=== PATIENT | male | born 1940 | race Caucasian/White ===

== ENCOUNTER 2016-11-21 07:04 | Outpatient (CLI) | payer MEDICARE, OTHER | END 2016-11-21 07:05 | disposition home or self-care (01) | DX: I10 Essential (primary) hypertension (principal); E78.6 Lipoprotein deficiency; N40.0 Benign prostatic hyperplasia without lower urinary tract symptoms; Z79.899 Other long term (current) drug therapy ==

== ENCOUNTER 2017-05-04 07:40 | Outpatient (CLI) | payer MEDICARE, OTHER ==
[2017-05-04 08:09] LABS: HCT - HEMATOCRIT 41.3 % (42.0-52.0); HGB - HEMOGLOBIN 14.3 g/dL (14.0-18.0); MEAN CORPUSCULAR HEMOGLOBIN 31.8 pg (27.0-31.0); MEAN CORPUSCULAR HGB CONC 34.5 g/dL (32.0-36.0); MEAN CORPUSCULAR VOLUME 92.1 fL (80.0-94.0); MEAN PLATELET VOLUME 8.5 fL (7.4-11.4); RED BLOOD COUNT 4.49 10^6/uL (4.70-6.10); RED CELL DISTRIBUTION WIDTH 14.3 % (12.0-15.0)
[2017-05-04 08:45] LABS: ALBUMIN/GLOBULIN RATIO 1.4 (1.0-2.2); BILIRUBIN,TOTAL 2.1 mg/dL (0.2-1.0); BUN - BLOOD UREA NITROGEN 19 mg/dL (6-20); CALCIUM 8.8 mg/dL (8.5-10.3); CARBON DIOXIDE - CO2 25 mmol/L (21-32); CHLORIDE 96 mmol/L (101-111); CHOL/HDL RATIO 2.9 (<5.0); CHOLESTEROL 149 mg/dL; GFR - MDRD 72 (>89); GLUCOSE 99 mg/dL (70-100); HDL CHOLESTEROL 51 mg/dL; POTASSIUM 3.9 mmol/L (3.5-5.0); SODIUM 128 mmol/L (135-145); TOTAL PROTEIN 6.5 g/dL (6.7-8.2); TRIGLYCERIDES 37 mg/dL
[2017-05-04 10:19] LABS: LDL CHOLESTEROL,DIRECT 80 mg/dL
== END 2017-05-04 07:41 | disposition home or self-care (01) ==
LOC: LAB 07:40
PROVIDERS: ATTEND Internal Medicine
DX: Z79.899 Other long term (current) drug therapy (principal); I48.91 Unspecified atrial fibrillation; I10 Essential (primary) hypertension; E89.0 Postprocedural hypothyroidism; D69.6 Thrombocytopenia, unspecified
CPT/HCPCS: 36415; 80053; 80061; 84443

== ENCOUNTER 2017-05-14 07:20 | Outpatient (CLI) | payer MEDICARE, OTHER ==
[2017-05-14 07:47] LABS: HCT - HEMATOCRIT 43.3 % (42.0-52.0); HGB - HEMOGLOBIN 14.9 g/dL (14.0-18.0); MEAN CORPUSCULAR HEMOGLOBIN 31.5 pg (27.0-31.0); MEAN CORPUSCULAR HGB CONC 34.3 g/dL (32.0-36.0); MEAN CORPUSCULAR VOLUME 91.8 fL (80.0-94.0); MEAN PLATELET VOLUME 8.9 fL (7.4-11.4); RED BLOOD COUNT 4.72 10^6/uL (4.70-6.10); WHITE BLOOD COUNT 3.4 x10^3/uL (4.8-10.8)
[2017-05-14 07:56] LABS: CALCIUM 9.1 mg/dL (8.5-10.3); CREATININE 0.9 mg/dL (0.6-1.2); MAGNESIUM 1.9 mg/dL (1.7-2.8); POTASSIUM 3.9 mmol/L (3.5-5.0)
[2017-05-14 08:39] LABS: THYROID STIMULATING HORMONE 1.78 uIU/mL (0.34-5.60)
== END 2017-05-14 07:21 | disposition home or self-care (01) ==
LOC: LAB 07:20
PROVIDERS: ATTEND Internal Medicine
DX: E89.0 Postprocedural hypothyroidism (principal); I10 Essential (primary) hypertension; E87.1 Hypo-osmolality and hyponatremia
CPT/HCPCS: 36415; 80048; 83735; 84439; 84443

== ENCOUNTER 2017-09-04 07:02 | Outpatient (CLI) | payer MEDICARE, OTHER ==
--- NOTE | 2017-09-04 12:25 | XRAY Report ---
TWO VIEW CHEST: 09/04/2017 CLINICAL INDICATION: Atrial fibrillation. COMPARISON: 03/27/2015. FINDINGS: Frontal and lateral views of the chest demonstrate a cardiac silhouette at the upper limits of normal. The lungs remain hyperinflated. No focal consolidation, effusion, or pneumothorax is present. IMPRESSION: HYPERINFLATION, BUT NO EVIDENCE OF ACUTE CARDIOPULMONARY DISEASE. TD: 09/04/2017 12:25
--- NOTE | 2017-09-04 12:27 | XRAY Report ---
THREE VIEW LUMBAR SPINE: 09/04/2017 CLINICAL INDICATION: Low back pain. FINDINGS: AP, lateral and coned down views of the lumbar spine demonstrate remote anterior wedge compression deformity of L1, with approximately 30% anterior height loss. Moderate to severe degenerative disk and facet disease is present. There is no subluxation. The bowel gas pattern appears unremarkable. IMPRESSION: MODERATE TO SEVERE DEGENERATIVE DISK AND FACET DISEASE, WITH A REMOTE L1 COMPRESSION DEFORMITY. NO EVIDENCE OF ACUTE FRACTURE. TD: 09/04/2017 12:26
== END 2017-09-04 07:03 | disposition home or self-care (01) ==
LOC: DI 07:02
PROVIDERS: ATTEND Internal Medicine
DX: M51.36 Other intervertebral disc degeneration, lumbar region (principal); M47.896 Other spondylosis, lumbar region; I48.91 Unspecified atrial fibrillation; I10 Essential (primary) hypertension; N40.0 Benign prostatic hyperplasia without lower urinary tract symptoms; J44.9 Chronic obstructive pulmonary disease, unspecified; E89.0 Postprocedural hypothyroidism
CPT/HCPCS: 36415; 71046; 72100; 80053; 80061; 81003; 83721; 84443; 85027; G0103; 84153

== ENCOUNTER 2017-09-04 07:06 | Outpatient (CLI) | payer MEDICARE, OTHER ==
[2017-09-04 07:43] LABS: HGB - HEMOGLOBIN 15.2 g/dL (14.0-18.0); MEAN CORPUSCULAR HEMOGLOBIN 31.7 pg (27.0-31.0); MEAN CORPUSCULAR HGB CONC 34.9 g/dL (32.0-36.0); MEAN CORPUSCULAR VOLUME 90.9 fL (80.0-94.0); MEAN PLATELET VOLUME 8.7 fL (7.4-11.4); RED BLOOD COUNT 4.8 10^6/uL (4.70-6.10); RED CELL DISTRIBUTION WIDTH 13.5 % (12.0-15.0); WHITE BLOOD COUNT 3.1 x10^3/uL (4.8-10.8)
[2017-09-04 07:55] LABS: BILIRUBIN,URINE NEGATIVE (NEGATIVE); CLARITY,URINE CLEAR (CLEAR); GLUCOSE, URINE (UA) NEGATIVE (NEGATIVE); KETONES,URINE (UA) NEGATIVE (NEGATIVE); LEUKOCYTE ESTERASE, URINE NEGATIVE (NEGATIVE); NITRITE,URINE NEGATIVE (NEGATIVE); OCCULT BLOOD,URINE TRACE-LYSE (NEGATIVE); PROTEIN,URINE TRACE mg/dL (NEGATIVE); UROBILINOGEN,URINE 0.2 (NORMAL) E.U./dL (NORMAL)
[2017-09-04 08:04] LABS: ALBUMIN 4.1 g/dL (3.2-5.5); ALBUMIN/GLOBULIN RATIO 1.4 (1.0-2.2); ALKALINE PHOSPHATASE 63 IU/L (42-121); ALT ALANINE AMINOTRANSFERASE 17 IU/L (10-60); AST ASPARTATE AMINOTRANSFERASE 21 IU/L (10-42); BUN - BLOOD UREA NITROGEN 16 mg/dL (6-20); CALCIUM 9.1 mg/dL (8.5-10.3); CARBON DIOXIDE - CO2 26 mmol/L (21-32); CHLORIDE 99 mmol/L (101-111); CHOL/HDL RATIO 3.2 (<5.0); CHOLESTEROL 155 mg/dL; CREATININE 1.1 mg/dL (0.6-1.2); GFR - MDRD 65 (>89); GLUCOSE 92 mg/dL (70-100); HDL CHOLESTEROL 49 mg/dL; SODIUM 134 mmol/L (135-145)
[2017-09-04 08:22] LABS: LDL CHOLESTEROL,DIRECT 96 mg/dL
== END 2017-09-04 07:07 | disposition home or self-care (01) ==
LOC: LAB 07:06
PROVIDERS: ATTEND Internal Medicine
DX: I10 Essential (primary) hypertension (principal); N40.0 Benign prostatic hyperplasia without lower urinary tract symptoms; E89.0 Postprocedural hypothyroidism; Z79.899 Other long term (current) drug therapy; J44.9 Chronic obstructive pulmonary disease, unspecified
CPT/HCPCS: 36415; 80053; 80061; 81003; 83721; 84443; 85027; G0103; 84153

== ENCOUNTER 2017-12-10 07:15 | Outpatient (CLI) | payer MEDICARE, OTHER ==
[2017-12-10 07:50] LABS: ALBUMIN 4.1 g/dL (3.2-5.5); ALBUMIN/GLOBULIN RATIO 1.5 (1.0-2.2); BILIRUBIN,TOTAL 2.7 mg/dL (0.2-1.0); CALCIUM 8.8 mg/dL (8.5-10.3); CREATININE 1.1 mg/dL (0.6-1.2); TOTAL PROTEIN 6.9 g/dL (6.7-8.2)
[2017-12-10 08:03] LABS: BILIRUBIN,URINE NEGATIVE (NEGATIVE); GLUCOSE, URINE (UA) NEGATIVE (NEGATIVE); KETONES,URINE (UA) NEGATIVE (NEGATIVE); LEUKOCYTE ESTERASE, URINE NEGATIVE (NEGATIVE); NITRITE,URINE NEGATIVE (NEGATIVE); OCCULT BLOOD,URINE NEGATIVE (NEGATIVE); PROTEIN,URINE TRACE mg/dL (NEGATIVE); UROBILINOGEN,URINE 0.2 (NORMAL) E.U./dL (NORMAL)
[2017-12-10 08:15] LABS: CLARITY,URINE CLEAR (CLEAR)
[2017-12-10 08:16] LABS: HGB - HEMOGLOBIN 14.7 g/dL (14.0-18.0); MEAN CORPUSCULAR HEMOGLOBIN 31.7 pg (27.0-31.0); MEAN CORPUSCULAR HGB CONC 34.5 g/dL (32.0-36.0); MEAN CORPUSCULAR VOLUME 91.8 fL (80.0-94.0); MEAN PLATELET VOLUME 9.4 fL (7.4-11.4); RED BLOOD COUNT 4.65 10^6/uL (4.70-6.10); RED CELL DISTRIBUTION WIDTH 14.1 % (12.0-15.0)
[2017-12-10 08:39] LABS: T4 (THYROXINE) 10.04 ug/dL (6.09-12.23)
[2017-12-10 08:41] LABS: THYROID STIMULATING HORMONE 1.28 uIU/mL (0.34-5.60)
== END 2017-12-10 07:16 | disposition home or self-care (01) ==
LOC: LAB 07:15
PROVIDERS: ATTEND Internal Medicine
DX: I10 Essential (primary) hypertension (principal); E89.0 Postprocedural hypothyroidism; Z79.899 Other long term (current) drug therapy
CPT/HCPCS: 36415; 80053; 81003; 82607; 83735; 84436; 84443; 85027

== ENCOUNTER 2017-12-18 09:49 | Outpatient (CLI) | payer MEDICARE, OTHER | END 2017-12-18 09:50 | disposition home or self-care (01) | LOC: LAB 09:49 | PROVIDERS: ATTEND Internal Medicine | DX: E87.1 Hypo-osmolality and hyponatremia (principal); E89.0 Postprocedural hypothyroidism | CPT/HCPCS: 36415; 80048 ==

== ENCOUNTER 2018-01-05 07:21 | Outpatient (CLI) | payer MEDICARE, OTHER | END 2018-01-05 07:22 | disposition home or self-care (01) | LOC: LAB 07:21 | PROVIDERS: ATTEND Internal Medicine | DX: E87.1 Hypo-osmolality and hyponatremia (principal); E89.0 Postprocedural hypothyroidism | CPT/HCPCS: 36415; 80048 ==

== ENCOUNTER 2018-01-18 07:45 | Outpatient (CLI) | payer MEDICARE, OTHER ==
[2018-01-18 08:03] LABS: CALCIUM 8.8 mg/dL (8.5-10.3)
== END 2018-01-18 07:46 | disposition home or self-care (01) ==
LOC: LAB 07:45
PROVIDERS: ATTEND Internal Medicine
DX: E87.1 Hypo-osmolality and hyponatremia (principal); E89.0 Postprocedural hypothyroidism; I10 Essential (primary) hypertension
CPT/HCPCS: 36415; 80048

== ENCOUNTER 2018-02-15 09:36 | Outpatient (CLI) | payer MEDICARE, OTHER ==
[2018-02-15 10:04] LABS: CALCIUM 8.9 mg/dL (8.5-10.3); CREATININE 1.1 mg/dL (0.6-1.2)
== END 2018-02-15 09:37 | disposition home or self-care (01) ==
LOC: LAB 09:36
PROVIDERS: ATTEND Internal Medicine
DX: E87.1 Hypo-osmolality and hyponatremia (principal); I10 Essential (primary) hypertension; Z79.899 Other long term (current) drug therapy
CPT/HCPCS: 36415; 80048

== ENCOUNTER 2018-03-15 08:57 | Outpatient (CLI) | payer MEDICARE, OTHER ==
[2018-03-15 09:34] LABS: CALCIUM 9.2 mg/dL (8.5-10.3); CREATININE 1.1 mg/dL (0.6-1.2)
== END 2018-03-15 08:58 | disposition home or self-care (01) ==
LOC: LAB 08:57
PROVIDERS: ATTEND Internal Medicine
DX: E87.1 Hypo-osmolality and hyponatremia (principal); I10 Essential (primary) hypertension; Z79.899 Other long term (current) drug therapy
CPT/HCPCS: 36415; 80048

== ENCOUNTER 2018-04-13 08:59 | Outpatient (CLI) | payer MEDICARE, OTHER ==
[2018-04-13 09:26] LABS: CALCIUM 9.2 mg/dL (8.5-10.3); CREATININE 0.9 mg/dL (0.6-1.2)
== END 2018-04-13 09:00 | disposition home or self-care (01) ==
LOC: LAB 08:59
PROVIDERS: ATTEND Internal Medicine
DX: E87.1 Hypo-osmolality and hyponatremia (principal); I10 Essential (primary) hypertension; Z79.899 Other long term (current) drug therapy
CPT/HCPCS: 36415; 80048

== ENCOUNTER 2018-06-28 10:39 | Outpatient (CLI) | payer MEDICARE, OTHER ==
[2018-06-28 11:43] LABS: CALCIUM 8.7 mg/dL (8.5-10.3)
== END 2018-06-28 10:40 | disposition home or self-care (01) ==
LOC: LAB 10:39
PROVIDERS: ATTEND Internal Medicine
DX: E87.1 Hypo-osmolality and hyponatremia (principal); I10 Essential (primary) hypertension; Z79.899 Other long term (current) drug therapy
CPT/HCPCS: 36415; 80048

== ENCOUNTER 2018-07-02 09:54 | Outpatient (CLI) | payer MEDICARE, OTHER ==
[2018-07-02 10:18] LABS: CALCIUM 8.9 mg/dL (8.5-10.3)
== END 2018-07-02 09:55 | disposition home or self-care (01) ==
LOC: LAB 09:54
PROVIDERS: ATTEND Internal Medicine
DX: E87.1 Hypo-osmolality and hyponatremia (principal); I10 Essential (primary) hypertension; Z79.899 Other long term (current) drug therapy
CPT/HCPCS: 36415; 80048

== ENCOUNTER 2018-09-20 11:07 | Outpatient (CLI) | payer OTHER | END 2018-09-20 11:08 | disposition home or self-care (01) | LOC: SC 11:07 | PROVIDERS: ATTEND Internal Medicine Pulmonary Disease | DX: G47.33 Obstructive sleep apnea (adult) (pediatric) (principal) | CPT/HCPCS: 99203; 99212 ==

== ENCOUNTER 2018-09-28 20:19 | Outpatient (CLI) | payer MEDICARE | END 2018-09-28 20:20 | disposition home or self-care (01) | LOC: SC 20:19 | PROVIDERS: ATTEND Internal Medicine Pulmonary Disease | DX: G47.33 Obstructive sleep apnea (adult) (pediatric) (principal); I48.91 Unspecified atrial fibrillation | CPT/HCPCS: 95810 ==

== ENCOUNTER 2018-10-06 14:42 | Outpatient (CLI) | payer MEDICARE | END 2018-10-06 14:43 | disposition home or self-care (01) | LOC: SC 14:42 | PROVIDERS: ATTEND Nurse Practitioner Family | DX: G47.33 Obstructive sleep apnea (adult) (pediatric) (principal); I48.91 Unspecified atrial fibrillation | CPT/HCPCS: 99215; G0463; 99212 ==

== ENCOUNTER 2018-10-15 07:37 | Outpatient (CLI) | payer MEDICARE ==
[2018-10-15 08:10] LABS: BASOPHILS # (AUTO) 0.1 10^3/uL (0.0-0.1); BASOPHILS % (AUTO) 2.5 %; EOSINOPHILS # (AUTO) 0.1 10^3/uL (0.0-0.7); EOSINOPHILS % (AUTO) 2.6 %; HGB - HEMOGLOBIN 15.2 g/dL (14.0-18.0); LYMPHOCYTES # (AUTO) 0.8 10^3/uL (1.5-3.5); LYMPHOCYTES % (AUTO) 26.3 %; MEAN CORPUSCULAR HEMOGLOBIN 32.2 pg (27.0-31.0); MEAN CORPUSCULAR HGB CONC 34.2 g/dL (32.0-36.0); MEAN CORPUSCULAR VOLUME 94.2 fL (80.0-94.0); MEAN PLATELET VOLUME 9.1 fL (7.4-11.4); MONOCYTES # (AUTO) 0.4 10^3/uL (0.0-1.0); MONOCYTES % (AUTO) 11.9 %; NEUTROPHILS # (AUTO) 1.8 10^3/uL (1.5-6.6); NEUTROPHILS % (AUTO) 56.7 %; PLT - PLATELET COUNT 93 10^3/uL (130-450); RED BLOOD COUNT 4.73 10^6/uL (4.70-6.10); RED CELL DISTRIBUTION WIDTH 13.9 % (12.0-15.0); WHITE BLOOD COUNT 3.1 x10^3/uL (4.8-10.8)
[2018-10-15 08:27] LABS: ALBUMIN 4.1 g/dL (3.2-5.5); ALBUMIN/GLOBULIN RATIO 1.4 (1.0-2.2); ALKALINE PHOSPHATASE 56 IU/L (42-121); ALT ALANINE AMINOTRANSFERASE 17 IU/L (10-60); AST ASPARTATE AMINOTRANSFERASE 17 IU/L (10-42); BUN - BLOOD UREA NITROGEN 20 mg/dL (6-20); CALCIUM 9.1 mg/dL (8.5-10.3); CARBON DIOXIDE - CO2 27 mmol/L (21-32); CHLORIDE 98 mmol/L (101-111); CHOL/HDL RATIO 2.3 (<5.0); CHOLESTEROL 127 mg/dL; GFR - MDRD 72 (>89); GLUCOSE 94 mg/dL (70-100); HDL CHOLESTEROL 55 mg/dL; SODIUM 132 mmol/L (135-145)
[2018-10-15 08:42] LABS: THYROID STIMULATING HORMONE 1.45 uIU/mL (0.34-5.60)
[2018-10-15 08:44] LABS: FREE T4 (FREE THYROXINE) 1.38 ng/dL (0.58-1.64)
[2018-10-15 08:52] LABS: LDL CHOLESTEROL,DIRECT 64 mg/dL; LDLD/HDL RATIO 1.2 (<3.6)
[2018-10-15 08:53] LABS: PLATELET ESTIMATE, MANUAL DECREASED (<130,000) (NORMAL); PLATELET MORPHOLOGY 1+ LARGE PLATELETS (NORMAL)
[2018-10-15 08:55] LABS: RBC MORPHOLOGY (MULTIPLE) SCHISTOCYTES (NORMAL)
== END 2018-10-15 07:38 | disposition home or self-care (01) ==
LOC: LAB 07:37
PROVIDERS: ATTEND Internal Medicine
DX: I48.91 Unspecified atrial fibrillation (principal); E78.1 Pure hyperglyceridemia; E89.0 Postprocedural hypothyroidism; I10 Essential (primary) hypertension; Z79.899 Other long term (current) drug therapy
CPT/HCPCS: 36415; 80053; 80061; 83721; 84439; 84443; 85025

== ENCOUNTER 2018-11-10 08:42 | Outpatient (CLI) | payer MEDICARE | END 2018-11-10 08:43 | disposition home or self-care (01) | LOC: SC 08:42 | PROVIDERS: ATTEND Nurse Practitioner Family | DX: G47.33 Obstructive sleep apnea (adult) (pediatric) (principal) | CPT/HCPCS: 99214; G0463; 99212 ==

== ENCOUNTER 2018-11-25 11:54 | Outpatient (CLI) | payer MEDICARE ==
[2018-11-25 12:39] LABS: CREATININE 1.1 mg/dL (0.6-1.2)
== END 2018-11-25 11:55 | disposition home or self-care (01) ==
LOC: LAB 11:54
PROVIDERS: ATTEND Internal Medicine
DX: E87.1 Hypo-osmolality and hyponatremia (principal); I10 Essential (primary) hypertension; Z79.899 Other long term (current) drug therapy
CPT/HCPCS: 36415; 80048

== ENCOUNTER 2019-01-28 09:23 | Outpatient (CLI) | payer MEDICARE ==
[2019-01-28 10:50] LABS: CALCIUM 8.6 mg/dL (8.5-10.3); CREATININE 1.1 mg/dL (0.6-1.2)
== END 2019-01-28 09:24 | disposition home or self-care (01) ==
LOC: LAB 09:23
PROVIDERS: ATTEND Internal Medicine
DX: E87.1 Hypo-osmolality and hyponatremia (principal); I10 Essential (primary) hypertension; Z79.899 Other long term (current) drug therapy
CPT/HCPCS: 36415; 80048

== ENCOUNTER 2019-04-14 10:09 | Outpatient (CLI) | payer MEDICARE ==
[2019-04-14 10:49] LABS: BILIRUBIN,URINE NEGATIVE (NEGATIVE); GLUCOSE, URINE (UA) NEGATIVE (NEGATIVE); KETONES,URINE (UA) NEGATIVE (NEGATIVE); LEUKOCYTE ESTERASE, URINE NEGATIVE (NEGATIVE); NITRITE,URINE NEGATIVE (NEGATIVE); OCCULT BLOOD,URINE NEGATIVE (NEGATIVE); PH,URINE 5.5 PH (5.0-7.5); PROTEIN,URINE TRACE mg/dL (NEGATIVE); UROBILINOGEN,URINE 1 (NORMAL) E.U./dL (NORMAL)
[2019-04-14 10:51] LABS: CLARITY,URINE CLEAR (CLEAR)
[2019-04-14 11:07] LABS: ALBUMIN/GLOBULIN RATIO 1.5 (1.0-2.2); BILIRUBIN,DIRECT 0.4 mg/dL (0.1-0.5); BILIRUBIN,TOTAL 2.5 mg/dL (0.2-1.0); TOTAL PROTEIN 6.6 g/dL (6.7-8.2)
== END 2019-04-14 10:10 | disposition home or self-care (01) ==
LOC: LAB 10:09
PROVIDERS: ATTEND Internal Medicine
DX: I48.91 Unspecified atrial fibrillation (principal); I10 Essential (primary) hypertension; E89.0 Postprocedural hypothyroidism
CPT/HCPCS: 36415; 80053; 81003; 82248; 84443; 85651; G0103; 84153

== ENCOUNTER 2019-05-05 12:03 | Outpatient (CLI) | payer MEDICARE | END 2019-05-05 12:04 | disposition critical access hospital (66) | LOC: EMS 12:03 | PROVIDERS: ATTEND Surgery | DX: R41.0 Disorientation, unspecified (principal); R50.9 Fever, unspecified | CPT/HCPCS: A0425; A0429 ==

== ENCOUNTER 2019-05-05 12:22 | Inpatient (IN) | payer MEDICARE ==
[2019-05-05] MEDS ORDERED: SODIUM CHLORIDE 0.9% 1,000 ML IV ONE (12:29)
--- NOTE | 2019-05-05 12:30 | ED Physician Documentation ---
PD HPI ALTERED MENTAL STATUS - Stated complaint Stated Complaint: CONFUSION - Chief complaint Chief Complaint: Neuro - History obtained from History obtained from: EMS (78-year-old gentleman presents by ambulance for confusion. His physician called us prior to arrival, mentioned that he was confused and a urine dip done in the office was positive for UTI. The patient is unable to give a history due to his confusion. The is not here on initial evaluation.) Review of Systems Unable to obtain: Confused PD PAST MEDICAL HISTORY - Past Medical History Cardiovascular: Hypertension, Atrial fibrillation Respiratory: Sleep apnea, CPAP use - Past Surgical History Past Surgical History: Yes Ortho: Spine surgery - Present Medications Home Medications: Ambulatory Orders Medication Instructions Recorded Confirmed Apixaban [Eliquis] 5 mg PO BID 01/21/16 01/21/16 Calcium Acetate [Phoslo] 600 mg PO DAILY 01/21/16 01/21/16 Cholecalciferol [Vitamin D3] 1,000 unit PO DAILY 01/21/16 01/21/16 Cyanocobalamin (Vitamin B-12) 1,000 mcg PO DAILY 01/21/16 01/21/16 [Vitamin B12] Levothyroxine [Synthroid] 125 mcg PO QPM 01/21/16 01/21/16 Lisinopril 10 mg PO BID 01/21/16 01/21/16 Multivitamin [Multivitamins] 1 cap PO DAILY 01/21/16 01/21/16 [place]-3 Fatty Acids [Fish Oil] 1,000 mg PO DAILY 01/21/16 01/21/16 Tamsulosin [Flomax] 0.4 mg PO DAILY 01/21/16 01/21/16 amLODIPine [Norvasc] 5 mg PO DAILY PRN 01/21/16 01/21/16 hydrALAZINE [Apresoline] 25 mg PO BID 01/21/16 01/21/16 - Allergies Allergies/Adverse Reactions: Allergies Allergy/AdvReac Type Severity Reaction Status Date / Time No Known Drug Allergies Allergy Verified 09/26/15 19:22 - Social History Does the pt smoke?: No Smoking Status: Never smoker Does the pt drink ETOH?: No Does the pt have substance abuse?: No - Immunizations Immunizations are current?: Yes PD ED PE NORMAL - Vitals Vital signs reviewed: Yes - General General: Other (He is alert, he follows simple commands. He is oriented to person only. When prompted he cannot even say that he is in the hospital. He has no recollection for recent events.) - HEENT HEENT: PERRL, EOMI - Neck Neck: Supple, no meningeal sign, No bony TTP - Cardiac Cardiac: RRR, No murmur - Respiratory Respiratory: No respiratory distress, Clear bilaterally - Abdomen Abdomen: Soft, Non tender - Derm Derm: Normal color, Warm and dry - Extremities Extremities: No deformity, No tenderness to palpate, Normal ROM s pain - Neuro Neuro: Other (He has good strength in his arms, communication center coordinator strength and no pronator drift. He really is not following commands well enough to lift either leg off the bed. His exam seems symmetric. He is oriented to person only. He is pleasant.) Results - Vitals Vitals: Vital Signs - 24 hr 05/05/19 05/05/19 12:23 14:02 Temperature 98.9 C H Heart Rate 71 65 Respiratory 14 16 Rate Blood Pressure 154/103 H 163/97 H O2 Saturation 99 98 Oxygen O2 Source Room air - Labs Labs: Laboratory Tests 05/05/19 05/05/19 05/05/19 12:45 13:00 13:00 WBC 7.3 RBC 4.92 Hgb 15.7 Hct 47.4 MCV 96.3 H MCH 31.9 H MCHC 33.1 RDW 14.1 Plt Count 108 L MPV 10.9 Neut # (Auto) 6.6 Lymph # (Auto) 0.2 L [place] # (Auto) 0.5 Eos # (Auto) 0.0 Baso # (Auto) 0.0 Absolute Nucleated RBC 0.00 Nucleated RBC % 0.0 Sodium 133 L Potassium 4.5 Chloride 96 L Carbon Dioxide 25 Anion Gap 12.0 BUN 17 Creatinine 1.1 Estimated GFR (MDRD) 64 L Glucose 93 Lactic Acid 1.0 Calcium 9.1 Total Bilirubin 4.2 H AST 21 ALT 21 Alkaline Phosphatase 64 Total Protein 7.4 Albumin 4.5 Globulin 2.9 Albumin/Globulin Ratio 1.6 Lipase 20 L Urine Color Urine Clarity Urine pH Ur Specific [place] Urine Protein Urine Glucose (UA) Urine Ketones Urine Occult Blood Urine Nitrite Urine Bilirubin Urine Urobilinogen Ur Leukocyte Esterase Urine RBC Urine WBC Ur Squamous Epith Cells Urine Bacteria Ur Microscopic Review Urine Culture Comments Ethyl Alcohol < 5.0 05/05/19 13:50 WBC RBC Hgb Hct MCV MCH MCHC RDW Plt Count MPV Neut # (Auto) Lymph # (Auto) [place] # (Auto) Eos # (Auto) Baso # (Auto) Absolute Nucleated RBC Nucleated RBC % Sodium Potassium Chloride Carbon Dioxide Anion Gap BUN Creatinine Estimated GFR (MDRD) Glucose Lactic Acid Calcium Total Bilirubin AST ALT Alkaline Phosphatase Total Protein Albumin Globulin Albumin/Globulin Ratio Lipase Urine Color DARK YELLOW Urine Clarity CLEAR Urine pH 7.0 Ur Specific [place] 1.020 Urine Protein 30 H Urine Glucose (UA) NEGATIVE Urine Ketones 15 H Urine Occult Blood TRACE-INTA Urine Nitrite NEGATIVE Urine Bilirubin NEGATIVE Urine Urobilinogen 0.2 (NORMAL) Ur Leukocyte Esterase NEGATIVE Urine RBC 0-5 Urine WBC 0-3 Ur Squamous Epith Cells NONE SEEN Urine Bacteria Rare Ur Microscopic Review INDICATED Urine Culture Comments NOT INDICATED Ethyl Alcohol PD MEDICAL DECISION MAKING - ED course ED course: I spoke with the shortly after my initial evaluation. He does have dementia. On a normal day he is ambulatory, feeds himself, goes to the bathroom. He would not know the date usually, he does still drive occasionally. He really became confused last night and did not recognize his . He does have a history of prostatic hypertrophy but no history of UTIs. However for us his urine is normal. And the remainder of his work-up is basically negative, he has a nonlateralizing neurologic exam but stroke is still a possibility despite the negative head CT. Spoke with Dr. Marks for admission at 2:33 PM. Note that on the final vital signs just before being wheeled to the floor his temperature went up to 100.3 again increasing the risk of an infectious etiology as the cause of his encephalopathy. Departure - Departure Disposition: ED Place in Observation Clinical Impression: Altered mental status Qualifiers: Altered mental status type: delirium Qualified Code(s): R41.0 - Disorientation, unspecified Condition: Serious
[2019-05-05] MEDS ORDERED: cefTRIAXone 1 GM in SODIUM CHLORIDE 0.9% MINIBAG 100 ML IV STA (12:38)
[2019-05-05 13:14] LABS: BASOPHILS % (AUTO) 0.4 %; EOSINOPHILS % (AUTO) 0.1 %; HGB - HEMOGLOBIN 15.7 g/dL (14.0-18.0); LYMPHOCYTES # (AUTO) 0.2 10^3/uL (1.5-3.5); LYMPHOCYTES % (AUTO) 2.3 %; MEAN CORPUSCULAR HEMOGLOBIN 31.9 pg (27.0-31.0); MEAN CORPUSCULAR HGB CONC 33.1 g/dL (32.0-36.0); MEAN CORPUSCULAR VOLUME 96.3 fL (80.0-94.0); MEAN PLATELET VOLUME 10.9 fL (7.4-11.4); MONOCYTES # (AUTO) 0.5 10^3/uL (0.0-1.0); MONOCYTES % (AUTO) 6.5 %; NEUTROPHILS # (AUTO) 6.6 10^3/uL (1.5-6.6); NEUTROPHILS % (AUTO) 90.4 %; PLT - PLATELET COUNT 108 10^3/uL (130-450); RED BLOOD COUNT 4.92 10^6/uL (4.70-6.10); RED CELL DISTRIBUTION WIDTH 14.1 % (12.0-15.0); WHITE BLOOD COUNT 7.3 x10^3/uL (4.8-10.8)
[2019-05-05 13:27] LABS: ALBUMIN 4.5 g/dL (3.2-5.5); ALBUMIN/GLOBULIN RATIO 1.6 (1.0-2.2); ALKALINE PHOSPHATASE 64 IU/L (42-121); ALT ALANINE AMINOTRANSFERASE 21 IU/L (10-60); AST ASPARTATE AMINOTRANSFERASE 21 IU/L (10-42); BILIRUBIN,TOTAL 4.2 mg/dL (0.2-1.0); BUN - BLOOD UREA NITROGEN 17 mg/dL (6-20); CREATININE 1.1 mg/dL (0.6-1.2); GFR - MDRD 64 (>89); LIPASE 20 U/L (22-51); TOTAL PROTEIN 7.4 g/dL (6.7-8.2)
[2019-05-05 13:38] LABS: CALCIUM 9.1 mg/dL (8.5-10.3); CARBON DIOXIDE - CO2 25 mmol/L (21-32); CHLORIDE 96 mmol/L (101-111); GLUCOSE 93 mg/dL (70-100); SODIUM 133 mmol/L (135-145)
--- NOTE | 2019-05-05 13:51 | CT Report ---
Reason: altered Procedure Date: 05/05/2019 Accession Number: [id number] / [id number] Procedure: CT - HEAD WO CPT Code: FULL RESULT: EXAM: CT HEAD EXAM DATE: 05/05/2019 01:36 PM. CLINICAL HISTORY: Altered. Confusion. UTI. COMPARISON: None. TECHNIQUE: Multiaxial CT images were obtained from the foramen magnum to the vertex. Reformats: Sagittal and coronal. IV contrast: None. In accordance with CT protocol optimization, one or more of the following dose reduction techniques were utilized for this exam: automated exposure control, adjustment of mA and/or KV based on patient size, or use of iterative reconstructive technique. FINDINGS: Parenchyma: No intraparenchymal hemorrhage. No evidence of mass, midline shift, or CT findings of acute infarction. Bertrand-white differentiation is distinct. Diffuse chronic microangiopathic white matter changes are evident. Extraaxial Spaces: Normal for age. No subdural or epidural collections identified. Ventricles: The ventricles and cortical sulci are enlarged, consistent with age-related tissue loss. Sinuses and orbits: Imaged paranasal sinuses, orbits, and mastoids show no significant abnormality. Bones: No evidence of fracture or calvarial defect. Other: None. IMPRESSION: Generalized age-related cortical atrophic changes without evidence of acute intracranial abnormality. RADIA
[2019-05-05 14:06] LABS: BILIRUBIN,URINE NEGATIVE (NEGATIVE); GLUCOSE, URINE (UA) NEGATIVE (NEGATIVE); KETONES,URINE (UA) 15 mg/dL (NEGATIVE); LEUKOCYTE ESTERASE, URINE NEGATIVE (NEGATIVE); NITRITE,URINE NEGATIVE (NEGATIVE); OCCULT BLOOD,URINE TRACE-INTA (NEGATIVE); PROTEIN,URINE 30 mg/dL (NEGATIVE); UROBILINOGEN,URINE 0.2 (NORMAL) E.U./dL (NORMAL)
[2019-05-05 14:07] LABS: CLARITY,URINE CLEAR (CLEAR)
[2019-05-05 14:17] LABS: RBC,URINE 0-5 /HPF (0-5); SQUAMOUS EPITHELIAL CELL,UR NONE SEEN (<= Few)
[2019-05-05 14:18] LABS: BACTERIA,URINE Rare /HPF (None Seen)
[2019-05-05] MEDS: SODIUM CHLORIDE FLUSH 0.9% 10 ML SYRINGE IVP SCH (18:09)
--- NOTE | 2019-05-05 18:42 | XRAY Report ---
Reason: Fever, cough, eval for pneumonia Procedure Date: 05/05/2019 Accession Number: [id number] / [id number] Procedure: XR - Chest 1 View X-Ray CPT Code: 96836 FULL RESULT: EXAM: CHEST RADIOGRAPHY EXAM DATE: 05/05/2019 06:20 PM. CLINICAL HISTORY: Fever, cough, eval for pneumonia. COMPARISON: CHEST 2 VIEW 09/04/2017 7:05 AM. TECHNIQUE: 1 view. FINDINGS: Mild cardiomegaly. Mild left base retrocardiac airspace disease, could represent mild pneumonia versus atelectasis. No pleural effusion or pneumothorax. IMPRESSION: Mild cardiomegaly. Mild left base retrocardiac airspace disease, could represent mild pneumonia versus atelectasis. No pleural effusion or pneumothorax. RADIA
[2019-05-05] MEDS: DEXTROSE 5%-0.9% NACL 1,000 ML IV SCH (18:47)
--- NOTE | 2019-05-05 19:14 | HISTORY & PHYSICAL EXAMINATION ---
DATE OF SERVICE: 05/05/2019 Physician: Meka Marks MD HISTORY OF PRESENT ILLNESS: This is an 78-year-old white male with a history of dementia on Rivastigmine topically, BPH, hypothyroidism and hypertension, as well as chronic atrial fibrillation on Eliquis. Patient is usually functional, lives with his , and she noticed that he became more confused, did not recognize her starting yesterday. The symptoms continued today and they went to the PCP, where he was found to have an abnormal urine dipstick for bacteriuria and was sent to the emergency room for probable urinary tract infection. In the emergency room, his neurologic exam was consistent with disorientation, but he was cooperative and underwent a CT scan that showed no acute stroke and no bleed. The WBC was normal and urinalysis had small WBCs and small bacteria, there was no fever in the ER. The plan was to place him in Observation for further workup of the altered mental status with a brain MRI. However, he spiked a fever moments ago and complains of a wet cough, a chest x-ray is pending, and he will be placed in inpatient status for the fever, abnormal urinalysis at the PCP office and UTI, and probable bronchitis or pneumonia. PAST MEDICAL HISTORY 1. Dementia. 2. Benign prostatic hypertrophy. 3. Hypothyroidism. 4. Hypertension. 5. Chronic atrial fibrillation, on Eliquis. ALLERGIES: NONE. MEDICATIONS 1. Rivastigmine patch topically daily. 2. Amlodipine 5 mg daily. 3. Calcium acetate 667 mg daily. 4. Hydralazine 25 b.i.d. 5. Lisinopril 10 b.i.d. 6. Multivitamin daily. 7. [place]-3 daily. 8. Eliquis 5 mg b.i.d. 9. Vitamin D3 daily. 10. Vitamin B12 daily. 11. Synthroid 125 mcg daily. 12. Flomax 0.4 mg daily. FAMILY HISTORY: Noncontributory. SOCIAL HISTORY: No smoking. No alcohol use. No drug use. REVIEW OF SYSTEMS: A comprehensive review of systems was performed by chart review. The pertinent positives are listed above, the others are unknown are negative. PHYSICAL EXAMINATION GENERAL: Elderly white male. He is supine in bed. He is in no distress, oriented x0. VITAL SIGNS: Temperature 38.2, blood pressure 155/88, heart rate 65-80 in atrial fibrillation, respiratory rate 18, room air saturation 94%. HEENT: Shows dry oral mucosa. NECK: Without JVD or carotid bruits. CHEST: Diminished breath sounds. No wheezes or rales. HEART: Irregular. ABDOMEN: Soft, decreased bowel sounds. EXTREMITIES: No clubbing, cyanosis or edema. NEUROLOGIC: Nonfocal, but disoriented and confused. LABORATORY DATA: Sodium 133, potassium 4.5, BUN 17, creatinine 1.1. Lactic acid 1.0. AST and ALT are normal, as well as bilirubin, alkaline phosphatase and lipase. White blood count 7.3 with a normal differential, hemoglobin 15.7 with MCV high at 96, platelet count low at 108. Urinalysis here showed rare white cells and rare bacteria. Toxicology showed no serum alcohol present. Head CT showed no gross abnormality such as stroke or hemorrhage, but there is generalized age-related cortical atrophy. Chest x-ray still pending. No EKG was done. IMPRESSION/DIAGNOSES 1. Altered mental status, which is likely from an infection, either urinary tract infection or pulmonary, but also rule out central nervous system etiology such as a stroke. 2. Fever, related to UTI or pneumonia. 3. Cough 4. Abnormal urinalysis. 5. Chronic atrial fibrillation, on Eliquis. 5. History of dementia. 6. Benign prostatic hypertrophy. 7. Hypothyroidism. 8. History of hypertension. PLAN: Admit patient to full Inpatient status on telemetry. Begin gentle IV fluids, blood, urine, and sputum cultures, and IV antibiotics. He received Rocephin in the ER for the presumed UTI, and depending on sputum culture and chest x-ray results this may need to be broadened for pulmonary coverage. Because of his altered mental status, recommend a clinical swallowing evaluation, hold the p.o. medication until he is able to indicate adequate swallowing and then all the p.o. medications can be restarted. MRI of the head will be ordered. If that is abnormal, then proceed to looking for source of embolus with an Echo and carotid Doppler. DEEP VENOUS THROMBOSIS PROPHYLAXIS: Pharmacotherapy with his Eliquis. CODE STATUS: FULL CODE. ATTESTATION: Patient is expected to be discharged or transferred to another facility within 96 hours: Yes. cc: Pawan Mckeon MD TD: 05/05/2019 18:43 LAURA
[2019-05-05] MEDS: ACETAMINOPHEN 1,000 MG/100 ML 100 ML IV PRN (19:48)
[2019-05-05] MEDS: AZITHROMYCIN INJ 500 MG in SODIUM CHLORIDE 0.9% 250 ML IV SCH (19:52)
[2019-05-05] MEDS: APIXABAN 5 MG TABLET PO SCH (20:35)
[2019-05-05] MEDS ORDERED: LEVOTHYROXINE 125 MCG TABLET PO SCH (21:00)
[2019-05-06] MEDS: SODIUM CHLORIDE FLUSH 0.9% 10 ML SYRINGE IVP SCH ×3 (01:18→19:57)
[2019-05-06] MEDS: DEXTROSE 5%-0.9% NACL 1,000 ML IV SCH ×3 (04:17→22:00)
[2019-05-06 05:56] LABS: BASOPHILS % (AUTO) 0.3 %; EOSINOPHILS % (AUTO) 1.8 %; HGB - HEMOGLOBIN 13.6 g/dL (14.0-18.0); MEAN CORPUSCULAR HEMOGLOBIN 32.2 pg (27.0-31.0); MEAN CORPUSCULAR HGB CONC 33.6 g/dL (32.0-36.0); MEAN PLATELET VOLUME 11.3 fL (7.4-11.4); MONOCYTES % (AUTO) 7.9 %; NEUTROPHILS % (AUTO) 85.6 %; PLT - PLATELET COUNT 94 10^3/uL (130-450); RED BLOOD COUNT 4.22 10^6/uL (4.70-6.10); RED CELL DISTRIBUTION WIDTH 14.4 % (12.0-15.0); WHITE BLOOD COUNT 7.7 x10^3/uL (4.8-10.8)
[2019-05-06 06:06] LABS: CALCIUM 8.1 mg/dL (8.5-10.3); CREATININE 0.9 mg/dL (0.6-1.2)
[2019-05-06 06:11] LABS: ABNORMAL LYMPHS % (MANUAL) 0 %
[2019-05-06 06:20] LABS: BAND NEUTROPHILS % (MANUAL) 47 %; DIFFERENTIAL COMMENT MANUAL DIFFERENTIAL; LYMPHOCYTES # (MANUAL) 0.6 10^3/uL (1.5-3.5); LYMPHOCYTES % (MANUAL) 8 %; MONOCYTES # (MANUAL) 0.2 10^3/uL (0.0-1.0); PLATELET ESTIMATE, MANUAL DECREASED (<130,000) (NORMAL); RBC MORPHOLOGY (MULTIPLE) NORMAL APPEARANCE (NORMAL)
[2019-05-06] MEDS: APIXABAN 5 MG TABLET PO SCH (08:57)
[2019-05-06] MEDS: TAMSULOSIN 0.4 MG CAPSULE PO SCH (08:57)
[2019-05-06] MEDS: CYANOCOBALAMIN 500 MCG TABLET PO SCH (08:58)
[2019-05-06] MEDS ORDERED: cefTRIAXone 1 GM VIAL IVP SCH (09:00)
[2019-05-06] MEDS ORDERED: CHOLECALCIFEROL 5,000 UNIT CAPSULE PO SCH (09:00)
[2019-05-06] MEDS ORDERED: BENZOCAINE/MENTHOL LOZENGE MM PRN (10:42)
[2019-05-06] MEDS ORDERED: NON FORMULARY MED (Dabigatran Etexilate Mesylate [Pradaxa] 150 MG) PO SCH (11:15)
[2019-05-06] MEDS: RIVASTIGMINE TD SCH (12:49)
--- NOTE | 2019-05-06 12:51 | PROVIDER PROGRESS NOTE ---
Assessment/Plan - Problem List (1) Altered mental status Qualifiers: Altered mental status type: disorientation Qualified Code(s): R41.0 - Disorientation, unspecified Assessment/Plan: His mentation is greatly improved today. He is currently feeding himself a soft lunch and has an appetite. He is smiling and participated with short answers in the conversation with myself, the and him, appropriately. Since there are no localizing neuro deficits, I will cancel the brain MRI. The fever and infection with some dehydration were the likely cause. Will start PT and order OT as well. I updated the on all the above. (2) UTI (urinary tract infection) Assessment/Plan: He is on empiric iv Rocephin, after urine and blood cultures were obtained. Continue Rocephin, adjust per results of cultures. (3) CAP (community acquired pneumonia) Assessment/Plan: He had a wet cough when he spiked a temp last evening and a CXR did show a L sided infiltrate. No wheezing or dyspnea. Sputum cx was ordered but not obtained yet. He is on empiric Zithromax for 5 days for a community acquired pneumonia. (4) Dementia Assessment/Plan: He is much more oriented and cooperative today, after iv hydration and antibiotics and fever control and once the arrived, he was less suspicious. His dementia medication is a patch, which we don't carry here; using his own med from home was ordered and I asked the to bring it in. (5) Afib Assessment/Plan: His home anticoagulant was Plradaxa, not Eliquis, this was corrected and restarted, along with his meds for rate control. HR is stable, no EKG was done at admission and no telemetry ordered due to his marked confusion at admission. (6) Hypertension Qualifiers: Hypertension type: essential hypertension Qualified Code(s): I10 - Essential (primary) hypertension Assessment/Plan: His home BP meds were restarted (7) BPH (benign prostatic hyperplasia) Assessment/Plan: His home Flomax dose was restarted (8) Hypothyroidism Assessment/Plan: His home Synthroid dose was restarted (9) SRI on CPAP Assessment/Plan: The asked if his home CPAP could be used while he is here; I told her we didn't even have sleep apnea as a Dx. Home CPAP device ordered. - Current Meds Current Meds: Current Medications Generic Name Dose Route Start Last Admin Trade Name Freq PRN Reason Stop Dose Admin Cyanocobalamin 1,000 mcg 05/06/19 09:00 05/06/19 08:58 Vitamin B-12 PO 1,000 mcg DAILY BARRETT Administration Dextrose/Sodium Chloride 1,000 mls @ 125 mls/hr 05/05/19 19:00 05/06/19 12:18 D5ns IV 125 mls/hr .Q8H BARRETT Administration Acetaminophen 100 mls @ 400 mls/hr 05/05/19 18:05 05/05/19 20:24 Ofirmev IV Infused Q6HR PRN Infusion Pain or Fever > 38C (100.4F) Azithromycin 500 mg/ Sodium 250 mls @ 250 mls/hr 05/05/19 19:00 05/05/19 21:34 Chloride IV Infused Q24H BARRETT Infusion Non-Formulary Medication 1 each 05/06/19 11:15 05/06/19 12:49 Rivastigmine [Rivastigmine 4.6mg] TD Not Given DAILY BARRETT Sodium Chloride 10 ml 05/05/19 17:00 05/06/19 08:58 Normal Saline Flush 0.9% IVP Not Given 0100,0900,1700 BARRETT Tamsulosin HCl 0.4 mg 05/06/19 09:00 05/06/19 08:57 Flomax PO 0.4 mg DAILY BARRETT Administration - Lab Result Fish Bone Diagrams: 05/06/19 05:40 05/06/19 05:40 - Additional Planning My Orders: My Active Orders 05/05/19 15:24 Telemetry (24 Hour) [RC] Q4HR Sodium Chloride Flush 0.9% [Normal Saline Flush 0.9%] 10 ml IVP PRN PRN 05/05/19 15:25 Activity Orders [RC] Q2HR IO [RC] IOSHIFT IV Insert [RC] .ONCE Initiate Bowel Care Protocol [RC] .protocol Initiate Line Care Protocol [RC] QSHIFT Initiate Personal Care Protoco [RC] .protocol Oxygen Therapy [RC] Routine Vital Signs [RC] Q4HR Code Status [OTHERS] Routine Condition of Patient [OTHERS] Routine DVT Prophylaxis [OTHERS] Routine 05/05/19 15:26 SCDs [RC] QSHIFT 05/05/19 17:00 Sodium Chloride Flush 0.9% [Normal Saline Flush 0.9%] 10 ml IVP 0100,0900,1700 05/05/19 18:01 Home CPAP/BiPAP [RC] .ONCE 05/05/19 18:05 Acetaminophen 1,000 mg/100 ml [Ofirmev] 100 ml IV Q6HR 05/05/19 18:25 CULTURE, BLOOD #1 [RM] Stat 05/05/19 19:00 Azithromycin Inj [Zithromax Inj] 500 mg Sodium Chloride 0.9% [Normal Saline 0.9%] 250 ml IV Q24H Dextrose 5%-0.9% NaCl [D5ns] 1,000 ml IV 125 mls/hr 05/06/19 Evaluate and Treat OT [OT] Routine Evaluate and Treat PT [PT] Routine 05/06/19 09:00 Cyanocobalamin [Vitamin B-12] 1,000 mcg PO DAILY Tamsulosin [Flomax] 0.4 mg PO DAILY 05/06/19 10:42 Benzocaine/Menthol [Cepacol] 1 lozenge MM Q2HR PRN 05/06/19 11:15 Rivastigmine [Rivastigmine 4.6MG] 1 each TD DAILY 05/06/19 11:58 Home CPAP/BiPAP [RC] .ONCE 05/06/19 21:00 Atorvastatin [Lipitor] 10 mg PO QPM Dabigatran [Pradaxa] 150 mg PO BID Lisinopril [Zestril] 10 mg PO BID hydrALAZINE [Apresoline] 25 mg PO BID 05/06/19 Lunch DIET [Soft Mechanical Diet] [DIET] 05/07/19 05:00 BMP - BASIC METABOLIC PANEL [CHEM] DAILYLAB CBC - COMP BLD CT W/AUTO DIFF [HEME] DAILYLAB 05/07/19 07:00 Levothyroxine [Synthroid] 100 mcg PO QDAC 05/07/19 08:00 Multivitamin [Theragran] 1 tab PO DAILYWM 05/07/19 09:00 Cholecalciferol [Vitamin D3] 1,000 unit PO DAILY [place]-3 Acid Ethyl Esters [Lovaza] 1 gm PO DAILY 05/08/19 05:00 CBC - COMP BLD CT W/AUTO DIFF [HEME] DAILYLAB Objective Vital Signs: Vital Signs - 24 hr 05/05/19 05/05/19 05/05/19 14:02 16:34 16:55 Temperature 37.9 C H 38.2 C H Heart Rate 65 67 Heart Rate [ 79 Brachial] Respiratory 16 14 18 Rate Blood Pressure 163/97 H 164/95 H Blood Pressure [Left Brachial artery] Blood Pressure 155/88 H [Right Brachial artery] O2 Saturation 98 94 94 05/05/19 05/05/19 05/05/19 17:23 19:11 19:30 Temperature 38.2 C H 36.8 C 37.1 C Heart Rate 78 Heart Rate [ Brachial] Respiratory 18 Rate Blood Pressure Blood Pressure [Left Brachial artery] Blood Pressure [Right Brachial artery] O2 Saturation 93 05/05/19 05/05/19 05/06/19 19:41 21:49 00:29 Temperature 38.9 C H 37.3 C 37.2 C Heart Rate Heart Rate [ 87 71 Brachial] Respiratory 18 18 Rate Blood Pressure Blood Pressure [Left Brachial artery] Blood Pressure 161/87 H 115/77 [Right Brachial artery] O2 Saturation 92 95 05/06/19 05/06/19 05:00 09:00 Temperature 37.8 C H 35.8 C L Heart Rate Heart Rate [ 72 76 Brachial] Respiratory 18 16 Rate Blood Pressure Blood Pressure 142/76 H [Left Brachial artery] Blood Pressure 124/81 H [Right Brachial artery] O2 Saturation 94 91 L Oxygen O2 Source Room air I&O (Last 24 Hrs): Intake and Output Totals x24h 05/04/19 05/05/19 05/06/19 23:59 23:59 23:59 Intake Total 1450 2000 Output Total 250 300 Balance 1200 1700 General: Alert HEENT: Mucous membr. moist/pink Neck: Supple, No JVD Neuro: Alert Cardiovascular: Regular rate, No murmurs Respiratory: No respiratory distress, Breath sounds nml Abdomen: Soft Extremities: No edema - Results Results: Laboratory Results WBC 7.7 x10^3/uL (4.8-10.8) 05/06/19 05:40 RBC 4.22 10^6/uL (4.70-6.10) L 05/06/19 05:40 Hgb 13.6 g/dL (14.0-18.0) L 05/06/19 05:40 Hct 40.5 % (42.0-52.0) L 05/06/19 05:40 MCV 96.0 fL (80.0-94.0) H 05/06/19 05:40 MCH 32.2 pg (27.0-31.0) H 05/06/19 05:40 MCHC 33.6 g/dL (32.0-36.0) 05/06/19 05:40 RDW 14.4 % (12.0-15.0) 05/06/19 05:40 Plt Count 94 10^3/uL (130-450) L 05/06/19 05:40 MPV 11.3 fL (7.4-11.4) 05/06/19 05:40 Neut # (Auto) Not Reportable 05/06/19 05:40 Lymph # (Auto) Not Reportable 05/06/19 05:40 [place] # (Auto) Not Reportable 05/06/19 05:40 Eos # (Auto) Not Reportable 05/06/19 05:40 Baso # (Auto) Not Reportable 05/06/19 05:40 Absolute Nucleated RBC Not Reportable 05/06/19 05:40 Total Counted 100 05/06/19 05:40 Band Neuts % (Manual) 47 % (0-10) H 05/06/19 05:40 Abnorm Lymph % (Manual) 0 % 05/06/19 05:40 Nucleated RBC % Not Reportable 05/06/19 05:40 Neutrophils # (Manual) 6.9 10^3/uL (1.5-6.6) H 05/06/19 05:40 Lymphocytes # (Manual) 0.6 10^3/uL (1.5-3.5) L 05/06/19 05:40 Monocytes # (Manual) 0.2 10^3/uL (0.0-1.0) 05/06/19 05:40 Eosinophils # (Manual) 0.0 10^3/uL (0-0.7) 05/06/19 05:40 Basophils # (Manual) 0.0 10^3/uL (0-0.1) 05/06/19 05:40 Differential Comment MANUAL DIFFERENTIAL 05/06/19 05:40 Platelet Estimate DECREASED (<130,000) (NORMAL) 05/06/19 05:40 RBC Morph Micro Appear NORMAL APPEARANCE (NORMAL) 05/06/19 05:40 Sodium 134 mmol/L (135-145) L 05/06/19 05:40 Potassium 4.0 mmol/L (3.5-5.0) 05/06/19 05:40 Chloride 103 mmol/L (101-111) 05/06/19 05:40 Carbon Dioxide 24 mmol/L (21-32) 05/06/19 05:40 Anion Gap 7.0 (6-13) 05/06/19 05:40 BUN 21 mg/dL (6-20) H 05/06/19 05:40 Creatinine 0.9 mg/dL (0.6-1.2) 05/06/19 05:40 Estimated GFR (MDRD) 81 (>89) L 05/06/19 05:40 Glucose 141 mg/dL (70-100) H 05/06/19 05:40 Lactic Acid 1.0 mmol/L (0.5-2.2) 05/05/19 13:00 Calcium 8.1 mg/dL (8.5-10.3) L 05/06/19 05:40 Total Bilirubin 4.2 mg/dL (0.2-1.0) H 05/05/19 12:45 AST 21 IU/L (10-42) 05/05/19 12:45 ALT 21 IU/L (10-60) 05/05/19 12:45 Alkaline Phosphatase 64 IU/L (42-121) 05/05/19 12:45 Total Protein 7.4 g/dL (6.7-8.2) 05/05/19 12:45 Albumin 4.5 g/dL (3.2-5.5) 05/05/19 12:45 Globulin 2.9 g/dL (2.1-4.2) 05/05/19 12:45 Albumin/Globulin Ratio 1.6 (1.0-2.2) 05/05/19 12:45 Lipase 20 U/L (22-51) L 05/05/19 12:45 Urine Color DARK YELLOW 05/05/19 13:50 Urine Clarity CLEAR (CLEAR) 05/05/19 13:50 Urine pH 7.0 PH (5.0-7.5) 05/05/19 13:50 Ur Specific [place] 1.020 (1.002-1.030) 05/05/19 13:50 Urine Protein 30 mg/dL (NEGATIVE) H 05/05/19 13:50 Urine Glucose (UA) NEGATIVE mg/dL (NEGATIVE) 05/05/19 13:50 Urine Ketones 15 mg/dL (NEGATIVE) H 05/05/19 13:50 Urine Occult Blood TRACE-INTA (NEGATIVE) 05/05/19 13:50 Urine Nitrite NEGATIVE (NEGATIVE) 05/05/19 13:50 Urine Bilirubin NEGATIVE (NEGATIVE) 05/05/19 13:50 Urine Urobilinogen 0.2 (NORMAL) E.U./dL (NORMAL) 05/05/19 13:50 Ur Leukocyte Esterase NEGATIVE (NEGATIVE) 05/05/19 13:50 Urine RBC 0-5 /HPF (0-5) 05/05/19 13:50 Urine WBC 0-3 /HPF (0-3) 05/05/19 13:50 Ur Squamous Epith Cells NONE SEEN (<= Few) 05/05/19 13:50 Urine Bacteria Rare /HPF (None Seen) 05/05/19 13:50 Ur Microscopic Review INDICATED 05/05/19 13:50 Urine Culture Comments NOT INDICATED 05/05/19 13:50 Ethyl Alcohol < 5.0 mg/dL 05/05/19 12:45
[2019-05-06] MEDS: cefTRIAXone 1 GM in SODIUM CHLORIDE 0.9% MINIBAG 100 ML IV SCH (13:20)
[2019-05-06] MEDS: AZITHROMYCIN INJ 500 MG in SODIUM CHLORIDE 0.9% 250 ML IV SCH (20:28)
[2019-05-06] MEDS: hydrALAZINE 25 MG TABLET PO SCH (21:57)
[2019-05-06] MEDS: ATORVASTATIN 10 MG TABLET PO SCH (21:57)
[2019-05-06] MEDS: DABIGATRAN 75 MG CAPSULE PO SCH (21:57)
[2019-05-06] MEDS: LISINOPRIL 20 MG TABLET PO SCH (21:58)
[2019-05-07] MEDS: SODIUM CHLORIDE FLUSH 0.9% 10 ML SYRINGE IVP SCH ×3 (02:18→18:39)
[2019-05-07 05:52] LABS: BASOPHILS % (AUTO) 0.3 %; EOSINOPHILS % (AUTO) 2.6 %; HGB - HEMOGLOBIN 12.6 g/dL (14.0-18.0); LYMPHOCYTES % (AUTO) 5.4 %; MEAN CORPUSCULAR HEMOGLOBIN 32.2 pg (27.0-31.0); MEAN CORPUSCULAR HGB CONC 33.2 g/dL (32.0-36.0); MEAN CORPUSCULAR VOLUME 96.9 fL (80.0-94.0); MEAN PLATELET VOLUME 11.6 fL (7.4-11.4); MONOCYTES % (AUTO) 7.6 %; NEUTROPHILS % (AUTO) 83.5 %; PLT - PLATELET COUNT 79 10^3/uL (130-450); RED BLOOD COUNT 3.91 10^6/uL (4.70-6.10); RED CELL DISTRIBUTION WIDTH 14.6 % (12.0-15.0); WHITE BLOOD COUNT 6.8 x10^3/uL (4.8-10.8)
[2019-05-07 05:56] LABS: CALCIUM 8.3 mg/dL (8.5-10.3); CREATININE 0.9 mg/dL (0.6-1.2)
[2019-05-07] MEDS: LISINOPRIL 20 MG TABLET PO SCH ×2 (05:58→18:39)
[2019-05-07] MEDS: LEVOTHYROXINE 100 MCG TABLET PO SCH (05:59)
[2019-05-07 06:00] LABS: ABNORMAL LYMPHS % (MANUAL) 0 %
[2019-05-07] MEDS: hydrALAZINE 25 MG TABLET PO SCH ×2 (06:10→18:39)
[2019-05-07 06:15] LABS: BAND NEUTROPHILS % (MANUAL) 7 %; BASOPHILS # (MANUAL) 0.1 10^3/uL (0-0.1); BASOPHILS % (MANUAL) 1 %; LYMPHOCYTES # (MANUAL) 0.7 10^3/uL (1.5-3.5); LYMPHOCYTES % (MANUAL) 11 %; MONOCYTES # (MANUAL) 0.3 10^3/uL (0.0-1.0); RBC MORPHOLOGY (MULTIPLE) 2+ BURR CELLS (NORMAL)
[2019-05-07 06:16] LABS: DIFFERENTIAL COMMENT MANUAL DIFFERENTIAL; PLATELET ESTIMATE, MANUAL DECREASED (<130,000) (NORMAL); PLATELET MORPHOLOGY NORMAL APPEARANCE (NORMAL)
[2019-05-07] MEDS: CHOLECALCIFEROL 1,000 UNIT TABLET PO SCH (09:11)
[2019-05-07] MEDS: CYANOCOBALAMIN 500 MCG TABLET PO SCH (09:11)
[2019-05-07] MEDS: MULTIVITAMIN TABLET PO SCH (09:11)
[2019-05-07] MEDS: DABIGATRAN 75 MG CAPSULE PO SCH ×2 (09:11→18:40)
[2019-05-07] MEDS: TAMSULOSIN 0.4 MG CAPSULE PO SCH (09:11)
[2019-05-07] MEDS: OMEGA-3 ACID ETHYL ESTERS 1 GM CAPSULE PO SCH ×2 (09:12→09:41)
[2019-05-07] MEDS: RIVASTIGMINE TD SCH ×2 (09:12→09:57)
[2019-05-07] MEDS: DEXTROSE 5%-0.9% NACL 1,000 ML IV SCH (09:57)
[2019-05-07] MEDS ORDERED: DEXTROSE 5%-0.9% NACL 1,000 ML IV SCH (11:22)
[2019-05-07] MEDS: cefTRIAXone 1 GM in SODIUM CHLORIDE 0.9% MINIBAG 100 ML IV SCH (13:23)
[2019-05-07] MEDS: AZITHROMYCIN 250 MG TABLET PO SCH (13:23)
--- NOTE | 2019-05-07 17:21 | PROVIDER PROGRESS NOTE ---
Assessment/Plan - Problem List (1) Altered mental status Qualifiers: Altered mental status type: disorientation Qualified Code(s): R41.0 - Disorientation, unspecified Assessment/Plan: Improved mental status since infections are treated. There is no focal neurologic finding to suggest TIA or stroke therefore the brain MRI was canceled yesterday (2) UTI (urinary tract infection) Assessment/Plan: He is on IV ceftriaxone empirically. The urine culture done from our ER showed no growth. He will need empiric treatment with p.o. antibiotics for 14 to 21 days in a male (3) CAP (community acquired pneumonia) Assessment/Plan: He had significant tachypnea and desaturated to 74% on room air when he walked with PT. He is completely comfortable at rest breathing room air. The tells me that he only has to walk approximately 50 to 75 feet at a time in the house and does not go up stairs. Will do evaluation for needing oxygen with exertion with RT before discharge IV Zithromax was changed to p.o. Zithromax starting today. (4) Dementia Assessment/Plan: He is on his topical patch treatment for dementia He depends heavily on his for reorientation, wa are witnissing that here. Social work consult requested to assess for more caregiving help for the (5) Afib Assessment/Plan: Heart rate under control. He is on Pradaxa, his home anticoagulant (6) Hypertension Qualifiers: Hypertension type: essential hypertension Qualified Code(s): I10 - Essential (primary) hypertension Assessment/Plan: BP controlled on his home regimen (7) BPH (benign prostatic hyperplasia) Assessment/Plan: He is on Flomax and has no complaints of urinary retention (8) Hypothyroidism Assessment/Plan: He is on his home thyroid replacement dose (9) SRI on CPAP Assessment/Plan: His home CPAP device was ordered to be used while here - Current Meds Current Meds: Current Medications Generic Name Dose Route Start Last Admin Trade Name Freq PRN Reason Stop Dose Admin Atorvastatin Calcium 10 mg 05/06/19 21:00 05/06/19 21:57 Lipitor PO Not Given QPM BARRETT Azithromycin 500 mg 05/07/19 13:00 05/07/19 13:23 Zithromax PO 500 mg DAILY BARRETT Administration Cholecalciferol 1,000 unit 05/07/19 09:00 05/07/19 09:11 Vitamin D3 PO 1,000 unit DAILY BARRETT Administration Cyanocobalamin 1,000 mcg 05/06/19 09:00 05/07/19 09:11 Vitamin B-12 PO 1,000 mcg DAILY BARRETT Administration Dabigatran 150 mg 05/06/19 21:00 05/07/19 09:11 Pradaxa PO 150 mg BID BARRETT Administration Hydralazine HCl 25 mg 05/06/19 21:00 05/07/19 06:10 Apresoline PO 25 mg BID BARRETT Administration Acetaminophen 100 mls @ 400 mls/hr 05/05/19 18:05 05/05/19 20:24 Ofirmev IV Infused Q6HR PRN Infusion Pain or Fever > 38C (100.4F) Ceftriaxone Sodium 1 gm/ 100 mls @ 200 mls/hr 05/06/19 13:00 05/07/19 13:54 Sodium Chloride IV Infused Q24H BARRETT Infusion Dextrose/Sodium Chloride 1,000 mls @ 30 mls/hr 05/07/19 11:22 05/07/19 11:39 D5ns IV 30 mls/hr .[id number] BARRETT Administration Levothyroxine Sodium 100 mcg 05/07/19 07:00 05/07/19 05:59 Synthroid PO 100 mcg QDAC BARRETT Administration Lisinopril 10 mg 05/06/19 21:00 05/07/19 05:58 Zestril PO 10 mg BID BARRETT Administration Multivitamins 1 tab 05/07/19 08:00 05/07/19 09:11 Theragran PO 1 tab DAILYWM BARRETT Administration Non-Formulary Medication 1 each 05/06/19 11:15 05/07/19 09:57 Rivastigmine [Rivastigmine 4.6mg] TD 1 each DAILY BARRETT Administration [id number] Ethyl Esters 1 gm 05/07/19 09:00 05/07/19 09:41 Lovaza PO Not Given DAILY BARRETT Sodium Chloride 10 ml 05/05/19 17:00 05/07/19 09:12 Normal Saline Flush 0.9% IVP Not Given 0100,0900,1700 BARRETT Tamsulosin HCl 0.4 mg 05/06/19 09:00 05/07/19 09:11 Flomax PO 0.4 mg DAILY BARRETT Administration - Lab Result Fish Bone Diagrams: 05/08/19 05:03 05/07/19 05:31 - Additional Planning My Orders: My Active Orders 05/06/19 21:00 Atorvastatin [Lipitor] 10 mg PO QPM Dabigatran [Pradaxa] 150 mg PO BID Lisinopril [Zestril] 10 mg PO BID hydrALAZINE [Apresoline] 25 mg PO BID 05/07/19 07:00 Levothyroxine [Synthroid] 100 mcg PO QDAC 05/07/19 08:00 Multivitamin [Theragran] 1 tab PO DAILYWM 05/07/19 09:00 Cholecalciferol [Vitamin D3] 1,000 unit PO DAILY [place]-3 Acid Ethyl Esters [Lovaza] 1 gm PO DAILY 05/07/19 11:22 Dextrose 5%-0.9% NaCl [D5ns] 1,000 ml IV 30 mls/hr 05/07/19 13:00 Azithromycin [Zithromax] 500 mg PO DAILY 05/08/19 05:00 CBC - COMP BLD CT W/AUTO DIFF [HEME] DAILYLAB Subjective - Subjective Patient Reports: Feeling Better, Resting Comfortably Nursing Reports: Other (Refuses to take meds until his is here. Seems confused until the is here. Oxygen saturation dropped to 74% on room air when he walked with PT) Objective Vital Signs: Vital Signs - 24 hr 05/06/19 05/06/19 05/06/19 20:58 21:23 23:47 Temperature 37.6 C H 37.3 C 37.1 C Heart Rate [ 85 78 78 Brachial] Respiratory 18 20 18 Rate Blood Pressure 153/94 H 150/91 H [Left Brachial artery] Blood Pressure 162/76 H [Right Brachial artery] O2 Saturation 93 93 05/07/19 05/07/19 05/07/19 05:39 05:44 05:56 Temperature 36.6 C Heart Rate [ 68 72 Brachial] Respiratory 16 Rate Blood Pressure 179/90 H 179/95 H 165/79 H [Left Brachial artery] Blood Pressure [Right Brachial artery] O2 Saturation 92 05/07/19 05/07/19 05/07/19 06:45 08:14 09:56 Temperature 36.9 C Heart Rate [ 77 Brachial] Respiratory 20 Rate Blood Pressure 189/110 H 156/103 H [Left Brachial artery] Blood Pressure 147/86 H [Right Brachial artery] O2 Saturation 92 05/07/19 05/07/19 13:00 15:41 Temperature 36.7 C 36.9 C Heart Rate [ 72 79 Brachial] Respiratory 18 25 H Rate Blood Pressure 165/96 H [Left Brachial artery] Blood Pressure 169/76 H [Right Brachial artery] O2 Saturation 94 94 Oxygen O2 Source Room air I&O (Last 24 Hrs): Intake and Output Totals x24h 05/05/19 05/06/19 05/07/19 23:59 23:59 23:59 Intake Total 1450 4980 1794 Output Total 250 350 0 Balance 1200 4630 1794 General: Alert HEENT: Atraumatic, Mucous membr. moist/pink Neck: Supple Neuro: Disoriented Cardiovascular: No murmurs Respiratory: No respiratory distress, Other (R sided rhonchi) Abdomen: Soft Extremities: No edema - Results Results: Laboratory Results WBC 6.8 x10^3/uL (4.8-10.8) 05/07/19 05:31 RBC 3.91 10^6/uL (4.70-6.10) L 05/07/19 05:31 Hgb 12.6 g/dL (14.0-18.0) L 05/07/19 05:31 Hct 37.9 % (42.0-52.0) L 05/07/19 05:31 MCV 96.9 fL (80.0-94.0) H 05/07/19 05:31 MCH 32.2 pg (27.0-31.0) H 05/07/19 05:31 MCHC 33.2 g/dL (32.0-36.0) 05/07/19 05:31 RDW 14.6 % (12.0-15.0) 05/07/19 05:31 Plt Count 79 10^3/uL (130-450) L 05/07/19 05:31 MPV 11.6 fL (7.4-11.4) H 05/07/19 05:31 Neut # (Auto) Not Reportable 05/07/19 05:31 Lymph # (Auto) Not Reportable 05/07/19 05:31 [place] # (Auto) Not Reportable 05/07/19 05:31 Eos # (Auto) Not Reportable 05/07/19 05:31 Baso # (Auto) Not Reportable 05/07/19 05:31 Absolute Nucleated RBC Not Reportable 05/07/19 05:31 Total Counted 100 05/07/19 05:31 Band Neuts % (Manual) 7 % (0-10) 05/07/19 05:31 Abnorm Lymph % (Manual) 0 % 05/07/19 05:31 Nucleated RBC % Not Reportable 05/07/19 05:31 Neutrophils # (Manual) 5.6 10^3/uL (1.5-6.6) 05/07/19 05:31 Lymphocytes # (Manual) 0.7 10^3/uL (1.5-3.5) L 05/07/19 05:31 Monocytes # (Manual) 0.3 10^3/uL (0.0-1.0) 05/07/19 05:31 Eosinophils # (Manual) 0.0 10^3/uL (0-0.7) 05/07/19 05:31 Basophils # (Manual) 0.1 10^3/uL (0-0.1) 05/07/19 05:31 Differential Comment MANUAL DIFFERENTIAL 05/07/19 05:31 WBC Morphology NORMAL APPEARANCE (NORMAL) 05/07/19 05:31 Platelet Estimate DECREASED (<130,000) (NORMAL) 05/07/19 05:31 Platelet Morphology NORMAL APPEARANCE (NORMAL) 05/07/19 05:31 RBC Morph Micro Appear 2+ HOMERO CELLS (NORMAL) 05/07/19 05:31 Sodium 136 mmol/L (135-145) 05/07/19 05:31 Potassium 4.0 mmol/L (3.5-5.0) 05/07/19 05:31 Chloride 108 mmol/L (101-111) 05/07/19 05:31 Carbon Dioxide 23 mmol/L (21-32) 05/07/19 05:31 Anion Gap 5.0 (6-13) L 05/07/19 05:31 BUN 21 mg/dL (6-20) H 05/07/19 05:31 Creatinine 0.9 mg/dL (0.6-1.2) 05/07/19 05:31 Estimated GFR (MDRD) 81 (>89) L 05/07/19 05:31 Glucose 138 mg/dL (70-100) H 05/07/19 05:31 Lactic Acid 1.0 mmol/L (0.5-2.2) 05/05/19 13:00 Calcium 8.3 mg/dL (8.5-10.3) L 05/07/19 05:31 Total Bilirubin 4.2 mg/dL (0.2-1.0) H 05/05/19 12:45 AST 21 IU/L (10-42) 05/05/19 12:45 ALT 21 IU/L (10-60) 05/05/19 12:45 Alkaline Phosphatase 64 IU/L (42-121) 05/05/19 12:45 Total Protein 7.4 g/dL (6.7-8.2) 05/05/19 12:45 Albumin 4.5 g/dL (3.2-5.5) 05/05/19 12:45 Globulin 2.9 g/dL (2.1-4.2) 05/05/19 12:45 Albumin/Globulin Ratio 1.6 (1.0-2.2) 05/05/19 12:45 Lipase 20 U/L (22-51) L 05/05/19 12:45 Urine Color DARK YELLOW 05/05/19 13:50 Urine Clarity CLEAR (CLEAR) 05/05/19 13:50 Urine pH 7.0 PH (5.0-7.5) 05/05/19 13:50 Ur Specific [place] 1.020 (1.002-1.030) 05/05/19 13:50 Urine Protein 30 mg/dL (NEGATIVE) H 05/05/19 13:50 Urine Glucose (UA) NEGATIVE mg/dL (NEGATIVE) 05/05/19 13:50 Urine Ketones 15 mg/dL (NEGATIVE) H 05/05/19 13:50 Urine Occult Blood TRACE-INTA (NEGATIVE) 05/05/19 13:50 Urine Nitrite NEGATIVE (NEGATIVE) 05/05/19 13:50 Urine Bilirubin NEGATIVE (NEGATIVE) 05/05/19 13:50 Urine Urobilinogen 0.2 (NORMAL) E.U./dL (NORMAL) 05/05/19 13:50 Ur Leukocyte Esterase NEGATIVE (NEGATIVE) 05/05/19 13:50 Urine RBC 0-5 /HPF (0-5) 05/05/19 13:50 Urine WBC 0-3 /HPF (0-3) 05/05/19 13:50 Ur Squamous Epith Cells NONE SEEN (<= Few) 05/05/19 13:50 Urine Bacteria Rare /HPF (None Seen) 05/05/19 13:50 Ur Microscopic Review INDICATED 05/05/19 13:50 Urine Culture Comments NOT INDICATED 05/05/19 13:50 Ethyl Alcohol < 5.0 mg/dL 05/05/19 12:45
[2019-05-07] MEDS: ATORVASTATIN 10 MG TABLET PO SCH (18:39)
[2019-05-07] MEDS ORDERED: METOPROLOL 5 MG/5 ML VIAL IVP STA (22:57)
[2019-05-07] MEDS ORDERED: FUROSEMIDE 40 MG/4 ML VIAL IVP STA (23:02)
[2019-05-07] MEDS: SODIUM CHLORIDE FLUSH 0.9% 10 ML SYRINGE IVP PRN (23:12)
[2019-05-07] MEDS ORDERED: METOPROLOL 5 MG/5 ML VIAL IVP ONE (23:16)
[2019-05-07] MEDS ORDERED: FUROSEMIDE 40 MG/4 ML VIAL ONE (23:16)
[2019-05-07] MEDS ORDERED: HALOPERIDOL 5 MG/ML VIAL IM STA (23:24)
--- NOTE | 2019-05-07 23:32 | XRAY Report ---
Reason: rhonchi, hypoxia Procedure Date: 05/07/2019 Accession Number: [id number] / [id number] Procedure: XR - Chest 1 View X-Ray CPT Code: 47404 FULL RESULT: EXAM: CHEST RADIOGRAPHY EXAM DATE: 05/07/2019 11:13 PM. CLINICAL HISTORY: Rhonchi, hypoxia. Shortness of breath and confusion. COMPARISON: CHEST 1 VIEW 05/05/2019 6:04 PM. TECHNIQUE: 1 view. FINDINGS: Lungs/Pleura: Bilateral interstitial and airspace opacities, greatest in the right upper lobe and left base. No definite pleural effusion seen. No pneumothorax. Mediastinum: Within exam limitations, there is mild to moderate cardiomegaly. Aortic atherosclerosis. Other: None. IMPRESSION: 1. Cardiomegaly with bilateral interstitial and airspace opacities, greatest in the right upper lobe and left base. RADIA
[2019-05-08] MEDS ORDERED: HALOPERIDOL 5 MG/ML VIAL IVP ONE (00:13)
--- NOTE | 2019-05-08 00:13 | PROVIDER PROGRESS NOTE ---
Entry Level Electrical Engineer Note - Entry Level Electrical Engineer Note Entry Level Electrical Engineer Note: Around 22:45pm, the patient began experiencing SOB and his oxygen saturation dropped from 99% to 91%. He was also in atrial fibrillation with rvr which was confirmed with an EKG. He sounded significantly rhonchous. His SBP was 180 and a heart rate of 124. Initial troponin was 29.4 and a BNP of 474. He was given lasix 40mg IV once and metoprolol 5mg IV once CXR showed cardiomegaly with bilateral interstitial and airspace opacities greatest in the right upper lobe and left base. Will trend troponin. Patient was also agitated and was given haldol 2.5mg IM. Haldol 2.5mg IV X1 was repeated about 1hr later when he was still agitated.
[2019-05-08] MEDS: SODIUM CHLORIDE FLUSH 0.9% 10 ML SYRINGE IVP SCH ×4 (00:40→23:41)
[2019-05-08 05:49] LABS: BASOPHILS % (AUTO) 0.2 %; HGB - HEMOGLOBIN 12.6 g/dL (14.0-18.0); LYMPHOCYTES # (AUTO) 0.3 10^3/uL (1.5-3.5); LYMPHOCYTES % (AUTO) 3.6 %; MEAN CORPUSCULAR HEMOGLOBIN 31.7 pg (27.0-31.0); MEAN CORPUSCULAR HGB CONC 33.3 g/dL (32.0-36.0); MEAN CORPUSCULAR VOLUME 95.2 fL (80.0-94.0); MEAN PLATELET VOLUME 11.3 fL (7.4-11.4); MONOCYTES # (AUTO) 0.7 10^3/uL (0.0-1.0); MONOCYTES % (AUTO) 7.4 %; NEUTROPHILS # (AUTO) 7.9 10^3/uL (1.5-6.6); PLT - PLATELET COUNT 98 10^3/uL (130-450); RED BLOOD COUNT 3.97 10^6/uL (4.70-6.10); RED CELL DISTRIBUTION WIDTH 14.3 % (12.0-15.0)
[2019-05-08] MEDS: LEVOTHYROXINE 100 MCG TABLET PO SCH (06:50)
[2019-05-08] MEDS: TAMSULOSIN 0.4 MG CAPSULE PO SCH (08:19)
[2019-05-08] MEDS: CYANOCOBALAMIN 500 MCG TABLET PO SCH (08:20)
[2019-05-08] MEDS: LISINOPRIL 20 MG TABLET PO SCH ×2 (08:20→20:40)
[2019-05-08] MEDS: CHOLECALCIFEROL 1,000 UNIT TABLET PO SCH (08:20)
[2019-05-08] MEDS: hydrALAZINE 25 MG TABLET PO SCH ×2 (08:20→20:40)
[2019-05-08] MEDS: DABIGATRAN 75 MG CAPSULE PO SCH ×2 (08:20→20:40)
[2019-05-08] MEDS: AZITHROMYCIN 250 MG TABLET PO SCH (08:20)
[2019-05-08] MEDS: MULTIVITAMIN TABLET PO SCH (08:20)
[2019-05-08] MEDS: OMEGA-3 ACID ETHYL ESTERS 1 GM CAPSULE PO SCH (08:21)
[2019-05-08] MEDS: RIVASTIGMINE TD SCH (08:22)
[2019-05-08] MEDS ORDERED: AZITHROMYCIN 250 MG TABLET PO SCH (09:00)
--- NOTE | 2019-05-08 09:46 | XRAY Report ---
Reason: dyspnea Procedure Date: 05/08/2019 Accession Number: [id number] / [id number] Procedure: XR - Chest 1 View X-Ray CPT Code: 31626 FULL RESULT: EXAM: CHEST RADIOGRAPHY EXAM DATE: 05/08/2019 07:41 AM. CLINICAL HISTORY: Dyspnea. COMPARISON: CHEST 1 VIEW 05/07/2019 10:55 PM. TECHNIQUE: 1 view. FINDINGS: Lungs/Pleura: There is consolidation of the right upper lobe, unchanged since the prior study, suggestive of right upper lobe pneumonia. Crowding of the lung markings in both lungs, suggestive of an inspiration. Mediastinum: Within exam limitations, the cardiomediastinal contour is normal. Other: None. IMPRESSION: Findings consistent with right upper lobe pneumonia not significantly changed since the prior study. RADIA
[2019-05-08] MEDS: cefTRIAXone 1 GM in SODIUM CHLORIDE 0.9% MINIBAG 100 ML IV SCH (13:00)
--- NOTE | 2019-05-08 15:03 | PROVIDER PROGRESS NOTE ---
Assessment/Plan - Problem List (1) CAP (community acquired pneumonia) Qualifiers: Laterality: right Lung location: upper lobe of lung Qualified Code(s): J18.1 - Lobar pneumonia, unspecified organism Assessment/Plan: During physical therapy today, he desaturated during walking, on room air to 79- 88%, and it took him several minutes to recover from feeling dyspneic, per PT. He now has a wet cough with a weak effort. He produced no sputum to send for culture. Blood cultures are neg. to date Continue with empiric antibiotics for his infiltrate, and Mucinex and I will add Acapella device to improve pulmonary toilet. PRN Duoneb will be tried. (2) Elevated troponin Assessment/Plan: When he was more dyspneic he told the Aff[employer]ative [employer] Specialist "maybe he had chest pain" The troponin did increase then plateaued. CXR did not show any CHF. Awaiting Echo to establish LV and RV contractlity (3) Altered mental status Qualifiers: Altered mental status type: disorientation Qualified Code(s): R41.0 - Disorientation, unspecified Assessment/Plan: He was very agitated and confused overnight, needed Haldol im then again iv. He is better with present, and later in the day could participate with rehab. (4) UTI (urinary tract infection) Assessment/Plan: The urine culture sent from our ER has had no growth. Blood cultures are -2. Our urinalysis was unremarkable but we had a "report" that the urine dipstick from the PCP was abnormal for bacteria. Since his symptoms are predominantly pulmonary (dyspnea, infiltrate, cough, desaturations), I will assume the possibly abnormal UA was of negligible significant (5) Dementia Assessment/Plan: He Sundowns when not at his side. His Patch continues. SW ordered for more home help for the caregiver; she needs respite. (6) Afib Assessment/Plan: Rate is controlled and his home Pradaxa dose continues. (7) Hypertension Qualifiers: Hypertension type: essential hypertension Qualified Code(s): I10 - Essential (primary) hypertension Assessment/Plan: BP controlled on present meds. (8) BPH (benign prostatic hyperplasia) Assessment/Plan: His home meds are continued (9) Hypothyroidism Assessment/Plan: His home med is continued (10) SRI on CPAP Assessment/Plan: His home CPAP was brought in to use here. - Current Meds Current Meds: Current Medications Generic Name Dose Route Start Last Admin Trade Name Freq PRN Reason Stop Dose Admin Atorvastatin Calcium 10 mg 05/06/19 21:00 05/07/19 18:39 Lipitor PO 10 mg QPM BARRETT Administration Azithromycin 500 mg 05/07/19 13:00 05/08/19 08:20 Zithromax PO 500 mg DAILY BARRETT Administration Cholecalciferol 1,000 unit 05/07/19 09:00 05/08/19 08:20 Vitamin D3 PO 1,000 unit DAILY BARRETT Administration Cyanocobalamin 1,000 mcg 05/06/19 09:00 05/08/19 08:20 Vitamin B-12 PO 1,000 mcg DAILY BARRETT Administration Dabigatran 150 mg 05/06/19 21:00 05/08/19 08:20 Pradaxa PO 150 mg BID BARRETT Administration Hydralazine HCl 25 mg 05/06/19 21:00 05/08/19 08:20 Apresoline PO 25 mg BID BARRETT Administration Acetaminophen 100 mls @ 400 mls/hr 05/05/19 18:05 05/05/19 20:24 Ofirmev IV Infused Q6HR PRN Infusion Pain or Fever > 38C (100.4F) Ceftriaxone Sodium 1 gm/ 100 mls @ 200 mls/hr 05/06/19 13:00 05/08/19 13:48 Sodium Chloride IV Infused Q24H BARRETT Infusion Dextrose/Sodium Chloride 1,000 mls @ 30 mls/hr 05/07/19 11:22 05/07/19 23:00 D5ns IV 0 mls/hr .[id number] BARRETT Infusion Levothyroxine Sodium 100 mcg 05/07/19 07:00 05/08/19 06:50 Synthroid PO 100 mcg QDAC BARRETT Administration Lisinopril 10 mg 05/06/19 21:00 05/08/19 08:20 Zestril PO 10 mg BID BARRETT Administration Multivitamins 1 tab 05/07/19 08:00 05/08/19 08:20 Theragran PO 1 tab DAILYWM BARRETT Administration Non-Formulary Medication 1 each 05/06/19 11:15 05/08/19 08:22 Rivastigmine [Rivastigmine 4.6mg] TD 1 each DAILY BARRETT Administration Vqljz-3-Zygp Ethyl Esters 1 gm 05/07/19 09:00 05/08/19 08:21 Lovaza PO Not Given DAILY BARRETT Sodium Chloride 10 ml 05/05/19 15:24 05/07/19 23:12 Normal Saline Flush 0.9% IVP 10 ml PRN PRN Administration NEEDED PER PROVIDER ORDERS Sodium Chloride 10 ml 05/05/19 17:00 05/08/19 08:21 Normal Saline Flush 0.9% IVP 10 ml 0100,0900,1700 BARRETT Administration Tamsulosin HCl 0.4 mg 05/06/19 09:00 05/08/19 08:19 Flomax PO 0.4 mg DAILY BARRETT Administration - Lab Result Fish Bone Diagrams: 05/08/19 05:03 05/07/19 05:31 - Additional Planning My Orders: My Active Orders 05/08/19 10:42 Acapella (Flutter Valve Device [RC] TID Objective Vital Signs: Vital Signs - 24 hr 05/07/19 05/07/19 05/07/19 15:41 18:31 21:00 Temperature 36.9 C 37.0 C Heart Rate [ 79 80 Brachial] Respiratory 25 H 22 Rate Blood Pressure Blood Pressure 165/96 H 175/94 H 158/82 H [Left Brachial artery] Blood Pressure [Right Brachial artery] O2 Saturation 94 95 05/07/19 05/07/19 05/08/19 22:59 23:10 00:00 Temperature 37.9 C H Heart Rate [ 113 H Brachial] Respiratory 22 Rate Blood Pressure 182/106 H Blood Pressure [Left Brachial artery] Blood Pressure 182/99 H 146/108 H [Right Brachial artery] O2 Saturation 93 05/08/19 05/08/19 05/08/19 01:00 03:06 09:00 Temperature 37 C 37.1 C 36.9 C Heart Rate [ 79 87 87 Brachial] Respiratory 20 18 20 Rate Blood Pressure Blood Pressure [Left Brachial artery] Blood Pressure 147/99 H 146/105 H 152/93 H [Right Brachial artery] O2 Saturation 98 97 94 05/08/19 13:00 Temperature 37.1 C Heart Rate [ 75 Brachial] Respiratory 22 Rate Blood Pressure Blood Pressure [Left Brachial artery] Blood Pressure 145/71 H [Right Brachial artery] O2 Saturation 95 Oxygen O2 Source Room air I&O (Last 24 Hrs): Intake and Output Totals x24h 05/06/19 05/07/19 05/08/19 23:59 23:59 23:59 Intake Total 4980 2374.5 280 Output Total 350 0 1045 Balance 4630 2374.5 -765 General: Alert HEENT: Mucous membr. moist/pink, Other (cheeks flushed) Neck: Supple, No JVD Neuro: Disoriented Cardiovascular: No murmurs Respiratory: Rhonchi, Other (Scattered rhonchi both lungs) Abdomen: Soft Extremities: No edema - Results Results: Laboratory Results WBC 9.0 x10^3/uL (4.8-10.8) 05/08/19 05:03 RBC 3.97 10^6/uL (4.70-6.10) L 05/08/19 05:03 Hgb 12.6 g/dL (14.0-18.0) L 05/08/19 05:03 Hct 37.8 % (42.0-52.0) L 05/08/19 05:03 MCV 95.2 fL (80.0-94.0) H 05/08/19 05:03 MCH 31.7 pg (27.0-31.0) H 05/08/19 05:03 MCHC 33.3 g/dL (32.0-36.0) 05/08/19 05:03 RDW 14.3 % (12.0-15.0) 05/08/19 05:03 Plt Count 98 10^3/uL (130-450) L 05/08/19 05:03 MPV 11.3 fL (7.4-11.4) 05/08/19 05:03 Neut # (Auto) 7.9 10^3/uL (1.5-6.6) H 05/08/19 05:03 Lymph # (Auto) 0.3 10^3/uL (1.5-3.5) L 05/08/19 05:03 [place] # (Auto) 0.7 10^3/uL (0.0-1.0) 05/08/19 05:03 Eos # (Auto) 0.0 10^3/uL (0.0-0.7) 05/08/19 05:03 Baso # (Auto) 0.0 10^3/uL (0.0-0.1) 05/08/19 05:03 Absolute Nucleated RBC 0.00 x10^3/uL 05/08/19 05:03 Total Counted 100 05/07/19 05:31 Band Neuts % (Manual) 7 % (0-10) 05/07/19 05:31 Abnorm Lymph % (Manual) 0 % 05/07/19 05:31 Nucleated RBC % 0.0 /100WBC 05/08/19 05:03 Neutrophils # (Manual) 5.6 10^3/uL (1.5-6.6) 05/07/19 05:31 Lymphocytes # (Manual) 0.7 10^3/uL (1.5-3.5) L 05/07/19 05:31 Monocytes # (Manual) 0.3 10^3/uL (0.0-1.0) 05/07/19 05:31 Eosinophils # (Manual) 0.0 10^3/uL (0-0.7) 05/07/19 05:31 Basophils # (Manual) 0.1 10^3/uL (0-0.1) 05/07/19 05:31 Differential Comment MANUAL DIFFERENTIAL 05/07/19 05:31 WBC Morphology NORMAL APPEARANCE (NORMAL) 05/07/19 05:31 Platelet Estimate DECREASED (<130,000) (NORMAL) 05/07/19 05:31 Platelet Morphology NORMAL APPEARANCE (NORMAL) 05/07/19 05:31 RBC Morph Micro Appear 2+ HOMERO CELLS (NORMAL) 05/07/19 05:31 Sodium 136 mmol/L (135-145) 05/07/19 05:31 Potassium 4.0 mmol/L (3.5-5.0) 05/07/19 05:31 Chloride 108 mmol/L (101-111) 05/07/19 05:31 Carbon Dioxide 23 mmol/L (21-32) 05/07/19 05:31 Anion Gap 5.0 (6-13) L 05/07/19 05:31 BUN 21 mg/dL (6-20) H 05/07/19 05:31 Creatinine 0.9 mg/dL (0.6-1.2) 05/07/19 05:31 Estimated GFR (MDRD) 81 (>89) L 05/07/19 05:31 Glucose 138 mg/dL (70-100) H 05/07/19 05:31 Lactic Acid 1.0 mmol/L (0.5-2.2) 05/05/19 13:00 Calcium 8.3 mg/dL (8.5-10.3) L 05/07/19 05:31 Total Bilirubin 4.2 mg/dL (0.2-1.0) H 05/05/19 12:45 AST 21 IU/L (10-42) 05/05/19 12:45 ALT 21 IU/L (10-60) 05/05/19 12:45 Alkaline Phosphatase 64 IU/L (42-121) 05/05/19 12:45 Troponin I High Sens 79.9 pg/mL (2.3-19.7) H* 05/08/19 11:05 B-Natriuretic Peptide 474 pg/mL (5-100) H 05/07/19 23:18 Total Protein 7.4 g/dL (6.7-8.2) 05/05/19 12:45 Albumin 4.5 g/dL (3.2-5.5) 05/05/19 12:45 Globulin 2.9 g/dL (2.1-4.2) 05/05/19 12:45 Albumin/Globulin Ratio 1.6 (1.0-2.2) 05/05/19 12:45 Lipase 20 U/L (22-51) L 05/05/19 12:45 Urine Color DARK YELLOW 05/05/19 13:50 Urine Clarity CLEAR (CLEAR) 05/05/19 13:50 Urine pH 7.0 PH (5.0-7.5) 05/05/19 13:50 Ur Specific [place] 1.020 (1.002-1.030) 05/05/19 13:50 Urine Protein 30 mg/dL (NEGATIVE) H 05/05/19 13:50 Urine Glucose (UA) NEGATIVE mg/dL (NEGATIVE) 05/05/19 13:50 Urine Ketones 15 mg/dL (NEGATIVE) H 05/05/19 13:50 Urine Occult Blood TRACE-INTA (NEGATIVE) 05/05/19 13:50 Urine Nitrite NEGATIVE (NEGATIVE) 05/05/19 13:50 Urine Bilirubin NEGATIVE (NEGATIVE) 05/05/19 13:50 Urine Urobilinogen 0.2 (NORMAL) E.U./dL (NORMAL) 05/05/19 13:50 Ur Leukocyte Esterase NEGATIVE (NEGATIVE) 05/05/19 13:50 Urine RBC 0-5 /HPF (0-5) 05/05/19 13:50 Urine WBC 0-3 /HPF (0-3) 05/05/19 13:50 Ur Squamous Epith Cells NONE SEEN (<= Few) 05/05/19 13:50 Urine Bacteria Rare /HPF (None Seen) 05/05/19 13:50 Ur Microscopic Review INDICATED 05/05/19 13:50 Urine Culture Comments NOT INDICATED 05/05/19 13:50 Ethyl Alcohol < 5.0 mg/dL 05/05/19 12:45
[2019-05-08] MEDS: metroNIDAZOLE 500 MG/100 ML 500 MG/100 ML BAG IV SCH (20:07)
[2019-05-08] MEDS: SODIUM CHLORIDE 0.9% 250 ML IV PRN (20:08)
[2019-05-08] MEDS: SODIUM CHLORIDE FLUSH 0.9% 10 ML SYRINGE IVP PRN (20:08)
[2019-05-08] MEDS: ATORVASTATIN 10 MG TABLET PO SCH (20:40)
[2019-05-09] MEDS: SODIUM CHLORIDE FLUSH 0.9% 10 ML SYRINGE IVP PRN ×2 (03:39→06:45)
[2019-05-09] MEDS: metroNIDAZOLE 500 MG/100 ML 500 MG/100 ML BAG IV SCH ×3 (03:39→19:13)
[2019-05-09] MEDS: LEVOTHYROXINE 100 MCG TABLET PO SCH (06:42)
[2019-05-09] MEDS: IPRATROPIUM/ALBUTEROL 3 ML NEB INH PRN ×3 (07:52→15:19)
[2019-05-09] MEDS: OMEGA-3 ACID ETHYL ESTERS 1 GM CAPSULE PO SCH (08:14)
[2019-05-09] MEDS: hydrALAZINE 25 MG TABLET PO SCH ×2 (09:22→19:17)
[2019-05-09] MEDS: MULTIVITAMIN TABLET PO SCH (09:22)
[2019-05-09] MEDS: CYANOCOBALAMIN 500 MCG TABLET PO SCH (09:22)
[2019-05-09] MEDS: TAMSULOSIN 0.4 MG CAPSULE PO SCH (09:22)
[2019-05-09] MEDS: CHOLECALCIFEROL 1,000 UNIT TABLET PO SCH (09:22)
[2019-05-09] MEDS: LISINOPRIL 20 MG TABLET PO SCH ×2 (09:22→19:17)
[2019-05-09] MEDS: AZITHROMYCIN 250 MG TABLET PO SCH (09:23)
[2019-05-09] MEDS: SODIUM CHLORIDE FLUSH 0.9% 10 ML SYRINGE IVP SCH ×3 (09:23→23:58)
[2019-05-09] MEDS: DABIGATRAN 75 MG CAPSULE PO SCH ×2 (09:23→19:18)
[2019-05-09] MEDS: RIVASTIGMINE TD SCH (09:24)
[2019-05-09] MEDS: cefTRIAXone 1 GM in SODIUM CHLORIDE 0.9% MINIBAG 100 ML IV SCH (14:03)
[2019-05-09 16:19] LABS: BASOPHILS % (AUTO) 0.3 %; EOSINOPHILS % (AUTO) 0.1 %; HGB - HEMOGLOBIN 12.5 g/dL (14.0-18.0); LYMPHOCYTES # (AUTO) 0.5 10^3/uL (1.5-3.5); LYMPHOCYTES % (AUTO) 7.2 %; MEAN CORPUSCULAR HEMOGLOBIN 32.8 pg (27.0-31.0); MEAN CORPUSCULAR HGB CONC 33.8 g/dL (32.0-36.0); MEAN CORPUSCULAR VOLUME 97.1 fL (80.0-94.0); MEAN PLATELET VOLUME 10.5 fL (7.4-11.4); MONOCYTES # (AUTO) 0.9 10^3/uL (0.0-1.0); MONOCYTES % (AUTO) 11.8 %; NEUTROPHILS % (AUTO) 79.8 %; PLT - PLATELET COUNT 126 10^3/uL (130-450); RED BLOOD COUNT 3.81 10^6/uL (4.70-6.10); RED CELL DISTRIBUTION WIDTH 14.4 % (12.0-15.0); WHITE BLOOD COUNT 7.5 x10^3/uL (4.8-10.8)
[2019-05-09 16:27] LABS: CALCIUM 8.6 mg/dL (8.5-10.3); CREATININE 1.1 mg/dL (0.6-1.2); MAGNESIUM 2.1 mg/dL (1.7-2.8)
[2019-05-09] MEDS: POTASSIUM CHLOR 10 MEQ/100 ML 10 MEQ/100 ML BAG IV SCH ×3 (17:24→21:33)
[2019-05-09] MEDS: ATORVASTATIN 10 MG TABLET PO SCH (19:17)
[2019-05-09] MEDS: ACETAMINOPHEN 1,000 MG/100 ML 100 ML IV PRN (19:49)
--- NOTE | 2019-05-09 21:24 | PROVIDER PROGRESS NOTE ---
Assessment/Plan - Problem List (1) V-tach Assessment/Plan: He had a long run of momomprphic VTach this afternoon, BP was stable, saturation was 97% and he was asymptomatic. The Echo was just done this morning, to evaluate the worsened shortness of breath that he have over the weekend, and this showed normal LV size and systolic function, normal RV size and systolic function. Will check a stat potassium, magnesium and troponins. Continue telemetry. No DCh today. (2) CAP (community acquired pneumonia) Qualifiers: Qualified Code(s): J18.1 - Lobar pneumonia, unspecified organism Assessment/Plan: He is now expectorating and feels better (on Mucinex and with new nebs, started yesterdsy) He underwent an oximetry walk test with a reliable saturation being measured by RT, and indeed failed: he desaturates down to below 88% only with exertion. Utilization Management called his insurance ([employer]) who said they would approve home oxygen for an acute diagnosis, as long as he has home health care ordered. RT was given the special 800 number to call, since usually Medicare approves home O2 only for a chronic Dx. Will order Home Health care, will order oxygen for home with exertion at 2 L. The is eager to take him home (since he is familiar with his surroundings and does better, given his level of dementia) and she is agreeable. Addendum: This plan for discharge with new oxygen was cancelled because of the V. tach that occurred later today (3) Altered mental status Qualifiers: Qualified Code(s): R41.0 - Disorientation, unspecified Assessment/Plan: At admission, he was more confused then his usual dementia, and newly weak, according to the . He recovered back to his usual mental status after the first 1-2 days, after getting iv fluids and iv antibiotics. (4) UTI (urinary tract infection) Assessment/Plan: Blood cx neg to date. Urine grew no bacteria (5) Dementia Assessment/Plan: He is very disoriented when not near his , who answers all his questions She wishes to take him home as soon as medically stable, but postponed the DCh today, due to VTach (6) Afib Assessment/Plan: HR controlled asnd on home dose of Pradaxa (7) Hypertension Qualifiers: Qualified Code(s): I10 - Essential (primary) hypertension Assessment/Plan: BP controlled on current meds (8) BPH (benign prostatic hyperplasia) Assessment/Plan: On home meds here (9) Hypothyroidism Assessment/Plan: On home thyroid med here (10) SRI on CPAP Assessment/Plan: He is using his home CPAP device here - Current Meds Current Meds: Current Medications Generic Name Dose Route Start Last Admin Trade Name Freq PRN Reason Stop Dose Admin Albuterol/Ipratropium 3 ml 05/08/19 17:29 05/09/19 15:19 Duoneb INH 3 ml Q4HR PRN Administration Wheezing Atorvastatin Calcium 10 mg 05/06/19 21:00 05/09/19 19:17 Lipitor PO 10 mg QPM BARRETT Administration Azithromycin 500 mg 05/07/19 13:00 05/09/19 09:23 Zithromax PO 500 mg DAILY BARRETT Administration Cholecalciferol 1,000 unit 05/07/19 09:00 05/09/19 09:22 Vitamin D3 PO 1,000 unit DAILY BARRETT Administration Cyanocobalamin 1,000 mcg 05/06/19 09:00 05/09/19 09:22 Vitamin B-12 PO 1,000 mcg DAILY BARRETT Administration Dabigatran 150 mg 05/06/19 21:00 05/09/19 19:18 Pradaxa PO 150 mg BID BARRETT Administration Hydralazine HCl 25 mg 05/06/19 21:00 05/09/19 19:17 Apresoline PO 25 mg BID BARRETT Administration Acetaminophen 100 mls @ 400 mls/hr 05/05/19 18:05 05/09/19 20:29 Ofirmev IV Infused Q6HR PRN Infusion Pain or Fever > 38C (100.4F) Ceftriaxone Sodium 1 gm/ 100 mls @ 200 mls/hr 05/06/19 13:00 05/09/19 14:39 Sodium Chloride IV Infused Q24H BARRETT Infusion Metronidazole 500 mg in 100 mls @ 100 mls/hr 05/08/19 20:00 05/09/19 19:13 Flagyl 500 Mg/100 Ml IV 100 mls/hr Q8H BARRETT Administration Sodium Chloride 250 mls @ 0 mls/hr 05/08/19 20:06 05/09/19 15:23 Normal Saline 0.9% IV Infused Q24H PRN Infusion TKO RATE TKO Levothyroxine Sodium 100 mcg 05/07/19 07:00 05/09/19 06:42 Synthroid PO 100 mcg QDAC BARRETT Administration Lisinopril 10 mg 05/06/19 21:00 05/09/19 19:17 Zestril PO 10 mg BID BARRETT Administration Multivitamins 1 tab 05/07/19 08:00 05/09/19 09:22 Theragran PO 1 tab DAILYWM BARRETT Administration Non-Formulary Medication 1 each 05/06/19 11:15 05/09/19 09:24 Rivastigmine [Rivastigmine 4.6mg] TD 1 each DAILY BARRETT Administration [id number] Ethyl Esters 1 gm 05/07/19 09:00 05/09/19 08:14 Lovaza PO Not Given DAILY BARRETT Sodium Chloride 10 ml 05/05/19 15:24 05/09/19 06:45 Normal Saline Flush 0.9% IVP 10 ml PRN PRN Administration NEEDED PER PROVIDER ORDERS Sodium Chloride 10 ml 05/05/19 17:00 05/09/19 16:49 Normal Saline Flush 0.9% IVP 10 ml 0100,0900,1700 BARRETT Administration Tamsulosin HCl 0.4 mg 05/06/19 09:00 05/09/19 09:22 Flomax PO 0.4 mg DAILY BARRETT Administration - Lab Result Fish Bone Diagrams: 05/10/19 07:45 05/10/19 07:45 - EKG Results EKG Comparison: Unchanged from prior EKG EKG Findings: Afib, rate 65, LBBB. - Additional Planning My Orders: My Active Orders 05/09/19 07:57 Nebulizer [Nebulizer/MDI Tx.] [RC] .Q4 PRN 05/09/19 11:22 Oxygen Desat. Study w/Exercise [RC] .ONCE Subjective - Subjective Patient Reports: Feeling Better Nursing Reports: Confused Objective Vital Signs: Vital Signs - 24 hr 05/08/19 05/08/19 05/09/19 22:46 23:50 06:55 Temperature 36.9 C 36.7 C 36.9 C Heart Rate Heart Rate [ 73 79 Brachial] Respiratory 22 16 Rate Blood Pressure 157/93 H [Left Brachial artery] Blood Pressure 156/92 H 154/98 H [Right Brachial artery] O2 Saturation 92 95 05/09/19 05/09/19 05/09/19 07:57 09:19 11:00 Temperature 36.9 C Heart Rate 72 Heart Rate [ 75 Brachial] Respiratory 18 18 Rate Blood Pressure [Left Brachial artery] Blood Pressure 159/87 H [Right Brachial artery] O2 Saturation 96 99 05/09/19 05/09/19 05/09/19 11:52 13:00 15:22 Temperature 37.4 C Heart Rate 88 90 Heart Rate [ 78 Brachial] Respiratory 18 21 18 Rate Blood Pressure [Left Brachial artery] Blood Pressure 140/82 H [Right Brachial artery] O2 Saturation 97 05/09/19 05/09/19 05/09/19 16:11 19:01 19:43 Temperature 36.6 C 38.4 C H Heart Rate Heart Rate [ 95 82 80 Brachial] Respiratory 20 20 Rate Blood Pressure [Left Brachial artery] Blood Pressure 148/80 H 147/88 H 168/98 H [Right Brachial artery] O2 Saturation 95 94 Oxygen O2 Source Room air I&O (Last 24 Hrs): Intake and Output Totals x24h 05/07/19 05/08/19 05/09/19 23:59 23:59 23:59 Intake Total 2374.5 500.5 1244.5 Output Total 0 1245 100 Balance 2374.5 -744.5 1144.5 General: Alert HEENT: Mucous membr. moist/pink, Other (Cheeks flushed) Neck: Supple Neuro: Disoriented Cardiovascular: No murmurs, Other (Irreg) Respiratory: No respiratory distress, Rhonchi, Other (fine R sided rhonchi, less than yesterday) Abdomen: Normal bowel sounds, Soft - Results Results: Laboratory Results WBC 7.5 x10^3/uL (4.8-10.8) 05/09/19 16:13 RBC 3.81 10^6/uL (4.70-6.10) L 05/09/19 16:13 Hgb 12.5 g/dL (14.0-18.0) L 05/09/19 16:13 Hct 37.0 % (42.0-52.0) L 05/09/19 16:13 MCV 97.1 fL (80.0-94.0) H 05/09/19 16:13 MCH 32.8 pg (27.0-31.0) H 05/09/19 16:13 MCHC 33.8 g/dL (32.0-36.0) 05/09/19 16:13 RDW 14.4 % (12.0-15.0) 05/09/19 16:13 Plt Count 126 10^3/uL (130-450) L 05/09/19 16:13 MPV 10.5 fL (7.4-11.4) 05/09/19 16:13 Neut # (Auto) 6.0 10^3/uL (1.5-6.6) 05/09/19 16:13 Lymph # (Auto) 0.5 10^3/uL (1.5-3.5) L 05/09/19 16:13 Page # (Auto) 0.9 10^3/uL (0.0-1.0) 05/09/19 16:13 Eos # (Auto) 0.0 10^3/uL (0.0-0.7) 05/09/19 16:13 Baso # (Auto) 0.0 10^3/uL (0.0-0.1) 05/09/19 16:13 Absolute Nucleated RBC 0.00 x10^3/uL 05/09/19 16:13 Total Counted 100 05/07/19 05:31 Band Neuts % (Manual) 7 % (0-10) 05/07/19 05:31 Abnorm Lymph % (Manual) 0 % 05/07/19 05:31 Nucleated RBC % 0.0 /100WBC 05/09/19 16:13 Neutrophils # (Manual) 5.6 10^3/uL (1.5-6.6) 05/07/19 05:31 Lymphocytes # (Manual) 0.7 10^3/uL (1.5-3.5) L 05/07/19 05:31 Monocytes # (Manual) 0.3 10^3/uL (0.0-1.0) 05/07/19 05:31 Eosinophils # (Manual) 0.0 10^3/uL (0-0.7) 05/07/19 05:31 Basophils # (Manual) 0.1 10^3/uL (0-0.1) 05/07/19 05:31 Differential Comment MANUAL DIFFERENTIAL 05/07/19 05:31 WBC Morphology NORMAL APPEARANCE (NORMAL) 05/07/19 05:31 Platelet Estimate DECREASED (<130,000) (NORMAL) 05/07/19 05:31 Platelet Morphology NORMAL APPEARANCE (NORMAL) 05/07/19 05:31 RBC Morph Micro Appear 2+ HOMERO CELLS (NORMAL) 05/07/19 05:31 Sodium 139 mmol/L (135-145) 05/09/19 16:13 Potassium 3.2 mmol/L (3.5-5.0) L 05/09/19 16:13 Chloride 102 mmol/L (101-111) 05/09/19 16:13 Carbon Dioxide 25 mmol/L (21-32) 05/09/19 16:13 Anion Gap 12.0 (6-13) 05/09/19 16:13 BUN 26 mg/dL (6-20) H 05/09/19 16:13 Creatinine 1.1 mg/dL (0.6-1.2) 05/09/19 16:13 Estimated GFR (MDRD) 64 (>89) L 05/09/19 16:13 Glucose 145 mg/dL (70-100) H 05/09/19 16:13 Lactic Acid 1.0 mmol/L (0.5-2.2) 05/05/19 13:00 Calcium 8.6 mg/dL (8.5-10.3) 05/09/19 16:13 Magnesium 2.1 mg/dL (1.7-2.8) 05/09/19 16:13 Total Bilirubin 4.2 mg/dL (0.2-1.0) H 05/05/19 12:45 AST 21 IU/L (10-42) 05/05/19 12:45 ALT 21 IU/L (10-60) 05/05/19 12:45 Alkaline Phosphatase 64 IU/L (42-121) 05/05/19 12:45 Troponin I High Sens 32.9 pg/mL (2.3-19.7) H* 05/09/19 16:13 B-Natriuretic Peptide 474 pg/mL (5-100) H 05/07/19 23:18 Total Protein 7.4 g/dL (6.7-8.2) 05/05/19 12:45 Albumin 4.5 g/dL (3.2-5.5) 05/05/19 12:45 Globulin 2.9 g/dL (2.1-4.2) 05/05/19 12:45 Albumin/Globulin Ratio 1.6 (1.0-2.2) 05/05/19 12:45 Lipase 20 U/L (22-51) L 05/05/19 12:45 Urine Color DARK YELLOW 05/05/19 13:50 Urine Clarity CLEAR (CLEAR) 05/05/19 13:50 Urine pH 7.0 PH (5.0-7.5) 05/05/19 13:50 Ur Specific [place] 1.020 (1.002-1.030) 05/05/19 13:50 Urine Protein 30 mg/dL (NEGATIVE) H 05/05/19 13:50 Urine Glucose (UA) NEGATIVE mg/dL (NEGATIVE) 05/05/19 13:50 Urine Ketones 15 mg/dL (NEGATIVE) H 05/05/19 13:50 Urine Occult Blood TRACE-INTA (NEGATIVE) 05/05/19 13:50 Urine Nitrite NEGATIVE (NEGATIVE) 05/05/19 13:50 Urine Bilirubin NEGATIVE (NEGATIVE) 05/05/19 13:50 Urine Urobilinogen 0.2 (NORMAL) E.U./dL (NORMAL) 05/05/19 13:50 Ur Leukocyte Esterase NEGATIVE (NEGATIVE) 05/05/19 13:50 Urine RBC 0-5 /HPF (0-5) 05/05/19 13:50 Urine WBC 0-3 /HPF (0-3) 05/05/19 13:50 Ur Squamous Epith Cells NONE SEEN (<= Few) 05/05/19 13:50 Urine Bacteria Rare /HPF (None Seen) 05/05/19 13:50 Ur Microscopic Review INDICATED 05/05/19 13:50 Urine Culture Comments NOT INDICATED 05/05/19 13:50 Ethyl Alcohol < 5.0 mg/dL 05/05/19 12:45
[2019-05-10] MEDS: metroNIDAZOLE 500 MG/100 ML 500 MG/100 ML BAG IV SCH ×3 (04:03→19:55)
[2019-05-10] MEDS: SODIUM CHLORIDE FLUSH 0.9% 10 ML SYRINGE IVP PRN ×3 (04:03→12:36)
[2019-05-10] MEDS: IPRATROPIUM/ALBUTEROL 3 ML NEB INH PRN ×2 (04:23→10:15)
[2019-05-10] MEDS: LEVOTHYROXINE 100 MCG TABLET PO SCH (06:00)
[2019-05-10 08:02] LABS: CALCIUM 8.1 mg/dL (8.5-10.3); CREATININE 0.8 mg/dL (0.6-1.2)
[2019-05-10] MEDS: OMEGA-3 ACID ETHYL ESTERS 1 GM CAPSULE PO SCH (08:48)
[2019-05-10] MEDS ORDERED: POTASSIUM CHLORIDE 20 MEQ TABLET PO ONE (09:07)
[2019-05-10 09:39] LABS: BASOPHILS % (AUTO) 0.4 %; EOSINOPHILS % (AUTO) 0.4 %; HGB - HEMOGLOBIN 11.7 g/dL (14.0-18.0); LYMPHOCYTES # (AUTO) 0.3 10^3/uL (1.5-3.5); LYMPHOCYTES % (AUTO) 4.9 %; MEAN CORPUSCULAR HEMOGLOBIN 31.7 pg (27.0-31.0); MEAN CORPUSCULAR HGB CONC 32.2 g/dL (32.0-36.0); MEAN CORPUSCULAR VOLUME 98.4 fL (80.0-94.0); MEAN PLATELET VOLUME 11.9 fL (7.4-11.4); MONOCYTES # (AUTO) 0.8 10^3/uL (0.0-1.0); MONOCYTES % (AUTO) 11.9 %; NEUTROPHILS # (AUTO) 5.6 10^3/uL (1.5-6.6); NEUTROPHILS % (AUTO) 81.8 %; PLT - PLATELET COUNT 122 10^3/uL (130-450); RED BLOOD COUNT 3.69 10^6/uL (4.70-6.10); RED CELL DISTRIBUTION WIDTH 14.6 % (12.0-15.0); WHITE BLOOD COUNT 6.9 x10^3/uL (4.8-10.8)
[2019-05-10] MEDS: DABIGATRAN 75 MG CAPSULE PO SCH ×2 (09:46→20:06)
[2019-05-10] MEDS: LISINOPRIL 20 MG TABLET PO SCH ×2 (09:46→20:09)
[2019-05-10] MEDS: CYANOCOBALAMIN 500 MCG TABLET PO SCH (09:46)
[2019-05-10] MEDS: TAMSULOSIN 0.4 MG CAPSULE PO SCH (09:46)
[2019-05-10] MEDS: MULTIVITAMIN TABLET PO SCH (09:47)
[2019-05-10] MEDS: hydrALAZINE 25 MG TABLET PO SCH ×2 (09:47→20:08)
[2019-05-10] MEDS: AZITHROMYCIN 250 MG TABLET PO SCH (09:47)
[2019-05-10] MEDS: CHOLECALCIFEROL 1,000 UNIT TABLET PO SCH (09:47)
[2019-05-10] MEDS: RIVASTIGMINE TD SCH (09:48)
[2019-05-10] MEDS: SODIUM CHLORIDE FLUSH 0.9% 10 ML SYRINGE IVP SCH ×3 (09:53→23:43)
--- NOTE | 2019-05-10 12:21 | XRAY Report ---
Reason: Cough. Eval for infiltrate. Procedure Date: 05/10/2019 Accession Number: [id number] / [id number] Procedure: XR - Chest 1 View X-Ray CPT Code: 23786 FULL RESULT: EXAM: CHEST RADIOGRAPHY EXAM DATE: 05/10/2019 09:57 AM. CLINICAL HISTORY: Cough. COMPARISON: CHEST 1 VIEW 05/08/2019 7:24 AM. TECHNIQUE: 1 view. FINDINGS: Lungs/Pleura: Interval improvement in patchy and interstitial opacification of the right upper lung. Interval increase in perihilar and left upper lung opacification. Small effusions may be present. No pneumothorax. Mediastinum: Within exam limitations, the cardiomediastinal contour is normal. Other: None. IMPRESSION: Variable change in bilateral patchy and interstitial opacities. Overall, lung aeration appears slightly worse compared with prior study although some improvement in previous right upper lung airspace disease is seen. RADIA
[2019-05-10] MEDS: SODIUM CHLORIDE 0.9% 250 ML IV PRN (12:35)
[2019-05-10] MEDS: cefTRIAXone 1 GM in SODIUM CHLORIDE 0.9% MINIBAG 100 ML IV SCH (14:10)
--- NOTE | 2019-05-10 17:33 | PROVIDER PROGRESS NOTE ---
Subjective - Prog Note Date Prog Note Date: 05/10/19 Prog Note Time: 17:31 - Subjective Pt reports feeling: No change Subjective: He reports feeling short of breath and coughing some blood tinged sputum. He knows he is at the hospital but does not know which one or why he is here. is at bedside and reports he has been ambulating but does appear short of breath. She also feels that he is not quite ready to go home. Current Medications - Current Medications Current Medications: Active Medications Albuterol/Ipratropium (Duoneb) 3 ml INH Q4HR PRN PRN Reason: Wheezing Last Admin: 05/10/19 10:15 Dose: 3 ml Atorvastatin Calcium (Lipitor) 10 mg PO QPM [facility] Last Admin: 05/09/19 19:17 Dose: 10 mg Azithromycin (Zithromax) 500 mg PO DAILY [facility] Last Admin: 05/10/19 09:47 Dose: 500 mg Cholecalciferol (Vitamin D3) 1,000 unit PO DAILY BARRETT Last Admin: 05/10/19 09:47 Dose: 1,000 unit Cyanocobalamin (Vitamin B-12) 1,000 mcg PO DAILY BARRETT Last Admin: 05/10/19 09:46 Dose: 1,000 mcg Dabigatran (Pradaxa) 150 mg PO BID BARRETT Last Admin: 05/10/19 09:46 Dose: 150 mg Hydralazine HCl (Apresoline) 25 mg PO BID BARRETT Last Admin: 05/10/19 09:47 Dose: 25 mg Acetaminophen (Ofirmev) 100 mls @ 400 mls/hr IV Q6HR PRN PRN Reason: Pain or Fever > 38C (100.4F) Last Infusion: 05/09/19 20:29 Dose: Infused Ceftriaxone Sodium 1 gm/ (Sodium Chloride) 100 mls @ 200 mls/hr IV Q24H [facility] Last Infusion: 05/10/19 15:08 Dose: Infused Metronidazole (Flagyl 500 Mg/100 Ml) 500 mg in 100 mls @ 100 mls/hr IV Q8H [facility] Last Infusion: 05/10/19 14:11 Dose: Infused Sodium Chloride (Normal Saline 0.9%) 250 mls @ 0 mls/hr IV Q24H PRN PRN Reason: TKO RATE Last Admin: 05/10/19 12:35 Dose: 20 mls/hr Levothyroxine Sodium (Synthroid) 100 mcg PO QDAC [facility] Last Admin: 05/10/19 06:00 Dose: 100 mcg Lisinopril (Zestril) 10 mg PO BID [facility] Last Admin: 05/10/19 09:46 Dose: 10 mg Multivitamins (Theragran) 1 tab PO DAILYWM [facility] Last Admin: 05/10/19 09:47 Dose: 1 tab Non-Formulary Medication (Rivastigmine [Rivastigmine 4.6mg]) 1 each TD DAILY [facility] Last Admin: 05/10/19 09:48 Dose: 1 each Lyyim-7-Qirw Ethyl Esters (Lovaza) 1 gm PO DAILY [facility] Last Admin: 05/10/19 08:48 Dose: Not Given Sodium Chloride (Normal Saline Flush 0.9%) 10 ml IVP PRN PRN PRN Reason: NEEDED PER PROVIDER ORDERS Last Admin: 05/10/19 12:36 Dose: 10 ml Sodium Chloride (Normal Saline Flush 0.9%) 10 ml IVP 0100,0900,1700 [facility] Last Admin: 05/10/19 09:53 Dose: 10 ml Tamsulosin HCl (Flomax) 0.4 mg PO DAILY [facility] Last Admin: 05/10/19 09:46 Dose: 0.4 mg Throat Lozenges (Cepacol) 1 lozenge MM Q2HR PRN PRN Reason: Throat pain Cholecalciferol [Vitamin D3] 1,000 unit PO DAILY 01/21/16 Cyanocobalamin (Vitamin B-12) [Vitamin B12] 1,000 mcg PO DAILY 01/21/16 Lisinopril 10 mg PO BID 01/21/16 Multivitamin [Multivitamins] 1 cap PO DAILY 01/21/16 [place]-3 Fatty Acids [Fish Oil] 1,000 mg PO DAILY 01/21/16 Tamsulosin [Flomax] 0.4 mg PO QPM 01/21/16 hydrALAZINE [Apresoline] 25 mg PO BID 01/21/16 Dabigatran Etexilate Mesylate [Pradaxa] 150 mg PO BID 05/06/19 Levothyroxine [Synthroid] 100 mcg PO QDAC 05/06/19 Rivastigmine [Rivastigmine 4.6MG] 1 each TD DAILY 05/06/19 Rosuvastatin Calcium [Crestor] 5 mg PO QPM 05/06/19 Objective - Vital Signs/Intake & Output Reviewed Vital Signs: Yes Vital Signs: Vital Signs x48h Temp Pulse Pulse Resp BP Pulse Ox 05/10/19 16:30 84 20 05/10/19 12:40 36.5 C 79 20 142/92 H 94 05/10/19 10:15 81 24 Intake & Output: Intake & Output 05/07/19 05/08/19 05/09/19 05/10/19 23:59 23:59 23:59 23:59 Intake Total 2374.5 500.5 1744.5 780 Output Total 0 1245 100 200 Balance 2374.5 -744.5 1644.5 580 - Objective General Appearance: positive: Alert, Mild distress Eyes Bilateral: positive: Normal inspection ENT: positive: Pharynx nml Neck: positive: Nml inspection Respiratory: positive: Rhonchi, Other (Dimished breath sounds. Tachypnic. Mild respiratory distress.). negative: No respiratory distress Cardiovascular: positive: No murmur, Irregularly irregular. negative: Systolic murmur, Diastolic murmur Skin: positive: No rash, Warm, Dry Extremities: positive: No pedal edema Neurologic/Psychiatric: positive: Motor nml, Disoriented to time. negative: Disoriented to person, Disoriented to place, Weakness, Slurred/abnml speech - Lab Results Fish Bones: 05/10/19 07:45 05/10/19 07:45 Other Labs: Lab Results x24hrs 05/10/19 05/10/19 Range/Units 07:45 07:45 WBC 6.9 (4.8-10.8) x10^3/uL RBC 3.69 L (4.70-6.10) 10^6/uL Hgb 11.7 L (14.0-18.0) g/dL Hct 36.3 L (42.0-52.0) % MCV 98.4 H (80.0-94.0) fL MCH 31.7 H (27.0-31.0) pg MCHC 32.2 (32.0-36.0) g/dL RDW 14.6 (12.0-15.0) % Plt Count 122 L (130-450) 10^3/uL MPV 11.9 H (7.4-11.4) fL Neut # (Auto) 5.6 (1.5-6.6) 10^3/uL Lymph # (Auto) 0.3 L (1.5-3.5) 10^3/uL Jones # (Auto) 0.8 (0.0-1.0) 10^3/uL Eos # (Auto) 0.0 (0.0-0.7) 10^3/uL Baso # (Auto) 0.0 (0.0-0.1) 10^3/uL Absolute Nucleated RBC 0.00 x10^3/uL Nucleated RBC % 0.0 /100WBC Sodium 139 (135-145) mmol/L Potassium 3.5 (3.5-5.0) mmol/L Chloride 106 (101-111) mmol/L Carbon Dioxide 24 (21-32) mmol/L Anion Gap 9.0 (6-13) BUN 22 H (6-20) mg/dL Creatinine 0.8 (0.6-1.2) mg/dL Estimated GFR (MDRD) 93 (>89) Glucose 99 (70-100) mg/dL Calcium 8.1 L (8.5-10.3) mg/dL Magnesium 2.0 (1.7-2.8) mg/dL ABX Reporting Has patient been on IV antibiotics over the past 48 hours?: Yes Assessment/Plan - Problem List (1) CAP (community acquired pneumonia) Impression: Continues to have hypoxia, dyspnea, and tachypnea. Prior x-ray revealed right upper lobe infiltrate. Flagyl was added given concern for aspiration. Will continue Ceftriaxone, Flagyl. Stop Azithromycin as he has already received 2gm. Repeat x-ray today to evaluate for possible new infiltrate. If he remains hypoxic with worsening infiltrates, will broaden antibiotics to cover for HAP an d consider CT for further evaluation. Qualifiers: Laterality: right Lung location: upper lobe of lung Qualified Code(s): J18.1 - Lobar pneumonia, unspecified organism (2) Acute respiratory failure with hypoxia Impression: Likely secondary to his pneumonia. BNP was in the 400's a few days ago. Requiring 3L of oxygen via nasal cannula. Will continue antibiotics and repeat x -ray. Continue breathing treatments PRN. Will check BNP in the AM. (3) V-tach Impression: Occurred yesterday which cancelled discharge. Likely related to hypokalemia and his respiratory problems. Potassium has been replaced. Will continue to monitor on telemetry. (4) Afib Impression: Remains rate controlled. Continue Pradaxa. (5) BPH (benign prostatic hyperplasia) Impression: Stable. Continue Flomax. (6) Dementia Impression: His mental status has been waxing and waning throughout his stay. Likely from unfamiliar surroundings and active infection. Avoid medications which may cause delirium. (7) Elevated troponin Impression: Troponins peaked in the 70's. Likely demand ischemia in the setting of pneumonia. (8) Hypothyroidism Impression: Stable. Will continue Synthroid. (9) SRI on CPAP Impression: Stable. Continue CPAP. (10) Hypertension Impression: He blood pressure has been stable on Lisinopril and Hydralazine. Qualifiers: Hypertension type: essential hypertension Qualified Code(s): I10 - Essential (primary) hypertension
[2019-05-10] MEDS: ATORVASTATIN 10 MG TABLET PO SCH (20:05)
[2019-05-10] MEDS ORDERED: FUROSEMIDE 20 MG/2 ML VIAL IVP STA (23:09)
[2019-05-11] MEDS: metroNIDAZOLE 500 MG/100 ML 500 MG/100 ML BAG IV SCH ×3 (03:46→20:48)
[2019-05-11] MEDS: LEVOTHYROXINE 100 MCG TABLET PO SCH (06:10)
[2019-05-11 06:50] LABS: BASOPHILS % (AUTO) 0.5 %; EOSINOPHILS # (AUTO) 0.1 10^3/uL (0.0-0.7); EOSINOPHILS % (AUTO) 2.3 %; HGB - HEMOGLOBIN 12.1 g/dL (14.0-18.0); LYMPHOCYTES # (AUTO) 0.6 10^3/uL (1.5-3.5); LYMPHOCYTES % (AUTO) 9.9 %; MEAN CORPUSCULAR HEMOGLOBIN 31.8 pg (27.0-31.0); MEAN CORPUSCULAR HGB CONC 33.2 g/dL (32.0-36.0); MEAN CORPUSCULAR VOLUME 96.1 fL (80.0-94.0); MEAN PLATELET VOLUME 10.4 fL (7.4-11.4); MONOCYTES # (AUTO) 0.9 10^3/uL (0.0-1.0); MONOCYTES % (AUTO) 14.2 %; NEUTROPHILS # (AUTO) 4.4 10^3/uL (1.5-6.6); NEUTROPHILS % (AUTO) 72.1 %; PLT - PLATELET COUNT 154 10^3/uL (130-450); RED CELL DISTRIBUTION WIDTH 14.5 % (12.0-15.0)
[2019-05-11 06:58] LABS: CALCIUM 8.1 mg/dL (8.5-10.3)
[2019-05-11] MEDS: OMEGA-3 ACID ETHYL ESTERS 1 GM CAPSULE PO SCH (07:29)
[2019-05-11] MEDS ORDERED: AZITHROMYCIN 250 MG TABLET PO SCH (09:00)
[2019-05-11] MEDS: RIVASTIGMINE TD SCH (09:59)
[2019-05-11] MEDS: LISINOPRIL 20 MG TABLET PO SCH ×2 (09:59→18:11)
[2019-05-11] MEDS: hydrALAZINE 25 MG TABLET PO SCH ×2 (10:01→18:11)
[2019-05-11] MEDS: CYANOCOBALAMIN 500 MCG TABLET PO SCH (10:01)
[2019-05-11] MEDS: CHOLECALCIFEROL 1,000 UNIT TABLET PO SCH (10:01)
[2019-05-11] MEDS: DABIGATRAN 75 MG CAPSULE PO SCH (10:01)
[2019-05-11] MEDS: TAMSULOSIN 0.4 MG CAPSULE PO SCH (10:02)
[2019-05-11] MEDS: SODIUM CHLORIDE FLUSH 0.9% 10 ML SYRINGE IVP SCH ×2 (10:02→15:56)
[2019-05-11] MEDS: MULTIVITAMIN TABLET PO SCH (10:02)
[2019-05-11] MEDS: IPRATROPIUM/ALBUTEROL 3 ML NEB INH PRN ×3 (10:48→19:38)
[2019-05-11] MEDS: CARBOXYMETHYLCELLULOSE OPHTH DROPS EACHEYE PRN ×2 (11:23→13:35)
--- NOTE | 2019-05-11 12:47 | XRAY Report ---
Reason: Worsening hypoxia. Cough. Procedure Date: 05/11/2019 Accession Number: [id number] / [id number] Procedure: XR - Chest 1 View X-Ray CPT Code: 82068 FULL RESULT: EXAM: CHEST RADIOGRAPHY EXAM DATE: 05/11/2019 11:37 AM. CLINICAL HISTORY: Cough and shortness of breath. COMPARISON: CHEST 1 VIEW 05/10/2019 9:40 AM CHEST 1 VIEW 05/08/2019 7:24 AM. TECHNIQUE: 1 view. FINDINGS: Lungs/Pleura: There is variable interval change in bilateral patchy and interstitial opacities with upper lobe predominance. There is some increase in opacification of the right upper lung region. Small effusions are suggested. No pneumothorax. Mediastinum: Heart and mediastinal contours are notable for aortic calcification. Other: None. IMPRESSION: Variable change in bilateral interstitial and patchy opacities which may be related to migrating edema. Overall, worsening pulmonary opacities compared with 06/08/2019 exam. RADIA
[2019-05-11] MEDS: guaiFENesin 600 MG TABLET PO SCH ×2 (13:34→18:11)
[2019-05-11] MEDS: SODIUM CHLORIDE 0.9% 250 ML IV PRN (13:35)
--- NOTE | 2019-05-11 14:01 | XRAY Report ---
Reason: Dysphagia. Concern for aspiration. Procedure Date: 05/11/2019 Accession Number: [id number] / [id number] Procedure: FL - Modified Barium Swallow W/SP CPT Code: FULL RESULT: EXAM: MODIFIED BARIUM SWALLOW EXAM DATE: 05/11/2019 12:58 PM. CLINICAL HISTORY: Dysphagia. Concern for aspiration. COMPARISON: None. TECHNIQUE: Under the direction of speech pathology, patient swallowed various consistencies of barium under lateral fluoroscopic observation of the neck. Fluoroscopy Time: 3 minutes 20 seconds. Number of Images: [id number]. FINDINGS: Swallowing Mechanism: Prolonged oral phase and delayed swallowing reflex. Airway Protection: Diminished epiglottic motion. No episodes of tracheal penetration or aspiration with all consistencies of barium. Pharynx: Abundant piriform sinus contrast pooling is noted. Other: None. IMPRESSION: No carmina aspiration or penetration. Piriform sinus pooling and delayed swallowing. RADIA
--- NOTE | 2019-05-11 14:17 | PROVIDER PROGRESS NOTE ---
Subjective - Prog Note Date Prog Note Date: 05/11/19 - Subjective Subjective: He became increasingly hypoxic overnight and required 4L of oxygen at one point. He was given 20mg of IV Lasix with improvement in his oxygenation. This morning he is on 2L of oxygen. He still endorses a cough and dyspnea. Nursing and his family have noted that he has been having coughing episodes while he is eating and there is concern for aspiration. Current Medications - Current Medications Current Medications: Active Medications Albuterol/Ipratropium (Duoneb) 3 ml INH Q4HR PRN PRN Reason: Wheezing Last Admin: 05/11/19 10:48 Dose: 3 ml Atorvastatin Calcium (Lipitor) 10 mg PO QPM [facility] Last Admin: 05/10/19 20:05 Dose: 10 mg Carboxymethylcellulose (Refresh 1% Ophth Drops) 1 drops EACHEYE PRN PRN PRN Reason: Dry Eye Last Admin: 05/11/19 13:35 Dose: 1 drops Cholecalciferol (Vitamin D3) 1,000 unit PO DAILY [facility] Last Admin: 05/11/19 10:01 Dose: 1,000 unit Cyanocobalamin (Vitamin B-12) 1,000 mcg PO DAILY [facility] Last Admin: 05/11/19 10:01 Dose: 1,000 mcg Dabigatran (Pradaxa) 150 mg PO BID [facility] Last Admin: 05/11/19 10:01 Dose: 150 mg Guaifenesin (Mucinex) 600 mg PO BID [facility] Last Admin: 05/11/19 13:34 Dose: 600 mg Hydralazine HCl (Apresoline) 25 mg PO BID [facility] Last Admin: 05/11/19 10:01 Dose: 25 mg Ceftriaxone Sodium 1 gm/ (Sodium Chloride) 100 mls @ 200 mls/hr IV Q24H [facility] Last Infusion: 05/10/19 15:08 Dose: Infused Metronidazole (Flagyl 500 Mg/100 Ml) 500 mg in 100 mls @ 100 mls/hr IV Q8H [facility] Last Admin: 05/11/19 13:35 Dose: 100 mls/hr Sodium Chloride (Normal Saline 0.9%) 250 mls @ 0 mls/hr IV Q24H PRN PRN Reason: TKO RATE Last Admin: 05/11/19 13:35 Dose: 20 mls/hr Levothyroxine Sodium (Synthroid) 100 mcg PO QDAC [facility] Last Admin: 05/11/19 06:10 Dose: 100 mcg Lisinopril (Zestril) 10 mg PO BID [facility] Last Admin: 05/11/19 09:59 Dose: 10 mg Multivitamins (Theragran) 1 tab PO DAILYWM [facility] Last Admin: 05/11/19 10:02 Dose: 1 tab Non-Formulary Medication (Rivastigmine [Rivastigmine 4.6mg]) 1 each TD DAILY [facility] Last Admin: 05/11/19 09:59 Dose: 1 each [id number] Ethyl Esters (Lovaza) 1 gm PO DAILY [facility] Last Admin: 05/11/19 07:29 Dose: Not Given Sodium Chloride (Normal Saline Flush 0.9%) 10 ml IVP PRN PRN PRN Reason: NEEDED PER PROVIDER ORDERS Last Admin: 05/10/19 12:36 Dose: 10 ml Sodium Chloride (Normal Saline Flush 0.9%) 10 ml IVP 0100,0900,1700 [facility] Last Admin: 05/11/19 10:02 Dose: 10 ml Tamsulosin HCl (Flomax) 0.4 mg PO DAILY [facility] Last Admin: 05/11/19 10:02 Dose: 0.4 mg Throat Lozenges (Cepacol) 1 lozenge MM Q2HR PRN PRN Reason: Throat pain Cholecalciferol [Vitamin D3] 1,000 unit PO DAILY 01/21/16 Cyanocobalamin (Vitamin B-12) [Vitamin B12] 1,000 mcg PO DAILY 01/21/16 Lisinopril 10 mg PO BID 01/21/16 Multivitamin [Multivitamins] 1 cap PO DAILY 01/21/16 [place]-3 Fatty Acids [Fish Oil] 1,000 mg PO DAILY 01/21/16 Tamsulosin [Flomax] 0.4 mg PO QPM 01/21/16 hydrALAZINE [Apresoline] 25 mg PO BID 01/21/16 Dabigatran Etexilate Mesylate [Pradaxa] 150 mg PO BID 05/06/19 Levothyroxine [Synthroid] 100 mcg PO QDAC 05/06/19 Rivastigmine [Rivastigmine 4.6MG] 1 each TD DAILY 05/06/19 Rosuvastatin Calcium [Crestor] 5 mg PO QPM 05/06/19 Objective - Vital Signs/Intake & Output Reviewed Vital Signs: Yes Vital Signs: Vital Signs x48h Temp Pulse Pulse Resp BP Pulse Ox 05/11/19 13:11 37 C 74 20 132/66 H 96 05/11/19 10:49 69 18 05/11/19 09:59 36.5 C 79 20 141/74 H 91 L Intake & Output: Intake & Output 05/08/19 05/09/19 05/10/19 05/11/19 23:59 23:59 23:59 23:59 Intake Total 500.5 1744.5 1328 440 Output Total 1245 100 325 Balance -744.5 1644.5 1003 440 - Objective General Appearance: positive: No acute distress, Alert Eyes Bilateral: positive: Conjunctivae nml ENT: positive: Other (Nasal cannula in place) Respiratory: positive: Rhonchi, Other (Tachypnic with diminished breath sounds.) Cardiovascular: positive: Irregularly irregular. negative: Tachycardia, Bradycardia, Systolic murmur Extremities: positive: No pedal edema Neurologic/Psychiatric: positive: Disoriented to time, Other (No focal motor deficits.). negative: Disoriented to person - Lab Results Fish Bones: 05/11/19 06:25 05/11/19 06:25 Other Labs: Lab Results x24hrs 05/11/19 05/11/19 05/11/19 Range/Units 06:25 06:25 06:25 WBC 6.0 (4.8-10.8) x10^3/uL RBC 3.80 L (4.70-6.10) 10^6/uL Hgb 12.1 L (14.0-18.0) g/dL Hct 36.5 L (42.0-52.0) % MCV 96.1 H (80.0-94.0) fL MCH 31.8 H (27.0-31.0) pg MCHC 33.2 (32.0-36.0) g/dL RDW 14.5 (12.0-15.0) % Plt Count 154 (130-450) 10^3/uL MPV 10.4 (7.4-11.4) fL Neut # (Auto) 4.4 (1.5-6.6) 10^3/uL Lymph # (Auto) 0.6 L (1.5-3.5) 10^3/uL [place] # (Auto) 0.9 (0.0-1.0) 10^3/uL Eos # (Auto) 0.1 (0.0-0.7) 10^3/uL Baso # (Auto) 0.0 (0.0-0.1) 10^3/uL Absolute Nucleated RBC 0.00 x10^3/uL Nucleated RBC % 0.0 /100WBC Sodium 140 (135-145) mmol/L Potassium 3.8 (3.5-5.0) mmol/L Chloride 106 (101-111) mmol/L Carbon Dioxide 28 (21-32) mmol/L Anion Gap 6.0 (6-13) BUN 22 H (6-20) mg/dL Creatinine 1.0 (0.6-1.2) mg/dL Estimated GFR (MDRD) 72 L (>89) Glucose 90 (70-100) mg/dL Calcium 8.1 L (8.5-10.3) mg/dL Magnesium 2.0 (1.7-2.8) mg/dL B-Natriuretic Peptide 362 H (5-100) pg/mL ABX Reporting Has patient been on IV antibiotics over the past 48 hours?: Yes Assessment/Plan - Problem List (1) Pneumonia Impression: His x-ray has worsening bilateral infiltrates despite antibiotic use. His BNP is only 300's which makes me believe the infiltrates are not edema and more likely pneumonia. He fortunately no longer has leukocytosis and his fever has resolved. There is definitely concern for aspiration and I will ask speech to evaluate him again. Will obtain a CT of the chest for evaluation of these infiltrates. Based off these findings, will likely broaden antibiotics to Vancomycin and Levaquin to cover for HAP. Will continue Flagyl for now given concern for aspiration. (2) Acute respiratory failure with hypoxia Impression: Likely secondary to his pneumonia and not heart failure. BNP now in the 300's. Requiring 2L of oxygen via nasal cannula which improved from 4L overnight. Will continue antibiotics and obtain CT of the chest for further evaluation. (3) V-tach Impression: Likely related to hypokalemia and his respiratory problems. No further episodes since potassium has been replaced. Will continue to monitor on telemetry. (4) Afib Impression: Remains rate controlled. Will hold Pradax at this time as he may require a thoracentesis if he has pleural effusion. (5) BPH (benign prostatic hyperplasia) Impression: Stable. Continue Flomax. (6) Dementia Impression: His mental status has been waxing and waning throughout his stay. Likely from unfamiliar surroundings and ongoing infection. Stable. Avoid medications which may cause delirium. Continue frequent reorientation. Delirium precautions. (7) Elevated troponin Impression: Troponins peaked in the 70's. Likely demand ischemia in the setting of pne [place]. (8) Hypothyroidism Impression: Stable. Will continue Synthroid. (9) SRI on CPAP Impression: Stable. Continue CPAP. (10) Hypertension Impression: He blood pressure remains stable on Lisinopril and Hydralazine. Qualifiers: Hypertension type: essential hypertension Qualified Code(s): I10 - Essential (primary) hypertension
[2019-05-11] MEDS: cefTRIAXone 1 GM in SODIUM CHLORIDE 0.9% MINIBAG 100 ML IV SCH (15:01)
--- NOTE | 2019-05-11 15:32 | CT Report ---
Reason: Worsening bilateral infiltrates. Hypoxia. Procedure Date: 05/11/2019 Accession Number: [id number] / [id number] Procedure: CT - CHEST WO CPT Code: FULL RESULT: EXAM: CT CHEST EXAM DATE: 05/11/2019 01:21 PM. CLINICAL HISTORY: Lung infiltrates, hypoxia COMPARISONS: CHEST 1 VIEW 05/11/2019 11:22 AM. TECHNIQUE: Routine helical CT imaging was performed through the chest. IV contrast: None. Reconstructions: Coronal and sagittal. In accordance with CT protocol optimization, one or more of the following dose reduction techniques were utilized for this exam: automated exposure control, adjustment of mA and/or KV based on patient size, or use of iterative reconstructive technique. FINDINGS: Lungs/Pleura: There is upper lung predominant groundglass opacity with interlobular septal thickening. There is mild peripheral sparing. There are moderate sized bilateral pleural effusions. There is bibasilar atelectasis. No acute central airway abnormalities. There is no evidence of pneumothorax. Mediastinum: There is cardiomegaly. There are coronary artery and aortic calcifications. There are no enlarged axillary, supraclavicular, mediastinal, or hilar lymph nodes. Bones: Unremarkable. Visualized Abdomen: The visualized portions of the upper abdominal organs demonstrate no clearly acute abnormalities. There is dense oral contrast within the esophagus and stomach. Other: None. IMPRESSION: 1. There is upper lung predominant groundglass opacity with interlobular septal thickening. This is the "crazy paving" lung pattern; primary differential considerations include diffuse alveolar damage, lung edema, or atypical infection. 2. There are moderate sized bilateral pleural effusions. 3. There is bibasilar atelectasis. 4. No evidence of pneumothorax. 5. There is cardiomegaly. There are coronary artery and aortic calcifications. [facility]
[2019-05-11] MEDS ORDERED: VANCOMYCIN INJ 1 GM in SODIUM CHLORIDE 0.9% 250 ML IV SCH (17:00)
[2019-05-11] MEDS: levoFLOXacin 750 MG/150 ML 750 MG/150 ML BAG IV SCH (17:34)
[2019-05-11] MEDS ORDERED: VANCOMYCIN PER PHARMACY 100 GM in SODIUM CHLORIDE 0.9% 250 ML IV SCH (18:00)
[2019-05-11] MEDS ORDERED: VANCOMYCIN INJ 1.5 GM in SODIUM CHLORIDE 0.9% 500 ML IV ONE (18:00)
[2019-05-11] MEDS: ATORVASTATIN 10 MG TABLET PO SCH (18:12)
[2019-05-11] MEDS ORDERED: CARBOXYMETHYLCELLULOSE OPHTH DROPS EACHEYE PRN (19:43)
[2019-05-12] MEDS: SODIUM CHLORIDE FLUSH 0.9% 10 ML SYRINGE IVP SCH ×3 (03:50→16:22)
[2019-05-12] MEDS: metroNIDAZOLE 500 MG/100 ML 500 MG/100 ML BAG IV SCH ×3 (04:39→20:14)
[2019-05-12 05:10] LABS: BASOPHILS % (AUTO) 0.4 %; EOSINOPHILS # (AUTO) 0.2 10^3/uL (0.0-0.7); EOSINOPHILS % (AUTO) 3.7 %; HGB - HEMOGLOBIN 11.3 g/dL (14.0-18.0); LYMPHOCYTES # (AUTO) 0.5 10^3/uL (1.5-3.5); LYMPHOCYTES % (AUTO) 8.6 %; MEAN CORPUSCULAR HEMOGLOBIN 31.4 pg (27.0-31.0); MEAN CORPUSCULAR HGB CONC 32.8 g/dL (32.0-36.0); MEAN CORPUSCULAR VOLUME 95.6 fL (80.0-94.0); MEAN PLATELET VOLUME 10.2 fL (7.4-11.4); MONOCYTES # (AUTO) 0.6 10^3/uL (0.0-1.0); MONOCYTES % (AUTO) 10.6 %; NEUTROPHILS # (AUTO) 4.1 10^3/uL (1.5-6.6); NEUTROPHILS % (AUTO) 75.8 %; PLT - PLATELET COUNT 161 10^3/uL (130-450); RED CELL DISTRIBUTION WIDTH 14.6 % (12.0-15.0); WHITE BLOOD COUNT 5.4 x10^3/uL (4.8-10.8)
[2019-05-12 05:14] LABS: CALCIUM 8.1 mg/dL (8.5-10.3); CREATININE 0.9 mg/dL (0.6-1.2)
[2019-05-12] MEDS: LEVOTHYROXINE 100 MCG TABLET PO SCH (05:41)
[2019-05-12] MEDS: VANCOMYCIN INJ 1 GM in SODIUM CHLORIDE 0.9% 250 ML IV SCH ×2 (06:09→17:50)
[2019-05-12] MEDS: CYANOCOBALAMIN 500 MCG TABLET PO SCH (09:25)
[2019-05-12] MEDS: OMEGA-3 ACID ETHYL ESTERS 1 GM CAPSULE PO SCH (09:25)
[2019-05-12] MEDS: hydrALAZINE 25 MG TABLET PO SCH ×2 (09:26→18:20)
[2019-05-12] MEDS: CHOLECALCIFEROL 1,000 UNIT TABLET PO SCH (09:26)
[2019-05-12] MEDS: LISINOPRIL 20 MG TABLET PO SCH ×2 (09:26→18:19)
[2019-05-12] MEDS: MULTIVITAMIN TABLET PO SCH (09:26)
[2019-05-12] MEDS: guaiFENesin 600 MG TABLET PO SCH ×2 (09:26→18:20)
[2019-05-12] MEDS: TAMSULOSIN 0.4 MG CAPSULE PO SCH (09:26)
[2019-05-12] MEDS: RIVASTIGMINE TD SCH ×2 (09:48→09:50)
[2019-05-12] MEDS: IPRATROPIUM/ALBUTEROL 3 ML NEB INH PRN ×2 (10:57→15:30)
[2019-05-12] MEDS: SODIUM CHLORIDE FLUSH 0.9% 10 ML SYRINGE IVP PRN (12:27)
[2019-05-12] MEDS: FUROSEMIDE 40 MG/4 ML VIAL IVP SCH (12:27)
--- NOTE | 2019-05-12 14:41 | PROVIDER PROGRESS NOTE ---
Subjective - Prog Note Date Prog Note Date: 05/12/19 - Subjective Subjective: This morning, he reports feeling ok. He still has a productive cough. He does not feel short of breath but he did desaturate when walking with PT yesterday and required an increase in his oxygen requirements to 4L briefly. His is at bedside and she feels that he looks a little better today. Current Medications - Current Medications Current Medications: Active Medications Albuterol/Ipratropium (Duoneb) 3 ml INH Q4HR PRN PRN Reason: Wheezing Last Admin: 05/12/19 10:57 Dose: 3 ml Atorvastatin Calcium (Lipitor) 10 mg PO QPM [facility] Last Admin: 05/11/19 18:12 Dose: 10 mg Carboxymethylcellulose (Refresh 1% Ophth Drops) 1 drops EACHEYE QID PRN PRN Reason: Dry Eye Last Admin: 05/12/19 09:27 Dose: 1 drops Cholecalciferol (Vitamin D3) 1,000 unit PO DAILY [facility] Last Admin: 05/12/19 09:26 Dose: 1,000 unit Cyanocobalamin (Vitamin B-12) 1,000 mcg PO DAILY [facility] Last Admin: 05/12/19 09:25 Dose: 1,000 mcg Furosemide (Lasix Inj 40 Mg Vial) 40 mg IVP DAILY [facility] Last Admin: 05/12/19 12:27 Dose: 40 mg Guaifenesin (Mucinex) 600 mg PO BID [facility] Last Admin: 05/12/19 09:26 Dose: 600 mg Hydralazine HCl (Apresoline) 25 mg PO BID [facility] Last Admin: 05/12/19 09:26 Dose: 25 mg Metronidazole (Flagyl 500 Mg/100 Ml) 500 mg in 100 mls @ 100 mls/hr IV Q8H [facility] Last Admin: 05/12/19 12:27 Dose: 100 mls/hr Sodium Chloride (Normal Saline 0.9%) 250 mls @ 0 mls/hr IV Q24H PRN PRN Reason: TKO RATE Last Infusion: 05/11/19 22:14 Dose: 0 mls/hr Levofloxacin (Levaquin 750 Mg/150 Ml) 750 mg in 150 mls @ 100 mls/hr IV Q24H [facility] Last Infusion: 05/11/19 19:00 Dose: Infused Vancomycin HCl 1 gm/ Sodium (Chloride) 250 mls @ 167 mls/hr IV Q12H [facility] Last Infusion: 05/12/19 09:19 Dose: Infused Levothyroxine Sodium (Synthroid) 100 mcg PO QDAC [facility] Last Admin: 05/12/19 05:41 Dose: 100 mcg Lisinopril (Zestril) 10 mg PO BID [facility] Last Admin: 05/12/19 09:26 Dose: 10 mg Multivitamins (Theragran) 1 tab PO DAILYWM [facility] Last Admin: 05/12/19 09:26 Dose: 1 tab Non-Formulary Medication (Rivastigmine [Rivastigmine 4.6mg]) 1 each TD DAILY [facility] Last Admin: 05/12/19 09:50 Dose: Not Given [id number] Ethyl Esters (Lovaza) 1 gm PO DAILY [facility] Last Admin: 05/12/19 09:25 Dose: 1 gm Sodium Chloride (Normal Saline Flush 0.9%) 10 ml IVP PRN PRN PRN Reason: NEEDED PER PROVIDER ORDERS Last Admin: 05/12/19 12:27 Dose: 10 ml Sodium Chloride (Normal Saline Flush 0.9%) 10 ml IVP 0100,0900,1700 [facility] Last Admin: 05/12/19 09:27 Dose: 10 ml Tamsulosin HCl (Flomax) 0.4 mg PO DAILY [facility] Last Admin: 05/12/19 09:26 Dose: 0.4 mg Throat Lozenges (Cepacol) 1 lozenge MM Q2HR PRN PRN Reason: Throat pain Cholecalciferol [Vitamin D3] 1,000 unit PO DAILY 01/21/16 Cyanocobalamin (Vitamin B-12) [Vitamin B12] 1,000 mcg PO DAILY 01/21/16 Lisinopril 10 mg PO BID 01/21/16 Multivitamin [Multivitamins] 1 cap PO DAILY 01/21/16 [place]-3 Fatty Acids [Fish Oil] 1,000 mg PO DAILY 01/21/16 Tamsulosin [Flomax] 0.4 mg PO QPM 01/21/16 hydrALAZINE [Apresoline] 25 mg PO BID 01/21/16 Dabigatran Etexilate Mesylate [Pradaxa] 150 mg PO BID 05/06/19 Levothyroxine [Synthroid] 100 mcg PO QDAC 05/06/19 Rivastigmine [Rivastigmine 4.6MG] 1 each TD DAILY 05/06/19 Rosuvastatin Calcium [Crestor] 5 mg PO QPM 05/06/19 Objective - Vital Signs/Intake & Output Reviewed Vital Signs: Yes Vital Signs: Vital Signs x48h Temp Pulse Pulse Resp BP Pulse Ox 05/12/19 13:00 36.9 C 80 18 138/70 H 93 05/12/19 11:00 76 16 05/12/19 09:00 37.5 C 86 20 91 L Intake & Output: Intake & Output 05/09/19 05/10/19 05/11/19 05/12/19 23:59 23:59 23:59 23:59 Intake Total 1744.5 1328 1863 710 Output Total 100 325 550 Balance 1644.5 1003 1863 160 - Objective General Appearance: positive: No acute distress, Alert Eyes Bilateral: positive: Conjunctivae nml ENT: positive: Other (Nasal cannula in place.) Respiratory: positive: No respiratory distress, Rhonchi (Coarse rhonchi throughout the upper lung becerril), Other (Diminished breath sounds in the bases) Cardiovascular: positive: No murmur, Irregularly irregular. negative: [place] hycardia, Bradycardia, Systolic murmur Abdomen: positive: Non-tender, No distention. negative: Tenderness Skin: positive: No rash, Warm, Dry Extremities: positive: No pedal edema Neurologic/Psychiatric: positive: Motor nml. negative: Weakness, Slurred/abnml speech - Lab Results Fish Bones: 05/12/19 04:50 05/12/19 04:50 Other Labs: Lab Results x24hrs 05/12/19 05/12/19 Range/Units 04:50 04:50 WBC 5.4 (4.8-10.8) x10^3/uL RBC 3.60 L (4.70-6.10) 10^6/uL Hgb 11.3 L (14.0-18.0) g/dL Hct 34.4 L (42.0-52.0) % MCV 95.6 H (80.0-94.0) fL MCH 31.4 H (27.0-31.0) pg MCHC 32.8 (32.0-36.0) g/dL RDW 14.6 (12.0-15.0) % Plt Count 161 (130-450) 10^3/uL MPV 10.2 (7.4-11.4) fL Neut # (Auto) 4.1 (1.5-6.6) 10^3/uL Lymph # (Auto) 0.5 L (1.5-3.5) 10^3/uL [place] # (Auto) 0.6 (0.0-1.0) 10^3/uL Eos # (Auto) 0.2 (0.0-0.7) 10^3/uL Baso # (Auto) 0.0 (0.0-0.1) 10^3/uL Absolute Nucleated RBC 0.00 x10^3/uL Nucleated RBC % 0.0 /100WBC Sodium 141 (135-145) mmol/L Potassium 3.7 (3.5-5.0) mmol/L Chloride 107 (101-111) mmol/L Carbon Dioxide 26 (21-32) mmol/L Anion Gap 8.0 (6-13) BUN 24 H (6-20) mg/dL Creatinine 0.9 (0.6-1.2) mg/dL Estimated GFR (MDRD) 81 L (>89) Glucose 96 (70-100) mg/dL Calcium 8.1 L (8.5-10.3) mg/dL - Diagnostic Imaging Diagnostic Imaging Results: positive: Final report reviewed, Discussed with radiologist, Read independently ABX Reporting Has patient been on IV antibiotics over the past 48 hours?: Yes Assessment/Plan - Problem List (1) Acute respiratory failure with hypoxia Impression: This may be secondary to pneumonia or pulmonary edema. I did discuss the CT scan findings with radiology and they believe that it appears to be more suggestive of edema. His BNP is in the low 300's and his echo revealed a preserved EF. Unable to assess diastolic dysfunction given his atrial fibrillation. Will continue antibiotics at this time. Will start Lasix 40mg IV. If he does not respond to diuresis, will pursue a thoracentesis tomorrow and discuss with Pulmonology at . (2) Pneumonia Impression: His CT of the chest is concerning for possible pneumonia or pulmonary edema. He continues to have a productive cough with dark sputum noted. Lower respiratory cultures previously grew yeast. I changed the antibiotics to Vancomycin and Levaquin IV given he did not improve on the prior regimen and his x-rays were worsening. Will continue Flagyl given risk for aspiration. Will repeat lower respiratory cultures. (3) Pulmonary vascular congestion Impression: CT concerning for edema or pneumonia. Radiology believes it to be more likely edema. BNP is in the low 300's. Will diurese with Lasix IV. (4) Afib Impression: Remains rate controlled. Will continue to hold Pradaxa at this time as he may require a thoracentesis if no improvement with diuresis. Will start low dose Met oprolol given his prior NSVT. (5) V-tach Impression: Likely related to hypokalemia. No further episodes since potassium has been replaced. Start low dose Metoprolol. Will continue to monitor on telemetry. (6) BPH (benign prostatic hyperplasia) Impression: Stable. Continue Flomax. (7) Dementia Impression: His feels that he has been less confused today. Avoid medications which may cause delirium. Continue frequent reorientation. Delirium precautions. (8) Hypothyroidism Impression: Stable. Will continue Synthroid. (9) SRI on CPAP Impression: Stable. Continue CPAP. (10) Hypertension Impression: He blood pressure remains stable on Lisinopril and Hydralazine. Qualifiers: Hypertension type: essential hypertension Qualified Code(s): I10 - Essential (primary) hypertension
[2019-05-12] MEDS: levoFLOXacin 750 MG/150 ML 750 MG/150 ML BAG IV SCH (16:21)
[2019-05-12] MEDS ORDERED: METOPROLOL TARTRATE 25 MG TABLET PO SCH ×2 (17:00→21:00)
[2019-05-12] MEDS: ATORVASTATIN 10 MG TABLET PO SCH (18:19)
[2019-05-12] MEDS: IPRATROPIUM/ALBUTEROL 3 ML NEB INH SCH (19:42)
[2019-05-12] MEDS: METOPROLOL TARTRATE 25 MG TABLET PO SCH ×2 (20:12→21:41)
[2019-05-13] MEDS: SODIUM CHLORIDE FLUSH 0.9% 10 ML SYRINGE IVP SCH ×3 (04:50→16:57)
[2019-05-13] MEDS: metroNIDAZOLE 500 MG/100 ML 500 MG/100 ML BAG IV SCH (04:50)
[2019-05-13 05:36] LABS: HGB - HEMOGLOBIN 11.9 g/dL (14.0-18.0); MEAN CORPUSCULAR HEMOGLOBIN 31.6 pg (27.0-31.0); MEAN CORPUSCULAR HGB CONC 32.8 g/dL (32.0-36.0); MEAN CORPUSCULAR VOLUME 96.5 fL (80.0-94.0); MEAN PLATELET VOLUME 10.1 fL (7.4-11.4); RED BLOOD COUNT 3.76 10^6/uL (4.70-6.10); RED CELL DISTRIBUTION WIDTH 14.3 % (12.0-15.0); WHITE BLOOD COUNT 6.6 x10^3/uL (4.8-10.8)
[2019-05-13 05:49] LABS: BUN - BLOOD UREA NITROGEN 26 mg/dL (6-20); CALCIUM 8.2 mg/dL (8.5-10.3); CARBON DIOXIDE - CO2 28 mmol/L (21-32); CHLORIDE 106 mmol/L (101-111); GFR - MDRD 72 (>89); GLUCOSE 107 mg/dL (70-100); MAGNESIUM 1.9 mg/dL (1.7-2.8); PHOSPHORUS 3.2 mg/dL (2.5-4.6); SODIUM 143 mmol/L (135-145); VANCOMYCIN,TROUGH 14.3 ug/mL (10.0-20.0)
[2019-05-13] MEDS: VANCOMYCIN INJ 1 GM in SODIUM CHLORIDE 0.9% 250 ML IV SCH (06:41)
[2019-05-13] MEDS: SODIUM CHLORIDE FLUSH 0.9% 10 ML SYRINGE IVP PRN ×2 (06:41→14:42)
[2019-05-13] MEDS: LEVOTHYROXINE 100 MCG TABLET PO SCH (06:42)
[2019-05-13] MEDS: IPRATROPIUM/ALBUTEROL 3 ML NEB INH SCH ×4 (07:50→20:16)
--- NOTE | 2019-05-13 10:17 | XRAY Report ---
Reason: Hypoxia. Infiltrates on imaging. Procedure Date: 05/13/2019 Accession Number: [id number] / [id number] Procedure: XR - Chest 1 View X-Ray CPT Code: 27791 FULL RESULT: EXAM: CHEST RADIOGRAPHY EXAM DATE: 05/13/2019 08:08 AM. CLINICAL HISTORY: Hypoxia. Infiltrates on imaging. COMPARISON: CHEST 1 VIEW 05/11/2019 11:22 AM CHEST W/O 05/11/2019 1:17 PM. TECHNIQUE: 1 view. FINDINGS: Lungs/Pleura: Redemonstrated patchy interstitial/alveolar pulmonary opacities which are grossly stable compared to prior exam. These are most evident in the upper lobes. Small effusions are likely present, unchanged. No visible pneumothorax. Mediastinum: Within exam limitations, the cardiomediastinal contour is enlarged, unchanged. Other: None. IMPRESSION: 1. Grossly stable pulmonary opacities, predominantly in the upper lung becerril. 2. Likely small bilateral pleural effusions, also unchanged. [facility]
[2019-05-13] MEDS: CHOLECALCIFEROL 1,000 UNIT TABLET PO SCH (10:32)
[2019-05-13] MEDS: guaiFENesin 600 MG TABLET PO SCH ×2 (10:33→20:07)
[2019-05-13] MEDS: CYANOCOBALAMIN 500 MCG TABLET PO SCH (10:33)
[2019-05-13] MEDS: LACTOBACILLUS RHAMNOSUS GG CAPSULE PO SCH (10:33)
[2019-05-13] MEDS: OMEGA-3 ACID ETHYL ESTERS 1 GM CAPSULE PO SCH (10:33)
[2019-05-13] MEDS: MULTIVITAMIN TABLET PO SCH (10:34)
[2019-05-13] MEDS: hydrALAZINE 25 MG TABLET PO SCH ×2 (10:34→20:07)
[2019-05-13] MEDS: TAMSULOSIN 0.4 MG CAPSULE PO SCH (10:34)
[2019-05-13] MEDS: FUROSEMIDE 40 MG/4 ML VIAL IVP SCH (10:35)
[2019-05-13] MEDS: METOPROLOL TARTRATE 25 MG TABLET PO SCH ×2 (10:37→20:02)
[2019-05-13] MEDS: LISINOPRIL 20 MG TABLET PO SCH (10:50)
[2019-05-13] MEDS: RIVASTIGMINE TD SCH (10:50)
[2019-05-13] MEDS: metroNIDAZOLE 250 MG TABLET PO SCH ×2 (12:54→20:03)
--- NOTE | 2019-05-13 13:55 | PROVIDER PROGRESS NOTE ---
Subjective - Prog Note Date Prog Note Date: 05/13/19 - Subjective Subjective: He still reports dyspnea but feels it is a better. Continues to have a productive cough. is at bedside and feels that he continues to improve. Reports no chest pain. Current Medications - Current Medications Current Medications: Active Medications Albuterol/Ipratropium (Duoneb) 3 ml INH RTQID [facility] Last Admin: 05/13/19 11:40 Dose: 3 ml Atorvastatin Calcium (Lipitor) 10 mg PO QPM [facility] Last Admin: 05/12/19 18:19 Dose: 10 mg Carboxymethylcellulose (Refresh 1% Ophth Drops) 1 drops EACHEYE QID PRN PRN Reason: Dry Eye Last Admin: 05/12/19 09:27 Dose: 1 drops Cholecalciferol (Vitamin D3) 1,000 unit PO DAILY [facility] Last Admin: 05/13/19 10:32 Dose: 1,000 unit Cyanocobalamin (Vitamin B-12) 1,000 mcg PO DAILY [facility] Last Admin: 05/13/19 10:33 Dose: 1,000 mcg Furosemide (Lasix Inj 40 Mg Vial) 40 mg IVP DAILY [facility] Last Admin: 05/13/19 10:35 Dose: 40 mg Furosemide (Lasix Inj 40 Mg Vial) 40 mg IVP ONCE [facility] Guaifenesin (Mucinex) 600 mg PO BID [facility] Last Admin: 05/13/19 10:33 Dose: 600 mg Hydralazine HCl (Apresoline) 25 mg PO BID [facility] Last Admin: 05/13/19 10:34 Dose: 25 mg Sodium Chloride (Normal Saline 0.9%) 250 mls @ 0 mls/hr IV Q24H PRN PRN Reason: TKO RATE Last Infusion: 05/12/19 21:05 Dose: 0 mls/hr Levofloxacin (Levaquin 750 Mg/150 Ml) 750 mg in 150 mls @ 100 mls/hr IV Q24H S Last Infusion: 05/12/19 17:51 Dose: Infused Vancomycin HCl 1 gm/ Sodium (Chloride) 250 mls @ 167 mls/hr IV Q12H [facility] Last Infusion: 05/13/19 08:27 Dose: Infused Lactobacillus Rhamnosus (Culturelle) 1 cap PO DAILY [facility] Last Admin: 05/13/19 10:33 Dose: 1 cap Levothyroxine Sodium (Synthroid) 100 mcg PO QDAC [facility] Last Admin: 05/13/19 06:42 Dose: 100 mcg Lisinopril (Zestril) 10 mg PO BID [facility] Metoprolol Tartrate (Lopressor) 25 mg PO BID [facility] Last Admin: 05/13/19 10:37 Dose: 25 mg Metronidazole (Flagyl) 500 mg PO Q8H [facility] Last Admin: 05/13/19 12:54 Dose: 500 mg Multivitamins (Theragran) 1 tab PO DAILYWM [facility] Last Admin: 05/13/19 10:34 Dose: 1 tab Non-Formulary Medication (Rivastigmine [Rivastigmine 4.6mg]) 1 each TD DAILY [facility] Last Admin: 05/13/19 10:50 Dose: 1 each Whqjm-[id number] Ethyl Esters (Lovaza) 1 gm PO DAILY [facility] Last Admin: 05/13/19 10:33 Dose: 1 gm Sodium Chloride (Normal Saline Flush 0.9%) 10 ml IVP PRN PRN PRN Reason: NEEDED PER PROVIDER ORDERS Last Admin: 05/13/19 06:41 Dose: 10 ml Sodium Chloride (Normal Saline Flush 0.9%) 10 ml IVP 0100,0900,1700 [facility] Last Admin: 05/13/19 08:28 Dose: 10 ml Tamsulosin HCl (Flomax) 0.4 mg PO DAILY [facility] Last Admin: 05/13/19 10:34 Dose: 0.4 mg Throat Lozenges (Cepacol) 1 lozenge MM Q2HR PRN PRN Reason: Throat pain Cholecalciferol [Vitamin D3] 1,000 unit PO DAILY 01/21/16 Cyanocobalamin (Vitamin B-12) [Vitamin B12] 1,000 mcg PO DAILY 01/21/16 Lisinopril 10 mg PO BID 01/21/16 Multivitamin [Multivitamins] 1 cap PO DAILY 01/21/16 [place]-3 Fatty Acids [Fish Oil] 1,000 mg PO DAILY 01/21/16 Tamsulosin [Flomax] 0.4 mg PO QPM 01/21/16 hydrALAZINE [Apresoline] 25 mg PO BID 01/21/16 Dabigatran Etexilate Mesylate [Pradaxa] 150 mg PO BID 05/06/19 Levothyroxine [Synthroid] 100 mcg PO QDAC 10/11/19 Rivastigmine [Rivastigmine 4.6MG] 1 each TD DAILY 05/06/19 Rosuvastatin Calcium [Crestor] 5 mg PO QPM 05/06/19 Objective - Vital Signs/Intake & Output Reviewed Vital Signs: Yes Vital Signs: Vital Signs x48h Temp Pulse Pulse Resp BP BP Pulse Ox 05/13/19 13:39 21 93 05/13/19 12:58 20 95 05/13/19 12:45 20 96 05/13/19 11:40 62 18 05/13/19 11:38 36.4 C L 83 22 144/85 H 96 05/13/19 10:37 138/73 H 05/13/19 07:50 80 20 05/13/19 07:43 37.5 C 71 24 150/93 H 93 Intake & Output: Intake & Output 05/10/19 05/11/19 05/12/19 05/13/19 23:59 23:59 23:59 23:59 Intake Total 1328 1863 0831.910 9370 Output Total 325 1200 1130 Balance 1003 1863 471.667 174 - Objective General Appearance: positive: No acute distress, Alert Eyes Bilateral: positive: Normal inspection ENT: positive: Other (Nasal cannula in place) Neck: positive: Nml inspection Respiratory: positive: No respiratory distress, Rales, Rhonchi, Other (Diminshed breath sounds in bases.) Cardiovascular: positive: No murmur, Irregularly irregular. negative: Tachy cardia, Bradycardia Abdomen: positive: Non-tender, No distention Skin: positive: No rash, Warm Extremities: positive: No pedal edema Neurologic/Psychiatric: positive: Motor nml. negative: Disoriented to person, Disoriented to place, Slurred/abnml speech - Lab Results Fish Bones: 05/13/19 05:15 05/13/19 05:15 Other Labs: Lab Results x24hrs 05/13/19 05/13/19 Range/Units 05:15 05:15 WBC 6.6 (4.8-10.8) x10^3/uL RBC 3.76 L (4.70-6.10) 10^6/uL Hgb 11.9 L (14.0-18.0) g/dL Hct 36.3 L (42.0-52.0) % MCV 96.5 H (80.0-94.0) fL MCH 31.6 H (27.0-31.0) pg MCHC 32.8 (32.0-36.0) g/dL RDW 14.3 (12.0-15.0) % Plt Count 189 (130-450) 10^3/uL MPV 10.1 (7.4-11.4) fL Sodium 143 (135-145) mmol/L Potassium 3.7 (3.5-5.0) mmol/L Chloride 106 (101-111) mmol/L Carbon Dioxide 28 (21-32) mmol/L Anion Gap 9.0 (6-13) BUN 26 H (6-20) mg/dL Creatinine 1.0 (0.6-1.2) mg/dL Estimated GFR (MDRD) 72 L (>89) Glucose 107 H (70-100) mg/dL Calcium 8.2 L (8.5-10.3) mg/dL Phosphorus 3.2 (2.5-4.6) mg/dL Magnesium 1.9 (1.7-2.8) mg/dL Last Dose Date 05/12/19 Last Dose Time 1939 Vancomycin Trough 14.3 (10.0-20.0) ug/mL - Diagnostic Imaging Diagnostic Imaging Results: positive: Final report reviewed, Read independently (Infiltrates are still present bilaterally but appear decreased compared to prior imaging.) ABX Reporting Has patient been on IV antibiotics over the past 48 hours?: Yes Assessment/Plan - Problem List (1) Acute respiratory failure with hypoxia Impression: He is approving with diuresis which makes me believe that it was likely pulmonary edema causing his hypoxia. He is now on 0.5L of oxygen which is decreased from 2L. Chest x-ray today appears improved to me although Radiology read it as stable. Will give an extra dose of Lasix IV today and hope to transition to oral diuretics tomorrow. Will hold off on obtaining a thoracentesis given his improvement with diuresis. (2) Pneumonia Impression: His hypoxia is improving with diuresis so his CT of the chest may have been just edema although difficult to rule out pneumonia. His lower respiratory cultures grew yeast as well as enterococcus faecalis. Will discontinue Vancomycin and continue Levaquin to complete 5 days of treatment. (3) Pulmonary vascular congestion Impression: His hypoxia is improving with diuresis. Will give an extra dose of Lasix IV today in hopes of transitioning to oral diuretics tomorrow. (4) Afib Impression: Remains rate controlled on Metoprolol. Will restart Pradaxa tomorrow morning to ensure that he continues to improve from hypoxia standpoint before starting him on anticoagulation and delaying a potential thoracentesis. (5) V-tach Impression: No further episodes since potassium replaced. Continue Metoprolol. (6) BPH (benign prostatic hyperplasia) Impression: Stable. Continue Flomax. (7) Dementia Impression: He is still intermittently confused at times. Overnight he felt there was a nice gentleman who was trying to harm him. He does much better during the day with his at bedside. Continue delirium precautions. (8) Hypothyroidism Impression: Wiill continue Synthroid but decreasse dose to 75mcg given that last TSH was low normal. Goal should be upper limit of normal given age and atrial fibrillation. (9) SRI on CPAP Impression: Stable. Continue CPAP. (10) Hypertension Impression: Blood pressure remains stable on Lisinopril, Metoprolol and Hydralazine. Qualifiers: Hypertension type: essential hypertension Qualified Code(s): I10 - Essential (primary) hypertension (11) Dysphagia Impression: Will now require puree diet and nectar thick liquids. Will benefit from outpatient speech therapy.
[2019-05-13] MEDS ORDERED: FUROSEMIDE 40 MG/4 ML VIAL IVP ONE (14:30)
[2019-05-13] MEDS: levoFLOXacin 750 MG/150 ML 750 MG/150 ML BAG IV SCH (16:56)
[2019-05-13] MEDS: LISINOPRIL 5 MG TABLET PO SCH (20:05)
[2019-05-13] MEDS: ATORVASTATIN 10 MG TABLET PO SCH (20:07)
[2019-05-14] MEDS ORDERED: HALOPERIDOL 5 MG/ML VIAL IVP ONE (00:49)
[2019-05-14] MEDS: SODIUM CHLORIDE FLUSH 0.9% 10 ML SYRINGE IVP SCH ×3 (00:58→20:59)
[2019-05-14 05:53] LABS: BASOPHILS % (AUTO) 0.4 %; EOSINOPHILS # (AUTO) 0.1 10^3/uL (0.0-0.7); EOSINOPHILS % (AUTO) 1.9 %; HGB - HEMOGLOBIN 12.5 g/dL (14.0-18.0); LYMPHOCYTES # (AUTO) 0.8 10^3/uL (1.5-3.5); LYMPHOCYTES % (AUTO) 10.7 %; MEAN CORPUSCULAR HEMOGLOBIN 30.3 pg (27.0-31.0); MEAN CORPUSCULAR HGB CONC 32.1 g/dL (32.0-36.0); MEAN CORPUSCULAR VOLUME 94.4 fL (80.0-94.0); MEAN PLATELET VOLUME 10.4 fL (7.4-11.4); MONOCYTES # (AUTO) 0.6 10^3/uL (0.0-1.0); MONOCYTES % (AUTO) 7.7 %; NEUTROPHILS # (AUTO) 5.9 10^3/uL (1.5-6.6); NEUTROPHILS % (AUTO) 78.4 %; PLT - PLATELET COUNT 203 10^3/uL (130-450); RED BLOOD COUNT 4.12 10^6/uL (4.70-6.10); RED CELL DISTRIBUTION WIDTH 14.2 % (12.0-15.0); WHITE BLOOD COUNT 7.6 x10^3/uL (4.8-10.8)
[2019-05-14 05:59] LABS: CALCIUM 8.5 mg/dL (8.5-10.3); MAGNESIUM 1.9 mg/dL (1.7-2.8)
[2019-05-14] MEDS: metroNIDAZOLE 250 MG TABLET PO SCH (06:05)
[2019-05-14] MEDS: LEVOTHYROXINE 75 MCG TABLET PO SCH (06:38)
[2019-05-14] MEDS: IPRATROPIUM/ALBUTEROL 3 ML NEB INH SCH ×4 (07:31→19:42)
[2019-05-14] MEDS ORDERED: POTASSIUM CHLORIDE 20 MEQ TABLET PO ONE (07:57)
[2019-05-14] MEDS: LACTOBACILLUS RHAMNOSUS GG CAPSULE PO SCH (09:11)
[2019-05-14] MEDS: OMEGA-3 ACID ETHYL ESTERS 1 GM CAPSULE PO SCH (09:11)
[2019-05-14] MEDS: hydrALAZINE 25 MG TABLET PO SCH ×2 (09:11→20:54)
[2019-05-14] MEDS: guaiFENesin 600 MG TABLET PO SCH ×2 (09:11→20:59)
[2019-05-14] MEDS: MULTIVITAMIN TABLET PO SCH (09:11)
[2019-05-14] MEDS: TAMSULOSIN 0.4 MG CAPSULE PO SCH (09:12)
[2019-05-14] MEDS: METOPROLOL TARTRATE 25 MG TABLET PO SCH ×2 (09:12→20:54)
[2019-05-14] MEDS: LISINOPRIL 5 MG TABLET PO SCH ×2 (09:12→20:55)
[2019-05-14] MEDS: FUROSEMIDE 40 MG TABLET PO SCH (09:12)
[2019-05-14] MEDS: CHOLECALCIFEROL 1,000 UNIT TABLET PO SCH (09:12)
[2019-05-14] MEDS: RIVASTIGMINE TD SCH (09:27)
--- NOTE | 2019-05-14 11:54 | PROVIDER PROGRESS NOTE ---
Subjective - Prog Note Date Prog Note Date: 05/14/19 - Subjective Subjective: He has now been in room air since yesterday afternoon. He was confused and agitated overnight and required a dose of Haldol. This morning he is sitting upright in his chair and feels comfortable. is at bedside as well. He continues to have a cough. He does not endorse or deny dyspnea. Current Medications - Current Medications Current Medications: Active Medications Albuterol/Ipratropium (Duoneb) 3 ml INH RTQID [facility] Last Admin: 05/14/19 11:25 Dose: 3 ml Atorvastatin Calcium (Lipitor) [address] [facility] Last Admin: 05/13/19 20:07 Dose: 10 mg Carboxymethylcellulose (Refresh 1% Ophth Drops) 1 drops EACHEYE QID PRN PRN Reason: Dry Eye Last Admin: 05/12/19 09:27 Dose: 1 drops Cholecalciferol (Vitamin D3) 1,[address] [facility] Last Admin: 05/14/19 09:12 Dose: 1,000 unit Furosemide (Lasix) 40 mg PO DAILY [facility] Last Admin: 05/14/19 09:12 Dose: 40 mg Furosemide (Lasix Inj 40 Mg Vial) 40 mg IVP ONCE [facility] Stop: 05/14/19 14:00 Guaifenesin (Mucinex) [address] [facility] Last Admin: 05/14/19 09:11 Dose: 600 mg Hydralazine HCl (Apresoline) [address] [facility] Last Admin: 05/14/19 09:11 Dose: 25 mg Sodium Chloride (Normal Saline 0.9%) 250 mls @ 0 mls/hr IV Q24H PRN PRN Reason: TKO RATE Last Infusion: 05/12/19 21:05 Dose: Infused Levofloxacin (Levaquin 750 Mg/150 Ml) 750 mg in 150 mls @ 100 mls/hr IV Q24H [facility] Last Infusion: 05/13/19 18:45 Dose: Infused Lactobacillus Rhamnosus (Culturelle) 1 cap PO DAILY [facility] Last Admin: 05/14/19 09:11 Dose: 1 cap Levothyroxine Sodium (Synthroid) [address] [facility] Last Admin: 05/14/19 06:38 Dose: 75 mcg Lisinopril (Zestril) 10 mg PO BID [facility] Last Admin: 05/14/19 09:12 Dose: 10 mg Metoprolol Tartrate (Lopressor) [address] [facility] Last Admin: 05/14/19 09:12 Dose: 25 mg Multivitamins (Theragran) [address] [facility] Last Admin: 05/14/19 09:11 Dose: 1 tab Non-Formulary Medication (Rivastigmine [Rivastigmine 4.6mg]) [address] [facility] Last Admin: 05/14/19 09:27 Dose: 1 each Upymv-2-Edee Ethyl Esters (Lovaza) [address] [facility] Last Admin: 05/14/19 09:11 Dose: 1 gm Sodium Chloride (Normal Saline Flush 0.9%) 10 ml IVP PRN PRN PRN Reason: NEEDED PER PROVIDER ORDERS Last Admin: 05/13/19 14:42 Dose: 10 ml Sodium Chloride (Normal Saline Flush 0.9%) 10 ml IVP 0100,0900,1700 [facility] Last Admin: 05/14/19 09:13 Dose: 10 ml Tamsulosin HCl (Flomax) 0.[address] [facility] Last Admin: 05/14/19 09:12 Dose: 0.4 mg Throat Lozenges (Cepacol) 1 lozenge MM Q2HR PRN PRN Reason: Throat pain Cholecalciferol [Vitamin D3] 1,000 unit PO DAILY 01/21/16 Cyanocobalamin (Vitamin B-12) [Vitamin B12] 1,000 mcg PO DAILY 01/21/16 Lisinopril 10 mg PO BID 01/21/16 Multivitamin [Multivitamins] 1 cap PO DAILY 01/21/16 [place]-3 Fatty Acids [Fish Oil] 1,000 mg PO DAILY 01/21/16 Tamsulosin [Flomax] 0.4 mg PO QPM 01/21/16 hydrALAZINE [Apresoline] 25 mg PO BID 01/21/16 Dabigatran Etexilate Mesylate [Pradaxa] 150 mg PO BID 05/06/19 Levothyroxine [Synthroid] 100 mcg PO QDAC 05/06/19 Rivastigmine [Rivastigmine 4.6MG] 1 each TD DAILY 05/06/19 Rosuvastatin Calcium [Crestor] 5 mg PO QPM 05/06/19 Objective - Vital Signs/Intake & Output Reviewed Vital Signs: Yes Vital Signs: Vital Signs x48h Temp Pulse Pulse Resp BP BP BP 05/14/19 11:26 70 16 05/14/19 09:12 114/76 05/14/19 07:47 37.0 C 78 17 163/83 H 05/14/19 07:33 88 18 05/14/19 05:00 37.1 C 86 20 169/101 H 168/106 H Pulse Ox 05/14/19 11:26 05/14/19 09:12 05/14/19 07:47 94 05/14/19 07:33 05/14/19 05:00 91 L Intake & Output: Intake & Output 05/11/19 05/12/19 05/13/19 05/14/19 23:59 23:59 23:59 23:59 Intake Total 1863 2733.834 8859 237 Output Total 1200 2280 350 Balance 1863 471.667 -826 -113 - Objective General Appearance: positive: No acute distress, Alert Eyes Bilateral: positive: Normal inspection ENT: positive: ENT inspection nml Neck: positive: Nml inspection Respiratory: positive: No respiratory distress, Other (Lung sounds much more clear today. Still diminished in the base. No rhonci.) Cardiovascular: positive: No murmur, Irregularly irregular. negative: Tachycard ia, Bradycardia Abdomen: positive: Non-tender, No distention Skin: positive: No rash, Warm, Dry Extremities: positive: No pedal edema Neurologic/Psychiatric: positive: Other (No focal motor deficits). negative: Disoriented to person - Lab Results Fish Bones: 05/14/19 05:25 05/14/19 05:25 Other Labs: Lab Results x24hrs 05/14/19 05/14/19 05/14/19 Range/Units 05:25 05:25 05:25 WBC 7.6 (4.8-10.8) x10^3/uL RBC 4.12 L (4.70-6.10) 10^6/uL Hgb 12.5 L (14.0-18.0) g/dL Hct 38.9 L (42.0-52.0) % MCV 94.4 H (80.0-94.0) fL MCH 30.3 (27.0-31.0) pg MCHC 32.1 (32.0-36.0) g/dL RDW 14.2 (12.0-15.0) % Plt Count 203 (130-450) 10^3/uL MPV 10.4 (7.4-11.4) fL Neut # (Auto) 5.9 (1.5-6.6) 10^3/uL Lymph # (Auto) 0.8 L (1.5-3.5) 10^3/uL [place] # (Auto) 0.6 (0.0-1.0) 10^3/uL Eos # (Auto) 0.1 (0.0-0.7) 10^3/uL Baso # (Auto) 0.0 (0.0-0.1) 10^3/uL Absolute Nucleated RBC 0.00 x10^3/uL Nucleated RBC % 0.0 /100WBC Sodium 144 (135-145) mmol/L Potassium 3.5 (3.5-5.0) mmol/L Chloride 105 (101-111) mmol/L Carbon Dioxide 30 (21-32) mmol/L Anion Gap 9.0 (6-13) BUN 27 H (6-20) mg/dL Creatinine 1.0 (0.6-1.2) mg/dL Estimated GFR (MDRD) 72 L (>89) Glucose 105 H (70-100) mg/dL Calcium 8.5 (8.5-10.3) mg/dL Magnesium 1.9 (1.7-2.8) mg/dL B-Natriuretic Peptide 311 H (5-100) pg/mL Vitamin B12 (180-914) pg/mL 05/14/19 Range/Units 05:25 WBC (4.8-10.8) x10^3/uL RBC (4.70-6.10) 10^6/uL Hgb (14.0-18.0) g/dL Hct (42.0-52.0) % MCV (80.0-94.0) fL MCH (27.0-31.0) pg MCHC (32.0-36.0) g/dL RDW (12.0-15.0) % Plt Count (130-450) 10^3/uL MPV (7.4-11.4) fL Neut # (Auto) (1.5-6.6) 10^3/uL Lymph # (Auto) (1.5-3.5) 10^3/uL [place] # (Auto) (0.0-1.0) 10^3/uL Eos # (Auto) (0.0-0.7) 10^3/uL Baso # (Auto) (0.0-0.1) 10^3/uL Absolute Nucleated RBC x10^3/uL Nucleated RBC % /100WBC Sodium (135-145) mmol/L Potassium (3.5-5.0) mmol/L Chloride (101-111) mmol/L Carbon Dioxide (21-32) mmol/L Anion Gap (6-13) BUN (6-20) mg/dL Creatinine (0.6-1.2) mg/dL Estimated GFR (MDRD) (>89) Glucose (70-100) mg/dL Calcium (8.5-10.3) mg/dL Magnesium (1.7-2.8) mg/dL B-Natriuretic Peptide (5-100) pg/mL Vitamin B12 1027 H (180-914) pg/mL ABX Reporting Has patient been on IV antibiotics over the past 48 hours?: Yes Assessment/Plan - Problem List (1) Acute respiratory failure with hypoxia Impression: He is no longer hypoxic at rest but did desat to 86-87% with exertion. He is improving but is still not at baseline and will likely benefit from further diuresis. Will give another dose of IV Lasix today. I hope that he will be able to go home tomorrow without oxygen as I am concerned portable oxygen will make ambulation difficult for him. (2) Pneumonia Impression: Lower respiratory cultures grew Enteroccocus faecalis. Will transition to oral Levaquin to complete 5 days of treatment. Vancomycin has been discontinued and will discontinue Flagyl today as he has received 5 days of treatment. (3) Pulmonary vascular congestion Impression: He likely has diastolic heart failure which is the cause of his pulmonary edema. His echo showed preserved EF but unable to assess his diastolic dysfunction given his atrial fibrillation. Will continue with IV diuresis for one more day. He will require oral diuretics on discharge. (4) Dementia Impression: He continues to wax and wane. He does much better during the day with his at bedside. Required Haldol overnight for agitation. Continue delirium precautions. If he does require Haldol, will administer low dose 0.5mg - 1mg pushes as needed. (5) Afib Impression: Remains rate controlled on Metoprolol. Will restart Pradaxa today as we will not be pursuing a thoracentesis. (6) BPH (benign prostatic hyperplasia) Impression: Stable. Continue Flomax. (7) Hypothyroidism Impression: Will continue Synthroid at a lower dose of 75mcg given his TSH was low normal. (8) SRI on CPAP Impression: Stable. Continue CPAP. (9) Hypertension Impression: Stable. Continue Lisinopril, Metoprolol, and Hydralazine. Qualifiers: Hypertension type: essential hypertension Qualified Code(s): I10 - Essential (primary) hypertension (10) Dysphagia Impression: Continue puree diet and nectar thick liquids. Outpatient speech therapy on d ischarge. (11) V-tach Impression: This has resolved. He had NSVT during the hospitalization.. Continue Metoprolol
[2019-05-14] MEDS: DABIGATRAN 75 MG CAPSULE PO SCH ×2 (12:25→20:54)
[2019-05-14] MEDS: levoFLOXacin 250 MG TABLET PO SCH (12:25)
[2019-05-14] MEDS: SODIUM CHLORIDE FLUSH 0.9% 10 ML SYRINGE IVP PRN (12:26)
[2019-05-14] MEDS ORDERED: FUROSEMIDE 40 MG/4 ML VIAL IVP SCH (13:00)
[2019-05-14] MEDS: ATORVASTATIN 10 MG TABLET PO SCH (20:59)
[2019-05-15] MEDS: SODIUM CHLORIDE FLUSH 0.9% 10 ML SYRINGE IVP SCH ×2 (00:03→09:27)
[2019-05-15 05:46] LABS: BASOPHILS % (AUTO) 0.3 %; EOSINOPHILS # (AUTO) 0.1 10^3/uL (0.0-0.7); EOSINOPHILS % (AUTO) 1.6 %; HGB - HEMOGLOBIN 12.3 g/dL (14.0-18.0); LYMPHOCYTES # (AUTO) 0.7 10^3/uL (1.5-3.5); LYMPHOCYTES % (AUTO) 9.7 %; MEAN CORPUSCULAR HEMOGLOBIN 31.1 pg (27.0-31.0); MEAN CORPUSCULAR HGB CONC 32.5 g/dL (32.0-36.0); MEAN CORPUSCULAR VOLUME 95.7 fL (80.0-94.0); MEAN PLATELET VOLUME 10.2 fL (7.4-11.4); MONOCYTES # (AUTO) 0.7 10^3/uL (0.0-1.0); MONOCYTES % (AUTO) 8.8 %; NEUTROPHILS # (AUTO) 5.8 10^3/uL (1.5-6.6); NEUTROPHILS % (AUTO) 78.7 %; PLT - PLATELET COUNT 195 10^3/uL (130-450); RED BLOOD COUNT 3.95 10^6/uL (4.70-6.10); RED CELL DISTRIBUTION WIDTH 14.4 % (12.0-15.0); WHITE BLOOD COUNT 7.4 x10^3/uL (4.8-10.8)
[2019-05-15 05:54] LABS: CREATININE 1.1 mg/dL (0.6-1.2)
[2019-05-15] MEDS: LEVOTHYROXINE 75 MCG TABLET PO SCH (06:03)
[2019-05-15] MEDS ORDERED: POTASSIUM CHLORIDE 20 MEQ TABLET PO ONE (07:10)
[2019-05-15] MEDS: IPRATROPIUM/ALBUTEROL 3 ML NEB INH SCH (07:33)
[2019-05-15] MEDS: DABIGATRAN 75 MG CAPSULE PO SCH (08:24)
[2019-05-15] MEDS: levoFLOXacin 250 MG TABLET PO SCH (08:25)
[2019-05-15] MEDS: METOPROLOL TARTRATE 25 MG TABLET PO SCH (08:26)
[2019-05-15] MEDS: hydrALAZINE 25 MG TABLET PO SCH (08:27)
[2019-05-15] MEDS: TAMSULOSIN 0.4 MG CAPSULE PO SCH (08:33)
[2019-05-15] MEDS: LISINOPRIL 5 MG TABLET PO SCH (08:33)
[2019-05-15] MEDS: guaiFENesin 600 MG TABLET PO SCH (08:34)
[2019-05-15] MEDS: CHOLECALCIFEROL 1,000 UNIT TABLET PO SCH (08:35)
[2019-05-15] MEDS: RIVASTIGMINE TD SCH (08:47)
[2019-05-15] MEDS: MULTIVITAMIN TABLET PO SCH (09:25)
[2019-05-15] MEDS: FUROSEMIDE 40 MG TABLET PO SCH (09:25)
[2019-05-15] MEDS: OMEGA-3 ACID ETHYL ESTERS 1 GM CAPSULE PO SCH (09:27)
[2019-05-15] MEDS: LACTOBACILLUS RHAMNOSUS GG CAPSULE PO SCH (09:30)
--- NOTE | 2019-05-15 10:51 | Discharge Plan ---
Discharge Plan Problem Reviewed?: Yes Disposition: Home Health Service Condition: Stable Prescriptions: Furosemide [Lasix] 20 mg PO DAILY #30 tablet Levothyroxine [Synthroid] 75 mcg PO QDAC #30 tablet Metoprolol Tartrate [Lopressor] 25 mg PO BID #60 tablet Potassium Chloride [K-Dur] 20 meq PO DAILY #30 tablet Diet: Cardiac (Puree diet and nectar thick liquids.) Activity Restrictions: Activity as Tolerated Weight Bearing: Full Weight Instruction Topics: Furosemide tablets, Pneumonia Dc, Dysphagia Diet Pureed Health Concerns: You were seen in the hospital because of pneumonia. You were treated with antibiotics and you initially improved. Unfortunately, you continued to require oxygen and we started on your a water pill called Furosemide which helped remove fluid from your body. This helped your breathing and you no longer need oxygen. We did get a CT scan of your chest which showed there was fluid around your lungs. After speaking with the radiologist, we felt it was best to not remove this fluid and that it will improve with the water pill. You finished your course of antibiotics while in the hospital and do not need to take any at home. The physical therapists saw you in the hospital and recommend that physical therapy continues to see you at home. The speech therapist saw you and also recommended that you eat a puree diet and nectar thick liquids. They will also see you on an outpatient basis to work with you on improving your swallowing. Please take your time and do not push yourself by walking a lot these next few days. Take your time and rest when you need to. Plan of Treatment: Please take the following new medications: Metoprolol 25mg twice a day - this is to help control your heart rate Furosemide 20mg daily - this is to help remove fluid from your body Potassium 20meq daily - this is a potassium tablet as the water pill (furosemide) can cause your potassium levels to be low Synthroid 75mcg daily - this is a new dose for your thyroid medication. Please stop taking the old dose of 100mcg Please stop taking the following medications: Vitamin B12 - We checked your vitamin B12 levels and they were normal. You do not need to continue taking this vitamin. There were no other changes to your medication. Care Goals: Please take the new medications as prescribed above. Please follow up with your primary care physician this week. The physical therapists and speech therapists will work with you at home to improve your strength and swallowing. Assessment: I discussed the treatment and goals of care with the patient's who is in agreement. Follow-Up Care: Home Health - PT, Home Health - ST No Smoking: If you smoke, Please STOP! Call for help. Follow-up with: Pawan Mckeon MD [Primary Care Provider] -
--- NOTE | 2019-05-15 11:08 | DISCHARGE SUMMARY ---
"Discharge Summary Admit Date: 05/05/19 Discharge Date: 05/15/19 Discharging Provider: Dr. Luis Cherry Primary Care Provider: Dr. Pawan Mckeon Code Status: Attempt Resuscitation Condition at Discharge: Stable Discharge Disposition: Home Health Service - DIAGNOSES Admission Diagnoses: Altered mental status Fever, related to UTI or Pneumonia Cough Abnormal urinalysis Chronic atrial fibrillation, on Eliquis History of dementia BPH Hypothyroidism Hypertension Discharge Diagnoses with Status of Each Condition: Acute respiratory failure with hypoxia - Resolved. Likely secondary to pneumonia and suspected CHFpEF although echo could not assess his diastolic dysfunction. Improved with diuresi. Completed antibiotics while hospitalized. Discharged on Lasix 20mg daily for judicious diuresis given his age. Also started on potassium supplementation. Pneumonia - Resolved. Lower respiratory cultures grew Enteroccocus faecalis. Com pleted antibiotics. Pulmonary vascular congestion - Improved. Suspect he has CHFpEF. Discharged on Lasix 20mg daily after receiving intravenous diuresis. Dementia - Stable. Back to baseline mental status. Continue home medications. Was delirious at times while hospitalized and required Haldol. Atrial fibrillation - Stable. Started Metoprolol this admission given NSVT. Continued on Pradaxa. BPH - Stable. Continue Flomax. Hypothyroidism - Stable. Decreased Synthroid to 75mcg as TSH was low normal. Will require repeat TSH in 4-6 weeks. Hypertension - Stable. Continue Lisinopril, Metoprolol, and Hydralazine. Dysphagia - Stable. Continue puree diet and nectar thick liquids. Outpatient spe ech therapy. NSVT - Resolved. Secondary to hypokalemia. Continue Metoprolol and potassium supplementation. - HPI History of Present Illness: H&P per Dr. Marks on 05/05/19: This is an 78 year old white male with a history of dementia on Rivastigmine topically, BPH, hypothyroidism and hypertension, as well as chronic atrial fibrillation on Eliquis. Patient is usually functional, lives with his , and she noticed that he became more confused, did not recognize her starting yesterday. The symptoms continued today and they went to the PCP, where he was found to have an abnormal urine dipstick for bacteriuria and was sent to the emergency room for probably urinary tract infection. in the emergency room, his neurologic exam was consistent with disorientation, but he was cooperative and underwent a CT scan that showed no acute stroke and no bleed. The WBC was normal and urinalysis had small WBCs and small bacteria, there was no fever in the ER. The place was to place in Observation for further workup of the altered mental status with a brain MRI. However, he spiked a fever moments ago and complains of a wet cough, a chest x-ray is pending, and he will be place in inpatient status for the fever, abnormal urinalysis at the PCP office and UTI, the probable bronchitis or pneumonia. - CONSULTS | PROCEDURES Consultations: PT, ST Procedures: Echo, Barium swallow, CT of the chest. - HOSPITAL COURSE Hospital Course: He was admitted for pneumonia and treated with Ceftriaxone and Azithromycin IV. There was concern for aspiration and speech therapy evaluated the patient and recommended mechanical soft diet. He was started on Flagyl given the concern. His troponins peaked in the 70's which was believed to be demand ischemia given the pneumonia. He was to be discharged on home oxygen hospital day 5 but he developed an episode of NSVT which is attributed to hypokalemia. He remained hospitalized and further imaging was concerning for worsening infiltrate. He was started on Vancomycin and Levaquin IV in addition to Flagyl. An echo revealed preserved EF but diastolic dysfunction was unable to assessed given his atrial fibrillation. A CT of the chest was performed which was concerning for edema or pneumonia. There were also moderate pleural effusions. After discussion with radiology, this was felt to be more likely edema despite his BNP being in the 300's. He was continued on antibiotics and started on IV diuresis. His oxygenat ion improved from 3L nasal cannula to room air over a couple of days. PT evaluated the patient and recommended home PT. Speech saw the patient again and recommended a puree diet and nectar thick liquids. He did have a barium swallow which did not show carmina aspiration but delayed swallowing and pooling in the pharynx. He was able to ambulate and his oxygen saturations remained above 92% while ambulating. - ALLERGIES Allergies/Adverse Reactions: Allergies Allergy/AdvReac Type Severity Reaction Status Date / Time No Known Drug Allergies Allergy Verified 09/26/15 19:22 - MEDICATIONS Home Medications: Ambulatory Orders Medication Instructions Recorded Confirmed Cholecalciferol [Vitamin D3] 1,000 unit PO DAILY 01/21/16 05/06/19 Lisinopril 10 mg PO BID 01/21/16 05/06/19 Multivitamin [Multivitamins] 1 cap PO DAILY 01/21/16 05/06/19 [place]-3 Fatty Acids [Fish Oil] 1,000 mg PO DAILY 01/21/16 05/06/19 Tamsulosin [Flomax] 0.4 mg PO QPM 01/21/16 05/06/19 hydrALAZINE [Apresoline] 25 mg PO BID 01/21/16 05/06/19 Dabigatran Etexilate Mesylate 150 mg PO BID 05/06/19 05/06/19 [Pradaxa] Rivastigmine [Rivastigmine 4.6MG] 1 each TD DAILY 05/06/19 05/06/19 Rosuvastatin Calcium [Crestor] 5 mg PO QPM 05/06/19 05/06/19 Furosemide [Lasix] 20 mg PO DAILY #30 tablet 05/15/19 Levothyroxine [Synthroid] 75 mcg PO QDAC #30 tablet 05/15/19 Metoprolol Tartrate [Lopressor] 25 mg PO BID #60 tablet 05/15/19 Potassium Chloride [K-Dur] 20 meq PO DAILY #30 tablet 05/15/19 - PHYSICAL EXAM AT DISCHARGE General Appearance: positive: No acute distress, Alert Eyes Bilateral: positive: Normal inspection ENT: positive: ENT inspection nml Neck: positive: Nml inspection Respiratory: positive: No respiratory distress. negative: Wheezes, Rales, Rhonchi Cardiovascular: positive: No murmur, Irregularly irregular. negative: Tachycardia, Bradycardia Abdomen: positive: Non-tender, No distention. negative: Tenderness Skin: positive: Color nml, No rash, Warm, Dry Extremities: positive: Full ROM, No pedal edema Neurologic/Psychiatric: positive: Disoriented to time, Other (No focal motor deficits.). negative: Disoriented to person, Disoriented to place - LABS Result Diagrams: 05/15/19 05:10 05/15/19 05:10 - DIAGNOSTIC IMAGING Diagnostic Imaging Results: Final report reviewed - FOLLOW UP Follow Up: He was asked to follow up with his primary care physician within one week. - TIME SPENT Time Spent in Discharge (Minutes): 40"
[2019-05-15 11:27] VITALS: BP 120/79
== END 2019-05-15 12:55 | disposition home health service (06) | DRG 177 ==
LOC: EDUNIT# → ED 12:22 → MS2 15:20 → OBSVTOIN 18:13
PROVIDERS: ADMIT Internal Medicine; ATTEND Internal Medicine
DX: R41.82 Altered mental status, unspecified (principal); R50.9 Fever, unspecified; R05 Cough; R82.71 Bacteriuria; J15.8 Pneumonia due to other specified bacteria; J96.01 Acute respiratory failure with hypoxia; I48.20 Chronic atrial fibrillation, unspecified; F05 Delirium due to known physiological condition; J81.1 Chronic pulmonary edema; N40.0 Benign prostatic hyperplasia without lower urinary tract symptoms; G47.30 Sleep apnea, unspecified; I47.2 Ventricular tachycardia; J16.8 Pneumonia due to other specified infectious organisms; E03.9 Hypothyroidism, unspecified; F03.90 Unspecified dementia, unspecified severity, without behavioral disturbance, psychotic disturbance, mood disturbance, and anxiety; I10 Essential (primary) hypertension; R13.10 Dysphagia, unspecified; E87.6 Hypokalemia; G47.33 Obstructive sleep apnea (adult) (pediatric); R79.89 Other specified abnormal findings of blood chemistry; Z79.01 Long term (current) use of anticoagulants
CPT/HCPCS: 36415; 51701; 51798; 70450; 71045; 71250; 74230; 80048; 80053; 80202; 81001; 82607; 83605; 83690; 83735; 83880; 84100; 84484; 85025; 85027; 87040; 87070; 87077; 87086; 87181; 87205; 92610; 92611; 93005; 93306; 94640; 94761; 96361; 96365; 97116; 97161; 97165; 97530; 99285; A9270; G0378; J0131; J3370; 80320; 81003

== ENCOUNTER 2019-05-26 10:25 | Outpatient (CLI) | payer MEDICARE ==
[2019-05-26 19:35] LABS: CREATININE 1.1 mg/dL (0.6-1.2)
== END 2019-05-26 23:59 | disposition home or self-care (01) ==
LOC: LAB.WCP 10:25
PROVIDERS: ATTEND Internal Medicine
DX: Z79.899 Other long term (current) drug therapy (principal)
CPT/HCPCS: 36415; 80048

== ENCOUNTER 2019-06-07 13:59 | Outpatient (CLI) | payer MEDICARE ==
[2019-06-07 15:02] LABS: BASOPHILS % (AUTO) 0.8 %; EOSINOPHILS # (AUTO) 0.1 10^3/uL (0.0-0.7); EOSINOPHILS % (AUTO) 3.8 %; HGB - HEMOGLOBIN 12.4 g/dL (14.0-18.0); LYMPHOCYTES # (AUTO) 0.8 10^3/uL (1.5-3.5); MEAN CORPUSCULAR HEMOGLOBIN 31.6 pg (27.0-31.0); MEAN PLATELET VOLUME 11.4 fL (7.4-11.4); MONOCYTES # (AUTO) 0.5 10^3/uL (0.0-1.0); MONOCYTES % (AUTO) 13.1 %; NEUTROPHILS # (AUTO) 2.2 10^3/uL (1.5-6.6); PLT - PLATELET COUNT 115 10^3/uL (130-450); RED BLOOD COUNT 3.92 10^6/uL (4.70-6.10); RED CELL DISTRIBUTION WIDTH 15.3 % (12.0-15.0); WHITE BLOOD COUNT 3.7 x10^3/uL (4.8-10.8)
[2019-06-07 15:16] LABS: CALCIUM 8.7 mg/dL (8.5-10.3); CREATININE 1.1 mg/dL (0.6-1.2)
== END 2019-06-07 14:00 | disposition home or self-care (01) ==
LOC: LAB 13:59
PROVIDERS: ATTEND Internal Medicine Cardiovascular Disease
DX: I48.19 Other persistent atrial fibrillation (principal)
CPT/HCPCS: 36415; 80048; 85025

== ENCOUNTER 2019-07-11 10:03 | Outpatient (CLI) | payer MEDICARE ==
[2019-07-11 10:30] LABS: BASOPHILS % (AUTO) 0.9 %; EOSINOPHILS # (AUTO) 0.1 10^3/uL (0.0-0.7); EOSINOPHILS % (AUTO) 2.6 %; HGB - HEMOGLOBIN 13.6 g/dL (14.0-18.0); LYMPHOCYTES # (AUTO) 0.8 10^3/uL (1.5-3.5); LYMPHOCYTES % (AUTO) 23.8 %; MEAN CORPUSCULAR HEMOGLOBIN 32.1 pg (27.0-31.0); MEAN CORPUSCULAR HGB CONC 32.5 g/dL (32.0-36.0); MEAN CORPUSCULAR VOLUME 98.8 fL (80.0-94.0); MEAN PLATELET VOLUME 10.8 fL (7.4-11.4); MONOCYTES # (AUTO) 0.5 10^3/uL (0.0-1.0); MONOCYTES % (AUTO) 13.1 %; NEUTROPHILS % (AUTO) 59.3 %; PLT - PLATELET COUNT 122 10^3/uL (130-450); RED BLOOD COUNT 4.24 10^6/uL (4.70-6.10); RED CELL DISTRIBUTION WIDTH 14.3 % (12.0-15.0); WHITE BLOOD COUNT 3.4 x10^3/uL (4.8-10.8)
[2019-07-11 10:40] LABS: ALBUMIN 3.9 g/dL (3.2-5.5); ALBUMIN/GLOBULIN RATIO 1.3 (1.0-2.2); BILIRUBIN,TOTAL 1.8 mg/dL (0.2-1.0); CALCIUM 9.2 mg/dL (8.5-10.3); CREATININE 1.2 mg/dL (0.6-1.2); TOTAL PROTEIN 6.9 g/dL (6.7-8.2)
[2019-07-11 11:44] LABS: T4 (THYROXINE) 8.42 ug/dL (6.09-12.23)
[2019-07-11 11:57] LABS: THYROID STIMULATING HORMONE 3.42 uIU/mL (0.34-5.60)
== END 2019-07-11 10:04 | disposition home or self-care (01) ==
LOC: LAB 10:03
PROVIDERS: ATTEND Internal Medicine
DX: E87.1 Hypo-osmolality and hyponatremia (principal); E89.0 Postprocedural hypothyroidism; I10 Essential (primary) hypertension; Z12.5 Encounter for screening for malignant neoplasm of prostate; Z79.899 Other long term (current) drug therapy; D69.6 Thrombocytopenia, unspecified
CPT/HCPCS: 36415; 80053; 84436; 84443; 85025; G0103; 84153

== ENCOUNTER 2019-07-13 10:21 | Outpatient (CLI) | payer MEDICARE ==
--- NOTE | 2019-07-13 13:54 | XRAY Report ---
Reason: DYSPHASIA Procedure Date: 07/13/2019 Accession Number: [id number] / [id number] Procedure: FL - Modified Barium Swallow W/SP CPT Code: Final Report FULL RESULT: EXAM: MODIFIED BARIUM SWALLOW EXAM DATE: 07/13/2019 10:59 AM. CLINICAL HISTORY: Difficulty swallowing. COMPARISON: MODIFIED BARIUM SWALLOW 05/11/2019 12:27 PM. TECHNIQUE: Under the direction of speech pathology, patient swallowed various consistencies of barium under lateral fluoroscopic observation of the neck. Fluoroscopy Time: 1.47 minutes. Number of Images: 147. FINDINGS: Swallowing Mechanism: Mildly prolonged oral phase and minimally delayed swallowing reflex. Airway Protection: No episodes of tracheal penetration or aspiration with all consistencies of barium. Pharynx: No significant vallecular or piriform sinus contrast pooling. Other: Mild degenerative change in the spine. IMPRESSION: No penetration or aspiration identified. Improved swallowing compared to the prior study of 05/11/2019. RADIA
== END 2019-07-13 10:22 | disposition home or self-care (01) ==
LOC: DI 10:21
PROVIDERS: ATTEND Internal Medicine
DX: R13.12 Dysphagia, oropharyngeal phase (principal)
CPT/HCPCS: 74230

== ENCOUNTER 2019-08-25 10:39 | Outpatient (CLI) | payer MEDICARE ==
[2019-08-25 11:39] LABS: CALCIUM 8.7 mg/dL (8.5-10.3); CREATININE 1.1 mg/dL (0.6-1.2)
== END 2019-08-25 10:40 | disposition home or self-care (01) ==
LOC: LAB 10:39
PROVIDERS: ATTEND Internal Medicine
DX: E87.1 Hypo-osmolality and hyponatremia (principal); I10 Essential (primary) hypertension; Z79.899 Other long term (current) drug therapy
CPT/HCPCS: 36415; 80048

== ENCOUNTER 2019-09-23 13:34 | Outpatient (CLI) | payer MEDICARE ==
[2019-09-23 14:04] LABS: CREATININE 1.1 mg/dL (0.6-1.2)
== END 2019-09-23 13:35 | disposition home or self-care (01) ==
LOC: LAB 13:34
PROVIDERS: ATTEND Internal Medicine
DX: E87.1 Hypo-osmolality and hyponatremia (principal); I10 Essential (primary) hypertension; Z79.899 Other long term (current) drug therapy
CPT/HCPCS: 36415; 80048

== ENCOUNTER 2019-12-30 12:22 | Outpatient (CLI) | payer MEDICARE ==
[2019-12-30 12:49] LABS: CALCIUM 8.8 mg/dL (8.5-10.3); CREATININE 1.1 mg/dL (0.6-1.2)
== END 2019-12-30 12:23 | disposition home or self-care (01) ==
LOC: LAB 12:22
PROVIDERS: ATTEND Internal Medicine
DX: E87.1 Hypo-osmolality and hyponatremia (principal); I10 Essential (primary) hypertension; Z79.899 Other long term (current) drug therapy
CPT/HCPCS: 36415; 80048

== ENCOUNTER 2020-03-16 12:51 | Outpatient (CLI) | payer MEDICARE ==
[2020-03-16 13:23] LABS: CALCIUM 9.3 mg/dL (8.5-10.3); CREATININE 1.1 mg/dL (0.6-1.2)
== END 2020-03-16 12:52 | disposition home or self-care (01) ==
LOC: LAB 12:51
PROVIDERS: ATTEND Internal Medicine
DX: E87.1 Hypo-osmolality and hyponatremia (principal); I10 Essential (primary) hypertension; Z79.899 Other long term (current) drug therapy
CPT/HCPCS: 36415; 80048

== ENCOUNTER 2020-06-04 16:21 | Outpatient (CLI) | payer MEDICARE | END 2020-06-04 16:22 | disposition critical access hospital (66) | LOC: EMS 16:21 | PROVIDERS: ATTEND Surgery | DX: R06.09 Other forms of dyspnea (principal) | CPT/HCPCS: A0425; A0427 ==

== ENCOUNTER 2020-06-04 16:40 | Emergency (ER) | payer MEDICARE ==
--- NOTE | 2020-06-04 17:30 | ED Physician Documentation ---
PD HPI DYSPNEA - Stated complaint Stated Complaint: SOA - Chief complaint Chief Complaint: Resp - History obtained from History obtained from: Patient - History of Present Illness Timing - onset: How many days ago (3) Timing - onset during: Rest Timing - duration: Days (3) Timing - details: Gradual onset Pain level max: 0 Pain level now: 0 Improved by: Rest Worsened by: Exertion Associated symptoms: Cough. No: Fever, Hemoptysis, Wheezing, Chest pain / discomfort, Palpitations, Diaphoresis, Bilateral edema Recently seen: Not recently seen Review of Systems Constitutional: denies: Fever, Chills Nose: denies: Rhinorrhea / runny nose, Congestion Cardiac: denies: Palpitations GI: denies: Vomiting, Diarrhea Skin: denies: Rash Musculoskeletal: denies: Neck pain, Back pain Neurologic: denies: Headache PD PAST MEDICAL HISTORY - Past Medical History Cardiovascular: Hypertension, Atrial fibrillation Respiratory: Sleep apnea, CPAP use Neuro: Dementia Endocrine/Autoimmune: HyPOthyroidism - Past Surgical History Past Surgical History: Yes Ortho: Spine surgery - Present Medications Home Medications: Ambulatory Orders Medication Instructions Recorded Confirmed Cholecalciferol [Vitamin D3] 1,000 unit PO DAILY 01/21/16 06/04/20 Tamsulosin [Flomax] 0.4 mg PO QPM 01/21/16 06/04/20 hydrALAZINE [Apresoline] 25 mg PO BID 01/21/16 06/04/20 lisinopriL [Lisinopril] 10 mg PO BID 01/21/16 06/04/20 Dabigatran Etexilate Mesylate 150 mg PO BID 05/06/19 06/04/20 [Pradaxa] Rivastigmine [Rivastigmine 4.6MG] 1 each TD DAILY 05/06/19 06/04/20 Rosuvastatin Calcium [Crestor] 5 mg PO QPM 05/06/19 06/04/20 Levothyroxine [Synthroid] 75 mcg PO QDAC #30 tablet 05/15/19 06/04/20 Cefdinir 300 mg PO BID #20 capsule 06/04/20 Doxycycline Hyclate 100 mg PO BID #20 tablet. 06/04/20 traZODone [Desyrel] 100 mg PO DAILY 06/04/20 06/04/20 - Allergies Allergies/Adverse Reactions: Allergies Allergy/AdvReac Type Severity Reaction Status Date / Time No Known Drug Allergies Allergy Verified 06/04/20 16:52 - Social History Does the pt smoke?: No Smoking Status: Former smoker Does the pt drink ETOH?: No Does the pt have substance abuse?: No - Immunizations Immunizations are current?: Yes - POLST Patient has POLST: No PD ED PE NORMAL - Vitals Vital signs reviewed: Yes - General General: Alert and oriented X 3, No acute distress, Well developed/nourished - HEENT HEENT: Moist mucous membranes - Neck Neck: Supple, no meningeal sign - Cardiac Cardiac: RRR, Strong equal pulses - Respiratory Respiratory: No respiratory distress, Other (Mild rhonchi bilaterally) - Abdomen Abdomen: Soft, Non tender, Non distended - Derm Derm: Warm and dry - Extremities Extremities: No edema, No calf tenderness / cord - Neuro Neuro: Alert and oriented X 3 - Psych Psych: Normal mood, Normal affect Results - Vitals Vitals: Vital Signs - 24 hr 06/04/20 06/04/20 06/04/20 16:40 17:00 17:30 Temperature 37.6 C H Heart Rate 86 70 73 Respiratory 27 H 19 20 Rate Blood Pressure 135/86 H 137/80 H 145/94 H O2 Saturation 98 97 97 06/04/20 06/04/20 06/04/20 18:00 18:30 19:45 Temperature Heart Rate 72 68 77 Respiratory 19 22 18 Rate Blood Pressure 139/108 H 136/122 H 136/90 H O2 Saturation 96 98 97 Oxygen O2 Source Room air - EKG (time done) 1715 Rate: Rate (enter#) (73) Rhythm: Atrial fibrillation Intervals: Wide QRS QRS: LVH Ischemia: ST elevation c/w repol - Labs Labs: Laboratory Tests 06/04/20 06/04/20 06/04/20 17:40 17:40 17:40 WBC 8.4 RBC 3.67 L Hgb 11.7 L Hct 35.1 L MCV 95.6 H MCH 31.9 H MCHC 33.3 RDW 13.9 Plt Count 120 L MPV 11.4 Neut # (Auto) 7.2 H Lymph # (Auto) 0.3 L [place] # (Auto) 0.8 Eos # (Auto) 0.0 Baso # (Auto) 0.0 Absolute Nucleated RBC 0.00 Nucleated RBC % 0.0 Sodium 134 L Potassium 4.8 Chloride 102 Carbon Dioxide 20 L Anion Gap 12.0 BUN 36 H Creatinine 1.4 H Estimated GFR (MDRD) 49 L Glucose 138 H Calcium 8.7 Total Bilirubin 2.1 H AST 16 ALT 15 Alkaline Phosphatase 69 Troponin I High Sens 21.8 H* B-Natriuretic Peptide Total Protein 6.8 Albumin 3.5 Globulin 3.3 Albumin/Globulin Ratio 1.1 Lipase 28 Nasal Adenovirus (PCR) Nasal B. parapertussis DNA (PCR) Nasal Coronavir 229E PCR Nasal Coronavir HKU1 PCR Nasal Coronavir NL63 PCR Nasal Coronavir OC43 PCR Nasal Enterovir/Rhinovir PCR Nasal Influenza B PCR Nasal Influenza A PCR Nasal Parainfluen 1 PCR Nasal Parainfluen 2 PCR Nasal Parainfluen 3 PCR Nasal Parainfluen 4 PCR Nasal RSV (PCR) Nasal B.pertussis DNA PCR Nasal C.pneumoniae (PCR) Rich Human Metapneumo PCR Nasal M.pneumoniae (PCR) Nasal SARS-CoV-2 (PCR) 06/04/20 06/04/20 17:40 17:46 WBC RBC Hgb Hct MCV MCH MCHC RDW Plt Count MPV Neut # (Auto) Lymph # (Auto) [place] # (Auto) Eos # (Auto) Baso # (Auto) Absolute Nucleated RBC Nucleated RBC % Sodium Potassium Chloride Carbon Dioxide Anion Gap BUN Creatinine Estimated GFR (MDRD) Glucose Calcium Total Bilirubin AST ALT Alkaline Phosphatase Troponin I High Sens B-Natriuretic Peptide 302 H Total Protein Albumin Globulin Albumin/Globulin Ratio Lipase Nasal Adenovirus (PCR) NOT DETECTED Nasal B. parapertussis DNA (PCR) NOT DETECTED Nasal Coronavir 229E PCR NOT DETECTED Nasal Coronavir HKU1 PCR NOT DETECTED Nasal Coronavir NL63 PCR NOT DETECTED Nasal Coronavir OC43 PCR NOT DETECTED Nasal Enterovir/Rhinovir PCR NOT DETECTED Nasal Influenza B PCR NOT DETECTED Nasal Influenza A PCR NOT DETECTED Nasal Parainfluen 1 PCR NOT DETECTED Nasal Parainfluen 2 PCR NOT DETECTED Nasal Parainfluen 3 PCR NOT DETECTED Nasal Parainfluen 4 PCR NOT DETECTED Nasal RSV (PCR) NOT DETECTED Nasal B.pertussis DNA PCR NOT DETECTED Nasal C.pneumoniae (PCR) NOT DETECTED Rich Human Metapneumo PCR NOT DETECTED Nasal M.pneumoniae (PCR) NOT DETECTED Nasal SARS-CoV-2 (PCR) NOT DETECTED - Rads (name of study) cxr Radiology: Prelim report reviewed, EMP read contemporaneously, See rad report (Heart size is at the upper limits of normal but the pattern of patchy bilateral alveolar infiltration greater on the left than the right raises concern for presence of a atypical/viral pneumonia. ) PD MEDICAL DECISION MAKING - ED course Complexity details: reviewed results, re-evaluated patient, considered differential, d/w patient ED course: 79 year old male with what appears to be atypical pneumonia. Negative respiratory panel. no hypoxia or resp distress. Will place on abx and have him follow up with his doctor for further care. Patient and family counseled regarding signs and symptoms for which I believe and urgent re-evaluation would be necessary. Patient with good understanding of and agreement to plan and is comfortable going home at this time This document was made in part using voice recognition software. While efforts are made to proofread this document, sound alike and grammatical errors may occur. Departure - Departure Disposition: 01 Home, Self Care Clinical Impression: Pneumonia Qualifiers: Pneumonia type: due to unspecified organism Laterality: bilateral Lung location: unspecified part of lung Qualified Code(s): J18.9 - Pneumonia, unspecified organism Condition: Good Instructions: ED Pneumonia Adult Follow-Up: Pawan Mckeon MD [Primary Care Provider] - Within 1 week Prescriptions: Cefdinir 300 mg PO BID #20 capsule Doxycycline Hyclate 100 mg PO BID #20 tablet. Comments: Take all antibiotics until gone. Return if he worsens. He should start to improve in the next 24 to 48 hours. Discharge Date/Time: 06/04/20 19:47
--- NOTE | 2020-06-04 17:39 | XRAY Report ---
PROCEDURE: Chest 1 View X-Ray INDICATIONS: dyspnea TECHNIQUE: One view of the chest was acquired. COMPARISON: Prior chest single view 05/13/2019 FINDINGS: Surgical changes and devices: None. Lungs and pleura: No pleural effusions or pneumothorax. Lungs are abnormal with patchy bilateral pn eumonia to the degree that atypical pneumonia/viral pneumonia would be suspected.. Mediastinum: Mediastinal contours appear normal. Heart size is at the upper limits of normal. Bones and chest wall: No suspicious bony lesions. Overlying soft tissues appear unremarkable. IMPRESSION: Heart size is at the upper limits of normal but the pattern of patchy bilateral alveolar infiltration greater on the left than the right raises concern for presence of a atypical/viral pneumonia. Reviewed by: Ronald Fitzgerald MD on 06/04/2020 5:37 PM PST Approved by: Ronald Fitzgerald MD on 06/04/2020 5:37 PM PST Station ID: [id number]
[2020-06-04 17:47] LABS: BASOPHILS % (AUTO) 0.2 %; EOSINOPHILS % (AUTO) 0.2 %; HGB - HEMOGLOBIN 11.7 g/dL (14.0-18.0); LYMPHOCYTES # (AUTO) 0.3 10^3/uL (1.5-3.5); LYMPHOCYTES % (AUTO) 3.6 %; MEAN CORPUSCULAR HEMOGLOBIN 31.9 pg (27.0-31.0); MEAN CORPUSCULAR HGB CONC 33.3 g/dL (32.0-36.0); MEAN CORPUSCULAR VOLUME 95.6 fL (80.0-94.0); MEAN PLATELET VOLUME 11.4 fL (7.4-11.4); MONOCYTES # (AUTO) 0.8 10^3/uL (0.0-1.0); MONOCYTES % (AUTO) 9.5 %; NEUTROPHILS # (AUTO) 7.2 10^3/uL (1.5-6.6); NEUTROPHILS % (AUTO) 85.8 %; PLT - PLATELET COUNT 120 10^3/uL (130-450); RED BLOOD COUNT 3.67 10^6/uL (4.70-6.10); RED CELL DISTRIBUTION WIDTH 13.9 % (12.0-15.0); WHITE BLOOD COUNT 8.4 x10^3/uL (4.8-10.8)
[2020-06-04 17:57] LABS: ALBUMIN 3.5 g/dL (3.2-5.5); ALBUMIN/GLOBULIN RATIO 1.1 (1.0-2.2); BILIRUBIN,TOTAL 2.1 mg/dL (0.2-1.0); CALCIUM 8.7 mg/dL (8.5-10.3); CREATININE 1.4 mg/dL (0.6-1.2); TOTAL PROTEIN 6.8 g/dL (6.7-8.2)
[2020-06-04 18:47] LABS: C. PNEUMONIAE- RESP PCR PANEL NOT DETECTED
[2020-06-04] MEDS ORDERED: cefTRIAXone 1 GM VIAL IVP STA (18:58)
[2020-06-04 19:47] VITALS: BP 136/90
== END 2020-06-04 19:47 | disposition home or self-care (01) ==
LOC: EDUNIT# → ED 16:40
DX: J18.9 Pneumonia, unspecified organism (principal); Z20.828 Contact with and (suspected) exposure to other viral communicable diseases; I48.91 Unspecified atrial fibrillation; Z79.01 Long term (current) use of anticoagulants; I10 Essential (primary) hypertension; Z87.891 Personal history of nicotine dependence; F03.90 Unspecified dementia, unspecified severity, without behavioral disturbance, psychotic disturbance, mood disturbance, and anxiety
CPT/HCPCS: 0202U; 36415; 71045; 80053; 83690; 83880; 84484; 85025; 93005; 96374; 99284

== ENCOUNTER 2020-06-07 23:03 | Outpatient (CLI) | payer MEDICARE | END 2020-06-07 23:04 | disposition critical access hospital (66) | LOC: EMS 23:03 | PROVIDERS: ATTEND Surgery | DX: R41.82 Altered mental status, unspecified (principal) | CPT/HCPCS: A0425; A0429 ==

== ENCOUNTER 2020-06-07 23:21 | Inpatient (IN) | payer MEDICARE ==
--- NOTE | 2020-06-08 00:21 | ED Physician Documentation ---
History of Present Illness - Stated complaint Stated Complaint: GEN WEAKNESS - Chief complaint Chief Complaint: General - History obtained from History obtained from: Patient, Family, EMS - History of Present Illness Timing: How many weeks ago (1) - Additonal information Additional information: 79-year-old male recently seen here in the emergency department and treated for atypical pneumonia with a course of cefdinir and doxycycline has had progression of his illness and is now more weak than usual. He has not had much in the way of a cough. His respiratory PCR was negative when treatment was started. Review of Systems Constitutional: reports: Fatigue. denies: Fever Eyes: denies: Decreased vision Ears: denies: Ear pain Nose: denies: Congestion Throat: denies: Sore throat Cardiac: denies: Chest pain / pressure Respiratory: reports: Dyspnea, Cough (mild) GI: denies: Abdominal Pain, Nausea, Vomiting, Diarrhea : denies: Dysuria Skin: denies: Rash Musculoskeletal: denies: Neck pain, Back pain, Extremity pain Neurologic: reports: Generalized weakness. denies: Focal weakness, Numbness, Altered mental status (baseline dementia is not worse than usual.), Headache, Head injury, LOC PD PAST MEDICAL HISTORY - Past Medical History Past Medical History: Yes Cardiovascular: Hypertension, Atrial fibrillation Respiratory: Sleep apnea, CPAP use Neuro: Dementia Endocrine/Autoimmune: HyPOthyroidism - Past Surgical History Past Surgical History: Yes Ortho: Spine surgery - Present Medications Home Medications: Ambulatory Orders Medication Instructions Recorded Confirmed Cholecalciferol [Vitamin D3] 1,000 unit PO DAILY 01/21/16 06/04/20 Tamsulosin [Flomax] 0.4 mg PO QPM 01/21/16 06/04/20 hydrALAZINE [Apresoline] 25 mg PO BID 01/21/16 06/04/20 lisinopriL [Lisinopril] 10 mg PO BID 01/21/16 06/04/20 Dabigatran Etexilate Mesylate 150 mg PO BID 05/06/19 06/04/20 [Pradaxa] Rivastigmine [Rivastigmine 4.6MG] 1 each TD DAILY 05/06/19 06/04/20 Rosuvastatin Calcium [Crestor] 5 mg PO QPM 05/06/19 06/04/20 Levothyroxine [Synthroid] 75 mcg PO QDAC #30 tablet 05/15/19 06/04/20 Cefdinir 300 mg PO BID #20 capsule 06/04/20 Doxycycline Hyclate 100 mg PO BID #20 tablet. 06/04/20 traZODone [Desyrel] 100 mg PO DAILY 06/04/20 06/04/20 - Allergies Allergies/Adverse Reactions: Allergies Allergy/AdvReac Type Severity Reaction Status Date / Time No Known Drug Allergies Allergy Verified 06/07/20 23:34 - Social History Does the pt smoke?: No Smoking Status: Never smoker Does the pt drink ETOH?: No Does the pt have substance abuse?: No - Immunizations Immunizations are current?: Yes - POLST Patient has POLST: No PD ED PE NORMAL - Vitals Vital signs reviewed: Yes (low grade fever, tachypnea and hypertension ) - General General: No acute distress, Well developed/nourished, Other (smiling broadly but confused) - HEENT HEENT: Atraumatic, PERRL - Neck Neck: Supple, no meningeal sign, No bony TTP - Cardiac Cardiac: RRR, No murmur - Respiratory Respiratory: Other (tachypneic at rest with crackles throughout ) - Abdomen Abdomen: Soft, Non tender - Back Back: No CVA TTP, No spinal TTP - Derm Derm: Normal color, Warm and dry, No rash - Extremities Extremities: No deformity, No edema - Neuro Neuro: executive chef assistant 2-12 intact, No motor deficit, No sensory deficit, Normal speech Eye Opening: Spontaneous Motor: Obeys Commands Verbal: Confused GCS Score: 14 - Psych Psych: Normal mood, Normal affect Results - Vitals Vitals: Vital Signs - 24 hr 06/07/20 06/07/20 06/08/20 23:29 23:45 00:19 Temperature 37.6 C H 37.6 C H Heart Rate 77 73 Respiratory 25 H 25 H Rate Blood Pressure 130/84 H 128/72 O2 Saturation 98 97 88 L 06/08/20 06/08/20 01:34 01:35 Temperature 37.6 C H Heart Rate 68 70 Respiratory 29 H 16 Rate Blood Pressure 132/94 H 132/94 H O2 Saturation 96 95 Oxygen O2 Source Nasal cannula Oxygen Flow Rate 6 - Labs Labs: Laboratory Tests 06/08/20 06/08/20 06/08/20 01:00 01:00 01:00 WBC 8.5 RBC 3.30 L Hgb 10.3 L Hct 32.1 L MCV 97.3 H MCH 31.2 H MCHC 32.1 RDW 14.5 Plt Count 172 MPV 10.8 Neut # (Auto) 7.4 H Lymph # (Auto) 0.3 L [place] # (Auto) 0.6 Eos # (Auto) 0.0 Baso # (Auto) 0.0 Absolute Nucleated RBC 0.00 Nucleated RBC % 0.0 Sodium 138 Potassium 4.1 Chloride 111 Carbon Dioxide 18 L Anion Gap 9.0 BUN 40 H Creatinine 1.3 H Estimated GFR (MDRD) 53 L Glucose 139 H Lactic Acid Calcium 8.3 L Total Bilirubin 2.1 H AST 20 ALT 16 Alkaline Phosphatase 73 B-Natriuretic Peptide 326 H Total Protein 5.8 L Albumin 2.9 L Globulin 2.9 Albumin/Globulin Ratio 1.0 Lipase 28 Nasal Adenovirus (PCR) Nasal B. parapertussis DNA (PCR) Nasal Coronavir 229E PCR Nasal Coronavir HKU1 PCR Nasal Coronavir NL63 PCR Nasal Coronavir OC43 PCR Nasal Enterovir/Rhinovir PCR Nasal Influenza B PCR Nasal Influenza A PCR Nasal Parainfluen 1 PCR Nasal Parainfluen 2 PCR Nasal Parainfluen 3 PCR Nasal Parainfluen 4 PCR Nasal RSV (PCR) Nasal B.pertussis DNA PCR Nasal C.pneumoniae (PCR) Rich Human Metapneumo PCR Nasal M.pneumoniae (PCR) Nasal SARS-CoV-2 (PCR) 06/08/20 06/08/20 01:00 02:00 WBC RBC Hgb Hct MCV MCH MCHC RDW Plt Count MPV Neut # (Auto) Lymph # (Auto) [place] # (Auto) Eos # (Auto) Baso # (Auto) Absolute Nucleated RBC Nucleated RBC % Sodium Potassium Chloride Carbon Dioxide Anion Gap BUN Creatinine Estimated GFR (MDRD) Glucose Lactic Acid 1.8 Calcium Total Bilirubin AST ALT Alkaline Phosphatase B-Natriuretic Peptide Total Protein Albumin Globulin Albumin/Globulin Ratio Lipase Nasal Adenovirus (PCR) NOT DETECTED Nasal B. parapertussis DNA (PCR) NOT DETECTED Nasal Coronavir 229E PCR NOT DETECTED Nasal Coronavir HKU1 PCR NOT DETECTED Nasal Coronavir NL63 PCR NOT DETECTED Nasal Coronavir OC43 PCR NOT DETECTED Nasal Enterovir/Rhinovir PCR NOT DETECTED Nasal Influenza B PCR NOT DETECTED Nasal Influenza A PCR NOT DETECTED Nasal Parainfluen 1 PCR NOT DETECTED Nasal Parainfluen 2 PCR NOT DETECTED Nasal Parainfluen 3 PCR NOT DETECTED Nasal Parainfluen 4 PCR NOT DETECTED Nasal RSV (PCR) NOT DETECTED Nasal B.pertussis DNA PCR NOT DETECTED Nasal C.pneumoniae (PCR) NOT DETECTED Rich Human Metapneumo PCR NOT DETECTED Nasal M.pneumoniae (PCR) NOT DETECTED Nasal SARS-CoV-2 (PCR) NOT DETECTED - Rads (name of study) chest Radiology: Prelim report reviewed (Impression: progressive bilateral consolidations ), EMP read indepedently, See rad report Procedures - IVC sono (time) 0011 Bedside IVC sono: IVC measures (cm) (1.94), Euvolemia (generous size vessle) PD MEDICAL DECISION MAKING - ED course Complexity details: reviewed old records, reviewed results, re-evaluated fariha bourgeois, considered differential, d/w patient, d/w family ED course: 79 y/o male with recently diagnosed pneumonia has been on Cefdinir and doxy and has increased weakness. He is found to have and increase in his infiltrates and hospitalization is required. His chest x-ray is impressive for the extent of the infiltrates. He has not been hospitalized recently but has had a h ospitalization for pneumonia last year. He was considered for sepsis and did not receive IV fluid bolus as his IVC was at 1.94cm. Departure - Departure Disposition: 66 [facility] DC/Xfer Clinical Impression: Pneumonia Qualifiers: Pneumonia type: due to unspecified organism Laterality: bilateral Lung location: unspecified part of lung Qualified Code(s): J18.9 - Pneumonia, unspecified organism Discharge Date/Time: 06/08/20 03:50
[2020-06-08 01:05] LABS: BASOPHILS % (AUTO) 0.4 %; EOSINOPHILS % (AUTO) 0.5 %; HGB - HEMOGLOBIN 10.3 g/dL (14.0-18.0); LYMPHOCYTES # (AUTO) 0.3 10^3/uL (1.5-3.5); MEAN CORPUSCULAR HEMOGLOBIN 31.2 pg (27.0-31.0); MEAN CORPUSCULAR HGB CONC 32.1 g/dL (32.0-36.0); MEAN CORPUSCULAR VOLUME 97.3 fL (80.0-94.0); MEAN PLATELET VOLUME 10.8 fL (7.4-11.4); MONOCYTES # (AUTO) 0.6 10^3/uL (0.0-1.0); MONOCYTES % (AUTO) 7.1 %; NEUTROPHILS # (AUTO) 7.4 10^3/uL (1.5-6.6); NEUTROPHILS % (AUTO) 87.1 %; PLT - PLATELET COUNT 172 10^3/uL (130-450); RED CELL DISTRIBUTION WIDTH 14.5 % (12.0-15.0); WHITE BLOOD COUNT 8.5 x10^3/uL (4.8-10.8)
[2020-06-08 01:19] LABS: ALBUMIN 2.9 g/dL (3.2-5.5); BILIRUBIN,TOTAL 2.1 mg/dL (0.2-1.0); CALCIUM 8.3 mg/dL (8.5-10.3); CREATININE 1.3 mg/dL (0.6-1.2); TOTAL PROTEIN 5.8 g/dL (6.7-8.2)
[2020-06-08] MEDS ORDERED: ACETAMINOPHEN 325 MG TABLET PO PRN (02:30)
[2020-06-08] MEDS ORDERED: ONDANSETRON 4 MG/2 ML VIAL IVP PRN (02:30)
[2020-06-08] MEDS ORDERED: LACTATED RINGERS 1,000 ML IV ONE (02:32)
--- NOTE | 2020-06-08 02:37 | HISTORY & PHYSICAL EXAMINATION ---
Chief Complaint - Chief Complaint Chief Complaint: Shortness of breath History of Present Illness - Admitted From Admitted From:: Home - History Obtained From Records Reviewed: Yes History obtained from: Patient's spouse, ER Physician, EMR Exam Limitations: Patient is altered and unable to provide a meaningful history. - History of Present Illness HPI Comment/Other: This is a 79-year-old male with a past medical history significant for dementia, chronic diastolic heart failure, atrial fibrillation on Pradaxa, hypothyroidism who presents today due to worsening shortness of breath. Most of the history is obtained from the patient's spouse as he is altered and unable to provide a meaningful history. She states he was seen in the emergency department a few days ago and diagnosed with pneumonia. He was seen on June 04 and discharged on cefdinir and doxycycline. His reports that since he has been home, he h as had progressive dyspnea with exertion. She states he has not been complaining of any chest pain or dyspnea. She noticed that he appears comfortable at rest but with any exertion he becomes quite dyspneic with labored breathing. He has also had progressive weakness and so she brought him back to the emergency department today. She also believes he is more confused than usual and his speech is not as coherent as it normally is. In the emergency department, he was found to have a temperature of 37.6 C. His heart rate was in the 60s. His blood pressure is 132/94. He was saturating 80% on room air and this improved to 95% on 4 L of oxygen via nasal cannula. A chest x-ray was obtained which showed worsening bilateral atypical infiltrates. Labs are significant for white count of 8.5. His creatinine is elevated at 1.3. He has a normal lactic acid. BNP was 326. Given the above findings, medicine was consulted for admission. I did discuss goals of care with the patient's and she feels that he would want to be a DNR and she does not want mechanical ventilation if he were to decline from a respiratory standpoint. History - Past Medical History Cardiovascular: reports: Hypertension, Atrial fibrillation Respiratory: reports: Sleep apnea, CPAP use Neuro: reports: Dementia Endocrine/Autoimmune: reports: HyPOthyroidism MRSA Hx?: No - Past Surgical History Ortho: reports: Spine surgery - Family & Social History Family History Comment/Other: Reports that his father at a young age due to an accident. Two of his brothers have . He has one living brother. His mother lived until she was 87. Living arrangement: At home Living Situation: With spouse/s.o. Social History Notes: The patient lives at home with his . 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 His tells me the patient did smoke for about 15 years but quit many years ago. He does not drink alcohol. - POLST Patient has POLST: No Meds/Allgy - Home Medications Home Medications: Ambulatory Orders Medication Instructions Recorded Confirmed Cholecalciferol [Vitamin D3] 1,000 unit PO DAILY 01/21/16 06/04/20 Tamsulosin [Flomax] 0.4 mg PO QPM 01/21/16 06/04/20 hydrALAZINE [Apresoline] 25 mg PO BID 01/21/16 06/04/20 lisinopriL [Lisinopril] 10 mg PO BID 01/21/16 06/04/20 Dabigatran Etexilate Mesylate 150 mg PO BID 05/06/19 06/04/20 [Pradaxa] Rivastigmine [Rivastigmine 4.6MG] 1 each TD DAILY 05/06/19 06/04/20 Rosuvastatin Calcium [Crestor] 5 mg PO QPM 05/06/19 06/04/20 Levothyroxine [Synthroid] 75 mcg PO QDAC #30 tablet 05/15/19 06/04/20 Cefdinir 300 mg PO BID #20 capsule 06/04/20 Doxycycline Hyclate 100 mg PO BID #20 tablet. 06/04/20 traZODone [Desyrel] 100 mg PO DAILY 06/04/20 06/04/20 - Allergies Allergies/Adverse Reactions: Allergies Allergy/AdvReac Type Severity Reaction Status Date / Time No Known Drug Allergies Allergy Verified 06/07/20 23:34 Review of Systems - All Other Systems All Other Systems: reports: Other (Unable to obtain as the patient is altered an d unable to provide an accurate history.) Prior Level of Functionality: He has dementia at baseline but is normally oriented to self, location. He will also recognize his . He ambulates on his own without any devices. Exam - Vital Signs Reviewed Vital Signs: Yes Vital Signs: Vital Signs x48h Temp Pulse Resp BP Pulse Ox 11/13/20 01:35 70 16 132/94 H 95 06/08/20 01:34 37.6 C H 68 29 H 132/94 H 96 06/08/20 00:19 88 L 06/07/20 23:45 37.6 C H 73 25 H 128/72 97 06/07/20 23:29 37.6 C H 77 25 H 130/84 H 98 - Physical Exam General Appearance: positive: No acute distress, Alert Eyes Bilateral: positive: Normal inspection, Conjunctivae nml ENT: positive: ENT inspection nml Neck: positive: Nml inspection Respiratory: positive: No respiratory distress, Rhonchi, Other (He is not in respiratory stress but he does appear tachypneic at rest.). negative: Wheezes Cardiovascular: positive: No murmur, Irregularly irregular. negative: Regular rate & rhythm, Tachycardia, Bradycardia, Systolic murmur Abdomen: positive: Non-tender, No distention. negative: Tenderness Skin: positive: Warm, Dry Extremities: positive: No pedal edema Neurologic/Psychiatric: positive: Disoriented to person, Other (He is oriented to self but not to location. He is unable to tell me his 's name. He is moving all 4 extremities). negative: Disoriented to place, Disoriented to time Conclusion/Plan - Problem List (1) Acute respiratory failure with hypoxia Conclusion/Plan: Secondary to community-acquired pneumonia. He is requiring 4 L of oxygen to maintain an oxygen saturation of 94%. His x-ray shows worsening bilateral infiltrates. His BNP is elevated but this is at his baseline and he has no lower extremity edema to suggest exacerbation of heart failure. At this time we will start him on IV azithromycin and ceftriaxone for community-acquired pneumonia. We will repeat chest x-ray tomorrow. Continue supplemental oxygen and wean as tolerated. (2) CAP (community acquired pneumonia) Conclusion/Plan: He has bilateral infiltrates on chest x-ray which are worse compared to prior imaging. He is hypoxic requiring 4 L of oxygen. He does not have a leukocytosis but his white count is elevated compared to his baseline. He failed outpatient treatment with oral doxycycline and cefdinir. We will place him on IV azithromycin and IV ceftriaxone. There may be possible aspiration and so we will start him on Flagyl as well empirically. He will need a speech evaluation. Obtain lower respiratory cultures. Continue supplemental oxygen. Repeat respiratory PCR panel. Qualifiers: (3) Encephalopathy Conclusion/Plan: He has baseline dementia but he is more confused and unable to participate in a conversation which is changed compared to his baseline. CT of the head showed no acute abnormalities. Suspect this is likely due to his hypoxia and pneumonia. We will start him on IV antibiotics due to underlying pneumonia. Delirium precautions. Avoid sedatives. (4) Acute kidney injury Conclusion/Plan: Creatinine is elevated at 1.4 compared to his baseline of 1.0. This is likely prerenal injury due to poor oral intake and pneumonia. His BNP is elevated in 300s but does not appear to be in heart failure. We will give him a liter of lactated Ringer's and continue him on gentle IV hydration. Monitor his renal function and urine output. (5) Atrial flutter Conclusion/Plan: He has a history of atrial fibrillation but he appears to be in atrial flutter on telemetry. He is rate controlled. We will continue his home Pradaxa. He does not appear to be on any rate control medications at home but we will initiate this if necessary. Monitor on telemetry. Obtain EKG. (6) Dementia Conclusion/Plan: He has baseline dementia but per his , he is more confused and altered compared to baseline. This is likely due to the pneumonia as mentioned above. Continue with delirium precautions and management as above. (7) Hypertension Conclusion/Plan: He is currently hypertensive with systolic in the 140s. We will resume his home antihypertensives. Qualifiers: (8) Hypothyroidism Conclusion/Plan: Stable. Continue Synthroid. (9) BPH (benign prostatic hyperplasia) Conclusion/Plan: Stable. Continue home medications. - Lab Results Lab results reviewed: Yes Fish Bones: 06/08/20 05:24 06/08/20 05:24 - Diagnostic Imaging Results Diagnostic Imaging Results: positive: Prelim report reviewed Core Measures - Anticipated LOS I expect patient to be DC'd or transferred within 96 hours.: Yes - Issues Hospital Issues and Management Plan: 79-year-old male with a history of dementia presents with worsening shortness of breath found to have worsening community-acquired pneumonia. He is also altered. We will admit for IV antibiotics supplemental oxygen.
[2020-06-08] MEDS ORDERED: LACTATED RINGERS 1,000 ML IV SCH (03:00)
[2020-06-08 03:15] LABS: C. PNEUMONIAE- RESP PCR PANEL NOT DETECTED
[2020-06-08] MEDS: cefTRIAXone 2 GM in SODIUM CHLORIDE 0.9% MINIBAG 100 ML IV SCH (05:03)
[2020-06-08] MEDS: AZITHROMYCIN INJ 500 MG in SODIUM CHLORIDE 0.9% 250 ML IV SCH (05:33)
[2020-06-08 05:46] LABS: BASOPHILS % (AUTO) 0.2 %; EOSINOPHILS # (AUTO) 0.1 10^3/uL (0.0-0.7); EOSINOPHILS % (AUTO) 1.2 %; HGB - HEMOGLOBIN 10.3 g/dL (14.0-18.0); LYMPHOCYTES # (AUTO) 0.5 10^3/uL (1.5-3.5); LYMPHOCYTES % (AUTO) 5.9 %; MEAN CORPUSCULAR HEMOGLOBIN 31.3 pg (27.0-31.0); MEAN CORPUSCULAR HGB CONC 32.2 g/dL (32.0-36.0); MEAN CORPUSCULAR VOLUME 97.3 fL (80.0-94.0); MEAN PLATELET VOLUME 10.6 fL (7.4-11.4); MONOCYTES # (AUTO) 0.5 10^3/uL (0.0-1.0); MONOCYTES % (AUTO) 6.5 %; NEUTROPHILS # (AUTO) 6.9 10^3/uL (1.5-6.6); NEUTROPHILS % (AUTO) 85.2 %; PLT - PLATELET COUNT 175 10^3/uL (130-450); RED BLOOD COUNT 3.29 10^6/uL (4.70-6.10); RED CELL DISTRIBUTION WIDTH 14.4 % (12.0-15.0); WHITE BLOOD COUNT 8.2 x10^3/uL (4.8-10.8)
[2020-06-08 06:02] LABS: CALCIUM 8.1 mg/dL (8.5-10.3); CREATININE 1.1 mg/dL (0.6-1.2); MAGNESIUM 2.1 mg/dL (1.7-2.8); PHOSPHORUS 3.9 mg/dL (2.5-4.6)
[2020-06-08] MEDS: metroNIDAZOLE 500 MG/100 ML 500 MG/100 ML BAG IV SCH ×3 (06:52→19:28)
[2020-06-08] MEDS: LEVOTHYROXINE 75 MCG TABLET PO SCH (07:03)
--- NOTE | 2020-06-08 07:29 | ADVANCE CARE PLANNING NOTE ---
Advance Care Planning - Planning Encounter Date: 06/08/20 Time: 02:05 Purpose: To clarify goals of care. Parties in Attendance: The patient and his . Decisional Capacity of the Patient: He has dementia at baseline and is currently altered and he does not have the ability to make his own medical decisions. - Diagnosis for Encounter (1) Acute respiratory failure with hypoxia Summary: This is secondary to worsening community-acquired pneumonia that failed outpatient treatment. He is requiring 4 L of oxygen to maintain oxygen saturations. Chest x-ray shows significant bilateral infiltrates. (2) CAP (community acquired pneumonia) Qualifiers: Summary: His chest x-ray shows worsening bilateral infiltrates. He is now hypoxic as well and tachypneic. He failed outpatient treatment with doxycycline and cefdinir. He is now admitted for treatment with IV azithromycin, ceftriaxone. There may be possible aspiration and so we will start him on Flagyl as well empirically. He will need a speech evaluation. (3) Dementia Summary: He does have dementia at baseline and has been declining from a cognitive standpoint. He is currently altered likely due to the pneumonia. His reports that at baseline, he is oriented to self and location. He will also recognize her. He usually not know the year or month. - Encounter Subjective/Patient's Story: Patient lives at home with his , Adele. 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 His states that he had been doing quite well since he was last hospitalized 1 year ago except for his dementia. He is still quite independent from physical standpoint and ambulates that any assistance. He does get confused and has memory loss but is still able to participate in a conversation. Objective/Medical Story: The patient was hospitalized 1 year ago for encephalopathy which was attributed to pneumonia and urinary tract infection. He had done well since discharge except for dementia as mentioned above. He presented 4 days ago with dyspnea and found to have atypical pneumonia on chest x-ray. He was not hypoxic at that time and so he was discharged home on oral antibiotics. Since then, he has continued to decline from a respiratory standpoint although he does not complain of any dyspnea, his has noticed it. He is also becoming more confused. Chest x-ray now shows bilateral worsening infiltrates and he is hypoxic requiring 4 L of oxygen. Goals of Care: We discussed his chest x-ray findings which reveals progressive bilateral consolidations which are quite impressive on imaging. Although his chest x-ray findings are quite impressive, he does appear comfortable at rest although he is requiring 4L of oxygen. We discussed the concern for progression of the pneumonia which can cause worsening respiratory failure that may necessitate mechanical ventilation. We discussed what entails of mechanical ventilation as well as CPR including broken ribs and concern for anoxic brain injury and but would likely be a poor outcome given the patient's comorbidities and age. She has stated in the past that he did not want to live on life support and she believes he would not want to go through CPR or mechanical ventilation. After discussion and some thought, the patient's feels that he would want to be a DNR and that she also believes he would not want mechanical ventilation if he were to decline from a respiratory standpoint. She will discuss this further with her daughter today but at this point, he is a DNR. Plan: We will make him a DNR with no mechanical ventilation even if he were to decline from a respiratory standpoint. Will discuss further with his once she speaks with her daughter to see if she has any different thoughts. At this time, we will continue current medical treatment. If the patient were to decline from a respiratory standpoint, we will discuss further with the patient's regarding goals of care. We will consider a palliative care consult. Code Status: Do Not Attempt Resuscitation Time spent on advance care plannin
[2020-06-08] MEDS: SODIUM CHLORIDE FLUSH 0.9% 10 ML SYRINGE IVP SCH ×3 (09:03→23:13)
[2020-06-08] MEDS ORDERED: IOVERSOL 320 100 ML VIAL IVP ONE ×2 (09:16→16:53)
--- NOTE | 2020-06-08 09:17 | XRAY Report ---
PROCEDURE: Chest 1 View X-Ray INDICATIONS: chest pain TECHNIQUE: One view of the chest was acquired. COMPARISON: 06/04/2020 FINDINGS: Surgical changes and devices: None. Lungs and pleura: Increase, diffuse opacification of the lungs bilaterally concerning for pulmonary e chepe/ARDS, multilobar pneumonia. Mediastinum: Mediastinal contours appear normal. Heart size is normal. Bones and chest wall: No suspicious bony lesions. Overlying soft tissues appear unremarkable. IMPRESSION: Increasing bilateral lung opacification which could represent ARDS/pulmonary edema multilobar pneumon ia. Reviewed by: Lavinia Neves MD, PhD on 06/08/2020 9:15 AM PST Approved by: Lavinia Neves MD, PhD on 06/08/2020 9:15 AM PST Station ID: [id number]
--- NOTE | 2020-06-08 10:52 | CT Report ---
PROCEDURE: CHEST W INDICATIONS: SOB CONTRAST: IV contrast. TECHNIQUE: After the administration of intravenous contrast, 5 mm thick sections acquired from the pulmonary api lisa to the posterior costophrenic angles. 7 mm thick coronal MIP reformats were acquired. For radia tion dose reduction, the following was used: automated exposure control, adjustment of mA and/or kV according to patient size. COMPARISON: Chest radiograph dated 06/08/2020, 06/04/[address] of chest dated 05/11/2019. FINDINGS: Image quality: Excellent. Lungs and pleura: Extensive groundglass opacities are seen throughout bilateral lung becerril significa ntly worsened compared to 2019 study. There is also moderate size right pleural effusion and small le ft pleural effusion with adjacent posterior compression atelectasis in bilateral lower lobes. There i s no pneumothorax. Central and peripheral airways are patent and normal in caliber. Mediastinum: Heart size is enlarged. No pericardial effusion. Extensive mediastinal lymphadenopathy is seen measures up to 1.3 x 2.9 cm in size in precarinal space. Thoracic aorta and central pulmonar y arteries are normal in size. Moderate amount of atherosclerotic disease is seen. Esophagus is norm al in caliber. No hiatal hernia. Bones and chest wall: No suspicious bony lesions. No acute vertebral body compression fractures. De generative disc disease throughout thoracic spine is seen. No axillary or supraclavicular adenopathy by size criteria. Thyroid gland is within normal limits. Abdomen: Visualized upper abdominal solid organs shows no gross abnormalities in visualized portion of liver and spleen. IMPRESSION: 1. Extensive groundglass opacities throughout bilateral upper lobes, right middle lobe and significan t portion of bilateral lower lobes progressed since 2019 study suggestive of diffuse alveolar damage, extensive pulmonary edema versus atypical infection. No pneumothorax. Airway is patent. 2. Right greater than left bilateral pleural effusion with adjacent lower lobe atelectasis. 3. Prominent mediastinal lymph nodes suggestive of reactive inflammatory lymphadenopathy. Reviewed by: Nabeel Darden MD on 06/08/2020 9:51 AM [facility] Approved by: Nabeel Darden MD on 06/08/2020 9:51 AM [facility] Station ID: [id number]
[2020-06-08] MEDS: DABIGATRAN 75 MG CAPSULE PO SCH ×2 (11:20→20:49)
--- NOTE | 2020-06-08 12:23 | PHARMACY PROGRESS NOTE ---
- Best Possible Medication History Admit Date and Time: 06/08/20 0230 Processed by: Pharmacy Medication History completed: Yes Secondary Source(s): Physician records, Pharmacy records, Insurance records As the person ultimately responsible for medication therapy, providers are able to order a medication from an existing home medication list in [facility] via the "Reconcile Routine" prior to Confirmation of that medication by computer customer support specialist. Such practice is discouraged except when the physician, in their clinical judgment, deems that a medical need exists for a medication without regard to previous use.
[2020-06-08] MEDS: FUROSEMIDE 20 MG/2 ML VIAL IVP SCH (13:35)
[2020-06-08] MEDS: SODIUM CHLORIDE FLUSH 0.9% 10 ML SYRINGE IVP PRN (13:35)
[2020-06-08 13:36] LABS: ABG BASE EXCESS -3.5 mmol/L (-2.0-3.0); ABG HCO3 20.4 mmol/L (22.0-26.0); ABG OXYGEN SATURATION 94 % (94-98); ABG PCO2 33 mmHg (34-45); ABG PH 7.41 (7.35-7.45); ABG PO2 69 mmHg (80-100); ABG TCO2 21.5 MMOL/L (21.0-29.0); ALLEN TEST POSITIVE
--- NOTE | 2020-06-08 13:44 | PROVIDER PROGRESS NOTE ---
Hospitalist Cross-cover Note - Cross-Cover Note Cross-Cover Note: Patient's came to the hospital to visit the patient, patient'ss stated she discussed with her daughter and want to change patient's CODE STATUS to FULL CODE. I explained to patient's about the meaning of full code and do not resuscitation DNR. She understood.
--- NOTE | 2020-06-08 14:44 | CT Report ---
PROCEDURE: HEAD WO INDICATIONS: fall weakness anticoagulation TECHNIQUE: Noncontrast 4.5 mm thick angled axial sections acquired from the foramen magnum to the vertex. For r adiation dose reduction, the following was used: automated exposure control, adjustment of mA and/or kV according to patient size. COMPARISON: 05/05/2019. FINDINGS: Image quality: Excellent. CSF spaces: Basal cisterns are patent. No extra-axial fluid collections. The ventricles are symmet sharon in size and shape. Brain: No intracranial bleeds or masses. There is cerebral volume loss for age, with resultant vent ricular and sulcal prominence. There are periventricular and deep white matter chronic small vessel ischemic changes. There is intracranial internal carotid artery atherosclerosis. Skull and face: Calvarium and visualized facial bones appear intact, without suspicious lesions. Sinuses: Visualized sinuses and mastoids are clear. IMPRESSION: No acute intracranial disease process. Reviewed by: Lavinia Neves MD, PhD on 06/08/2020 2:42 PM PST Approved by: Lavinia Neves MD, PhD on 06/08/2020 2:42 PM PST Station ID: [id number]
[2020-06-08] MEDS ORDERED: traZODone 50 MG TABLET PO SCH (21:00)
[2020-06-08] MEDS ORDERED: TAMSULOSIN 0.4 MG CAPSULE PO SCH (21:00)
[2020-06-08] MEDS ORDERED: ATORVASTATIN 10 MG TABLET PO SCH (21:00)
[2020-06-09] MEDS: cefTRIAXone 2 GM in SODIUM CHLORIDE 0.9% MINIBAG 100 ML IV SCH (01:31)
[2020-06-09] MEDS ORDERED: cefTRIAXone 1 GM VIAL ONE (01:31)
[2020-06-09] MEDS ORDERED: SODIUM CHLORIDE 0.9% MINIBAG 100 ML IV ONE (01:34)
[2020-06-09] MEDS: metroNIDAZOLE 500 MG/100 ML 500 MG/100 ML BAG IV SCH ×3 (02:19→18:41)
[2020-06-09] MEDS: AZITHROMYCIN INJ 500 MG in SODIUM CHLORIDE 0.9% 250 ML IV SCH (03:29)
[2020-06-09] MEDS: FUROSEMIDE 20 MG/2 ML VIAL IVP SCH ×2 (05:42→14:29)
[2020-06-09] MEDS: LEVOTHYROXINE 75 MCG TABLET PO SCH (05:43)
[2020-06-09 06:29] LABS: BASOPHILS % (AUTO) 0.3 %; EOSINOPHILS # (AUTO) 0.3 10^3/uL (0.0-0.7); EOSINOPHILS % (AUTO) 2.9 %; HGB - HEMOGLOBIN 10.1 g/dL (14.0-18.0); LYMPHOCYTES # (AUTO) 0.5 10^3/uL (1.5-3.5); LYMPHOCYTES % (AUTO) 5.3 %; MEAN CORPUSCULAR HEMOGLOBIN 31.5 pg (27.0-31.0); MEAN CORPUSCULAR HGB CONC 32.8 g/dL (32.0-36.0); MEAN PLATELET VOLUME 10.4 fL (7.4-11.4); MONOCYTES # (AUTO) 0.5 10^3/uL (0.0-1.0); MONOCYTES % (AUTO) 5.4 %; NEUTROPHILS % (AUTO) 85.6 %; PLT - PLATELET COUNT 198 10^3/uL (130-450); RED BLOOD COUNT 3.21 10^6/uL (4.70-6.10); RED CELL DISTRIBUTION WIDTH 14.3 % (12.0-15.0); WHITE BLOOD COUNT 9.4 x10^3/uL (4.8-10.8)
[2020-06-09 06:42] LABS: CALCIUM 7.8 mg/dL (8.5-10.3); CREATININE 1.1 mg/dL (0.6-1.2); PHOSPHORUS 3.9 mg/dL (2.5-4.6)
[2020-06-09] MEDS: DABIGATRAN 75 MG CAPSULE PO SCH (08:18)
[2020-06-09] MEDS: LACTOBACILLUS RHAMNOSUS GG CAPSULE PO SCH (08:19)
[2020-06-09] MEDS: SODIUM CHLORIDE FLUSH 0.9% 10 ML SYRINGE IVP SCH ×3 (08:20→23:28)
[2020-06-09] MEDS ORDERED: SERTRALINE 50 MG TABLET PO SCH (09:00)
[2020-06-09 10:11] LABS: ABG BASE EXCESS 1.4 mmol/L (-2.0-3.0); ABG HCO3 24.6 mmol/L (22.0-26.0); ABG PCO2 34 mmHg (34-45); ABG PH 7.48 (7.35-7.45); ABG PO2 97 mmHg (80-100); ABG TCO2 25.7 MMOL/L (21.0-29.0)
[2020-06-09 10:12] LABS: ABG OXYGEN SATURATION 98 % (94-98); ALLEN TEST POSITIVE
--- NOTE | 2020-06-09 11:23 | PROVIDER PROGRESS NOTE ---
Subjective - Prog Note Date Prog Note Date: 06/09/20 Prog Note Time: 11:21 - Subjective Subjective: He is worsened overnight. He is getting increasingly tachypneic. He is now using his abdominal muscles to recruit effort of breathing. He is now up to 8 L nasal cannula to maintain O2 sats where he was 4 L. This morning taking him off oxygen to feed him breakfast cause hypoxia, and he is exhausted with the effort of eating. Blood pressures remained stable. Heart rate is stable. Temperature is 37 4. Current Medications - Current Medications Current Medications: Active Medications Acetaminophen (Tylenol) 650 mg PO Q4HR PRN PRN Reason: Pain 1 to 4 Atorvastatin Calcium (Lipitor) 10 mg PO QPM [facility] Last Admin: 06/08/20 20:49 Dose: 10 mg Documented by: Dabigatran (Pradaxa) 150 mg PO BID [facility] Last Admin: 06/09/20 08:18 Dose: 150 mg Documented by: Furosemide (Lasix Inj 20mg Vial) 20 mg IVP BIDDIURETIC [facility] Last Admin: 06/09/20 05:42 Dose: 20 mg Documented by: Azithromycin 500 mg/ Sodium (Chloride) 250 mls @ 250 mls/hr IV Q24H [facility] Stop: 06/10/20 04:59 Last Infusion: 06/09/20 04:42 Dose: Infused Documented by: Ceftriaxone Sodium 2 gm/ (Sodium Chloride) 100 mls @ 200 mls/hr IV Q24H [facility] Stop: 06/12/20 03:29 Last Infusion: 06/09/20 02:13 Dose: Infused Documented by: Metronidazole (Flagyl 500 Mg/100 Ml) 500 mg in 100 mls @ 100 mls/hr IV Q8H [facility] Stop: 06/12/20 19:59 Last Admin: 06/09/20 11:10 Dose: 100 mls/hr Documented by: Lactobacillus Rhamnosus (Culturelle) 1 cap PO DAILY [facility] Last Admin: 06/09/20 08:19 Dose: 1 cap Documented by: Levothyroxine Sodium (Synthroid) 75 mcg PO QDAC [facility] Last Admin: 06/09/20 05:43 Dose: 75 mcg Documented by: Ondansetron HCl (Zofran Inj) 4 mg IVP Q6HR PRN PRN Reason: Nausea / Vomiting Sertraline HCl (Zoloft) 50 mg PO DAILY [facility] Last Admin: 06/09/20 08:20 Dose: 50 mg Documented by: Sodium Chloride (Normal Saline Flush 0.9%) 10 ml IVP PRN PRN PRN Reason: NEEDED PER PROVIDER ORDERS Last Admin: 06/08/20 13:35 Dose: 10 ml Documented by: Sodium Chloride (Normal Saline Flush 0.9%) 10 ml IVP 0100,0900,1700 [facility] Last Admin: 06/09/20 08:20 Dose: 10 ml Documented by: Tamsulosin HCl (Flomax) 0.4 mg PO QPM [facility] Last Admin: 06/08/20 20:50 Dose: 0.4 mg Documented by: Trazodone HCl (Desyrel) 50 mg PO QPM [facility] Last Admin: 06/08/20 20:49 Dose: 50 mg Documented by: Cholecalciferol [Vitamin D3] 1,000 unit PO DAILY 01/21/16 Tamsulosin [Flomax] 0.4 mg PO QPM 01/21/16 hydrALAZINE [Apresoline] 25 mg PO BID 01/21/16 lisinopriL [Lisinopril] 10 mg PO BID 01/21/16 Dabigatran Etexilate Mesylate [Pradaxa] 150 mg PO BID 05/06/19 Rivastigmine [Rivastigmine 4.6MG] 1 each TD DAILY 05/06/19 Rosuvastatin Calcium [Crestor] 5 mg PO QPM 05/06/19 traZODone [Desyrel] 50 mg PO QPM 06/04/20 Cholestyramine [Questran] 4 gm PO BID 06/08/20 Oxybutynin Chloride [Ditropan Xl] 5 mg PO DAILY 06/08/20 Sertraline [Zoloft] 50 mg PO DAILY 06/08/20 Objective - Vital Signs/Intake & Output Reviewed Vital Signs: Yes Vital Signs: Vital Signs x48h Temp Pulse Resp BP Pulse Ox 06/09/20 11:00 78 27 H 146/85 H 98 06/09/20 10:00 37.4 C 75 24 136/77 H 97 06/09/20 09:10 75 28 H 152/96 H 98 06/09/20 07:49 36.6 C 74 38 H 150/84 H 94 06/09/20 05:49 36.5 C 79 32 H 147/71 H 92 Intake & Output: Intake & Output 06/06/20 06/07/20 06/08/20 06/09/20 23:59 23:59 23:59 23:59 Intake Total 2365.275 450 Balance 2365.275 450 - Objective General Appearance: positive: Moderate distress, Other (While he is not lethargic, and does respond to voice, he prefers to keep his eyes closed and he gives me grunting yes no answers.) Eyes Bilateral: positive: PERRL, EOMI ENT: positive: Dry mucous membranes Neck: positive: No JVD. negative: Stiff neck Respiratory: positive: Wheezes, Rhonchi, Other (Increased respiratory effort with use of abdominal muscles being recruited, tachypneic to the low 30s, high 20s.) Cardiovascular: positive: Regular rate & rhythm, Systolic murmur. negative: Gallop/S4, Friction rub Abdomen: positive: Non-tender, No organomegaly, Nml bowel sounds, No distention Skin: positive: Warm, Dry Extremities: positive: Full ROM, No pedal edema - Lab Results Fish Bones: 06/09/20 06:12 06/09/20 06:12 Other Labs: Lab Results x24hrs 06/09/20 06/09/20 06/09/20 Range/Units 09:50 06:12 06:12 WBC 9.4 (4.8-10.8) x10^3/uL RBC 3.21 L (4.70-6.10) 10^6/uL Hgb 10.1 L (14.0-18.0) g/dL Hct 30.8 L (42.0-52.0) % MCV 96.0 H (80.0-94.0) fL MCH 31.5 H (27.0-31.0) pg MCHC 32.8 (32.0-36.0) g/dL RDW 14.3 (12.0-15.0) % Plt Count 198 (130-450) 10^3/uL MPV 10.4 (7.4-11.4) fL Neut # (Auto) 8.0 H (1.5-6.6) 10^3/uL Lymph # (Auto) 0.5 L (1.5-3.5) 10^3/uL [place] # (Auto) 0.5 (0.0-1.0) 10^3/uL Eos # (Auto) 0.3 (0.0-0.7) 10^3/uL Baso # (Auto) 0.0 (0.0-0.1) 10^3/uL Absolute Nucleated RBC 0.00 x10^3/uL Nucleated RBC % 0.0 /100WBC Bld Gas Analysis Time 0959 Sample Site RIGHT RADIAL ABG pH 7.48 H (7.35-7.45) ABG pCO2 34 (34-45) mmHg ABG pO2 97 (80-100) mmHg ABG HCO3 24.6 (22.0-26.0) mmol/L ABG Total CO2 25.7 (21.0-29.0) MMOL/L ABG O2 Saturation 98 (94-98) % ABG Oximetry Spot Check % ABG Base Excess 1.4 (-2.0-3.0) mmol/L [place] Test POSITIVE Respiration Rate b/min O2 Delivery Device NON REBREATHER MASK O2 Liters/Min 11.00 LPM FiO2 1.00 Sodium 142 (135-145) mmol/L Potassium 3.7 (3.5-5.0) mmol/L Chloride 113 H (101-111) mmol/L Carbon Dioxide 21 (21-32) mmol/L Anion Gap 8.0 (6-13) BUN 33 H (6-20) mg/dL Creatinine 1.1 (0.6-1.2) mg/dL Estimated GFR (MDRD) 64 L (>89) Glucose 101 H (70-100) mg/dL Calcium 7.8 L (8.5-10.3) mg/dL Phosphorus 3.9 (2.5-4.6) mg/dL Magnesium 2.0 (1.7-2.8) mg/dL 06/08/20 Range/Units 13:30 WBC (4.8-10.8) x10^3/uL RBC (4.70-6.10) 10^6/uL Hgb (14.0-18.0) g/dL Hct (42.0-52.0) % MCV (80.0-94.0) fL MCH (27.0-31.0) pg MCHC (32.0-36.0) g/dL RDW (12.0-15.0) % Plt Count (130-450) 10^3/uL MPV (7.4-11.4) fL Neut # (Auto) (1.5-6.6) 10^3/uL Lymph # (Auto) (1.5-3.5) 10^3/uL [place] # (Auto) (0.0-1.0) 10^3/uL Eos # (Auto) (0.0-0.7) 10^3/uL Baso # (Auto) (0.0-0.1) 10^3/uL Absolute Nucleated RBC x10^3/uL Nucleated RBC % /100WBC Bld Gas Analysis Time 1330 Sample Site RIGHT RADIAL ABG pH 7.41 (7.35-7.45) ABG pCO2 33 L (34-45) mmHg ABG pO2 69 L (80-100) mmHg ABG HCO3 20.4 L (22.0-26.0) mmol/L ABG Total CO2 21.5 (21.0-29.0) MMOL/L ABG O2 Saturation 94 (94-98) % ABG Oximetry Spot Check 90 % ABG Base Excess -3.5 L (-2.0-3.0) mmol/L [place] Test POSITIVE Respiration Rate 36 b/min O2 Delivery Device [place] O2 Liters/Min 6.00 LPM FiO2 Sodium (135-145) mmol/L Potassium (3.5-5.0) mmol/L Chloride (101-111) mmol/L Carbon Dioxide (21-32) mmol/L Anion Gap (6-13) BUN (6-20) mg/dL Creatinine (0.6-1.2) mg/dL Estimated GFR (MDRD) (>89) Glucose (70-100) mg/dL Calcium (8.5-10.3) mg/dL Phosphorus (2.5-4.6) mg/dL Magnesium (1.7-2.8) mg/dL Assessment/Plan - Problem List (1) Acute respiratory failure with hypoxia Impression: He was requiring 4 L of oxygen yesterday. X-ray showed worsening bilateral infiltrates. BNP was elevated but was felt to be at his baseline. He did not have lower extremity edema to suggest congestive heart failure. Now on 8 L. Nonrebreather. I did a blood gas and his pH is 7.47, PCO2 33.8, PO2 96.8. Bicarb 24.6. Base excess +1.4. Transfer him to the ICU. Monitor him closely. If he starts to require more beyond the nonrebreather, may need to go on BiPAP. I will also rediscuss to verify why change CODE STATUS from DO NOT RESUSCITATE to full code this morning. Plan: Day #2 of azithromycin and ceftriaxone Adjust antibiotics on the basis of cultures Review chest x-ray from today (2) CAP (community acquired pneumonia) Conclusion/Plan: He has bilateral infiltrates on chest x-ray which are worse compared to prior imaging. Hypoxic. He does not have a leukocytosis but his white count is elevated compared to his baseline. He failed outpatient treatment with oral d oxycycline and cefdinir. We will place him on IV azithromycin and IV ceftriaxone. There may be possible aspiration and so we will start him on Flagyl as well empirically. He will need a speech evaluation But that is not available on the weekends. Today is Thursday. Hopefully he will be seen on . Blood cultures are without growth after 1 day. So far sputum culture is and collected. Continue supplemental oxygen. Repeat respiratory PCR panel.Although the first 1 was negative, there can be false negatives. Ordering hospitalist wants to make sure this patient does not have Covid. Qualifiers: (3) Encephalopathy Conclusion/Plan: He has baseline dementia but he is more confused and unable to participate in a conversation which is changed compared to his baseline. CT of the head showed no acute abnormalities. Suspect this is likely due to his hypoxia and pneumonia. No improvement with antibiotics as we treat his pneumonia. We will continue delirium precautions. And avoid sedatives. (4) Acute kidney injury Conclusion/Plan: Creatinine is elevated at 1.4 compared to his baseline of 1.0. This is likely prerenal injury due to poor oral intake and pneumonia. His BNP is elevated in 300s but does not appear to be in heart failure. We will give him a liter of lactated Ringer's and continue him on gentle IV hydration. His creatinine today is 1.1. Plan: Monitor his renal function and urine output. (5) Atrial flutter Conclusion/Plan: He has a history of atrial fibrillation but he appears to be in atrial flutter on telemetry. He is rate controlled. We will continue his home Pradaxa. He does not appear to be on any rate control medications at home but we will initiate this if necessary. Preliminary echo shows him to have systolic function lower limits of normal. Ejection fraction 50 to 55%. Unable to assess for diastole. Mild right ventricular enlargement. Right ventricular systolic function moderately impaired. Moderate to severe increase in left atrial volume index. Severe right atrial enlargement. Mild aortic stenosis with a peak/mean pressure gradient of 19 mmHg / 10 mmHg. Aortic valve area 1.31 cm. Moderate tricuspid regurgitation. Moderately abnormal right heart pressures. RVSP at rest 64 mmHg. Compared to prior echo his pulmonary arterial systolic pressure has increased. No mass or thrombus identified. Plan: Monitor on telemetry.I will discuss with his family. (6) Dementia Conclusion/Plan: He has baseline dementia but per his , he is more confused and altered compared to baseline. This is likely due to the pneumonia as mentioned above. Continue with delirium precautions and management as above. (7) Hypertension Conclusion/Plan: Home hypertensives are a Apresoline, lisinopril. He is also on Lasix with us. Blood pressure is in the 150s. Home medicines have not been resumed yet and I will do that right now. Qualifiers: (8) Hypothyroidism Conclusion/Plan: Stable. Continue Synthroid. (9) BPH (benign prostatic hyperplasia) Conclusion/Plan: Stable. Continue home medications.
[2020-06-09] MEDS ORDERED: OXYBUTYNIN 5MG TABLET PO SCH (12:00)
[2020-06-09] MEDS ORDERED: hydrALAZINE 25 MG TABLET PO SCH (12:00)
[2020-06-09] MEDS: SODIUM CHLORIDE FLUSH 0.9% 10 ML SYRINGE IVP PRN (14:30)
[2020-06-09] MEDS: ENALAPRILAT 1.25 MG/ML VIAL IVP SCH ×2 (14:30→18:41)
[2020-06-09 15:02] LABS: BILIRUBIN,URINE NEGATIVE (NEGATIVE); GLUCOSE, URINE (UA) NEGATIVE (NEGATIVE); KETONES,URINE (UA) NEGATIVE (NEGATIVE); LEUKOCYTE ESTERASE, URINE NEGATIVE (NEGATIVE); NITRITE,URINE NEGATIVE (NEGATIVE); OCCULT BLOOD,URINE NEGATIVE (NEGATIVE); PH,URINE 5.5 PH (5.0-7.5); PROTEIN,URINE NEGATIVE (NEGATIVE); UROBILINOGEN,URINE 0.2 (NORMAL) E.U./dL (NORMAL)
[2020-06-09 15:05] LABS: CLARITY,URINE CLEAR (CLEAR)
[2020-06-09] MEDS: hydrALAZINE INJ 20 MG/ML VIAL IVP SCH ×2 (17:14→20:48)
[2020-06-09] MEDS ORDERED: lisinopriL 5 MG TABLET PO SCH (21:00)
[2020-06-10] MEDS: ENALAPRILAT 1.25 MG/ML VIAL IVP SCH ×3 (00:27→12:04)
[2020-06-10] MEDS: cefTRIAXone 2 GM in SODIUM CHLORIDE 0.9% MINIBAG 100 ML IV SCH (01:26)
[2020-06-10] MEDS: metroNIDAZOLE 500 MG/100 ML 500 MG/100 ML BAG IV SCH ×3 (02:18→20:03)
[2020-06-10] MEDS: AZITHROMYCIN INJ 500 MG in SODIUM CHLORIDE 0.9% 250 ML IV SCH (03:52)
[2020-06-10] MEDS: FUROSEMIDE 20 MG/2 ML VIAL IVP SCH ×2 (05:16→13:17)
[2020-06-10 05:27] LABS: BASOPHILS % (AUTO) 0.4 %; EOSINOPHILS # (AUTO) 0.4 10^3/uL (0.0-0.7); EOSINOPHILS % (AUTO) 3.1 %; HGB - HEMOGLOBIN 10.7 g/dL (14.0-18.0); LYMPHOCYTES # (AUTO) 0.5 10^3/uL (1.5-3.5); LYMPHOCYTES % (AUTO) 4.5 %; MEAN CORPUSCULAR HEMOGLOBIN 31.1 pg (27.0-31.0); MEAN CORPUSCULAR HGB CONC 31.7 g/dL (32.0-36.0); MEAN CORPUSCULAR VOLUME 98.3 fL (80.0-94.0); MEAN PLATELET VOLUME 10.8 fL (7.4-11.4); MONOCYTES # (AUTO) 0.5 10^3/uL (0.0-1.0); MONOCYTES % (AUTO) 4.1 %; NEUTROPHILS # (AUTO) 9.9 10^3/uL (1.5-6.6); NEUTROPHILS % (AUTO) 87.2 %; PLT - PLATELET COUNT 218 10^3/uL (130-450); RED BLOOD COUNT 3.44 10^6/uL (4.70-6.10); RED CELL DISTRIBUTION WIDTH 14.4 % (12.0-15.0); WHITE BLOOD COUNT 11.3 x10^3/uL (4.8-10.8)
[2020-06-10 05:39] LABS: CREATININE 1.1 mg/dL (0.6-1.2); MAGNESIUM 2.1 mg/dL (1.7-2.8); PHOSPHORUS 3.7 mg/dL (2.5-4.6)
--- NOTE | 2020-06-10 07:46 | PROVIDER PROGRESS NOTE ---
Subjective - Prog Note Date Prog Note Date: 06/10/20 - Subjective Subjective: still in ICU. 100% sat on 11 liters. gets tired trying to eat. not very responsive last night. Daughter was at bedside for a while and sent mom home. They plan on being here today. This morning he is sitting up in bed, completely disoriented. Smiling, and feeding himself his scrambled eggs and his cream of wheat. He finished at all. Speech is garbled, not making any sense. He is not able to tell me where he is, who he is, why he is here. But tremendously improved from yesterday's nonresp onsive, closed eyes, struggling to breathe. Current Medications - Current Medications Current Medications: Active Medications Acetaminophen (Tylenol) 650 mg PO Q4HR PRN PRN Reason: Pain 1 to 4 Enalaprilat (Vasotec Inj) 1.25 mg IVP Q6HR [facility] Last Admin: 06/10/20 05:16 Dose: 1.25 mg Documented by: Enoxaparin Sodium (Lovenox) 40 mg SUBQ DAILY [facility] Furosemide (Lasix Inj 20mg Vial) 20 mg IVP BIDDIURETIC [facility] Last Admin: 06/10/20 05:16 Dose: 20 mg Documented by: Hydralazine HCl (Apresoline Inj) 10 mg IVP BID [facility] Last Admin: 06/09/20 20:48 Dose: Not Given Documented by: Ceftriaxone Sodium 2 gm/ (Sodium Chloride) 100 mls @ 200 mls/hr IV Q24H [facility] Stop: 06/12/20 03:29 Last Infusion: 06/10/20 02:17 Dose: Infused Documented by: Metronidazole (Flagyl 500 Mg/100 Ml) 500 mg in 100 mls @ 100 mls/hr IV Q8H [facility] Stop: 06/12/20 19:59 Last Infusion: 06/10/20 03:39 Dose: Infused Documented by: Lactobacillus Rhamnosus (Culturelle) 1 cap PO DAILY [facility] Last Admin: 06/09/20 08:19 Dose: 1 cap Documented by: Ondansetron HCl (Zofran Inj) 4 mg IVP Q6HR PRN PRN Reason: Nausea / Vomiting Sodium Chloride (Normal Saline Flush 0.9%) 10 ml IVP PRN PRN PRN Reason: NEEDED PER PROVIDER ORDERS Last Admin: 06/09/20 14:30 Dose: 10 ml Documented by: Sodium Chloride (Normal Saline Flush 0.9%) 10 ml IVP 0100,0900,1700 [facility] Last Admin: 06/09/20 23:28 Dose: 10 ml Documented by: Cholecalciferol [Vitamin D3] 1,000 unit PO DAILY 01/21/16 Tamsulosin [Flomax] 0.4 mg PO QPM 01/21/16 hydrALAZINE [Apresoline] 25 mg PO BID 01/21/16 lisinopriL [Lisinopril] 10 mg PO BID 01/21/16 Dabigatran Etexilate Mesylate [Pradaxa] 150 mg PO BID 05/06/19 Rivastigmine [Rivastigmine 4.6MG] 1 each TD DAILY 05/06/19 Rosuvastatin Calcium [Crestor] 5 mg PO QPM 05/06/19 traZODone [Desyrel] 50 mg PO QPM 06/04/20 Cholestyramine [Questran] 4 gm PO BID 06/08/20 Oxybutynin Chloride [Ditropan Xl] 5 mg PO DAILY 06/08/20 Sertraline [Zoloft] 50 mg PO DAILY 06/08/20 Objective - Vital Signs/Intake & Output Reviewed Vital Signs: Yes Vital Signs: Vital Signs x48h Temp Pulse Resp BP Pulse Ox 06/10/20 07:00 76 23 130/90 H 97 06/10/20 06:00 72 23 135/86 H 96 06/10/20 05:00 84 22 139/100 H 98 06/10/20 04:00 36.8 C 82 19 132/111 H 100 06/10/20 03:55 13 96 06/10/20 03:00 78 24 144/92 H 100 06/10/20 02:00 74 24 130/72 99 06/10/20 01:30 74 111/95 H 06/10/20 01:15 73 123/79 06/10/20 01:00 79 130/91 H 06/10/20 00:45 79 126/90 H 06/10/20 00:40 72 133/93 H 06/10/20 00:35 80 129/95 H 06/10/20 00:30 78 17 116/67 97 06/10/20 00:25 82 16 137/84 H 98 06/10/20 00:00 75 23 138/85 H 97 Intake & Output: Intake & Output 06/07/20 06/08/20 06/09/20 06/10/20 23:59 23:59 23:59 23:59 Intake Total 2365.275 685 450 Output Total 790 780 Balance 2365.282 -105 -330 - Objective General Appearance: positive: Alert Eyes Bilateral: positive: PERRL ENT: positive: No signs of dehydration Neck: positive: No JVD Respiratory: positive: No respiratory distress, Wheezes, Rhonchi, Other (Very rhonchorous lung sounds, diffuse. But quiet. He disease of accessory muscles by using his abdominal muscles to recruit has resolved. He was breathing at 33 yesterday and today he is down to 16-20.Movement such as sitting up, and speaking for too long makes him short of breath.) Cardiovascular: positive: Regular rate & rhythm, Systolic murmur. negative: Gallop/S4, Friction rub Abdomen: positive: Non-tender, No organomegaly, Nml bowel sounds, No distention Skin: positive: Warm, Dry, Pallor Extremities: positive: Non-tender, No pedal edema Neurologic/Psychiatric: positive: CN's nml (2-12) (Except that he is quite deaf), Motor nml (Diffuse generalized weakness. Needs help to just even sit up and that makes him short of breath. But fine motor movement such as bringing food in a spoon from a ball to his mouth is completely intact.), Disoriented to person, Disoriented to place, Disoriented to time, Slurred/abnml speech (Garbled, not making much sense but he is happy and smiling as he talks to me) - Lab Results Fish Bones: 06/10/20 04:55 06/10/20 04:55 Other Labs: Lab Results x24hrs 06/10/20 06/10/20 06/09/20 Range/Units 04:55 04:55 14:59 WBC 11.3 H (4.8-10.8) x10^3/uL RBC 3.44 L (4.70-6.10) 10^6/uL Hgb 10.7 L (14.0-18.0) g/dL Hct 33.8 L (42.0-52.0) % MCV 98.3 H (80.0-94.0) fL MCH 31.1 H (27.0-31.0) pg MCHC 31.7 L (32.0-36.0) g/dL RDW 14.4 (12.0-15.0) % Plt Count 218 (130-450) 10^3/uL MPV 10.8 (7.4-11.4) fL Neut # (Auto) 9.9 H (1.5-6.6) 10^3/uL Lymph # (Auto) 0.5 L (1.5-3.5) 10^3/uL [place] # (Auto) 0.5 (0.0-1.0) 10^3/uL Eos # (Auto) 0.4 (0.0-0.7) 10^3/uL Baso # (Auto) 0.0 (0.0-0.1) 10^3/uL Absolute Nucleated RBC 0.00 x10^3/uL Nucleated RBC % 0.0 /100WBC Bld Gas Analysis Time Sample Site ABG pH (7.35-7.45) ABG pCO2 (34-45) mmHg ABG pO2 (80-100) mmHg ABG HCO3 (22.0-26.0) mmol/L ABG Total CO2 (21.0-29.0) MMOL/L ABG O2 Saturation (94-98) % ABG Base Excess (-2.0-3.0) mmol/L [place] Test O2 Delivery Device O2 Liters/Min LPM FiO2 Sodium 145 (135-145) mmol/L Potassium 3.5 (3.5-5.0) mmol/L Chloride 111 (101-111) mmol/L Carbon Dioxide 24 (21-32) mmol/L Anion Gap 10.0 (6-13) BUN 33 H (6-20) mg/dL Creatinine 1.1 (0.6-1.2) mg/dL Estimated GFR (MDRD) 64 L (>89) Glucose 94 (70-100) mg/dL Calcium 8.0 L (8.5-10.3) mg/dL Phosphorus 3.7 (2.5-4.6) mg/dL Magnesium 2.1 (1.7-2.8) mg/dL Urine Color YELLOW Urine Clarity CLEAR (CLEAR) Urine pH 5.5 (5.0-7.5) PH Ur Specific [place] 1.020 (1.002-1.030) Urine Protein NEGATIVE (NEGATIVE) mg/dL Urine Glucose (UA) NEGATIVE (NEGATIVE) mg/dL Urine Ketones NEGATIVE (NEGATIVE) mg/dL Urine Occult Blood NEGATIVE (NEGATIVE) Urine Nitrite NEGATIVE (NEGATIVE) Urine Bilirubin NEGATIVE (NEGATIVE) Urine Urobilinogen 0.2 (NORMAL) (NORMAL) E.U./dL Ur Leukocyte Esterase NEGATIVE (NEGATIVE) Ur Microscopic Review NOT INDICATED Urine Culture Comments NOT INDICATED Nasal Screen MRSA (PCR) (NEGATIVE) 06/09/20 06/09/20 Range/Units 09:50 09:21 WBC (4.8-10.8) x10^3/uL RBC (4.70-6.10) 10^6/uL Hgb (14.0-18.0) g/dL Hct (42.0-52.0) % MCV (80.0-94.0) fL MCH (27.0-31.0) pg MCHC (32.0-36.0) g/dL RDW (12.0-15.0) % Plt Count (130-450) 10^3/uL MPV (7.4-11.4) fL Neut # (Auto) (1.5-6.6) 10^3/uL Lymph # (Auto) (1.5-3.5) 10^3/uL [place] # (Auto) (0.0-1.0) 10^3/uL Eos # (Auto) (0.0-0.7) 10^3/uL Baso # (Auto) (0.0-0.1) 10^3/uL Absolute Nucleated RBC x10^3/uL Nucleated RBC % /100WBC Bld Gas Analysis Time 0959 Sample Site RIGHT RADIAL ABG pH 7.48 H (7.35-7.45) ABG pCO2 34 (34-45) mmHg ABG pO2 97 (80-100) mmHg ABG HCO3 24.6 (22.0-26.0) mmol/L ABG Total CO2 25.7 (21.0-29.0) MMOL/L ABG O2 Saturation 98 (94-98) % ABG Base Excess 1.4 (-2.0-3.0) mmol/L [place] Test POSITIVE O2 Delivery Device NON REBREATHER MASK O2 Liters/Min 11.00 LPM FiO2 1.00 Sodium (135-145) mmol/L Potassium (3.5-5.0) mmol/L Chloride (101-111) mmol/L Carbon Dioxide (21-32) mmol/L Anion Gap (6-13) BUN (6-20) mg/dL Creatinine (0.6-1.2) mg/dL Estimated GFR (MDRD) (>89) Glucose (70-100) mg/dL Calcium (8.5-10.3) mg/dL Phosphorus (2.5-4.6) mg/dL Magnesium (1.7-2.8) mg/dL Urine Color Urine Clarity (CLEAR) Urine pH (5.0-7.5) PH Ur Specific [place] (1.002-1.030) Urine Protein (NEGATIVE) mg/dL Urine Glucose (UA) (NEGATIVE) mg/dL Urine Ketones (NEGATIVE) mg/dL Urine Occult Blood (NEGATIVE) Urine Nitrite (NEGATIVE) Urine Bilirubin (NEGATIVE) Urine Urobilinogen (NORMAL) E.U./dL Ur Leukocyte Esterase (NEGATIVE) Ur Microscopic Review Urine Culture Comments Nasal Screen MRSA (PCR) NEGATIVE (NEGATIVE) ABX Reporting Has patient been on IV antibiotics over the past 48 hours?: Yes Assessment/Plan - Problem List (1) Acute respiratory failure with hypoxia Impression: On admission he was requiring 4 L of oxygen, and he had increasing bilateral infiltrates superimposed on chronic changes, and we felt it was pneumonia not congestive heart failure since his BNP was low. The next day he was on 8 L, getting more lethargic, more unresponsive, and he was transferred to the ICU. I did a blood gas and his pH is 7.47, PCO2 33.8, PO2 96.8. Bicarb 24.6. Base excess +1.4. Other than increased monitoring, Oxymizer, or 100% nonrebreather, not much else was changed. He was kept on oxygen, his antibiotics. Respiratory therapy worked hard at adjusting oxygen levels, working at pulmonary hygiene and use nebulizers to help him bring up phlegm. He is awake, still needing high oxygen requirements this morning but much improved. 100% saturated on 11 L.Chest x-ray shows no change in bilateral alveolar opacities suggestive of ARDS or extensive pneumonia. Stable cardiomegaly. Plan: Day #3/7 of azithromycin and ceftriaxone Adjust antibiotics on the basis of cultures (2) CAP (community acquired pneumonia) Conclusion/Plan: He has bilateral infiltrates on chest x-ray which are worse compared to prior imaging. Hypoxic. He does not have a leukocytosis but his white count is elevated compared to his baseline. He failed outpatient treatment with oral doxycycline and cefdinir. We will place him on IV azithromycin and IV ceftriaxone. There may be possible aspiration and so we will start him on Flagyl as well empirically. He will need a speech evaluation But that is not available on the weekends. Today is Thursday. Hopefully he will be seen on Thursday. Blood cultures are without growth after 2 days. So far sputum culture has not been collected. Continue supplemental oxygen. Repeat respiratory PCR panel.Although the first 1 was negative, there can be false negatives. Ordering hospitalist wants to make sure this patient does not have Covid.I believe due to allocation of resource policy, that may been canceled. I will verify. (3) Encephalopathy Due to acute respiratory failure and infection. Improved Conclusion/Plan: He has baseline dementia but he is more confused and unable to participate in a conversation which is changed compared to his baseline. CT of the head showed no acute abnormalities. Suspect this is likely due to his hypoxia and pneumonia. We will continue delirium precautions. And avoid sedatives. (4) Acute kidney injury Conclusion/Plan: Creatinine is elevated at 1.4 compared to his baseline of 1.0. This is likely prerenal injury due to poor oral intake and pneumonia. His BNP is elevated in 300s but does not appear to be in heart failure. He was treated with lactated Ringer's. His creatinine today is 1.1 And has been the same number for 3 days now. Plan: Monitor his renal function and urine output. (5) Atrial flutter Conclusion/Plan: He has a history of atrial fibrillation but he appears to be in atrial flutter on telemetry. He is rate controlled. We will continue his home Pradaxa. He does not appear to be on any rate control medications at home but we will initiate this if necessary. Preliminary echo shows him to have systolic function lower limits of normal. Ejection fraction 50 to 55%. Unable to assess for diastole. Mild right ventricular enlargement. Right ventricular systolic function moderately impaired. Moderate to severe increase in left atrial volume index. Severe right atrial enlargement. Mild aortic stenosis with a peak/mean pressure gradient of 19 mmHg / 10 mmHg. Aortic valve area 1.31 cm. Moderate tricuspid regurgitation. Moderately abnormal right heart pressures. RVSP at rest 64 mmHg. Compared to prior echo his pulmonary arterial systolic pressure has incre ased. No mass or thrombus identified. Plan: Monitor on telemetry. (6) Dementia Conclusion/Plan: He has baseline dementia but per his , he is more confused and altered compared to baseline. This is likely due to the pneumonia as mentioned above. Continue with delirium precautions and management as above. (7) Hypertension Conclusion/Plan: Home hypertensives are a Apresoline, lisinopril. He is also on Lasix with us.Blood pressure medicines were resumed from home yesterday. This resulted in a blood pressure that came down to 103, 97 systolic. Currently 124/81. Yesterday he was unable to take p.o. so we switched everything to IV. We will switch everything to p.o. again. (8) Hypothyroidism Conclusion/Plan: Stable. Continue Synthroid. (9) BPH (benign prostatic hyperplasia) Conclusion/Plan: Stable. Continue home medications.
[2020-06-10] MEDS: hydrALAZINE INJ 20 MG/ML VIAL IVP SCH (08:28)
[2020-06-10] MEDS: ENOXAPARIN 40 MG/0.4 ML SYRINGE SUBQ SCH (08:32)
[2020-06-10] MEDS: SODIUM CHLORIDE FLUSH 0.9% 10 ML SYRINGE IVP SCH ×3 (08:32→23:00)
[2020-06-10] MEDS: LACTOBACILLUS RHAMNOSUS GG CAPSULE PO SCH (08:32)
--- NOTE | 2020-06-10 08:35 | XRAY Report ---
PROCEDURE: Chest 1 View X-Ray INDICATIONS: Follow up infiltrates. Hypoxia. TECHNIQUE: One view of the chest was acquired. COMPARISON: 06/08/2020 FINDINGS: Surgical changes and devices: None. Lungs and pleura: No pleural effusions or pneumothorax. Persistent extensive perihilar alveolar opac ities bilaterally to a similar degree. Mediastinum: Mediastinal contours appear normal. Heart size is enlarged, stable. Bones and chest wall: No suspicious bony lesions. Overlying soft tissues appear unremarkable. IMPRESSION: 1. No change in bilateral alveolar opacities suggestive of ARDS or extensive pneumonia. 2. Stable cardiomegaly. Reviewed by: Margarita Lane MD on 06/10/2020 8:33 AM PST Approved by: Margarita Lane MD on 06/10/2020 8:33 AM PST Station ID: [id number]
[2020-06-10] MEDS: lisinopriL 5 MG TABLET PO SCH (20:28)
[2020-06-10] MEDS: SODIUM CHLORIDE FLUSH 0.9% 10 ML SYRINGE IVP PRN (23:00)
[2020-06-11] MEDS: cefTRIAXone 2 GM in SODIUM CHLORIDE 0.9% MINIBAG 100 ML IV SCH (01:51)
[2020-06-11] MEDS: metroNIDAZOLE 500 MG/100 ML 500 MG/100 ML BAG IV SCH ×3 (02:23→18:58)
[2020-06-11 04:56] LABS: BASOPHILS # (AUTO) 0.1 10^3/uL (0.0-0.1); BASOPHILS % (AUTO) 0.5 %; EOSINOPHILS # (AUTO) 0.5 10^3/uL (0.0-0.7); EOSINOPHILS % (AUTO) 4.3 %; HGB - HEMOGLOBIN 11.2 g/dL (14.0-18.0); LYMPHOCYTES # (AUTO) 0.5 10^3/uL (1.5-3.5); LYMPHOCYTES % (AUTO) 4.5 %; MEAN CORPUSCULAR HEMOGLOBIN 31.5 pg (27.0-31.0); MEAN CORPUSCULAR HGB CONC 32.2 g/dL (32.0-36.0); MEAN PLATELET VOLUME 10.8 fL (7.4-11.4); MONOCYTES # (AUTO) 0.4 10^3/uL (0.0-1.0); MONOCYTES % (AUTO) 3.7 %; NEUTROPHILS # (AUTO) 10.2 10^3/uL (1.5-6.6); NEUTROPHILS % (AUTO) 86.3 %; PLT - PLATELET COUNT 231 10^3/uL (130-450); RED BLOOD COUNT 3.55 10^6/uL (4.70-6.10); RED CELL DISTRIBUTION WIDTH 14.4 % (12.0-15.0); WHITE BLOOD COUNT 11.8 x10^3/uL (4.8-10.8)
[2020-06-11] MEDS: FUROSEMIDE 20 MG/2 ML VIAL IVP SCH (05:06)
[2020-06-11 05:15] LABS: CALCIUM 8.1 mg/dL (8.5-10.3); CREATININE 1.1 mg/dL (0.6-1.2); MAGNESIUM 2.2 mg/dL (1.7-2.8); PHOSPHORUS 3.3 mg/dL (2.5-4.6)
[2020-06-11] MEDS: ENOXAPARIN 40 MG/0.4 ML SYRINGE SUBQ SCH (09:10)
[2020-06-11] MEDS: SODIUM CHLORIDE FLUSH 0.9% 10 ML SYRINGE IVP SCH ×2 (09:10→17:37)
[2020-06-11] MEDS: DEXTROSE 5% 1,000 ML IV SCH ×2 (09:41→21:22)
[2020-06-11] MEDS: lisinopriL 5 MG TABLET PO SCH ×2 (09:45→21:03)
[2020-06-11] MEDS: LACTOBACILLUS RHAMNOSUS GG CAPSULE PO SCH (09:45)
--- NOTE | 2020-06-11 11:24 | PROVIDER PROGRESS NOTE ---
Subjective - Prog Note Date Prog Note Date: 06/11/20 Prog Note Time: 11:22 Objective - Vital Signs/Intake & Output Reviewed Vital Signs: Yes Vital Signs: Vital Signs x48h Temp Pulse Pulse Resp BP Pulse Ox 06/11/20 11:00 74 23 110/69 95 06/11/20 10:00 78 16 125/82 H 91 L 06/11/20 09:00 73 22 134/84 H 96 06/11/20 08:00 82 18 114/84 H 91 L 06/11/20 07:00 80 25 H 136/86 H 98 06/11/20 06:00 75 18 121/86 H 97 06/11/20 05:04 35.7 C L 77 25 H 95 06/11/20 05:00 35.8 C L 78 22 132/84 H 96 06/11/20 04:00 79 22 127/82 H 95 Intake & Output: Intake & Output 06/08/20 06/09/20 06/10/20 06/11/20 23:59 23:59 23:59 23:59 Intake Total 2365.275 162 924 8618 Output Total 790 1770 375 Balance 2365.275 -105 -870 641 - Objective General Appearance: positive: Mild distress (On the 14th his eyes were closed and he was unresponsive. On the 15th he was a delight and interactive. This morning he is back to having his eyes closed and being unresponsive. Grimaces and whimpers as if he is in pain but exam is noncontributory as to where that pain is.), Other Eyes Bilateral: positive: PERRL, EOMI ENT: positive: No signs of dehydration Neck: positive: No JVD. negative: Stiff neck Respiratory: positive: No respiratory distress, Rhonchi. negative: Wheezes, Rales Cardiovascular: positive: Regular rate & rhythm, Systolic murmur. negative: Gallop/S4, Friction rub Abdomen: positive: No organomegaly, Nml bowel sounds, No distention, Other (I cannot tell if he is tender. He has body jerks as I palpate his belly but he does not grimace any more pain than he usually does. I do not feel a distended bladder. There are no masses.) Skin: positive: Warm, Dry Extremities: positive: Non-tender, No pedal edema Neurologic/Psychiatric: positive: CN's nml (2-12), Motor nml, Disoriented to person, Disoriented to place, Disoriented to time - Lab Results Fish Bones: 06/11/20 04:35 06/11/20 04:35 Other Labs: Lab Results x24hrs 06/11/20 06/11/20 Range/Units 04:35 04:35 WBC 11.8 H (4.8-10.8) x10^3/uL RBC 3.55 L (4.70-6.10) 10^6/uL Hgb 11.2 L (14.0-18.0) g/dL Hct 34.8 L (42.0-52.0) % MCV 98.0 H (80.0-94.0) fL MCH 31.5 H (27.0-31.0) pg MCHC 32.2 (32.0-36.0) g/dL RDW 14.4 (12.0-15.0) % Plt Count 231 (130-450) 10^3/uL MPV 10.8 (7.4-11.4) fL Neut # (Auto) 10.2 H (1.5-6.6) 10^3/uL Lymph # (Auto) 0.5 L (1.5-3.5) 10^3/uL [place] # (Auto) 0.4 (0.0-1.0) 10^3/uL Eos # (Auto) 0.5 (0.0-0.7) 10^3/uL Baso # (Auto) 0.1 (0.0-0.1) 10^3/uL Absolute Nucleated RBC 0.00 x10^3/uL Nucleated RBC % 0.0 /100WBC Sodium 149 H (135-145) mmol/L Potassium 3.6 (3.5-5.0) mmol/L Chloride 114 H (101-111) mmol/L Carbon Dioxide 25 (21-32) mmol/L Anion Gap 10.0 (6-13) BUN 41 H (6-20) mg/dL Creatinine 1.1 (0.6-1.2) mg/dL Estimated GFR (MDRD) 64 L (>89) Glucose 110 H (70-100) mg/dL Calcium 8.1 L (8.5-10.3) mg/dL Phosphorus 3.3 (2.5-4.6) mg/dL Magnesium 2.2 (1.7-2.8) mg/dL ABX Reporting Has patient been on IV antibiotics over the past 48 hours?: Yes Assessment/Plan - Problem List (1) Encephalopathy acute Impression: When he came to the hospital he was more confused and unable to participate in conversation. He has baseline dementia and with his last admission was quite c ombative. But when he is not in the hospital he is easily prompted, and a cheerful individual who eats well. When he came to the hospital this time he was again obtunded. Lethargic. Improved. Then became lethargic again with increasing respiratory effort and we put him in the ICU. After overnight stay in the ICU he was awake, alert, cheerful. Fed himself breakfast. Fed himself lunch. And by last night was again getting sleepier. This morning he is frowning, whimpering a little bit as if he is in pain. Not able to verbalize. Plan is to continue treating all of his medical problems. See if his waxing and waning mental status can stay stable enough. He did have a CT of the head on admission June 08 and that was normal. (2) Acute respiratory failure with hypoxia Impression: On admission he was requiring 4 L of oxygen, and he had increasing bilateral infiltrates superimposed on chronic changes, and we felt it was pneumonia not congestive heart failure since his BNP was low. The next day, 06/09/20, he was on 8 L, getting more lethargic, more unresponsive, and he was transferred to the ICU. I did a blood gas and his pH is 7.47, PCO2 33.8, PO2 96.8. Bicarb 24.6. Base excess +1.4. Other than increased monitoring, Oxymizer, or 100% nonrebreather, not much else was changed. He was kept on oxygen, his antibiotics. Respiratory therapy worked hard at adjusting oxygen levels, working at pulmonary hygiene and use nebulizers to help him bring up phlegm. 06/10 He is awake, still needing high oxygen requirements this morning but much improved. 100% saturated on 11 L.Chest x-ray shows no change in bilateral alveolar opacities suggestive of ARDS or extensive pneumonia. Stable cardiomegaly. Nursing worked to improve his alertness. And was able to get his 02 down to 5 liters. Today: Eyes are closed again, not eating his breakfast. Grimacing and he almost seems to be having a nightmare in his sleep. But he will not wake up for me. Whimpers a little bit. Wrinkles his nose and 4.0s his brow. Family is not at the bedside yet this morning. Oxygen needs are stable. Still on 5 L. No increased respiratory effort on exam. Plan: Day #4/7 of azithromycin and ceftriaxone Adjust antibiotics on the basis of cultures (3) CAP (community acquired pneumonia) Conclusion/Plan: He has bilateral infiltrates on chest x-ray which are worse compared to prior imaging. Hypoxic. He does not have a leukocytosis but his white count is elevated compared to his baseline. He failed outpatient treatment with oral doxycycline and cefdinir. We will place him on IV azithromycin and IV ceftr iaxone. There may be possible aspiration and so we will start him on Flagyl as well empirically. He will need a speech evaluation But that is not available on the weekends. Today is Thursday, hopefully he can be seen today. I will reorder just in case. Blood cultures are without growth after 3 days. So far sputum culture has not been collected. Continue supplemental oxygen. Repeat respiratory PCR pane requested. Although the first 1 was negative, there can be false negatives. Ordering hospitalist wants to make sure this patient does not have Covid. I believe due to allocation of resource policy, that may been canceled. Lab states that was it. (4) Acute kidney injury Conclusion/Plan: Creatinine was elevated at 1.4 on admission compared to his baseline of 1.0. This is likely prerenal injury due to poor oral intake and pneumonia. His BNP is elevated in 300s but does not appear to be in heart failure. He was treated with lactated Ringer's. His creatinine today is 1.1 And has been the same number for 3 days now.Sodium is now up today. We had decreased IV fluids and gave him more Lasix yesterday. Plan: Monitor his renal function and urine output. Stop Lasix. Resume IV fluids with D5 and recheck his labs at 1700. (5) Atrial flutter Conclusion/Plan: He has a history of atrial fibrillation but he appears to be in atrial flutter on telemetry. He is rate controlled. We will continue his home Pradaxa. He does not appear to be on any rate control medications at home but we will in itiate this if necessary. Preliminary echo shows him to have systolic function lower limits of normal. Ejection fraction 50 to 55%. Unable to assess for diastole. Mild right ventricular enlargement. Right ventricular systolic function moderately impaired. Moderate to severe increase in left atrial volume index. Severe right atrial enlargement. Mild aortic stenosis with a peak/mean pressure gradient of 19 mmHg / 10 mmHg. Aortic valve area 1.31 cm. Moderate tricuspid regurgitation. Moderately abnormal right heart pressures. RVSP at rest 64 mmHg. Compared to prior echo his pulmonary arterial systolic pressure has increased. No mass or thrombus identified. Plan: Monitor on telemetry. (6) Dementia Conclusion/Plan: He has baseline dementia but per his , he is more confused and altered compared to baseline. This is likely due to the pneumonia as mentioned above. Continue with delirium precautions and management as above. (7) Hypertension Conclusion/Plan: Home hypertensives are a Apresoline, lisinopril. He is also on Lasix with us. Blood pressure medicines were resumed on the . This resulted in hypotension. On the he was unable to take medicines p.o. so we switched everything to IV. On the we switched everything back to p.o. again. This morning he is 110-134 systolic. No change in blood pressure medicines. (8) Hypothyroidism Conclusion/Plan: Stable. Continue Synthroid. (9) BPH (benign prostatic hyperplasia) Conclusion/Plan: Stable. Continue home medications.Also has a Farooq catheter
[2020-06-11 18:08] LABS: CREATININE 1.1 mg/dL (0.6-1.2)
--- NOTE | 2020-06-11 18:45 | XRAY Report ---
PROCEDURE: Chest 1 View X-Ray INDICATIONS: worse short of breath and lung exam over hours TECHNIQUE: One view of the chest was acquired. COMPARISON: 08/10/2019, 06/08/2020, 06/04/2020. Correlation is also made with chest CT, 06/08/2020. FINDINGS: Surgical changes and devices: None. Lungs and pleura: Prominent interstitial infiltrates are seen. There is a small left-sided pleural ef fusion. No pneumothorax is seen. Mediastinum: Mediastinal contours appear normal. Heart size is normal. Bones and chest wall: No suspicious bony lesions. Overlying soft tissues appear unremarkable. IMPRESSION: Continued interstitial infiltrate can be seen, which is attributed to pulmonary edema. However, diffe rential diagnosis includes ARDS and potentially extensive pneumonia. Reviewed by: Abiel Ayala MD on 06/11/2020 5:[address] [facility] Approved by: Abiel Ayala MD on 06/11/2020 5:[address] [facility] Station ID: [id number]
[2020-06-12] MEDS: cefTRIAXone 2 GM in SODIUM CHLORIDE 0.9% MINIBAG 100 ML IV SCH (02:02)
[2020-06-12] MEDS ORDERED: SODIUM CHLORIDE 0.9% MINIBAG 100 ML IV ONE (02:03)
[2020-06-12] MEDS: SODIUM CHLORIDE FLUSH 0.9% 10 ML SYRINGE IVP SCH ×3 (02:03→18:28)
[2020-06-12] MEDS: metroNIDAZOLE 500 MG/100 ML 500 MG/100 ML BAG IV SCH (03:35)
[2020-06-12 04:46] LABS: BASOPHILS % (AUTO) 0.4 %; EOSINOPHILS # (AUTO) 0.9 10^3/uL (0.0-0.7); EOSINOPHILS % (AUTO) 8.1 %; HGB - HEMOGLOBIN 10.6 g/dL (14.0-18.0); LYMPHOCYTES # (AUTO) 0.7 10^3/uL (1.5-3.5); LYMPHOCYTES % (AUTO) 6.2 %; MEAN CORPUSCULAR HEMOGLOBIN 30.8 pg (27.0-31.0); MEAN CORPUSCULAR HGB CONC 31.7 g/dL (32.0-36.0); MEAN CORPUSCULAR VOLUME 97.1 fL (80.0-94.0); MEAN PLATELET VOLUME 10.7 fL (7.4-11.4); MONOCYTES # (AUTO) 0.5 10^3/uL (0.0-1.0); MONOCYTES % (AUTO) 4.5 %; NEUTROPHILS # (AUTO) 8.4 10^3/uL (1.5-6.6); PLT - PLATELET COUNT 252 10^3/uL (130-450); RED BLOOD COUNT 3.44 10^6/uL (4.70-6.10); RED CELL DISTRIBUTION WIDTH 14.3 % (12.0-15.0); WHITE BLOOD COUNT 10.5 x10^3/uL (4.8-10.8)
[2020-06-12 05:00] LABS: CALCIUM 7.9 mg/dL (8.5-10.3); CREATININE 1.1 mg/dL (0.6-1.2); MAGNESIUM 2.1 mg/dL (1.7-2.8); PHOSPHORUS 2.8 mg/dL (2.5-4.6)
[2020-06-12] MEDS: POTASSIUM CHLOR 10 MEQ/100 ML 10 MEQ/100 ML BAG IV SCH ×4 (07:10→10:21)
[2020-06-12] MEDS: DEXTROSE 5% 1,000 ML IV SCH ×2 (08:22→18:27)
[2020-06-12] MEDS: lisinopriL 5 MG TABLET PO SCH ×2 (08:51→09:17)
[2020-06-12] MEDS: LACTOBACILLUS RHAMNOSUS GG CAPSULE PO SCH (09:17)
[2020-06-12] MEDS: ENOXAPARIN 40 MG/0.4 ML SYRINGE SUBQ SCH (10:12)
[2020-06-12] MEDS ORDERED: FUROSEMIDE 20 MG/2 ML VIAL IVP STA (10:53)
[2020-06-12] MEDS ORDERED: HALOPERIDOL 5 MG/ML VIAL IVP PRN (10:54)
--- NOTE | 2020-06-12 10:57 | PROVIDER PROGRESS NOTE ---
Assessment/Plan - Problem List (1) Acute respiratory failure with hypoxia Assessment/Plan: His O2 demands have increased last 1-2 days. he was on 4L then increased to oximizer at 4L>> 5L>> 7L this morning. BNP was 300-400 Will give Lasix iv x1 Continue empiric antibx; day #5 of Ceftriaxone and he finished Zithromax for CAP. Respiratory therapy worked hard at adjusting oxygen levels, working at pulmonary hygiene and use nebulizers to help him bring up phlegm. Continue supplemental O2 (2) Encephalopathy acute Assessment/Plan: When he came to the hospital he was more confused and obtunded on top of his baseline dementia. He did have a CT of the head on admission June 08 and that was normal. Improved. Then became lethargic again with increasing respiratory effort and we put him in the ICU. After overnight stay in the ICU he was awake, alert, cheerful. Fed himself and then again got sleepier. This morning he is aggressive, needed to be fed, ate 25%. He is not cooperating to take po pills. Plan is to continue treating all of his medical problems. Will therefore change po meds to iv form He was on several anti-anxiety, anti-depressant meds before admission. Will add iv Haldol prn agitation . I discussed this plan with thre daughter at bedside (3) Hypertension Qualifiers: Assessment/Plan: Home hypertensives were Apresoline, lisinopril. He also got Lasix with us. Blood pressure medicines were resumed on the . This resulted in hypotension. On the he was unable to take medicines p.o. so we switched everything to IV. On the we switched everything back to p.o. again. This morning he is mildly hypertensive and not reliably taking pills. Will again change to iv forms (4) Atrial flutter Assessment/Plan: He has a history of atrial fibrillation but is in atrial flutter on EKG. He is rate controlled. He does not appear to be on any rate control medications at home suggesting conduction system disease. Echo was donme and shows him to have systolic function lower limits of normal. LV Ejection fraction 50 to 55%. Unable to assess for diastole. Mild right ventricular enlargement. Right ventricular systolic function moderately i mpaired. Moderate to severe increase in left atrial volume index. Severe right atrial enlargement. Mild aortic stenosis with a peak/mean pressure gradient of 19 mmHg / 10 mmHg. Aortic valve area 1.31 cm. Moderate tricuspid regurgitation. Moderately abnormal right heart pressures. RVSP at rest 64 mmHg. Compared to prior echo his pulmonary arterial systolic pressure has increased. No mass or thrombus identified. Was initially continued on his p.o. Pradaxa. He is not taking in anticoagulants because of the unreliable swallowing. Will start therapeutic dose Lovenox (5) Pneumonia Qualifiers: Pneumonia type: due to unspecified organism Laterality: bilateral Lung location: unspecified part of lung Qualified Code(s): J18.9 - Pneumonia, unspecified organism Assessment/Plan: He has bilateral infiltrates on chest x-ray which are worse compared to prior imaging. Hypoxic. He does not have a leukocytosis but his white count is elevated compared to his baseline. He failed outpatient treatment with oral doxycycline and cefdinir. He has finnished IV azithromycin and is on his last day of IV ceftriaxone. There may also be aspiration and so he was started him on Flagyl empirically. Swallowing by speech evaluation was done and he needs a pureed diet with honey- thick liquids due to aspiration. Blood cultures are without growth after 3 days. So far sputum culture has not been collected. Continue supplemental oxygen. (6) Dementia Assessment/Plan: He has baseline dementia but he is more confused and altered compared to baseline. This is likely due to the pneumonia as mentioned above. Continue with delirium precautions and management as above. PT will be postponed until he can follow directions and cooperate. (7) Hypothyroidism Assessment/Plan: He was on Synthroid po, but his last dose was 06/09. Will order iv Synthroid (q5days). (8) BPH (benign prostatic hyperplasia) Assessment/Plan: Stable with chronic Farooq. Continue home medications. (9) SRI on CPAP Assessment/Plan: Home CPAP unit ordered to use here. (10) Hypokalemia Assessment/Plan: Replace. Follow BMP daily, and occasional Mg level. (11) Acute kidney injury Assessment/Plan: Resolved - Current Meds Current Meds: Current Medications Generic Name Dose Route Start Last Admin Trade Name Freq PRN Reason Stop Dose Admin Enoxaparin Sodium 40 mg 06/10/20 09:00 06/12/20 10:12 Lovenox SUBQ 40 mg DAILY BARRETT Administration Dextrose 1,000 mls @ 100 mls/hr 06/11/20 10:00 06/12/20 10:22 D5w IV 100 mls/hr .Q10H BARRETT Infusion Sodium Chloride 10 ml 06/08/20 02:30 06/10/20 23:00 Normal Saline Flush 0.9% IVP 10 ml PRN PRN Administration NEEDED PER PROVIDER ORDERS Sodium Chloride 10 ml 06/08/20 09:00 06/12/20 08:32 Normal Saline Flush 0.9% IVP 10 ml 0100,0900,1700 BARRETT Administration - Lab Result Fish Bone Diagrams: 06/12/20 04:15 06/12/20 04:15 - Additional Planning My Orders: My Active Orders 06/12/20 05:00 BNP - B-NATRIURETIC PEPTIDE [IAI] Routine 06/12/20 10:53 FUROSEMIDE INJ 20mg VIAL [LASIX INJ 20mg VIAL] 20 mg IVP ONCE STA 06/12/20 10:54 Haloperidol Inj [Haldol Inj] 1 mg IVP Q8H PRN 06/12/20 11:00 hydrALAZINE INJ [Apresoline Inj] 10 mg IVP BID Subjective - Subjective Nursing Reports: Other (Sleepy, but awakens and was communicating with daughter during lunch. He was aggressive and not following directions this morning. He usually sleeps all afternoon and night.) Objective Vital Signs: Vital Signs - 24 hr 06/11/20 06/11/20 06/11/20 11:00 12:00 13:00 Temperature Heart Rate [ 74 73 77 Monitoring electrodes] Respiratory 23 22 24 Rate Blood Pressure [Left Brachial artery] Blood Pressure 110/69 131/87 H 118/74 [Right Brachial artery] O2 Saturation 95 93 94 06/11/20 06/11/20 06/11/20 14:00 15:00 16:00 Temperature 37 C Heart Rate [ 72 74 76 Monitoring electrodes] Respiratory 20 13 21 Rate Blood Pressure [Left Brachial artery] Blood Pressure 134/79 H 133/81 H 131/90 H [Right Brachial artery] O2 Saturation 92 92 93 06/11/20 06/11/20 06/11/20 17:00 18:00 19:00 Temperature Heart Rate [ 74 78 78 Monitoring electrodes] Respiratory 24 20 16 Rate Blood Pressure [Left Brachial artery] Blood Pressure 130/91 H 127/82 H 141/79 H [Right Brachial artery] O2 Saturation 91 L 90 L 97 06/11/20 06/11/20 06/11/20 19:57 21:00 22:00 Temperature 37.0 C Heart Rate [ 76 79 82 Monitoring electrodes] Respiratory 28 H 27 H 24 Rate Blood Pressure [Left Brachial artery] Blood Pressure 139/75 H 112/67 135/96 H [Right Brachial artery] O2 Saturation 91 L 92 90 L 06/11/20 06/11/20 06/12/20 23:00 23:52 01:00 Temperature 36.9 C Heart Rate [ 77 78 73 Monitoring electrodes] Respiratory 22 24 28 H Rate Blood Pressure [Left Brachial artery] Blood Pressure 153/97 H 136/84 H 139/84 H [Right Brachial artery] O2 Saturation 95 95 91 L 06/12/20 06/12/20 06/12/20 02:00 03:00 04:00 Temperature 37.0 C Heart Rate [ 76 86 79 Monitoring electrodes] Respiratory 27 H 24 21 Rate Blood Pressure [Left Brachial artery] Blood Pressure 136/85 H 147/94 H 134/89 H [Right Brachial artery] O2 Saturation 94 93 92 06/12/20 06/12/20 06/12/20 05:00 06:00 07:05 Temperature Heart Rate [ 78 80 79 Monitoring electrodes] Respiratory 19 27 H Rate Blood Pressure [Left Brachial artery] Blood Pressure 138/94 H 154/101 H 136/85 H [Right Brachial artery] O2 Saturation 94 96 88 L 06/12/20 06/12/20 06/12/20 07:59 09:00 10:00 Temperature 36.9 C Heart Rate [ 78 77 76 Monitoring electrodes] Respiratory 26 H 22 19 Rate Blood Pressure 135/82 H 127/103 H 145/90 H [Left Brachial artery] Blood Pressure [Right Brachial artery] O2 Saturation 95 85 L 100 Oxygen O2 Source Oxymizer Oxygen Flow Rate 6 I&O (Last 24 Hrs): Intake and Output Totals x24h 06/10/20 06/11/20 06/12/20 23:59 23:59 23:59 Intake Total 900 2366 1685 Output Total 1770 795 368 Balance -870 1571 1317 General: Other (Sleeping, grunting, grimace on forehead.) HEENT: Mucous membr. moist/pink, Other (edentulous) Neck: Supple Neuro: Other (Lethargic this afternoon, non-focal) Cardiovascular: No murmurs Respiratory: No respiratory distress, Other (No rales, wheezing or rhonchi) Abdomen: Soft Extremities: No edema - Results Results: Laboratory Results WBC 10.5 x10^3/uL (4.8-10.8) 06/12/20 04:15 RBC 3.44 10^6/uL (4.70-6.10) L 06/12/20 04:15 Hgb 10.6 g/dL (14.0-18.0) L 06/12/20 04:15 Hct 33.4 % (42.0-52.0) L 06/12/20 04:15 MCV 97.1 fL (80.0-94.0) H 06/12/20 04:15 MCH 30.8 pg (27.0-31.0) 06/12/20 04:15 MCHC 31.7 g/dL (32.0-36.0) L 06/12/20 04:15 RDW 14.3 % (12.0-15.0) 06/12/20 04:15 Plt Count 252 10^3/uL (130-450) 06/12/20 04:15 MPV 10.7 fL (7.4-11.4) 06/12/20 04:15 Neut # (Auto) 8.4 10^3/uL (1.5-6.6) H 06/12/20 04:15 Lymph # (Auto) 0.7 10^3/uL (1.5-3.5) L 06/12/20 04:15 [place] # (Auto) 0.5 10^3/uL (0.0-1.0) 06/12/20 04:15 Eos # (Auto) 0.9 10^3/uL (0.0-0.7) H 06/12/20 04:15 Baso # (Auto) 0.0 10^3/uL (0.0-0.1) 06/12/20 04:15 Absolute Nucleated RBC 0.00 x10^3/uL 06/12/20 04:15 Nucleated RBC % 0.0 /100WBC 06/12/20 04:15 Bld Gas Analysis Time 0959 06/09/20 09:50 Sample Site RIGHT RADIAL 06/09/20 09:50 ABG pH 7.48 (7.35-7.45) H 06/09/20 09:50 ABG pCO2 34 mmHg (34-45) 06/09/20 09:50 ABG pO2 97 mmHg (80-100) 06/09/20 09:50 ABG HCO3 24.6 mmol/L (22.0-26.0) 06/09/20 09:50 ABG Total CO2 25.7 MMOL/L (21.0-29.0) 06/09/20 09:50 ABG O2 Saturation 98 % (94-98) 06/09/20 09:50 ABG Oximetry Spot Check 90 % 06/08/20 13:30 ABG Base Excess 1.4 mmol/L (-2.0-3.0) 06/09/20 09:50 [place] Test POSITIVE 06/09/20 09:50 Respiration Rate 36 b/min 06/08/20 13:30 O2 Delivery Device NON REBREATHER MASK 06/09/20 09:50 O2 Liters/Min 11.00 LPM 06/09/20 09:50 FiO2 1.00 06/09/20 09:50 Sodium 145 mmol/L (135-145) 06/12/20 04:15 Potassium 3.4 mmol/L (3.5-5.0) L 06/12/20 04:15 Chloride 111 mmol/L (101-111) 06/12/20 04:15 Carbon Dioxide 27 mmol/L (21-32) 06/12/20 04:15 Anion Gap 7.0 (6-13) 06/12/20 04:15 BUN 34 mg/dL (6-20) H 06/12/20 04:15 Creatinine 1.1 mg/dL (0.6-1.2) 06/12/20 04:15 Estimated GFR (MDRD) 64 (>89) L 06/12/20 04:15 Glucose 109 mg/dL (70-100) H 06/12/20 04:15 Lactic Acid 1.8 mmol/L (0.5-2.2) 06/08/20 01:00 Calcium 7.9 mg/dL (8.5-10.3) L 06/12/20 04:15 Phosphorus 2.8 mg/dL (2.5-4.6) 06/12/20 04:15 Magnesium 2.1 mg/dL (1.7-2.8) 06/12/20 04:15 Total Bilirubin 2.1 mg/dL (0.2-1.0) H 06/08/20 01:00 AST 20 IU/L (10-42) 06/08/20 01:00 ALT 16 IU/L (10-60) 06/08/20 01:00 Alkaline Phosphatase 73 IU/L (42-121) 06/08/20 01:00 B-Natriuretic Peptide 489 pg/mL (5-100) H 06/08/20 05:24 Total Protein 5.8 g/dL (6.7-8.2) L 06/08/20 01:00 Albumin 2.5 g/dL (3.2-5.5) L 06/12/20 04:15 Globulin 2.9 g/dL (2.1-4.2) 06/08/20 01:00 Albumin/Globulin Ratio 1.0 (1.0-2.2) 06/08/20 01:00 Lipase 28 U/L (22-51) 06/08/20 01:00 Urine Color YELLOW 06/09/20 14:59 Urine Clarity CLEAR (CLEAR) 06/09/20 14:59 Urine pH 5.5 PH (5.0-7.5) 06/09/20 14:59 Ur Specific [place] 1.020 (1.002-1.030) 06/09/20 14:59 Urine Protein NEGATIVE mg/dL (NEGATIVE) 06/09/20 14:59 Urine Glucose (UA) NEGATIVE mg/dL (NEGATIVE) 06/09/20 14:59 Urine Ketones NEGATIVE mg/dL (NEGATIVE) 06/09/20 14:59 Urine Occult Blood NEGATIVE (NEGATIVE) 06/09/20 14:59 Urine Nitrite NEGATIVE (NEGATIVE) 06/09/20 14:59 Urine Bilirubin NEGATIVE (NEGATIVE) 06/09/20 14:59 Urine Urobilinogen 0.2 (NORMAL) E.U./dL (NORMAL) 06/09/20 14:59 Ur Leukocyte Esterase NEGATIVE (NEGATIVE) 06/09/20 14:59 Ur Microscopic Review NOT INDICATED 06/09/20 14:59 Urine Culture Comments NOT INDICATED 06/09/20 14:59 Nasal Adenovirus (PCR) NOT DETECTED 06/08/20 02:00 Nasal B. parapertussis DNA (PCR) NOT DETECTED 06/08/20 02:00 Nasal Coronavir 229E PCR NOT DETECTED 06/08/20 02:00 Nasal Coronavir HKU1 PCR NOT DETECTED 06/08/20 02:00 Nasal Coronavir NL63 PCR NOT DETECTED 06/08/20 02:00 Nasal Coronavir OC43 PCR NOT DETECTED 06/08/20 02:00 Nasal Enterovir/Rhinovir PCR NOT DETECTED 06/08/20 02:00 Nasal Influenza B PCR NOT DETECTED 06/08/20 02:00 Nasal Influenza A PCR NOT DETECTED 06/08/20 02:00 Nasal Parainfluen 1 PCR NOT DETECTED 06/08/20 02:00 Nasal Parainfluen 2 PCR NOT DETECTED 06/08/20 02:00 Nasal Parainfluen 3 PCR NOT DETECTED 06/08/20 02:00 Nasal Parainfluen 4 PCR NOT DETECTED 06/08/20 02:00 Nasal RSV (PCR) NOT DETECTED 06/08/20 02:00 Nasal Screen MRSA (PCR) NEGATIVE (NEGATIVE) 06/09/20 09:21 Nasal B.pertussis DNA PCR NOT DETECTED 06/08/20 02:00 Nasal C.pneumoniae (PCR) NOT DETECTED 06/08/20 02:00 Rihc Human Metapneumo PCR NOT DETECTED 06/08/20 02:00 Nasal M.pneumoniae (PCR) NOT DETECTED 06/08/20 02:00 Nasal SARS-CoV-2 (PCR) NOT DETECTED 06/08/20 02:00
[2020-06-12] MEDS: hydrALAZINE INJ 20 MG/ML VIAL IVP SCH ×2 (11:45→21:21)
[2020-06-12] MEDS: SODIUM CHLORIDE FLUSH 0.9% 10 ML SYRINGE IVP PRN (11:46)
[2020-06-12] MEDS: ENOXAPARIN 60 MG/0.6 ML SYRINGE SUBQ SCH (21:20)
[2020-06-13] MEDS: SODIUM CHLORIDE FLUSH 0.9% 10 ML SYRINGE IVP SCH ×3 (04:27→19:35)
[2020-06-13 04:33] LABS: BASOPHILS % (AUTO) 0.4 %; EOSINOPHILS # (AUTO) 0.8 10^3/uL (0.0-0.7); EOSINOPHILS % (AUTO) 7.7 %; HGB - HEMOGLOBIN 10.4 g/dL (14.0-18.0); LYMPHOCYTES # (AUTO) 0.7 10^3/uL (1.5-3.5); LYMPHOCYTES % (AUTO) 7.2 %; MEAN CORPUSCULAR HEMOGLOBIN 30.4 pg (27.0-31.0); MEAN CORPUSCULAR HGB CONC 31.6 g/dL (32.0-36.0); MEAN CORPUSCULAR VOLUME 96.2 fL (80.0-94.0); MEAN PLATELET VOLUME 11.1 fL (7.4-11.4); MONOCYTES # (AUTO) 0.5 10^3/uL (0.0-1.0); MONOCYTES % (AUTO) 5.4 %; NEUTROPHILS # (AUTO) 7.7 10^3/uL (1.5-6.6); NEUTROPHILS % (AUTO) 78.4 %; PLT - PLATELET COUNT 247 10^3/uL (130-450); RED BLOOD COUNT 3.42 10^6/uL (4.70-6.10); RED CELL DISTRIBUTION WIDTH 13.9 % (12.0-15.0); WHITE BLOOD COUNT 9.8 x10^3/uL (4.8-10.8)
[2020-06-13] MEDS: DEXTROSE 5% 1,000 ML IV SCH ×2 (04:33→14:27)
[2020-06-13 04:45] LABS: ALBUMIN 2.4 g/dL (3.2-5.5); BILIRUBIN,TOTAL 1.3 mg/dL (0.2-1.0); CALCIUM 7.6 mg/dL (8.5-10.3); CREATININE 0.9 mg/dL (0.6-1.2); TOTAL PROTEIN 4.9 g/dL (6.7-8.2)
[2020-06-13] MEDS ORDERED: LEVOTHYROXINE 100 MCG VIAL IVP SCH (07:00)
[2020-06-13] MEDS: hydrALAZINE INJ 20 MG/ML VIAL IVP SCH (09:02)
[2020-06-13] MEDS: ENOXAPARIN 60 MG/0.6 ML SYRINGE SUBQ SCH ×2 (09:02→21:05)
[2020-06-13] MEDS: SODIUM CHLORIDE FLUSH 0.9% 10 ML SYRINGE IVP PRN (09:11)
--- NOTE | 2020-06-13 11:03 | PROVIDER PROGRESS NOTE ---
Assessment/Plan - Problem List (1) Encephalopathy acute Assessment/Plan: He has had up-and-down mentation since admission, improved slightly when he was saturating better. Now he is overall lethargic for 2 days, unable to feed himself which he could before this admission. Discussion with the daughter yesterday was started and today the will be at bedside and we will determine the family's wishes regarding further medical management. (2) Acute respiratory failure with hypoxia Assessment/Plan: His chest x-ray showed bilateral infiltrates versus CHF. Yesterday he received 1 dose of IV Lasix which improved his O2 saturations and FI O2 needs from 7 L Oxymizer down to 4 L Oxymizer. He is still on empiric antibiotics. He has tested negative for Covid. Continue with supplemental O2 support and finish empric antibx. (3) Hypertension Qualifiers: Assessment/Plan: His oral meds for hypertension have been stopped. He was put on IV hydralazine for blood pressure management. His blood pressure has been running in the 120s to 130s and no BP meds have been needed. (4) Atrial flutter Assessment/Plan: He has a history of A. fib and used to be on DOAC. The heart rate has been under control without any meds, consistent with conduction system disease. His DOAC was stopped several days ago when he could not swallow reliably, and yesterday he was put on therapeutic dose of Lovenox for stroke prophylaxis in Afib. (5) Pneumonia Qualifiers: Pneumonia type: due to unspecified organism Laterality: bilateral Lung location: unspecified part of lung Qualified Code(s): J18.9 - Pneumonia, unspecified organism Assessment/Plan: Is been put on Zithromax, ceftriaxone and received several days of Flagyl. O2 saturations still require supplemental oxygen. The saturations improved when he got 1 dose of IV Lasix yesterday (6) Dementia Assessment/Plan: Per Hx. (7) Hypothyroidism Assessment/Plan: His oral Synthroid needed to be stopped. He received IV Synthroid today, every 5 day standard orders placed. (8) BPH (benign prostatic hyperplasia) Assessment/Plan: As per Hx. He currently has a Farooq and does not swallow his meds (9) SRI on CPAP Assessment/Plan: His home device is ordered to use here (10) Hypokalemia Assessment/Plan: Resolved with replacement. (11) Acute kidney injury Assessment/Plan: Resolved. - Current Meds Current Meds: Current Medications Generic Name Dose Route Start Last Admin Trade Name Freq PRN Reason Stop Dose Admin Enoxaparin Sodium 60 mg 06/12/20 21:00 06/13/20 09:02 Lovenox SUBQ 60 mg BID BARRETT Administration Haloperidol 1 mg 06/12/20 10:54 06/12/20 21:51 Haldol Inj IVP 1 mg Q8H PRN Administration Agitation Dextrose 1,000 mls @ 100 mls/hr 06/11/20 10:00 06/13/20 07:58 D5w IV 100 mls/hr .Q10H BARRETT Infusion Levothyroxine Sodium 100 mcg 06/13/20 07:00 06/13/20 06:55 Synthroid Inj IVP 100 mcg Q5D BARRETT Administration Sodium Chloride 10 ml 06/08/20 02:30 06/13/20 09:11 Normal Saline Flush 0.9% IVP 10 ml PRN PRN Administration NEEDED PER PROVIDER ORDERS Sodium Chloride 10 ml 06/08/20 09:00 06/13/20 09:11 Normal Saline Flush 0.9% IVP Not Given 0100,0900,1700 BARRETT - Lab Result Fish Bone Diagrams: 06/13/20 04:05 06/13/20 04:05 - Additional Planning My Orders: My Active Orders 06/12/20 10:54 Haloperidol Inj [Haldol Inj] 1 mg IVP Q8H PRN 06/12/20 21:00 Enoxaparin [Lovenox] 60 mg SUBQ BID 06/13/20 07:00 Levothyroxine Inj [Synthroid Inj] 100 mcg IVP Q5D 06/13/20 10:57 DIET [NPO except Meds] [DIET] 06/14/20 05:00 CBC - COMP BLD CT W/AUTO DIFF [HEME] DAILYLAB Subjective - Subjective Nursing Reports: Other (Patient somnolent and does not awaken to be fed by spoon) Objective Vital Signs: Vital Signs - 24 hr 06/12/20 06/12/20 06/12/20 11:45 11:53 11:59 Temperature 36.5 C Heart Rate [ 75 83 Monitoring electrodes] Respiratory 26 H 26 H Rate Blood Pressure 138/82 H Blood Pressure 130/89 H 112/85 H [Left Brachial artery] O2 Saturation 94 06/12/20 06/12/20 06/12/20 12:05 12:15 12:40 Temperature Heart Rate [ 82 80 81 Monitoring electrodes] Respiratory Rate Blood Pressure Blood Pressure 128/79 127/91 H 120/79 [Left Brachial artery] O2 Saturation 06/12/20 06/12/20 06/12/20 13:00 14:00 15:00 Temperature Heart Rate [ 71 76 79 Monitoring electrodes] Respiratory 30 H 27 H 28 H Rate Blood Pressure Blood Pressure 111/81 H 116/68 124/80 [Left Brachial artery] O2 Saturation 97 96 94 06/12/20 06/12/20 06/12/20 16:00 17:00 19:00 Temperature 36.8 C Heart Rate [ 77 77 77 Monitoring electrodes] Respiratory 31 H 22 27 H Rate Blood Pressure Blood Pressure 109/93 H 113/78 115/84 H [Left Brachial artery] O2 Saturation 93 94 94 06/12/20 06/12/20 06/12/20 21:00 21:21 23:00 Temperature 36.7 C Heart Rate [ 81 78 Monitoring electrodes] Respiratory 24 30 H Rate Blood Pressure 111/78 Blood Pressure 111/78 121/87 H [Left Brachial artery] O2 Saturation 92 96 06/13/20 06/13/20 06/13/20 01:00 03:00 05:00 Temperature Heart Rate [ 81 73 81 Monitoring electrodes] Respiratory 21 24 27 H Rate Blood Pressure Blood Pressure 134/89 H 139/82 H 149/90 H [Left Brachial artery] O2 Saturation 93 92 91 L 06/13/20 06/13/20 06/13/20 07:00 08:00 09:00 Temperature 36.7 C Heart Rate [ 74 74 69 Monitoring electrodes] Respiratory 24 22 26 H Rate Blood Pressure Blood Pressure 134/82 H 134/81 H 124/77 [Left Brachial artery] O2 Saturation 92 93 06/13/20 06/13/20 06/13/20 09:02 09:11 09:15 Temperature Heart Rate [ 72 65 Monitoring electrodes] Respiratory Rate Blood Pressure 134/81 H Blood Pressure 125/77 127/69 [Left Brachial artery] O2 Saturation 06/13/20 06/13/20 06/13/20 09:20 09:30 09:45 Temperature Heart Rate [ 73 75 76 Monitoring electrodes] Respiratory Rate Blood Pressure Blood Pressure 113/84 H 123/79 118/72 [Left Brachial artery] O2 Saturation 06/13/20 10:00 Temperature Heart Rate [ 75 Monitoring electrodes] Respiratory 26 H Rate Blood Pressure Blood Pressure 118/81 H [Left Brachial artery] O2 Saturation 94 Oxygen O2 Source Oxymizer Oxygen Flow Rate 6 I&O (Last 24 Hrs): Intake and Output Totals x24h 06/11/20 06/12/20 06/13/20 23:59 23:59 23:59 Intake Total 2366 2795.000 1341.667 Output Total 795 1897 358 Balance 1571 898.000 983.667 General: Other HEENT: Mucous membr. moist/pink, Other (Edentulous) Neck: Supple (Edentulous), No JVD Neuro: Non Focal, Other (Somnolent, awakens and recognized , stayed awake to swallow 2 spoonfuls of pudding.) Cardiovascular: No murmurs Respiratory: No respiratory distress Abdomen: Soft Extremities: No edema - Results Results: Laboratory Results WBC 9.8 x10^3/uL (4.8-10.8) 06/13/20 04:05 RBC 3.42 10^6/uL (4.70-6.10) L 06/13/20 04:05 Hgb 10.4 g/dL (14.0-18.0) L 06/13/20 04:05 Hct 32.9 % (42.0-52.0) L 06/13/20 04:05 MCV 96.2 fL (80.0-94.0) H 06/13/20 04:05 MCH 30.4 pg (27.0-31.0) 06/13/20 04:05 MCHC 31.6 g/dL (32.0-36.0) L 06/13/20 04:05 RDW 13.9 % (12.0-15.0) 06/13/20 04:05 Plt Count 247 10^3/uL (130-450) 06/13/20 04:05 MPV 11.1 fL (7.4-11.4) 06/13/20 04:05 Neut # (Auto) 7.7 10^3/uL (1.5-6.6) H 06/13/20 04:05 Lymph # (Auto) 0.7 10^3/uL (1.5-3.5) L 06/13/20 04:05 [place] # (Auto) 0.5 10^3/uL (0.0-1.0) 06/13/20 04:05 Eos # (Auto) 0.8 10^3/uL (0.0-0.7) H 06/13/20 04:05 Baso # (Auto) 0.0 10^3/uL (0.0-0.1) 06/13/20 04:05 Absolute Nucleated RBC 0.00 x10^3/uL 06/13/20 04:05 Nucleated RBC % 0.0 /100WBC 06/13/20 04:05 Bld Gas Analysis Time 95806/09/20 09:50 Sample Site RIGHT RADIAL 06/09/20 09:50 ABG pH 7.48 (7.35-7.45) H 06/09/20 09:50 ABG pCO2 34 mmHg (34-45) 06/09/20 09:50 ABG pO2 97 mmHg (80-100) 06/09/20 09:50 ABG HCO3 24.6 mmol/L (22.0-26.0) 06/09/20 09:50 ABG Total CO2 25.7 MMOL/L (21.0-29.0) 06/09/20 09:50 ABG O2 Saturation 98 % (94-98) 06/09/20 09:50 ABG Oximetry Spot Check 90 % 06/08/20 13:30 ABG Base Excess 1.4 mmol/L (-2.0-3.0) 06/09/20 09:50 [place] Test POSITIVE 06/09/20 09:50 Respiration Rate 36 b/min 06/08/20 13:30 O2 Delivery Device NON REBREATHER MASK 06/09/20 09:50 O2 Liters/Min 11.00 LPM 06/09/20 09:50 FiO2 1.00 06/09/20 09:50 Sodium 137 mmol/L (135-145) 06/13/20 04:05 Potassium 3.7 mmol/L (3.5-5.0) 06/13/20 04:05 Chloride 105 mmol/L (101-111) 06/13/20 04:05 Carbon Dioxide 26 mmol/L (21-32) 06/13/20 04:05 Anion Gap 6.0 (6-13) 06/13/20 04:05 BUN 28 mg/dL (6-20) H 06/13/20 04:05 Creatinine 0.9 mg/dL (0.6-1.2) 06/13/20 04:05 Estimated GFR (MDRD) 81 (>89) L 06/13/20 04:05 Glucose 113 mg/dL (70-100) H 06/13/20 04:05 Lactic Acid 1.8 mmol/L (0.5-2.2) 06/08/20 01:00 Calcium 7.6 mg/dL (8.5-10.3) L 06/13/20 04:05 Phosphorus 2.8 mg/dL (2.5-4.6) 06/12/20 04:15 Magnesium 2.0 mg/dL (1.7-2.8) 06/13/20 04:05 Total Bilirubin 1.3 mg/dL (0.2-1.0) H 06/13/20 04:05 AST 18 IU/L (10-42) 06/13/20 04:05 ALT 12 IU/L (10-60) 06/13/20 04:05 Alkaline Phosphatase 59 IU/L (42-121) 06/13/20 04:05 B-Natriuretic Peptide 152 pg/mL (5-100) H 06/12/20 04:15 Total Protein 4.9 g/dL (6.7-8.2) L 06/13/20 04:05 Albumin 2.4 g/dL (3.2-5.5) L 06/13/20 04:05 Globulin 2.5 g/dL (2.1-4.2) 06/13/20 04:05 Albumin/Globulin Ratio 1.0 (1.0-2.2) 06/13/20 04:05 Lipase 28 U/L (22-51) 06/08/20 01:00 TSH 4.70 uIU/mL (0.34-5.60) 06/13/20 04:05 Cortisol AM Sample 15.5 ug/dL 06/13/20 09:25 Urine Color YELLOW 06/09/20 14:59 Urine Clarity CLEAR (CLEAR) 06/09/20 14:59 Urine pH 5.5 PH (5.0-7.5) 06/09/20 14:59 Ur Specific [place] 1.020 (1.002-1.030) 06/09/20 14:59 Urine Protein NEGATIVE mg/dL (NEGATIVE) 06/09/20 14:59 Urine Glucose (UA) NEGATIVE mg/dL (NEGATIVE) 06/09/20 14:59 Urine Ketones NEGATIVE mg/dL (NEGATIVE) 06/09/20 14:59 Urine Occult Blood NEGATIVE (NEGATIVE) 06/09/20 14:59 Urine Nitrite NEGATIVE (NEGATIVE) 06/09/20 14:59 Urine Bilirubin NEGATIVE (NEGATIVE) 06/09/20 14:59 Urine Urobilinogen 0.2 (NORMAL) E.U./dL (NORMAL) 06/09/20 14:59 Ur Leukocyte Esterase NEGATIVE (NEGATIVE) 06/09/20 14:59 Ur Microscopic Review NOT INDICATED 06/09/20 14:59 Urine Culture Comments NOT INDICATED 06/09/20 14:59 Nasal Adenovirus (PCR) NOT DETECTED 06/08/20 02:00 Nasal B. parapertussis DNA (PCR) NOT DETECTED 06/08/20 02:00 Nasal Coronavir 229E PCR NOT DETECTED 06/08/20 02:00 Nasal Coronavir HKU1 PCR NOT DETECTED 06/08/20 02:00 Nasal Coronavir NL63 PCR NOT DETECTED 06/08/20 02:00 Nasal Coronavir OC43 PCR NOT DETECTED 06/08/20 02:00 Nasal Enterovir/Rhinovir PCR NOT DETECTED 06/08/20 02:00 Nasal Influenza B PCR NOT DETECTED 06/08/20 02:00 Nasal Influenza A PCR NOT DETECTED 06/08/20 02:00 Nasal Parainfluen 1 PCR NOT DETECTED 06/08/20 02:00 Nasal Parainfluen 2 PCR NOT DETECTED 06/08/20 02:00 Nasal Parainfluen 3 PCR NOT DETECTED 06/08/20 02:00 Nasal Parainfluen 4 PCR NOT DETECTED 06/08/20 02:00 Nasal RSV (PCR) NOT DETECTED 06/08/20 02:00 Nasal Screen MRSA (PCR) NEGATIVE (NEGATIVE) 06/09/20 09:21 Nasal B.pertussis DNA PCR NOT DETECTED 06/08/20 02:00 Nasal C.pneumoniae (PCR) NOT DETECTED 06/08/20 02:00 Rich Human Metapneumo PCR NOT DETECTED 06/08/20 02:00 Nasal M.pneumoniae (PCR) NOT DETECTED 06/08/20 02:00 Nasal SARS-CoV-2 (PCR) NOT DETECTED 06/08/20 02:00
--- NOTE | 2020-06-13 12:44 | ADVANCE CARE PLANNING NOTE ---
Advance Care Planning - Planning Encounter Date: 06/13/20 Time: 12:20 Purpose: To determine family's wishes regarding how aggressive to plan this patient's further medical care. Parties in Attendance: I spoke to the at the patient's bedside, the patient was asleep and did not participate. Decisional Capacity of the Patient: Patient has no decisional capacity, he has severe dementia and in addition has acute encephalopathy now. - Diagnosis for Encounter (1) Encephalopathy acute Summary: Has had minimal improvements then worsening which is alternating every other day that he has been here. But over the past 2 days much more somnolent. (2) Dementia Summary: describes that he has had dementia for many years and ever since an hospitalization for pneumonia in April 2019, he has had slow progressive decline over the past 1 year. His baseline dementia now includes sitting in a chair, walking a few steps, he is able to get in and out of a car, he was able to feed himself. Lately he does not reading anything, watches TV but does not understand anything, speaks with garbled one-word answers. Here he cannot feed himself and has trouble with thin liquids, and food needs to be pureed. He did recognize his daughter yesterday and today and smiled broadly. There has been no communication for the last several days, he is only nodding or grimacing. - Encounter Subjective/Patient's Story: He was admitted several days ago with desaturation, obtundation, bilateral pulmonary infiltrates, and has had overall deterioration during this hospitalization, the can see that today. He was made a DNR only at this admission, when admitted by the [facility]. Objective/Medical Story: The patient presented with obtundation felt to be metabolic encephalopathy from community-acquired pneumonia. He has been treated for the pneumonia with antibiotics and supplemental oxygen. He has had an up-and-down course regarding his mental status, alert for several hours 1 day, very obtunded and lethargic the next. Over the last 2 days he has been mostly lethargic. Speech therapist evaluated him several times and he requires a pured diet and to be fed and honey thick liquids. He does aspirate water therefore this is possibly also aspiration pneumonia. Goals of Care: I asked the to spell out specifics of how aggressive to proceed with his care: Neurology consultation, transfer to higher level of care hospital, PEG tube, [place] feedings, IV fluids, IV antibiotics. Her overall answer was she does not know and could not decide and wanted her daughter involved to help make decisions. The daughter is traveling by air back to her home today. I advised that a Palliative Care consultation be done who will help the family make decisions going forward. The was very appreciative and agreeable to tis. Plan: Will request Palliative Care consult to help guide the and daughter in making decisions regarding his medical care going forward. Code Status: Do Not Attempt Resuscitation Time spent on advance care plannin min
--- NOTE | 2020-06-13 17:47 | CONSULTATION NOTE ---
Palliative Care Consultation - Referral Referring Provider: Dr. Meka Marks Time of Visit: 8836-7007 Referral setting: Hospitalized patient Referral Reason: FTT/Dementia - Information Sources Records reviewed: Previous records reviewed History/Review of Systems obtained from: Family (,), Nursing (Sheila), Other (HOspitalist, Dr. Marks) Exam limitations: Clinical condition (Lethargic and minimally arousable) - History of Present Illness Brief History of Present Illness: This is an 79-year-old gentleman who was seen and evaluated today for initial palliative care consultation due to dementia and failure to thrive with bilateral pneumonia and advance care planning seen at the bedside with the patie nt's /DPOA, Piper. The patient's has reported that he had a significant functional decline approximately 1 year ago after a bout of pneumonia where he did not return to his baseline function. He has had dementia with cognitive impairment for several years that has been gradually progressive. The patient's reports that in the last few weeks she began noticing that he was having difficulty swallowing solids as well as his own secretions "has if he forgot how to swallow." He was also demonstrating decreased ability to ambulate and he was short of breath on exertion. He was seen and evaluated by his PCP and was sent to the emergency department where he he was diagnosed with pneumonia and discharged on antibiotic therapy. He continued to be dyspneic on exertion that resulted the contacting EMS and transfer to the hospital with admission. He presented in high hypoxia with IO leukocytosis. His blood cultures have been negative. He continues on IV azithromycin and ceftriaxone with Flagyl given concern for aspiration pneumonia. He has been seen and evaluated by CREMATOR. However, the patient continues to overall sleep the majority of the day and is not alert enough to take in anything by mouth. He is presently receiving IV fluids. Nursing as well as the reports that the patient was more alert while his daughter who lives out of state was visiting. In regards to cognition and functional decline prior to this admission the patient was minimally communicative stating only a few words. He was also displaying evidence of sundowning in the late afternoon afternoon to early evenings. The relates that she never felt threatened or concerned. The patient has also reported in the past year to hallucinations where he saw people that he always reported to being nice. The patient is seen in hospital bed with supplemental oxygen in place. He is arousable to his name and touch where he smiled briefly and said hello and then drifted back off to sleep. He was unable to sustain alertness for assessment or hold a conversation. Medical/Surgical History - Past Medical History Cardiovascular: reports: Hypertension, Atrial fibrillation Respiratory: reports: Sleep apnea, CPAP use Neuro: Dementia Neuro: reports: Dementia Endocrine/Autoimmune: reports: HyPOthyroidism GI: reports: None : reports: Incontinence Psych: reports: Other Musculoskeletal: reports: None Derm: reports: None MRSA Hx?: No - Past Surgical History Ortho: reports: Spine surgery - Substance History Use: Uses substance without health or social issues: NONE (Former tobacco use) Social History - Living Situation Living arrangement: At home Living Situation: With spouse/s.o. Support System: The patient lives at home with his . They are originally from [place]. They resided in [place] for a number of years before transitioning to [place] and then eventually [facility]. The patient's reports that there is less no here then where they are from in [place]. The patient and his had 2 children, 1 boy and a daughter. Their son 10 years ago. Their remaining daughter is alive and well and resides in [facility] and she is an RADIO RIGGER in an assisted living facility. The patient's has support from a neighbor who comes once a week to provide her with some break from caregiving. They did try a caregiving in the past but the stated "not work out." Family History - Family History Family History: Mother: , Father: Family History Comment/Other: Father in an accident. Mother at age 87 from pancreatic cancer. There was a maternal aunt who had Alzheimer's Disease. Medications/Allergies - Medications Active Medication List: Active Medications Enoxaparin Sodium (Lovenox) 60 mg SUBQ BID BARRETT Last Admin: 06/13/20 09:02 Dose: 60 mg Documented by: Haloperidol (Haldol Inj) 1 mg IVP Q8H PRN PRN Reason: Agitation Last Admin: 06/12/20 21:51 Dose: 1 mg Documented by: Dextrose (D5w) 1,000 mls @ 100 mls/hr IV .Q10H BARRETT Last Admin: 06/13/20 14:27 Dose: 100 mls/hr Documented by: Levothyroxine Sodium (Synthroid Inj) 100 mcg IVP Q5D [facility] Last Admin: 06/13/20 06:55 Dose: 100 mcg Documented by: Ondansetron HCl (Zofran Inj) 4 mg IVP Q6HR PRN PRN Reason: Nausea / Vomiting Sodium Chloride (Normal Saline Flush 0.9%) 10 ml IVP PRN PRN PRN Reason: NEEDED PER PROVIDER ORDERS Last Admin: 06/13/20 09:11 Dose: 10 ml Documented by: Sodium Chloride (Normal Saline Flush 0.9%) 10 ml IVP 0100,0900,1700 [facility] Last Admin: 06/13/20 09:11 Dose: Not Given Documented by: Cholecalciferol [Vitamin D3] 1,000 unit PO DAILY 01/21/16 Tamsulosin [Flomax] 0.4 mg PO QPM 01/21/16 hydrALAZINE [Apresoline] 25 mg PO BID 01/21/16 lisinopriL [Lisinopril] 10 mg PO BID 01/21/16 Dabigatran Etexilate Mesylate [Pradaxa] 150 mg PO BID 05/06/19 Rivastigmine [Rivastigmine 4.6MG] 1 each TD DAILY 05/06/19 Rosuvastatin Calcium [Crestor] 5 mg PO QPM 05/06/19 traZODone [Desyrel] 50 mg PO QPM 06/04/20 Cholestyramine [Questran] 4 gm PO BID 06/08/20 Oxybutynin Chloride [Ditropan Xl] 5 mg PO DAILY 06/08/20 Sertraline [Zoloft] 50 mg PO DAILY 06/08/20 - Allergies Allergies/Adverse Reactions: Allergies Allergy/AdvReac Type Severity Reaction Status Date / Time No Known Drug Allergies Allergy Verified 06/07/20 23:34 Review of Systems - Constitutional Constitutional: reports: Fatigue, Poor appetite. denies: Fever - Eyes Eyes: denies: Vision loss - Ears, Nose & Throat Ears, Nose & Throat: reports: Dry mouth - Cardiovascular Cardiovascular: denies: Edema - Respiratory Respiratory: reports: Cough, SOB at rest, SOB with exertion - Gastrointestinal Gastrointestinal: reports: Poor appetite. denies: Constipation - Genitourinary Genitourinary: reports: Other (yu catheter in place) - Musculoskeletal Musculoskeletal: reports: Assistive devices, Transfer issues. denies: Joint pain - Integumentary Integumentary: denies: Pruritis - Neurological Neurological: reports: General weakness, Memory problems - Psychiatric Psychiatric: reports: Other (Sundowning and hallucinations, see HPI) - Endocrine Endocrine: denies: Diabetes type 2 - All Other Systems All Other Systems: reports: Reviewed and negative (ROS limited as patient is a poor historian due to dementia. ROS obtained from nursing and .) Physical Exam - Vital Signs Vital Signs: Vital Signs x48h Temp Pulse Resp BP Pulse Ox 06/13/20 17:00 71 31 H 98/72 93 06/13/20 16:28 37 C 06/13/20 16:00 71 27 H 124/76 94 06/13/20 13:00 37.1 C 29 H 108/81 H 93 06/13/20 12:00 75 28 H 107/75 93 06/13/20 10:00 75 26 H 118/81 H 94 06/13/20 09:45 76 118/72 - Physical Exam General Appearance: positive: No acute distress, Lethargic, Other (b/l temporal wasting) Eyes Bilateral: positive: Normal inspection ENT: positive: Other (slightly dry mucous membranes) Neck: positive: Trachea midline Cardiovascular: positive: No murmur, Irregularly irregular Respiratory: positive: No respiratory distress, Wheezes (trace expiratory wheezing), Rhonchi, Other (snoring while sleep with history of CPAP use due to SRI) Abdomen: positive: Non-tender, Soft, Nml bowel sounds, Other (yu catheter draining dark yellow urine). negative: Distended Skin: positive: Other (visible skin C/D/I) Extremities: positive: No pedal edema Neurologic/Psychiatric: positive: Weakness, Other (Able to awaken to stimulus and smile in response to his name but drifted back off to sleep and unable to enage in conversation to assess orientation. He has recognized his and bobby chan when they have been present at the bedside) Palliative Care - POLST Patient has POLST: Yes POLST Status: DNR Performance Status: Significant functional decline over the last several weeks with minimal ability to ambulate, minimal responses to questions, decreased oral intake and at this point is lethargic and not taking any nutrition in by mouth. PPS 30% Mike Index One Year Mortality Score is 8 placing 1 year mortality probability at 64% with CI 58-70 - Palliative Care Discussion: In discussion with the she has demonstrated a picture of an individual that has demonstrated a progressive decline due to dementia over several years and more acutely after his last bout of pneumonia where he did not return to his previous baseline function. Now, the patient presents again with pneumonia possibly, aspiration related and due to his underlying dementia this places him at high risk of further risk of aspiration. During this hospitalization, the patient has been minimally alert to take in adequate caloric intake by mouth despite multiple attempts by nursing, family, and CREMATOR. The patient's , Leatha STEVENS is having a difficult time in moving forward with decision making has the patient has taken and of abrupt turn functionally. She is worried about the patient receiving adequate nutrition and given his lethargy voices appropriate concern and how this may be managed. The patient's daughter, Bruce has mentioned to the patient's that she would like the patient to have a tube feeding placed. However, the patient's relays that given his present functional decline she feels this would be out of her capacity to manage the patient's in the home setting and would need to look at facility placement. However, due to the coronavirus pandemic visitor restrictions are in place and she would be unable to see the patient if he were to transfer to a skilled facility. All of this is weighing upon her and her decision making process. In attempting to tease out the patient's wishes when discussed, if at all, before further cognitive decline in the past, he has related to his previously that he would not want heroics and to focus on quality of life. Relayed with the patient's the typical trajectory in regards to dementia as a chronic, progressive illness. Discussed multiple possible options including transition to home hospice services, tube feeding placement with skilled rehabilitation, and skilled rehabilitation without tube feed placement. Weighed pros and cons of each intervention and risk versus benefit. Including, discussion regarding tube feeding placement and the patient's underlying dementia and inability to to follow direction for rehabilitation as well as leaving a PEG tube in place. The patient's who is leaning to words having the patient in the home setting where they have a townhome and bedroom on one floor with focus on pleasure foods and hospice services for additional support. Introduced the role of hospice services as well as provided hard choices for loving People booklet for the patient's to further review. Supportive listening provided to the . Results - Lab Results Fish Bones: 06/13/20 04:05 06/13/20 04:05 Lab and Imaging Results: Lab Results x24hrs 06/13/20 06/13/20 06/13/20 Range/Units 09:25 04:05 04:05 WBC 9.8 (4.8-10.8) x10^3/uL RBC 3.42 L (4.70-6.10) 10^6/uL Hgb 10.4 L (14.0-18.0) g/dL Hct 32.9 L (42.0-52.0) % MCV 96.2 H (80.0-94.0) fL MCH 30.4 (27.0-31.0) pg MCHC 31.6 L (32.0-36.0) g/dL RDW 13.9 (12.0-15.0) % Plt Count 247 (130-450) 10^3/uL MPV 11.1 (7.4-11.4) fL Neut # (Auto) 7.7 H (1.5-6.6) 10^3/uL Lymph # (Auto) 0.7 L (1.5-3.5) 10^3/uL [place] # (Auto) 0.5 (0.0-1.0) 10^3/uL Eos # (Auto) 0.8 H (0.0-0.7) 10^3/uL Baso # (Auto) 0.0 (0.0-0.1) 10^3/uL Absolute Nucleated RBC 0.00 x10^3/uL Nucleated RBC % 0.0 /100WBC Sodium 137 (135-145) mmol/L Potassium 3.7 (3.5-5.0) mmol/L Chloride 105 (101-111) mmol/L Carbon Dioxide 26 (21-32) mmol/L Anion Gap 6.0 (6-13) BUN 28 H (6-20) mg/dL Creatinine 0.9 (0.6-1.2) mg/dL Estimated GFR (MDRD) 81 L (>89) Glucose 113 H (70-100) mg/dL Calcium 7.6 L (8.5-10.3) mg/dL Magnesium 2.0 (1.7-2.8) mg/dL Total Bilirubin 1.3 H (0.2-1.0) mg/dL AST 18 (10-42) IU/L ALT 12 (10-60) IU/L Alkaline Phosphatase 59 (42-121) IU/L Total Protein 4.9 L (6.7-8.2) g/dL Albumin 2.4 L (3.2-5.5) g/dL Globulin 2.5 (2.1-4.2) g/dL Albumin/Globulin Ratio 1.0 (1.0-2.2) TSH (0.34-5.60) uIU/mL Cortisol AM Sample 15.5 ug/dL 06/13/20 Range/Units 04:05 WBC (4.8-10.8) x10^3/uL RBC (4.70-6.10) 10^6/uL Hgb (14.0-18.0) g/dL Hct (42.0-52.0) % MCV (80.0-94.0) fL MCH (27.0-31.0) pg MCHC (32.0-36.0) g/dL RDW (12.0-15.0) % Plt Count (130-450) 10^3/uL MPV (7.4-11.4) fL Neut # (Auto) (1.5-6.6) 10^3/uL Lymph # (Auto) (1.5-3.5) 10^3/uL [place] # (Auto) (0.0-1.0) 10^3/uL Eos # (Auto) (0.0-0.7) 10^3/uL Baso # (Auto) (0.0-0.1) 10^3/uL Absolute Nucleated RBC x10^3/uL Nucleated RBC % /100WBC Sodium (135-145) mmol/L Potassium (3.5-5.0) mmol/L Chloride (101-111) mmol/L Carbon Dioxide (21-32) mmol/L Anion Gap (6-13) BUN (6-20) mg/dL Creatinine (0.6-1.2) mg/dL Estimated GFR (MDRD) (>89) Glucose (70-100) mg/dL Calcium (8.5-10.3) mg/dL Magnesium (1.7-2.8) mg/dL Total Bilirubin (0.2-1.0) mg/dL AST (10-42) IU/L ALT (10-60) IU/L Alkaline Phosphatase (42-121) IU/L Total Protein (6.7-8.2) g/dL Albumin (3.2-5.5) g/dL Globulin (2.1-4.2) g/dL Albumin/Globulin Ratio (1.0-2.2) TSH 4.70 (0.34-5.60) uIU/mL Cortisol AM Sample ug/dL Impression and Recommendations - Palliative Care Impression: This is an 79-year-old gentleman who was admitted for pneumonia, mild likely aspiration in nature, with negative blood cultures progression of dementia prior to admission at F AST 7B now a 7C with minimal oral intake with Encephalopathy.The patient has had a gradual decline that has especially aided in the setting of pneumonia the patient's wishes to hope for the best recognizes the patient's declining condition and wishes to make an informed decision based on the patient's previously stated preferences at end-of-life of no heroics and to focus on quality of life. He introduced various options with the patient's in shared decision making and at the present time the patient is needs to contemplate further and this ALTERATION TAILOR will follow up with the jose luciano and medical staff in the inpatient setting tomorrow. Palliative care to continue to build rapport, explore goals of care and advance care planning. Recommendations/Counseling Done: 1. Pneumonia. On admission no evidence of leukocytosis and blood cultures have been negative x5 days. Potential underlying aspiration pneumonia. Presently on IV antibiotic therapy and coverage for aspiration pneumonia. Status post CREMATOR evaluation. However, due to the patient's lethargy has had minimal oral intake and despite laboratory improvements is not making strides clinically. 2.Encephalopathy. Compounded by underlying dementia in the acute setting of of recent hypoxia and pneumonia. Given high risk of delirium due to underlying dementia recommend avoidance of sedative medication, limit frequent awakening overnight as well as noxious stimuli with monitoring. 3. Failure to thrive. Patient prior to admission began demonstrating signs and symptoms of advancement of his underlying dementia with decreased oral intake and inability to recall how to swallow leading to dysphagia. Unclear at the present time, if the patient's /DPOA will wish to proceed with artificial nutrition by tube. Reviewed risk versus benefit of artificial nutrition by tube with the patient's spouse today with questions answered and addressed. Relayed that studies have not provided evidence that artificial nutrition by tube has prolonged survival or prevented the risk of aspiration pneumonia. open to informed decision making and wishes to have further discussion and support from her daughter, Bruce before making a final decision. The patient's recognizing the patient's generalized decline. 4. Dementia. Chronic. Progressive. Fall precautions. As an outpatient he has been on rivastigmine. Has demonstrated evidence of hallucinations as well as sundowning behavior prior to admission per 's report. No evidence of acute agitation and has. Calm during evaluation. Given the patient's chronic comorbidities and and advanced age a gradual decline is expected. 5. Advanced care planning. POLST in place as DN AR. Prior to this admission the patient was a full code. The patient's /DPOA has been his primary caregiver without additional supplemental support within the home and the is displaying signs and symptoms of underlying caregiver fatigue. hoping for the best that the patient may recover he will not be back to his baseline status if this were to occur. Patient's previously stated wishes towards end-of-life have been to not have any heroics performed and focus on quality of life but no further details were related and the is trying to make a informed decision and would benefit from continued shared decision making and moving forward.Three paths were relayed to the patient's as outlined in palliative care discussion and hospice was introduced. At the present time, if the patient's elects to pursue hospice services then would recommend pleasure feeds and she relays that she would be able to manage the patient at home with his present bedbound status and recognizes that if he continues to have minimal oral intake by mouth without artificial nutrition by tube or via IV prognosis is likely weeks. This is a difficult decision for the patient's as her primary support is her daughter, Bruce who had to return back to her home in [place]. Supportive listening provided and palliative care to continue to build rapport and follow-up tomorrow in regards to continued advance care planning and decision making. Time Spent: Total time spent 80 minutes with greater than 50% of this spent in counseling and coordination of care with patient's /DPOA, nursing and hospitalist; int roduction of palliative care and hospice philosophies; review of escalation vs de=escalation of care; supportive listening; examination of patient; and anticipatory guidance. Disclaimer: The chart note was formulated using voice recognition technology and unfortunately sound alike errors may occur.
[2020-06-14] MEDS: DEXTROSE 5% 1,000 ML IV SCH ×3 (00:07→20:09)
[2020-06-14 05:20] LABS: BASOPHILS % (AUTO) 0.3 %; EOSINOPHILS # (AUTO) 0.5 10^3/uL (0.0-0.7); EOSINOPHILS % (AUTO) 5.8 %; HGB - HEMOGLOBIN 11.1 g/dL (14.0-18.0); LYMPHOCYTES # (AUTO) 0.6 10^3/uL (1.5-3.5); LYMPHOCYTES % (AUTO) 6.6 %; MEAN CORPUSCULAR HEMOGLOBIN 30.9 pg (27.0-31.0); MEAN CORPUSCULAR HGB CONC 32.6 g/dL (32.0-36.0); MEAN PLATELET VOLUME 11.2 fL (7.4-11.4); MONOCYTES # (AUTO) 0.5 10^3/uL (0.0-1.0); MONOCYTES % (AUTO) 5.9 %; NEUTROPHILS # (AUTO) 7.4 10^3/uL (1.5-6.6); NEUTROPHILS % (AUTO) 80.4 %; PLT - PLATELET COUNT 246 10^3/uL (130-450); RED BLOOD COUNT 3.59 10^6/uL (4.70-6.10); RED CELL DISTRIBUTION WIDTH 13.7 % (12.0-15.0); WHITE BLOOD COUNT 9.2 x10^3/uL (4.8-10.8)
[2020-06-14] MEDS: SODIUM CHLORIDE FLUSH 0.9% 10 ML SYRINGE IVP SCH ×3 (07:15→17:01)
[2020-06-14] MEDS: ENOXAPARIN 60 MG/0.6 ML SYRINGE SUBQ SCH ×2 (09:03→20:22)
--- NOTE | 2020-06-14 14:02 | PROVIDER PROGRESS NOTE ---
Assessment/Plan - Problem List (1) Encephalopathy acute Assessment/Plan: He has worsened overall this admission, has been mostly asleep. His baseline was already noncommunicative, he could sit, could feed himself. Here he has been mostly somnolent, not communicative but grimaces and smiles when he recognized his family. He needed to be fed the first few days, now he is choking on both putting and thickened liquids. Management underway with the help of Palliative Care provider, Cristina Browning NP, regarding following the 's directions forg further management for this patient. (2) Acute respiratory failure with hypoxia Assessment/Plan: He is Covid negative. He never produced a sputum sample to send for culture. There is been no cough but he has intermittently desaturated requiring approximately 5 L O2 supplemental. He completed a course of IV antibiotics for pneumonia and may have had a component of aspiration pneumonia (3) Atrial flutter Assessment/Plan: Telemetry shows a controlled rate response, without any heart rate slowing meds, consistent with conduction system disease. He was getting DOAC, this was changed to therapeutic Lovenox when he could no longer swallow, for stroke prophylaxis. (4) Pneumonia Qualifiers: Pneumonia type: due to unspecified organism Laterality: bilateral Lung location: unspecified part of lung Qualified Code(s): J18.9 - Pneumonia, unspecified organism Assessment/Plan: He was covid neg, he has completed his empiric IV antibx treatment. Supplemental O2 continues however (5) Dementia Assessment/Plan: Advanced dementia per description from . (6) Hypothyroidism Assessment/Plan: He received a dose of IV Synthroid 2 days ago, this is ordered IV to 5D. (7) BPH (benign prostatic hyperplasia) Assessment/Plan: He is not getting any p.o. meds as at home. He does have a Farooq inserted now (8) SRI on CPAP Assessment/Plan: His home CPAP device is ordered to use here (9) Hypokalemia Assessment/Plan: Replaced. (10) Acute kidney injury Assessment/Plan: Resolved. (11) Hx of essential hypertension Assessment/Plan: He was on several medications by pill form at home. These were stopped completely when he could not swallow. He was on IV hydralazine scheduled. This was stopped completely yesterday when blood pressure has been 1 15-1 30 off of any blood pressure meds. - Current Meds Current Meds: Current Medications Generic Name Dose Route Start Last Admin Trade Name Freq PRN Reason Stop Dose Admin Enoxaparin Sodium 60 mg 06/12/20 21:00 06/14/20 09:03 Lovenox SUBQ 60 mg BID BARRETT Administration Haloperidol 1 mg 06/12/20 10:54 06/12/20 21:51 Haldol Inj IVP 1 mg Q8H PRN Administration Agitation Dextrose 1,000 mls @ 100 mls/hr 06/11/20 10:00 06/14/20 12:00 D5w IV 100 mls/hr .Q10H BARRETT Infusion Levothyroxine Sodium 100 mcg 06/13/20 07:00 06/13/20 06:55 Synthroid Inj IVP 100 mcg Q5D BARRETT Administration Sodium Chloride 10 ml 06/08/20 02:30 06/13/20 09:11 Normal Saline Flush 0.9% IVP 10 ml PRN PRN Administration NEEDED PER PROVIDER ORDERS Sodium Chloride 10 ml 06/08/20 09:00 06/14/20 09:04 Normal Saline Flush 0.9% IVP 10 ml 0100,0900,1700 BARRETT Administration - Lab Result Fish Bone Diagrams: 06/14/20 04:35 06/13/20 04:05 Subjective - Subjective Patient Reports: Resting Comfortably Objective Vital Signs: Vital Signs - 24 hr 06/13/20 06/13/20 06/13/20 16:00 16:28 17:00 Temperature 37 C Heart Rate [ 71 71 Monitoring electrodes] Respiratory 27 H 31 H Rate Blood Pressure 124/76 98/72 [Left Brachial artery] Blood Pressure [Right Brachial artery] O2 Saturation 94 93 06/13/20 06/13/20 06/13/20 18:00 19:00 21:00 Temperature 37.0 C Heart Rate [ 69 74 73 Monitoring electrodes] Respiratory 28 H 27 H 24 Rate Blood Pressure 122/86 H 111/62 123/84 H [Left Brachial artery] Blood Pressure [Right Brachial artery] O2 Saturation 95 92 90 L 06/13/20 06/14/20 06/14/20 23:00 01:00 03:00 Temperature 36.7 C Heart Rate [ 72 70 73 Monitoring electrodes] Respiratory 23 25 H 25 H Rate Blood Pressure 125/88 H 127/90 H 119/71 [Left Brachial artery] Blood Pressure [Right Brachial artery] O2 Saturation 91 L 91 L 84 L 06/14/20 06/14/20 06/14/20 05:00 07:00 09:00 Temperature 36.9 C 36.1 C L Heart Rate [ 73 65 79 Monitoring electrodes] Respiratory 30 H 28 H 30 H Rate Blood Pressure 139/90 H 136/77 H [Left Brachial artery] Blood Pressure 131/82 H [Right Brachial artery] O2 Saturation 93 92 91 L 06/14/20 13:00 Temperature 36.1 C L Heart Rate [ 70 Monitoring electrodes] Respiratory 25 H Rate Blood Pressure 131/86 H [Left Brachial artery] Blood Pressure [Right Brachial artery] O2 Saturation 94 Oxygen O2 Source Nasal cannula Oxygen Flow Rate 6 I&O (Last 24 Hrs): Intake and Output Totals x24h 06/12/20 06/13/20 06/14/20 23:59 23:59 23:59 Intake Total 2795.000 9087.810 4251.334 Output Total 1897 745 445 Balance 688.432 4238.000 1710.334 General: Other (Currently awake) HEENT: Mucous membr. moist/pink, Other (wearing O2 by oximizer) Neck: No JVD Neuro: Other (wake, non-focal, minimal speech, chokes on pudding) Cardiovascular: No murmurs Respiratory: No respiratory distress Abdomen: Soft Extremities: No edema - Results Results: Laboratory Results WBC 9.2 x10^3/uL (4.8-10.8) 06/14/20 04:35 RBC 3.59 10^6/uL (4.70-6.10) L 06/14/20 04:35 Hgb 11.1 g/dL (14.0-18.0) L 06/14/20 04:35 Hct 34.1 % (42.0-52.0) L 06/14/20 04:35 MCV 95.0 fL (80.0-94.0) H 06/14/20 04:35 MCH 30.9 pg (27.0-31.0) 06/14/20 04:35 MCHC 32.6 g/dL (32.0-36.0) 06/14/20 04:35 RDW 13.7 % (12.0-15.0) 06/14/20 04:35 Plt Count 246 10^3/uL (130-450) 06/14/20 04:35 MPV 11.2 fL (7.4-11.4) 06/14/20 04:35 Neut # (Auto) 7.4 10^3/uL (1.5-6.6) H 06/14/20 04:35 Lymph # (Auto) 0.6 10^3/uL (1.5-3.5) L 06/14/20 04:35 [place]oard # (Auto) 0.5 10^3/uL (0.0-1.0) 06/14/20 04:35 Eos # (Auto) 0.5 10^3/uL (0.0-0.7) 06/14/20 04:35 Baso # (Auto) 0.0 10^3/uL (0.0-0.1) 06/14/20 04:35 Absolute Nucleated RBC 0.00 x10^3/uL 06/14/20 04:35 Nucleated RBC % 0.0 /100WBC 06/14/20 04:35 Bld Gas Analysis Time 95806/09/20 09:50 Sample Site RIGHT RADIAL 06/09/20 09:50 ABG pH 7.48 (7.35-7.45) H 06/09/20 09:50 ABG pCO2 34 mmHg (34-45) 06/09/20 09:50 ABG pO2 97 mmHg (80-100) 06/09/20 09:50 ABG HCO3 24.6 mmol/L (22.0-26.0) 06/09/20 09:50 ABG Total CO2 25.7 MMOL/L (21.0-29.0) 06/09/20 09:50 ABG O2 Saturation 98 % (94-98) 06/09/20 09:50 ABG Oximetry Spot Check 90 % 06/08/20 13:30 ABG Base Excess 1.4 mmol/L (-2.0-3.0) 06/09/20 09:50 [place] Test POSITIVE 06/09/20 09:50 Respiration Rate 36 b/min 06/08/20 13:30 O2 Delivery Device NON REBREATHER MASK 06/09/20 09:50 O2 Liters/Min 11.00 LPM 06/09/20 09:50 FiO2 1.00 06/09/20 09:50 Sodium 137 mmol/L (135-145) 06/13/20 04:05 Potassium 3.7 mmol/L (3.5-5.0) 06/13/20 04:05 Chloride 105 mmol/L (101-111) 06/13/20 04:05 Carbon Dioxide 26 mmol/L (21-32) 06/13/20 04:05 Anion Gap 6.0 (6-13) 06/13/20 04:05 BUN 28 mg/dL (6-20) H 06/13/20 04:05 Creatinine 0.9 mg/dL (0.6-1.2) 06/13/20 04:05 Estimated GFR (MDRD) 81 (>89) L 06/13/20 04:05 Glucose 113 mg/dL (70-100) H 06/13/20 04:05 Lactic Acid 1.8 mmol/L (0.5-2.2) 06/08/20 01:00 Calcium 7.6 mg/dL (8.5-10.3) L 06/13/20 04:05 Phosphorus 2.8 mg/dL (2.5-4.6) 06/12/20 04:15 Magnesium 2.0 mg/dL (1.7-2.8) 06/13/20 04:05 Total Bilirubin 1.3 mg/dL (0.2-1.0) H 06/13/20 04:05 AST 18 IU/L (10-42) 06/13/20 04:05 ALT 12 IU/L (10-60) 06/13/20 04:05 Alkaline Phosphatase 59 IU/L (42-121) 06/13/20 04:05 B-Natriuretic Peptide 152 pg/mL (5-100) H 06/12/20 04:15 Total Protein 4.9 g/dL (6.7-8.2) L 06/13/20 04:05 Albumin 2.4 g/dL (3.2-5.5) L 06/13/20 04:05 Globulin 2.5 g/dL (2.1-4.2) 06/13/20 04:05 Albumin/Globulin Ratio 1.0 (1.0-2.2) 06/13/20 04:05 Lipase 28 U/L (22-51) 06/08/20 01:00 TSH 4.70 uIU/mL (0.34-5.60) 06/13/20 04:05 Cortisol AM Sample 15.5 ug/dL 06/13/20 09:25 Urine Color YELLOW 06/09/20 14:59 Urine Clarity CLEAR (CLEAR) 06/09/20 14:59 Urine pH 5.5 PH (5.0-7.5) 06/09/20 14:59 Ur Specific [place] 1.020 (1.002-1.030) 06/09/20 14:59 Urine Protein NEGATIVE mg/dL (NEGATIVE) 06/09/20 14:59 Urine Glucose (UA) NEGATIVE mg/dL (NEGATIVE) 06/09/20 14:59 Urine Ketones NEGATIVE mg/dL (NEGATIVE) 06/09/20 14:59 Urine Occult Blood NEGATIVE (NEGATIVE) 06/09/20 14:59 Urine Nitrite NEGATIVE (NEGATIVE) 06/09/20 14:59 Urine Bilirubin NEGATIVE (NEGATIVE) 06/09/20 14:59 Urine Urobilinogen 0.2 (NORMAL) E.U./dL (NORMAL) 06/09/20 14:59 Ur Leukocyte Esterase NEGATIVE (NEGATIVE) 06/09/20 14:59 Ur Microscopic Review NOT INDICATED 06/09/20 14:59 Urine Culture Comments NOT INDICATED 06/09/20 14:59 Nasal Adenovirus (PCR) NOT DETECTED 06/08/20 02:00 Nasal B. parapertussis DNA (PCR) NOT DETECTED 06/08/20 02:00 Nasal Coronavir 229E PCR NOT DETECTED 06/08/20 02:00 Nasal Coronavir HKU1 PCR NOT DETECTED 06/08/20 02:00 Nasal Coronavir NL63 PCR NOT DETECTED 06/08/20 02:00 Nasal Coronavir OC43 PCR NOT DETECTED 06/08/20 02:00 Nasal Enterovir/Rhinovir PCR NOT DETECTED 06/08/20 02:00 Nasal Influenza B PCR NOT DETECTED 06/08/20 02:00 Nasal Influenza A PCR NOT DETECTED 06/08/20 02:00 Nasal Parainfluen 1 PCR NOT DETECTED 06/08/20 02:00 Nasal Parainfluen 2 PCR NOT DETECTED 06/08/20 02:00 Nasal Parainfluen 3 PCR NOT DETECTED 06/08/20 02:00 Nasal Parainfluen 4 PCR NOT DETECTED 06/08/20 02:00 Nasal RSV (PCR) NOT DETECTED 06/08/20 02:00 Nasal Screen MRSA (PCR) NEGATIVE (NEGATIVE) 06/09/20 09:21 Nasal B.pertussis DNA PCR NOT DETECTED 06/08/20 02:00 Nasal C.pneumoniae (PCR) NOT DETECTED 06/08/20 02:00 Rich Human Metapneumo PCR NOT DETECTED 06/08/20 02:00 Nasal M.pneumoniae (PCR) NOT DETECTED 06/08/20 02:00 Nasal SARS-CoV-2 (PCR) NOT DETECTED 06/08/20 02:00
--- NOTE | 2020-06-14 19:00 | CONSULTATION NOTE ---
Palliative Care Follow Up - Referral Referring Provider: Dr. Meka Marks Time of Visit: [id number] Referral setting: Hospitalized patient Referral Reason: FTT/Dementia/Pneumonia - Information Sources Records reviewed: Previous records reviewed History/Review of Systems obtained from: Family (/DPOA, Piper and daughter, Bruce (via conferene phone)), Nursing (Tommie), Other (Hospitalist, Dr. Marks) Exam limitations: Clinical condition (Lethargy, advanced dementia) - History of Present Illness Update Brief HPI Update: This is an 79-year-old gentleman who was seen in follow-up today while inpatient due to failure to thrive with bilateral pneumonia and dementia. Please see he detailed history dictated on 06/13/2020. The patient is more alert today than he was yesterday on evaluation but easily drifts back off to sleep and appears quite comfortable with supplemental oxygen in place. Upon review with the patient's and nursing staff the patient has not had any thing oral by mouth today as whenever he has tried such as pudding, he begins to cough. He has been treated with IV azithromycin, ceftriaxone and Flagyl for bilateral pneumonia with concern for aspiration pneumonia. Given the patient's Inability to swallow safely due to dysphagia and recent pneumonia with bedbound status, the patient's has been contemplating next course after meeting with RN HOMECARE from palliative care yesterday and today, presents with a decision in regards to next steps for plan of care for the patient. Past Medical History: Patient has a past medical history of hypertension, atrial fibrillation, sleep apnea with CPAP use, dementia, hypothyroidism, incontinence, spinal surgery. Social History - Living Situation Living arrangement: At home Living Situation: With spouse/s.o. Support System: The patient lives at home with his . They are originally from [place]. They resided in [place] for a number of years before transitioning to [place] and then eventually [facility]. The patient's reports that there is less no here then where they are from in [place]. The patient and his had 2 children, 1 boy and a daughter. Their son 10 years ago. Their remaining daughter is alive and well and resides in [facility] and she is an MOTION [employer]URE SET UP WORKER in an assisted living facility. The patient's has support from a neighbor who comes once a week to provide her with some break from caregiving. The patient's reports that she will be able to accept DME equipment with the help of a friend in moving furniture. Medications/Allergies - Medications Active Medication List: Active Medications Enoxaparin Sodium (Lovenox) 60 mg SUBQ BID [facility] Last Admin: 06/14/20 09:03 Dose: 60 mg Documented by: Haloperidol (Haldol Inj) 1 mg IVP Q8H PRN PRN Reason: Agitation Last Admin: 06/12/20 21:51 Dose: 1 mg Documented by: Dextrose (D5w) 1,000 mls @ 100 mls/hr IV .Q10H [facility] Last Infusion: 06/14/20 18:00 Dose: 100 mls/hr Documented by: Levothyroxine Sodium (Synthroid Inj) 100 mcg IVP Q5D [facility] Last Admin: 06/13/20 06:55 Dose: 100 mcg Documented by: Ondansetron HCl (Zofran Inj) 4 mg IVP Q6HR PRN PRN Reason: Nausea / Vomiting Sodium Chloride (Normal Saline Flush 0.9%) 10 ml IVP PRN PRN PRN Reason: NEEDED PER PROVIDER ORDERS Last Admin: 06/13/20 09:11 Dose: 10 ml Documented by: Sodium Chloride (Normal Saline Flush 0.9%) 10 ml IVP 0100,0900,1700 [facility] Last Admin: 06/14/20 17:01 Dose: 10 ml Documented by: Cholecalciferol [Vitamin D3] 1,000 unit PO DAILY 01/21/16 Tamsulosin [Flomax] 0.4 mg PO QPM 01/21/16 hydrALAZINE [Apresoline] 25 mg PO BID 01/21/16 lisinopriL [Lisinopril] 10 mg PO BID 01/21/16 Dabigatran Etexilate Mesylate [Pradaxa] 150 mg PO BID 05/06/19 Rivastigmine [Rivastigmine 4.6MG] 1 each TD DAILY 05/06/19 Rosuvastatin Calcium [Crestor] 5 mg PO QPM 05/06/19 traZODone [Desyrel] 50 mg PO QPM 06/04/20 Cholestyramine [Questran] 4 gm PO BID 06/08/20 Oxybutynin Chloride [Ditropan Xl] 5 mg PO DAILY 06/08/20 Sertraline [Zoloft] 50 mg PO DAILY 06/08/20 - Allergies Allergies/Adverse Reactions: Allergies Allergy/AdvReac Type Severity Reaction Status Date / Time No Known Drug Allergies Allergy Verified 06/07/20 23:34 Review of Systems - Constitutional Constitutional: reports: Fatigue, Poor appetite, Weight loss. denies: Fever - Eyes Eyes: denies: Vision loss - Ears, Nose & Throat Ears, Nose & Throat: reports: Dry mouth - Cardiovascular Cardiovascular: denies: Edema - Respiratory Respiratory: reports: Cough (see HPI) - Gastrointestinal Gastrointestinal: reports: Poor appetite. denies: Abdominal pain - Genitourinary Genitourinary: reports: Other (yu catheter in place) - Musculoskeletal Musculoskeletal: reports: Assistive devices, Transfer issues. denies: Joint pain - Integumentary Integumentary: denies: Pruritis - Neurological Neurological: reports: General weakness, Memory problems - Psychiatric Psychiatric: reports: Other ( reported sundowning behaviors prior to admission) - Endocrine Endocrine: denies: Diabetes type 2 - Hematologic/Lymphatic Hematologic/Lymph: Recurrent infections (Pneumonia) - All Other Systems All Other Systems: reports: Reviewed and negative (ROS limited as patient is a poor historian due to dementia. ROS obtained from nursing and .) Physical Exam - Vital Signs Vital Signs: Vital Signs x48h Temp Pulse Resp BP Pulse Ox 06/14/20 16:20 36.0 C L 70 21 134/84 H 92 06/14/20 13:00 36.1 C L 70 25 H 131/86 H 94 - Physical Exam General Appearance: positive: No acute distress, Other (b/l temporal wasting, more alert than yesterday with his eyes open with tracking, minimally verbal and falls back to sleep) Eyes Bilateral: positive: Normal inspection ENT: positive: Other (slightly dry mucous membranes) Neck: positive: Trachea midline Cardiovascular: positive: No murmur, Irregularly irregular Respiratory: positive: No respiratory distress, Rhonchi, Other (snoring while sleeping with mouth breathing intermittently with history of CPAP use due to SRI) Abdomen: positive: Non-tender, Soft, Nml bowel sounds, Other (yu catheter draining dark yellow urine). negative: Distended Skin: positive: Pallor, Other (visible skin C/D/I) Extremities: positive: No pedal edema Neurologic/Psychiatric: positive: Weakness, Other (More alert today, minimally verbal with difficult to understand his articulation, smiles and then drifts back off to sleep easily.) Palliative Care - POLST Patient has POLST: Yes POLST Status: DNR Performance Status: Significant functional decline over the last several weeks now with inability to ambulate, word salad type responses to questions, no oral intake by mouth sleeping the majority of the day. PPS 20% - Palliative Care Discussion: The patient has demonstrated an progressive decline due to dementia over several years and more acutely in the last year after his in first bout of pneumonia where he did not return to his previous baseline function. During this hospitalization, The patient has been optimized with antibiotic therapy for the treatment of bilateral pneumonia likely aspiration in nature and is not making strides clinically in his overall improvement. He is unable to take anything in by mouth without coughing as he has underlying dysphagia due to his dementia and is at further risk of aspiration. Due to his underlying lethargy and sleeping the majority of the day despite, being more alert than previous days, he is unable to remain engaged long enough to adequately attempt hand feeding at the present time. The patient's , Adele has had time to reflect since meeting with this RN HOMECARE yesterday, and with this being a difficult decision she wishes to have the patient transition to hospice services and for him to return home to optimize their quality time together. The patient's /DPOA does not wish to have an i ntervention such as a feeding tube placement recognizing the futility of this intervention. The patient's daughter, Bruce, was phone conferenced in for discussion and she supports her mother's decision with moving forward with hospice services.Given the patient's lack of oral intake and if he continues upon this path advised the patient's daughter and , as best we know the patient likely has a prognosis of days to weeks. The goal of the patient's family is to optimize his comfort and it is the hope that the patient's daughter will be able to fly back to [facility] to see her father and provide support for her mother. Discussed obtainment of video conferencing applications such as [employer] handouts or [employer] upon the patient's return home in order for the daughter to optimize her presents with her parents. Supportive listening provided. Results - Lab Results Fish Bones: 06/14/20 04:35 06/13/20 04:05 Lab and Imaging Results: Lab Results x24hrs 06/14/20 Range/Units 04:35 WBC 9.2 (4.8-10.8) x10^3/uL RBC 3.59 L (4.70-6.10) 10^6/uL Hgb 11.1 L (14.0-18.0) g/dL Hct 34.1 L (42.0-52.0) % MCV 95.0 H (80.0-94.0) fL MCH 30.9 (27.0-31.0) pg MCHC 32.6 (32.0-36.0) g/dL RDW 13.7 (12.0-15.0) % Plt Count 246 (130-450) 10^3/uL MPV 11.2 (7.4-11.4) fL Neut # (Auto) 7.4 H (1.5-6.6) 10^3/uL Lymph # (Auto) 0.6 L (1.5-3.5) 10^3/uL Swain # (Auto) 0.5 (0.0-1.0) 10^3/uL Eos # (Auto) 0.5 (0.0-0.7) 10^3/uL Baso # (Auto) 0.0 (0.0-0.1) 10^3/uL Absolute Nucleated RBC 0.00 x10^3/uL Nucleated RBC % 0.0 /100WBC Impression and Recommendations - Palliative Care Impression: This is an 79-year-old gentleman who was admitted for bilateral pneumonia, likely aspiration in nature, with progressive dementia now at a F AST 7C with failure to thrive. The patient's has decided to not proceed with artificial nutrition by tube and to focus on comfort and quality of life with a transition to hospice services at home. Recommendations/Counseling Done: 1. Pneumonia, likely aspiration in in nature. Blood cultures have been negative. Has been optimized on IV antibiotic therapy with coverage for aspiration pneumonia. 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 Continues with underlying dysphagia and no oral intake by mouth but continued decline clinically despite laboratory improvements. The patient's /DPOA recognizes the patient's clinical decline and wishes for him to have a transition to hospice services and for him to be at home in a familiar setting. 2. Failure to thrive. Prior to this hospitalization the patient began demonstrating signs and symptoms of advancement of his underlying dementia with decreased oral intake and ability to recall how to swallow leading to dysphagia. Present F AST 7C. The patient's does not wish to proceed with artificial nutrition by tube. The patient's daughter, Bruce supports her in this decision making process and the patient's recognizes the patient's continued decline despite optimization of antibiotic therapy. While the patient's is holding onto some hope of improvement, she recognizes the patient's decline and wishes to optimize his to his comfort within their home. 4. Dementia. Chronic. Progressive. Fall precautions. Has outpatient he has been on rivastigmine. Would not resume this upon discharge. No evidence of acute agitation. He remains calm during evaluation. Given the patient's generalized weakness and ill in ability to ambulate resulting in bedbound status the patient's should be able to care for the patient in a hospital bed within their home with assistance from hospice staff in regards to education with proper body mechanics and care for incontinence. Recommend that the patient be discharged with Yu catheter in place for comfort measures. Due to underlying dysphagia introduced the idea to the patient's that hospice medications may be administered via buccal or via dalila catheter. Given the above-stated diagnoses expect the patient to have a continued decline with prognosis of days to weeks. 5. Advance care planning. POLST in place as DN AR. Prior to this admission the patient was a full code. The patient's /DPOA wishes to have the patient's comfort optimize at home with a transition to hospice services. The patient is scheduled to be admitted on Thursday and discussed with hospitalist to relay to social work team to set up early BLS transport on Thursday to ensure hospice admission. Request that comfort medications be is initiated by t jose hospitalist service to be on hand for hospital staff to utilize if patient begins to show signs or symptoms of transitioning with end of life. DME equipment is to be delivered to the patient's home tomorrow afternoon had the patient's 's request. The patient's is having support by local friends to be present for home delivery of DME equipment. Reviewed at length hospice services and expectations moving forward and provided supportive listening to both the patient and and daughter with questions answered and addressed. Time Spent: real time trader spent 70 minutes with greater than 50% of this time spent in counseling and coordination of care with the patient's /DPOA, nursing and hospitalist; coordination of care with [facility] team ; supportive listening; hospice philosophy; examination of patient; and anticipatory guidance. Disclaimer: The chart note was formulated using voice recognition technology and unfortunately sound alike errors may occur.
[2020-06-15] MEDS: SODIUM CHLORIDE FLUSH 0.9% 10 ML SYRINGE IVP SCH ×3 (00:28→20:00)
[2020-06-15] MEDS ORDERED: SCOPOLAMINE PATCH TOP SCH (08:00)
[2020-06-15] MEDS ORDERED: ACETAMINOPHEN 650 MG SUPP PR PRN (08:38)
[2020-06-15] MEDS ORDERED: GLYCOPYRROLATE 1 MG/5 ML VIAL SUBQ PRN (08:38)
[2020-06-15] MEDS ORDERED: LOPERAMIDE 2 MG CAPSULE PO PRN (08:38)
[2020-06-15] MEDS ORDERED: PHENOL THROAT SPRAY 177 ML MM PRN (08:38)
[2020-06-15] MEDS ORDERED: ONDANSETRON ODT 4 MG TABLET TL PRN (08:38)
[2020-06-15] MEDS ORDERED: PROCHLORPERAZINE 25 MG SUPP PR PRN (08:38)
[2020-06-15] MEDS ORDERED: METOCLOPRAMIDE 10 MG TABLET PO PRN (08:38)
[2020-06-15] MEDS ORDERED: haloperidoL 1 MG TABLET PO PRN (08:38)
[2020-06-15] MEDS ORDERED: MORPHINE SOL 10 MG/0.5 ML ORAL SYRINGE SL PRN ×2 (08:38→11:54)
[2020-06-15] MEDS ORDERED: CARBOXYMETHYLCELLULOSE OPHTH DROPS EACHEYE PRN (08:38)
[2020-06-15] MEDS ORDERED: ATROPINE 1% OPHTH DROPS 2 ML SL PRN (08:38)
--- NOTE | 2020-06-15 08:48 | PROVIDER PROGRESS NOTE ---
Assessment/Plan - Problem List (1) Encephalopathy acute Assessment/Plan: He continues to decline,cannot tolerate any po diet, just chokes. Yesterday the has decided, with Palliative specialty sales consultant, to start Comfort Care, and Hospice at his home will accept him on Sat morning (tomorrow). No further blood draws, frequent VS checks or telemetry are needed. (2) Dementia Assessment/Plan: Unchanged (3) Acute respiratory failure with hypoxia Assessment/Plan: Will continue O2 for comfort and start meds to decrease secretions, as Comfort Care is started. (4) Atrial flutter Assessment/Plan: Telemetry will be stopped BP just once a day checks (5) Pneumonia Qualifiers: Pneumonia type: due to unspecified organism Laterality: bilateral Lung location: unspecified part of lung Qualified Code(s): J18.9 - Pneumonia, unspecified organism Assessment/Plan: He has finished his planned empiric iv antibx (6) Hypothyroidism Assessment/Plan: He received an iv Synthroid dose several days ago. He cannot swallow any longer, to use oral Synthroid (7) BPH (benign prostatic hyperplasia) Assessment/Plan: Continue Farooq for Comfort Care/Hospice Care (8) SRI on CPAP Assessment/Plan: Continue home device (9) Hx of essential hypertension Assessment/Plan: He has had "soft" BP for several days, on no BP meds for many days - Current Meds Current Meds: Current Medications Generic Name Dose Route Start Last Admin Trade Name Freq PRN Reason Stop Dose Admin Enoxaparin Sodium 60 mg 06/12/20 21:00 06/14/20 20:22 Lovenox SUBQ 60 mg BID BARRETT Administration Haloperidol 1 mg 06/12/20 10:54 06/12/20 21:51 Haldol Inj IVP 1 mg Q8H PRN Administration Agitation Levothyroxine Sodium 100 mcg 06/13/20 07:00 06/13/20 06:55 Synthroid Inj IVP 100 mcg Q5D BARRETT Administration Sodium Chloride 10 ml 06/08/20 02:30 06/13/20 09:11 Normal Saline Flush 0.9% IVP 10 ml PRN PRN Administration NEEDED PER PROVIDER ORDERS Sodium Chloride 10 ml 06/08/20 09:00 06/15/20 07:47 Normal Saline Flush 0.9% IVP 10 ml 0100,[id number],1700 BARRETT Administration - Lab Result Fish Bone Diagrams: 06/14/20 04:35 06/13/20 04:05 - Additional Planning My Orders: My Active Orders 06/15/20 08:38 Cooling Unit [RC] PRN Farooq Insertion [RC] QSHIFT Oral Care - Nursing [RC] BID Turn and Reposition [RC] PRN Warming Unit [RC] PRN Acetaminophen [Tylenol] 650 mg RI Q4H PRN Atropine 1% Ophth Drops [Isopto Atropine 1% Ophth Drops] 1 - 4 drops SL Q2H PRN Carboxymethylcellulose 1% Opht [Refresh 1% Ophth Drops] 1 drops EACHEYE QID PRN Glycopyrrolate [Robinul] 0.2 mg SUBQ Q4H PRN Loperamide [Imodium] 2 mg PO Q2H PRN Metoclopramide [Reglan] 10 mg PO Q4H PRN Morphine Oral Soln [Roxanol] 10 mg SL Q2HR PRN Ondansetron Odt [Zofran Odt] 4 mg TL Q8H PRN Phenol [Chloraseptic] 1 sprays MM Q2H PRN Prochlorperazine Supp [Compazine Supp] 25 mg RI TID PRN haloperidoL [Haldol] 1 mg PO Q6H PRN 06/15/20 08:39 Comfort Care [RC] QSHIFT Farooq Continuation and Care [RC] QSHIFT 06/15/20 08:45 Telemetry-Discontinue [RC] .ONCE Objective Vital Signs: Vital Signs - 24 hr 06/14/20 06/14/20 06/14/20 09:00 13:00 16:20 Temperature 36.1 C L 36.1 C L 36.0 C L Heart Rate [ 79 70 70 Monitoring electrodes] Respiratory 30 H 25 H 21 Rate Blood Pressure 136/77 H 131/86 H 134/84 H [Left Brachial artery] O2 Saturation 91 L 94 92 06/14/20 06/14/20 06/15/20 19:24 23:58 00:03 Temperature 36.0 C L 36.1 C L Heart Rate [ 79 73 Monitoring electrodes] Respiratory 29 H 29 H 22 Rate Blood Pressure 139/88 H 140/90 H [Left Brachial artery] O2 Saturation 91 L 95 94 06/15/20 03:07 Temperature 36.6 C Heart Rate [ 72 Monitoring electrodes] Respiratory 25 H Rate Blood Pressure 126/67 [Left Brachial artery] O2 Saturation 93 Oxygen O2 Source Oxymizer Oxygen Flow Rate 6 I&O (Last 24 Hrs): Intake and Output Totals x24h 06/13/20 06/14/20 06/15/20 23:59 23:59 23:59 Intake Total 0188.743 1080.667 1000.000 Output Total 745 935 225 Balance 3891.977 3019.667 775.000 General: Other (appears comfortable) HEENT: Mucous membr. moist/pink Neuro: Disoriented, Non Focal Respiratory: No respiratory distress Extremities: No edema - Results Results: Laboratory Results WBC 9.2 x10^3/uL (4.8-10.8) 06/14/20 04:35 RBC 3.59 10^6/uL (4.70-6.10) L 06/14/20 04:35 Hgb 11.1 g/dL (14.0-18.0) L 06/14/20 04:35 Hct 34.1 % (42.0-52.0) L 06/14/20 04:35 MCV 95.0 fL (80.0-94.0) H 06/14/20 04:35 MCH 30.9 pg (27.0-31.0) 06/14/20 04:35 MCHC 32.6 g/dL (32.0-36.0) 06/14/20 04:35 RDW 13.7 % (12.0-15.0) 06/14/20 04:35 Plt Count 246 10^3/uL (130-450) 06/14/20 04:35 MPV 11.2 fL (7.4-11.4) 06/14/20 04:35 Neut # (Auto) 7.4 10^3/uL (1.5-6.6) H 06/14/20 04:35 Lymph # (Auto) 0.6 10^3/uL (1.5-3.5) L 06/14/20 04:35 [place] # (Auto) 0.5 10^3/uL (0.0-1.0) 06/14/20 04:35 Eos # (Auto) 0.5 10^3/uL (0.0-0.7) 06/14/20 04:35 Baso # (Auto) 0.0 10^3/uL (0.0-0.1) 06/14/20 04:35 Absolute Nucleated RBC 0.00 x10^3/uL 06/14/20 04:35 Nucleated RBC % 0.0 /100WBC 06/14/20 04:35 Bld Gas Analysis Time 0959 06/09/20 09:50 Sample Site RIGHT RADIAL 06/09/20 09:50 ABG pH 7.48 (7.35-7.45) H 06/09/20 09:50 ABG pCO2 34 mmHg (34-45) 06/09/20 09:50 ABG pO2 97 mmHg (80-100) 06/09/20 09:50 ABG HCO3 24.6 mmol/L (22.0-26.0) 06/09/20 09:50 ABG Total CO2 25.7 MMOL/L (21.0-29.0) 06/09/20 09:50 ABG O2 Saturation 98 % (94-98) 06/09/20 09:50 ABG Oximetry Spot Check 90 % 06/08/20 13:30 ABG Base Excess 1.4 mmol/L (-2.0-3.0) 06/09/20 09:50 [place] Test POSITIVE 06/09/20 09:50 Respiration Rate 36 b/min 06/08/20 13:30 O2 Delivery Device NON REBREATHER MASK 06/09/20 09:50 O2 Liters/Min 11.00 LPM 06/09/20 09:50 FiO2 1.00 06/09/20 09:50 Sodium 137 mmol/L (135-145) 06/13/20 04:05 Potassium 3.7 mmol/L (3.5-5.0) 06/13/20 04:05 Chloride 105 mmol/L (101-111) 06/13/20 04:05 Carbon Dioxide 26 mmol/L (21-32) 06/13/20 04:05 Anion Gap 6.0 (6-13) 06/13/20 04:05 BUN 28 mg/dL (6-20) H 06/13/20 04:05 Creatinine 0.9 mg/dL (0.6-1.2) 06/13/20 04:05 Estimated GFR (MDRD) 81 (>89) L 06/13/20 04:05 Glucose 113 mg/dL (70-100) H 06/13/20 04:05 Lactic Acid 1.8 mmol/L (0.5-2.2) 06/08/20 01:00 Calcium 7.6 mg/dL (8.5-10.3) L 06/13/20 04:05 Phosphorus 2.8 mg/dL (2.5-4.6) 06/12/20 04:15 Magnesium 2.0 mg/dL (1.7-2.8) 06/13/20 04:05 Total Bilirubin 1.3 mg/dL (0.2-1.0) H 06/13/20 04:05 AST 18 IU/L (10-42) 06/13/20 04:05 ALT 12 IU/L (10-60) 06/13/20 04:05 Alkaline Phosphatase 59 IU/L (42-121) 06/13/20 04:05 B-Natriuretic Peptide 152 pg/mL (5-100) H 06/12/20 04:15 Total Protein 4.9 g/dL (6.7-8.2) L 06/13/20 04:05 Albumin 2.4 g/dL (3.2-5.5) L 06/13/20 04:05 Globulin 2.5 g/dL (2.1-4.2) 06/13/20 04:05 Albumin/Globulin Ratio 1.0 (1.0-2.2) 06/13/20 04:05 Lipase 28 U/L (22-51) 06/08/20 01:00 TSH 4.70 uIU/mL (0.34-5.60) 06/13/20 04:05 Cortisol AM Sample 15.5 ug/dL 06/13/20 09:25 Urine Color YELLOW 06/09/20 14:59 Urine Clarity CLEAR (CLEAR) 06/09/20 14:59 Urine pH 5.5 PH (5.0-7.5) 06/09/20 14:59 Ur Specific [place] 1.020 (1.002-1.030) 06/09/20 14:59 Urine Protein NEGATIVE mg/dL (NEGATIVE) 06/09/20 14:59 Urine Glucose (UA) NEGATIVE mg/dL (NEGATIVE) 06/09/20 14:59 Urine Ketones NEGATIVE mg/dL (NEGATIVE) 06/09/20 14:59 Urine Occult Blood NEGATIVE (NEGATIVE) 06/09/20 14:59 Urine Nitrite NEGATIVE (NEGATIVE) 06/09/20 14:59 Urine Bilirubin NEGATIVE (NEGATIVE) 06/09/20 14:59 Urine Urobilinogen 0.2 (NORMAL) E.U./dL (NORMAL) 06/09/20 14:59 Ur Leukocyte Esterase NEGATIVE (NEGATIVE) 06/09/20 14:59 Ur Microscopic Review NOT INDICATED 06/09/20 14:59 Urine Culture Comments NOT INDICATED 06/09/20 14:59 Nasal Adenovirus (PCR) NOT DETECTED 06/08/20 02:00 Nasal B. parapertussis DNA (PCR) NOT DETECTED 06/08/20 02:00 Nasal Coronavir 229E PCR NOT DETECTED 06/08/20 02:00 Nasal Coronavir HKU1 PCR NOT DETECTED 06/08/20 02:00 Nasal Coronavir NL63 PCR NOT DETECTED 06/08/20 02:00 Nasal Coronavir OC43 PCR NOT DETECTED 06/08/20 02:00 Nasal Enterovir/Rhinovir PCR NOT DETECTED 06/08/20 02:00 Nasal Influenza B PCR NOT DETECTED 06/08/20 02:00 Nasal Influenza A PCR NOT DETECTED 06/08/20 02:00 Nasal Parainfluen 1 PCR NOT DETECTED 06/08/20 02:00 Nasal Parainfluen 2 PCR NOT DETECTED 06/08/20 02:00 Nasal Parainfluen 3 PCR NOT DETECTED 06/08/20 02:00 Nasal Parainfluen 4 PCR NOT DETECTED 06/08/20 02:00 Nasal RSV (PCR) NOT DETECTED 06/08/20 02:00 Nasal Screen MRSA (PCR) NEGATIVE (NEGATIVE) 06/09/20 09:21 Nasal B.pertussis DNA PCR NOT DETECTED 06/08/20 02:00 Nasal C.pneumoniae (PCR) NOT DETECTED 06/08/20 02:00 Rich Human Metapneumo PCR NOT DETECTED 06/08/20 02:00 Nasal M.pneumoniae (PCR) NOT DETECTED 06/08/20 02:00 Nasal SARS-CoV-2 (PCR) NOT DETECTED 06/08/20 02:00
[2020-06-15] MEDS: ENOXAPARIN 60 MG/0.6 ML SYRINGE SUBQ SCH ×2 (09:02→23:13)
--- NOTE | 2020-06-15 11:48 | Discharge Plan ---
Discharge Plan Problem Reviewed?: Yes Disposition: 50 Hospice/Home DC/Xfer Condition: Poor Prescriptions: Morphine Oral Soln [Roxanol] 10 mg SL Q2HR PRN #1 bottle PRN Reason: Dyspnea Phenol [Chloraseptic] 1 sprays MM Q2H PRN #1 bottle PRN Reason: Throat Pain Prochlorperazine Supp [Compazine Supp] 25 mg TN TID PRN #12 supp PRN Reason: Nausea / Vomiting Atropine 1% Ophth Drops [Isopto Atropine 1% Ophth Drops] 1 - 4 drops SL Q2H PRN #1 bottle PRN Reason: Excessive secretions Carboxymethylcellulose 1% Opht [Refresh 1% Ophth Drops] 1 drops EACHEYE QID PRN #1 bottle PRN Reason: Dry Eye Glycopyrrolate [Robinul] 0.2 mg SUBQ Q4H PRN #1 vial PRN Reason: Excessive secretions Scopolamine Patch [Transderm-Scop] 1 patch TOP Q3D #5 patch Acetaminophen [Tylenol] 650 mg TN Q4H PRN #12 tablet PRN Reason: Pain Or Fever > 38c (100.4f) Ondansetron Odt [Zofran Odt] 4 mg TL Q8H PRN #12 tablet PRN Reason: Nausea / Vomiting Diet: Soft (Comfort feeding or swabs) Activity Restrictions: Activity as Tolerated Instruction Topics: Prochlorperazine suppositories, Acetaminophen rectal suppositories, Atropine injection, Ondansetron oral dissolving tablet, Morphine oral solution, Hospice Start, Hospice Dyspnea Care, Hospice Nears, Catheter Indwelling Urinary Dc Health Concerns: Patient admitted with worsening alertness on top of confusion and dementia. He was treated for pneumonia and is needing supplemental oxygen. Because of failure to improve, he is being transitioned to comfort care and is to be accepted by Hospice in his home. Plan of Treatment: As above. Care Goals: Comfort Care for end of life. Assessment: The is agreeable with the plan. Additional Instructions or Follow Up instructions: O2 at 2L per nasal cannula for comfort Follow-Up Care: Hospice No Smoking: If you smoke, Please STOP! Call for help. Follow-up with: Manolo Castro MD [Provider Admit Priv/Credential] -
[2020-06-16] MEDS: SODIUM CHLORIDE FLUSH 0.9% 10 ML SYRINGE IVP SCH ×2 (02:22→08:56)
[2020-06-16 07:56] VITALS: BP 126/85
--- NOTE | 2020-06-16 08:09 | DISCHARGE SUMMARY ---
Discharge Summary Admit Date: 06/08/20 Discharge Date: 06/16/20 Discharging Provider: Dr Meka Marks Primary Care Provider: Dr Pawan Mckeon Code Status: Do Not Attempt Resuscitation Condition at Discharge: Poor Discharge Disposition: 50 Hospice/Home DC/Xfer - HPI History of Present Illness: From the admission H&P of Dr. Luis Caruso: This is a 79-year-old male with a past medical history significant for dementia, chronic diastolic heart failure, atrial fibrillation on Pradaxa, hypothyroidism who presents today due to worsening shortness of breath. Most of the history is obtained from the patient's spouse as he is altered and unable to provide a meaningful history. She states he was seen in the emergency department a few days ago and diagnosed with pneumonia. He was seen on June 04 and discharged on cefdinir and doxycycline. His reports that since he has been home, he has had progressive dyspnea with exertion. She states he has not been complaining of any chest pain or dyspnea. She noticed that he appears comfortable at rest but with any exertion he becomes quite dyspneic with labored breathing. He has also had progressive weakness and so she brought him back to the emergency department today. She also believes he is more confused than usual and his speech is not as coherent as it normally is. In the emergency department, he was found to have a temperature of 37.6 C. His heart rate was in the 60s. His blood pressure is 132/94. He was saturating 80% on room air and this improved to 95% on 4 L of oxygen via nasal cannula. A chest x-ray was obtained which showed worsening bilateral atypical infiltrates. Labs are significant for white count of 8.5. His creatinine is elevated at 1.3. He has a normal lactic acid. BNP was 326. Given the above findings, medicine was consulted for admission. I did discuss goals of care with the patient's , and she feels that he would want to be a DNR and she does not want mechanical ventilation if he were to decline from a respiratory standpoint. - HOSPITAL COURSE Hospital Course: (1) Acute respiratory failure with hypoxia His O2 demands increased from 2L to 4L then 7L by oximizer. He was started on treatment for community-acquired pneumonia with iv Ceftriaxone and Zithromax then Flagyl was added for possible aspiration pneumonia. BNP was 300-400 and he got, Which helped his saturations and by the time of discharge, his O2 supplemental was at 2 L. Respiratory therapy worked hard at adjusting oxygen and working at pulmonary hygiene and used nebulizers to help him bring up phlegm. He was discharged on continued supplemental O2. (2) Pneumonia He had bilateral infiltrates on chest x-ray which became worse. He had failed outpatient treatment with oral doxycycline and cefdinir. He was COVID neg. While here he finished IV Zithromax and Ceftriaxone. There may also have been aspiration and so he was started him on Flagyl empirically. Swallowing by speech evaluation was done and he needed a pureed diet with honey-thick liquids due to aspiration. As his strength, mentation and ability to swallow worsened, he aspirated even with pured food, all meds were changed to parenteral form and he was n.p.o. Lastly when comfort care was ordered, only comfort feedings were permissible. (3) Encephalopathy acute When he came to the hospital he was more confused and obtunded on top of his baseline dementia. He did have a CT of the head on admission June 08 and that was normal. His alertness and mentation oscillated almost every other day. He was awake and smiling, then became lethargic again with increasing respi ratory effort and we put him in the ICU. After overnight stay in the ICU he was awake, alert, cheerful. Fed himself once and then again got sleepier. He then became more confused and needed to be fed, then became unable to reliably take po pills. At this point, direction was requested from the and she agreed to a palliative care consult. (4) Dementia reported that his baseline activity was sitting in a chair, walking several feet to toilet himself, he was able to feed himself, he no longer could read, he watched TV but did not understand it, and he only spoke gibberish. When the encephalopathy got worse as above, palliative care consult was done. He was seen by Cristina Browning NP. She guided the through making decisions confirming that he was failing to thrive. a The decided not to pursue a feeding tube, but to order comfort care measures. He was accepted into Hospice service, and he was discharged by BLS transfer to his home to be started with Hospice on 06/16/2020. (5) Hx Hypertension Home hypertensives had been Apresoline and Lisinopril. He also got Lasix here. His yamile blood pressure medicines were resumed on the . This resulted in hypotension. On the he was unable to take medicines p.o. so we switched everything to paraenteral. In his last 3 days here, all BP meds were stopped since he was taking no oral diet, only getting D5 NS and blood pressure was 110- 130. (6) Chronic Atrial flutter He had a history of atrial fibrillation but was in atrial flutter on EKG and his rate was controlled without any rate control medications suggesting conduction system disease. He underwent an Echo that showed systolic function lower limits of normal, EF 50 to 55%. (Other Echo finfdings were: Mild right ventricular enlargement. Right ventricular systolic function moderately impaired. Moderate to severe increase in left atrial volume index. Severe right atrial enlargement. Mild aortic stenosis with a peak/mean pressure gradient of 19 mmHg / 10 mmHg. Aortic valve area 1.31 cm. Moderate tricuspid regurgitation. Moderately abnormal right heart pressures. RVSP at rest 64 mmHg. Compared to prior Echo his pulmonary arterial systolic pressure has increased). He was initially continued on his p.o. Pradaxa. Then was on Lovenox 1 mg/kg bid, when unreliable swallowing. He was discharged home without any anticoagulant. (7) Hypothyroidism He was on Synthroid po, with his last oral dose was 06/09. He got an iv Synthroid dose and was discharged home without this, for end-of-life. (8) BPH (benign prostatic hyperplasia) He required a Farooq catheter and was discharged home for comfort with the Farooq, on Hospice service. (9) SRI on CPAP Home CPAP unit ordered to use here. (10) Acute kidney injury This improved with management of his fluid status. (11) Hypokalemia Replaced. In the final 2 days, there were no blood draws. - ALLERGIES Allergies/Adverse Reactions: Allergies Allergy/AdvReac Type Severity Reaction Status Date / Time No Known Drug Allergies Allergy Verified 06/07/20 23:34 - MEDICATIONS Home Medications: Ambulatory Orders Medication Instructions Recorded Confirmed Acetaminophen [Tylenol] 650 mg IA Q4H PRN #12 tablet 06/15/20 Atropine 1% Ophth Drops [Isopto 1 - 4 drops SL Q2H PRN #1 bottle 11/20/20 Atropine 1% Ophth Drops] Carboxymethylcellulose 1% Opht 1 drops EACHEYE QID PRN #1 bottle 06/15/20 [Refresh 1% Ophth Drops] Glycopyrrolate [Robinul] 0.2 mg SUBQ Q4H PRN #1 vial 06/15/20 Morphine Oral Soln [Roxanol] 10 mg SL Q2HR PRN #1 bottle 06/15/20 Ondansetron Odt [Zofran Odt] 4 mg TL Q8H PRN #12 tablet 06/15/20 Phenol [Chloraseptic] 1 sprays MM Q2H PRN #1 bottle 06/15/20 Prochlorperazine Supp [Compazine 25 mg IA TID PRN #12 supp 06/15/20 Supp] Scopolamine Patch [Transderm-Scop] 1 patch TOP Q3D #5 patch 06/15/20 - PHYSICAL EXAM AT DISCHARGE General Appearance: positive: No acute distress, Lethargic Eyes Bilateral: positive: Normal inspection ENT: positive: Dry mucous membranes Neck: positive: Nml inspection Respiratory: positive: No respiratory distress Cardiovascular: positive: Irregularly irregular Abdomen: positive: No distention Skin: positive: Warm, Dry, Other (Skin tenting was noted) Extremities: positive: No pedal edema Neurologic/Psychiatric: positive: Motor nml, Disoriented to person, Disoriented to place, Disoriented to time, Other (Somnolent, weak, asleep most of the time.) - LABS Result Diagrams: 06/14/20 04:35 06/13/20 04:05 - DIAGNOSTIC IMAGING Diagnostic Imaging Results: Final report reviewed - FOLLOW UP Follow Up: Hospice Care. - TIME SPENT Time Spent in Discharge (Minutes): 30
[2020-06-16] MEDS: ENOXAPARIN 60 MG/0.6 ML SYRINGE SUBQ SCH (08:55)
== END 2020-06-16 10:00 | disposition hospice, home (50) | DRG 189 ==
LOC: EDUNIT# → ED 23:21 → MS2 06-08 02:30 → ICU 06-09 09:25
PROVIDERS: ADMIT Internal Medicine; ATTEND Internal Medicine
DX: J96.01 Acute respiratory failure with hypoxia (principal); J69.0 Pneumonitis due to inhalation of food and vomit; G93.41 Metabolic encephalopathy; I48.92 Unspecified atrial flutter; N17.9 Acute kidney failure, unspecified; I50.32 Chronic diastolic (congestive) heart failure; G47.33 Obstructive sleep apnea (adult) (pediatric); I11.0 Hypertensive heart disease with heart failure; E87.6 Hypokalemia; J18.9 Pneumonia, unspecified organism; I10 Essential (primary) hypertension; I95.9 Hypotension, unspecified; I48.91 Unspecified atrial fibrillation; N40.0 Benign prostatic hyperplasia without lower urinary tract symptoms; Z51.5 Encounter for palliative care; Z66 Do not resuscitate; I08.2 Rheumatic disorders of both aortic and tricuspid valves; Z87.891 Personal history of nicotine dependence; G47.30 Sleep apnea, unspecified; Z91.81 History of falling; F03.90 Unspecified dementia, unspecified severity, without behavioral disturbance, psychotic disturbance, mood disturbance, and anxiety; E03.9 Hypothyroidism, unspecified; Z79.899 Other long term (current) drug therapy
CPT/HCPCS: 0202U; 36415; 36600; 70450; 71045; 71260; 80048; 80053; 81001; 81003; 82040; 82533; 82803; 83605; 83690; 83735; 83880; 84100; 84443; 85025; 87040; 87086; 87150; 93005; 93306; 99284; 99285

== ENCOUNTER 2020-06-16 10:15 | Outpatient (CLI) | payer MEDICARE | END 2020-06-16 10:16 | disposition home or self-care (01) | LOC: EMS 10:15 | PROVIDERS: ATTEND Surgery | DX: Z74.01 Bed confinement status (principal); F03.90 Unspecified dementia, unspecified severity, without behavioral disturbance, psychotic disturbance, mood disturbance, and anxiety | CPT/HCPCS: A0425; A0428 ==